=== PATIENT | male | born 1935 | race Caucasian/White ===

== ENCOUNTER 2020-03-21 15:39 | Inpatient (IN) | payer BC, OTHER ==
--- NOTE | 2020-03-21 15:56 | PDOC ---
Rapid Medical Evaluation Medical Evaluation: Allergies Allergy/AdvReac Type Severity Reaction Status Date / Time No Known Drug Allergies Allergy Verified 09/07/12 12:31 03/21/20 15:50 The patient is a 84 y/o M with PMH of lymphoma, HTN presents to the ER for low back pain/abdominal pain since February. He was seen by Dr. Merritt who did an MRI in the office and showed degenerative disc disease; however, the patient is reporting increased pain, abdominal pain and tremors. Exam:TTP of the Left lower back, gait not observed, fine tremor noticed in the hands b/l. Orders: labs, urine, IV Pt to proceed to the ER for further evaluation Discharge Disposition - Diagnosis Low back pain - Referrals - Patient Instructions - Post Discharge Activity
[2020-03-21 16:31] LABS: BASO % 0.5 % (0-2.0); EOS % 0.1 % (0-4.5); HEMATOCRIT 23.8 % (35.4-49); HEMOGLOBIN 7.5 GM/dL (11.7-16.9); MCH 30.8 pg (25.7-33.7); MCHC 31.5 g/dl (32.0-35.9); MEAN CELL VOLUME 97.8 fl (80-96); MEAN PLT VOLUME 9.2 fl (7.5-11.1); NEUT % 70.4 % (42.8-82.8); PLATELET COUNT 179 K/MM3 (134-434); RBC 2.43 M/mm3 (4.00-5.60); RDW 19.5 % (11.9-15.9); WHITE BLOOD COUNT 6.7 K/mm3 (4.0-10.0)
--- NOTE | 2020-03-21 16:39 | PDOC ---
History of Present Illness - General Chief Complaint: Shortness of Breath Stated Complaint: BACK PAIN Time Seen by Provider: 03/21/20 15:57 History Source: Patient Exam Limitations: No Limitations - History of Present Illness Initial Comments: 03/21/20 16:38 84yM w PMHx lymphoma, HTN, HLD, obesity presenting w 2mo progressive worsening L lumbar paraspinal back pain radiating down L flank to L groin, increased urinary frequency (every 2hrs), and 2wk tari hand tremors. Was seen by Dr. Merritt who did an MRI in the office and showed degenerative disc disease. Pain progressivel y worsening despite meloxicam, tramadol, ibuprofen, tylenol. 2wk ago received epidural from Dr Robert hartley subsequent worsened pain and new onset of tari hand tremors. Denies fever, cough, n/v, chest pain, dysuria, bowel mvmt changes. Past History - Medical History Allergies/Adverse Reactions: Allergies Allergy/AdvReac Type Severity Reaction Status Date / Time No Known Drug Allergies Allergy Verified 03/21/20 16:08 Home Medications: Ambulatory Orders Aspirin [ASA -] 81 mg PO DAILY 09/07/12 Terazosin HCl [Hytrin -] 5 mg PO HS 09/07/12 Verapamil HCl ER [Calan Sr -] 240 mg PO DAILY 09/07/12 Cholecalciferol (Vitamin D3) [Vitamin D3] 500 unit PO DAILY 09/08/12 Simvastatin [Zocor -] 5 mg PO HS 09/08/12 Metoprolol Tartrate [Lopressor -] 25 mg PO HS 06/21/14 Cyclobenzaprine HCl [Flexeril -] 10 mg PO TID #15 tablet 02/16/20 Ibuprofen 400 mg PO TID #15 tablet 02/16/20 Ibuprofen [Motrin -] 600 mg PO DAILY 03/21/20 Meloxicam [Mobic] 15 mg PO DAILY 03/21/20 Tramadol HCl [Ultram] 50 mg PO DAILY 03/21/20 Anemia: Yes Asthma: No Cancer: Yes (PROSTATE S/P SEED IMPLANT 2001) Cardiac Disorders: No CVA: No COPD: No CHF: No Dementia: No Diabetes: No GI Disorders: No Disorders: No HTN: Yes Hypercholesterolemia: No Liver Disease: No Seizures: No Thyroid Disease: No - Surgical History Abdominal Surgery: No Appendectomy: No Cardiac Surgery: No Cholecystectomy: Yes Lung Surgery: No Neurologic Surgery: No Orthopedic Surgery: No - Psycho-Social/Smoking History Smoking History: Never smoked Have you smoked in the past 12 months: No If you are a former smoker, when did you quit?: 1949 - Substance Abuse Hx (Audit-C & DAST Scrn) How often the patient has a drink containing alcohol: Never Score: In Men: 4 or > Positive; In Women: 3 or > Positive: 0 Screen Result (Pos requires Nsg. Audit-10AR): Negative In the last yr the pt used illegal drug/Rx for NonMed reason: No Score: Yes response is considered Positive: 0 Screen Result (Positive result requires Nsg. DAST-10): Negative Review of Systems - Review of Systems Constitutional: No: Chills, Fever HEENTM: No: Eye Pain, Nose Congestion Respiratory: No: Cough, Shortness of Breath Cardiac (ROS): No: Chest Pain, Palpitations, Syncope ABD/GI: No: Abdominal Distended, Constipated, Diarrhea, Nausea, Vomiting : Yes: Flank Pain. No: Burning, Dysuria Musculoskeletal: Yes: Back Pain. No: Joint Pain Integumentary: No: Bruising, Flushing Neurological: No: Headache, Seizure Psychiatric: No: Anxiety, Depression Endocrine: No: Intolerance to Cold, Intolerance to Heat *Physical Exam - Vital Signs Last Vital Signs Temp Pulse Resp BP Pulse Ox 98.1 F 70 18 95/49 L 100 03/21/20 15:57 03/21/20 15:57 03/21/20 15:57 03/21/20 15:57 03/21/20 15:57 - Physical Exam General Appearance: Yes: Nourished, Appropriately Dressed, Moderate Distress HEENT: positive: EOMI, QUE, Normal Voice. negative: Scleral Icterus (R), Scleral Icterus (L) Neck: positive: Supple. negative: Tender, Rigid, Decreased range of motion (full ROM) Respiratory/Chest: positive: Lungs Clear, Normal Breath Sounds. negative: Chest Tender, Respiratory Distress, Crackles, Rales, Rhonchi, Stridor, Wheezing Cardiovascular: positive: Regular Rhythm, Regular Rate, S1, S2. negative: Ed todd, Murmur Gastrointestinal/Abdominal: positive: Normal Bowel Sounds, Tender (L flank, L groin), Soft, Hernia (umbilical). negative: Organomegaly Musculoskeletal: negative: CVA Tenderness (R), CVA Tenderness (L) Integumentary: positive: Normal Color, Warm Neurologic: positive: Fully Oriented, Alert, Normal Response, Motor Strength 5/5 (5/5 strenth, full ROM, intact sensation to touch BLE). negative: Sensory Deficit, Confused, Disoriented ED Treatment Course - LABORATORY CBC & Chemistry Diagram: 03/21/20 16:10 03/21/20 16:10 Medical Decision Making - Medical Decision Making 03/21/20 17:04 CT A/P - L irregular pelvic mesenteric soft tissue lesion [id number] suggestive of neoplasm, shrinking L renal cyst (14 to 10cm), 1.1cm L periaortic retroperitoneal lymph node, 1.4cm splenic focus EKG - NSR, HR 73, QTc 407, no ST changes CXR - clear lung palma, normal cardiac size --- 84yM w PMHx lymphoma, HTN, HLD, obesity presenting w 2mo progressive worsening L lumbar paraspinal back pain radiating down L flank to L groin, increased urinary frequency, 2wk tari hand tremors, labored breathing. 1. CT findings suspicious of neoplasm, L renal cyst, no kidney stone. 2. CHEMA 3. Anemia Hgb 7.5. GI bleed vs lymphoma. No active bleeding 4. hypotension 99/43. increased to 110/47 after fluids Low concern for UTI (neg) vs cauda equina (retained bowel/bladder fxn) vs disc herniation (neg straight leg raise) vs PNA (clear lungs). Given tylenol, lido patch, 2L NS Admit tele for neoplasm, CHEMA, intractable pain, anemia, hypotension Discharge - Discharge Information Problems reviewed: Yes Clinical Impression/Diagnosis: Neoplasm, CHEMA (acute kidney injury) Low back pain Qualifiers: Chronicity: acute Back pain laterality: left Sciatica presence: without sciatica Qualified Code(s): M54.5 - Low back pain Hypotension Qualifiers: Hypotension type: unspecified hypotension type Qualified Code(s): I95.9 - Hypotension, unspecified Condition: Stable - Follow up/Referral Referrals: Bar De La Rosa MD [Primary Care Provider] - - Patient Discharge Instructions - Post Discharge Activity
[2020-03-21 16:54] LABS: INR 1.13 (0.83-1.09); PROTHROMBIN TIME (PATIENT) 13.4 SEC (9.7-13.0)
--- NOTE | 2020-03-21 16:54 | PDOC ---
Attending Attestation - Resident Resident Name: Chris Grace - ED Attending Attestation I have performed the following: I have examined & evaluated the patient, The case was reviewed & discussed with the resident, I agree w/resident's findings & plan, Exceptions are as noted - HPI HPI: 03/21/20 18:27 84y M hx of nonhodgkins lymphoma, htn, hl, presents with L sided flank pain x 1 month but worsening over the past 2-3 days that is pressure like, radiates the L abdomen and groin that fluctates intermittently but no alleviating or exacerbating factors. Denies any fever/chills, vomiting, dysuria, urinary or bowel incontinence, diarrhea, cp, sob. does endorse some subjective nausea. Pt was referred to dr jamison,and was ordered a MRI 2 weeksa go.Pt with persietnt pain without any improvement with oral pain medications. - Physicial Exam PE: 03/21/20 18:30 abd exam: +l flank tenderness, +tender L sided abdominal mass, no rebound/guarding no rashes pulm exm clear to asculatation card: rrr, no mrg general no acute distress ext: no edema - Medical Decision Making 03/21/20 19:17 ct noted for large L sided abd mass suspecious for neoplasm. will admit for further mnagement and pain control Discharge - Discharge Information Problems reviewed: Yes Clinical Impression/Diagnosis: Neoplasm, CHEMA (acute kidney injury) Low back pain Qualifiers: Chronicity: acute Back pain laterality: left Sciatica presence: without sciatica Qualified Code(s): M54.5 - Low back pain Hypotension Qualifiers: Hypotension type: unspecified hypotension type Qualified Code(s): I95.9 - Hypotension, unspecified Condition: Stable - Follow up/Referral - Patient Discharge Instructions - Post Discharge Activity
[2020-03-21 17:02] LABS: ALBUMIN 2.7 g/dl (3.4-5.0); BILIRUBIN,TOTAL 0.6 mg/dL (0.2-1); BLOOD UREA NITROGEN 70.9 mg/dL (7-18); CALCIUM 8.9 mg/dL (8.5-10.1); POTASSIUM 5.3 mmol/L (3.5-5.1); TOT PROT 6.9 g/dl (6.4-8.2)
[2020-03-21] MEDS ORDERED: morphine CARPU-JECT 4 MG/1 ML DISP.SYRIN IVPUSH ONE (17:03)
[2020-03-21] MEDS ORDERED: SODIUM CHLORIDE 0.9% 500 ML INFUS.BAG IV ONE ×2 (17:09→19:52)
[2020-03-21] MEDS ORDERED: ACETAMINOPHEN 1000 MG/100 ML VIAL (NON FORMULARY) IVPB ONE (17:10)
[2020-03-21 18:03] LABS: ANISOCYTOSIS 1+; MACROCYTOSIS 1+
[2020-03-21 18:07] LABS: URINE APPEARANCE CLEAR; URINE BILIRUBIN NEGATIVE (NEGATIVE); URINE COLOR YELLOW; URINE GLUCOSE (UA) NEGATIVE (NEGATIVE); URINE KETONE NEGATIVE (NEGATIVE); URINE LEUK ESTERASE NEGATIVE (NEGATIVE); URINE NITRITE NEGATIVE (NEGATIVE); URINE PROTEIN NEGATIVE (NEGATIVE)
[2020-03-21] MEDS ORDERED: LIDOCAINE 5% TOPICAL PATCH TP ONE (18:51)
[2020-03-21] MEDS ORDERED: LIDOCAINE 5% TOPICAL PATCH ONE (19:08)
--- NOTE | 2020-03-21 21:39 | PN ---
Teaching Attending Note Name of Resident: Radhika Brock ATTENDING PHYSICIAN STATEMENT I saw and evaluated the patient. I reviewed the resident's note and discussed the case with the resident. I agree with the resident's findings and plan as documented. SUBJECTIVE: 84 years M with HX of Non Hodgkin's lymphoma, Prostate cancer HTN, HLD pres ented with left lumbar pain with radiation to left sided back pain along with CVA and groin which radiates to left lower abdomen. He states that he as left sided back pain for 2 months but yesterday gotten worse. NO chest pain, shortness of breath, nausea, vomiting, fever No bowel or bladder incontinence, NO LE weakness He was found to have hypotension 99/43. increased to 110/47 after fluids OBJECTIVE: Last Vital Signs Temp Pulse Resp BP Pulse Ox 98.5 F 83 19 119/56 L 99 03/21/20 18:32 03/21/20 22:38 03/21/20 22:38 03/21/20 22:38 03/21/20 22:38 general : Obese , in mild distress due to left sided back pain Head : NC, AT Neck : supple EYES; QUE, EOMI dry oral mucosa CVS: RRR, s1, s2+, no JVD, no murmur Resp : b /l clear , no added sounds Abd : soft, left sided lumbar para spinal tenderness, L CVA tenderness left lower qadrant mass palpated - TTP on palpation Neuro : A&o x3, no focal deficit EXT : No edema Skin : no rash, warm and dry labs, imaging studies, EKG reviewed ASSESSMENT AND PLAN: Left para spinal back pain likely muscular strain Left abd mass on CT scan -suspicious of neoplasm with hx of Non hodgkins ly mphoma CHEMA on CKD- likley dehydration LActic acidosis possible from hypotensive episode hypotension ? Medication induced and poor oral intake Normocytic anemia - likely anemia of chronic disease mils hyperkalemia Admit to floor IV hydration Oncology eval Analgesia UA, urine lytes repeat BMP in AM hold antihypertensives Physical therapy obtain MRI L spine report which was done recently HLD- resume home meds DVt ppx
--- NOTE | 2020-03-21 21:58 | HP ---
CHIEF COMPLAINT: left back pain PCP: Estrella HISTORY OF PRESENT ILLNESS: Pt is an 84 y/o male with HTN, HLD, non-Hodgkin's lymphoma (5-10 years ago currently in remission), prostate cancer (brachytherapy 13 years ago in remission), who presents with left lumbar pain. Pt moved a piece of furniture in September and thinks this may have been the original cause of the pain. He was previously active and walked regularly. In the last 2 months the pain has increased. It is left parapinal radiating into the groin which is 10/10. He has tried muscle relaxers, NSAIDs, and Tylenol with essentially no improvement. An MRI was done out patient which showed DDD. He has since received [address] Jones, the second of which he says has made the pain worse. He denies any difficulty ambulating. No numbness, tingling, or foot drop. Pt is also having left flank and abdominal pain that began around 2 weeks ago. He has intermittent nausea and dry heaving that he associates with pain. He denies fever and chills. Pt reports whole body shaking post-voiding in the last 2 weeks and has felt like passing out but has not. He reports no loss of appetite or decreased PO intake. Pt has seen Dr. Nina in the past for oncology. ER course was notable for: (1) 1500mL IV fluids, Ofirmev, morphine (2) Hb 7.5 (3) K 5.3, BUN 70.9, Cr 2.0, LA 2.3 (4) CT- irregular nonspecific 10x9x8 cm left pelvic mesenteric soft tissue lesion suggestive of neoplastic disease, possibly lymphadenopathy; 1.1 cm left periaortic retroperitoneal lymph node at the level of the kidneys (5) EKG- HR 73, NSR,normal axis, normal intervals, no acute ST changes, QTc 407 PAST MEDICAL HISTORY: HTN, HLD, non-Hodgkin's lymphoma (5-10 years ago currently in remission), prostate cancer (beads 13 years ago in remission) PAST SURGICAL HISTORY: cholecystectomy prostatic brachytherapy Social History: Smoking: denies Alcohol: denies Drugs: denies Lives at home with who is currently on 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 Allergies No Known Drug Allergies Allergy (Verified 03/21/20 16:08) HOME MEDICATIONS: Home Medications Medication Instructions Recorded Aspirin [ASA -] 81 mg PO DAILY 09/07/12 Terazosin HCl [Hytrin -] 5 mg PO HS 09/07/12 Verapamil HCl ER [Calan Sr -] 240 mg PO DAILY 09/07/12 Cholecalciferol (Vitamin D3) 500 unit PO DAILY 09/08/12 [Vitamin D3] Simvastatin [Zocor -] 5 mg PO HS 09/08/12 Atenolol [Tenormin -] 25 mg PO DAILY 03/22/20 REVIEW OF SYSTEMS see HPI PHYSICAL EXAMINATION Vital Signs - 24 hr 03/21/20 03/21/20 03/21/20 15:57 18:32 20:03 Temperature 98.1 F 98.5 F Pulse Rate 70 Pulse Rate [ 79 Apical] Respiratory 18 19 Rate Blood Pressure 95/49 L Blood Pressure 99/43 L 110/47 L [Right Arm] O2 Sat by Pulse 100 100 Oximetry (%) GENERAL: Awake, alert, and fully oriented, in mild distress. HEAD: Normal with no signs of trauma. EYES: Pupils equal, round and reactive to light, extraocular movements intact, conjunctiva clear. EARS, NOSE, THROAT: Ears normal, nares patent, moist mucous membranes. NECK: Normal range of motion. LUNGS: Clear to auscultation bilaterally. No wheezes, and no crackles. HEART: Regular rate and rhythm, normal S1 and S2 without murmur. ABDOMEN: Soft, not distended, normoactive bowel sounds, left flank and abdominal pain with palpation, especially LLQ MUSCULOSKELETAL: Paraspinal and lateral lumbar tenderness to palpation with hypertonicity at approximately L1-L3 region. UPPER EXTREMITIES: Warm, well-perfused. No peripheral edema. LOWER EXTREMITIES: Warm, well-perfused. No peripheral edema. Strength grossly intact. NEUROLOGICAL: Cranial nerves II-XII intact. Normal speech. Gait not observed. PSYCHIATRIC: Cooperative. Good eye contact. Appropriate mood and affect. SKIN: Warm, dry, normal turgor. Laboratory Results - last 24 hr 03/21/20 03/21/20 03/21/20 16:10 16:10 16:10 WBC 6.7 RBC 2.43 L Hgb 7.5 L Hct 23.8 L D MCV 97.8 H MCH 30.8 MCHC 31.5 L RDW 19.5 H Plt Count 179 D MPV 9.2 D Absolute Neuts (auto) 4.7 Total Counted 100 Neutrophils % 70.4 Neutrophils % (Manual) 70.0 Lymphocytes % 11.0 Lymphocytes % (Manual) 15.0 Monocytes % 18.0 H Monocytes % (Manual) 15 H Eosinophils % 0.1 Basophils % 0.5 Nucleated RBC % 0 Anisocytosis 1+ Microcytosis 1+ Macrocytosis 1+ PT with INR 13.40 H INR 1.13 H Sodium 138 Potassium 5.3 H Chloride 109 H Carbon Dioxide 19 L Anion Gap 10 BUN 70.9 H Creatinine 2.0 H Est GFR (CKD-EPI)AfAm 34.50 Est GFR (CKD-EPI)NonAf 29.76 Random Glucose 97 Lactic Acid Calcium 8.9 Total Bilirubin 0.6 AST 15 ALT 21 Alkaline Phosphatase 62 Creatine Kinase 27 Troponin I 0.03 Total Protein 6.9 Albumin 2.7 L Lipase 214 Urine Color Urine Appearance Urine pH Ur Specific [place] Urine Protein Urine Glucose (UA) Urine Ketones Urine Blood Urine Nitrite Urine Bilirubin Urine Urobilinogen Ur Leukocyte Esterase 03/21/20 03/21/20 03/21/20 16:10 17:20 20:45 WBC RBC Hgb Hct MCV MCH MCHC RDW Plt Count MPV Absolute Neuts (auto) Total Counted Neutrophils % Neutrophils % (Manual) Lymphocytes % Lymphocytes % (Manual) Monocytes % Monocytes % (Manual) Eosinophils % Basophils % Nucleated RBC % Anisocytosis Microcytosis Macrocytosis PT with INR INR Sodium Potassium Chloride Carbon Dioxide Anion Gap BUN Creatinine Est GFR (CKD-EPI)AfAm Est GFR (CKD-EPI)NonAf Random Glucose Lactic Acid 2.3 H* 1.2 Calcium Total Bilirubin AST ALT Alkaline Phosphatase Creatine Kinase Troponin I Total Protein Albumin Lipase Urine Color Yellow Urine Appearance Clear Urine pH 5.0 Ur Specific [place] 1.025 Urine Protein Negative Urine Glucose (UA) Negative Urine Ketones Negative Urine Blood Negative Urine Nitrite Negative Urine Bilirubin Negative Urine Urobilinogen 1.0 Ur Leukocyte Esterase Negative ASSESSMENT/PLAN: Pt is an 84 y/o male with HTN, HLD, non-Hodgkin's lymphoma (5-10 years ago c urrently in remission), prostate cancer (beads 13 years ago in remission), who presents with left lumbar pain since September and has gotten acutely worse over the last 2 months. He also reports left side and abdominal pain. #abdominal pain 2/2 possible neoplasm -CT- irregular nonspecific 10x9x8 cm left pelvic mesenteric soft tissue lesion suggestive of neoplastic disease, possibly lymphadenopathy; 1.1 cm left periaortic retroperitoneal lymph node at the level of the kidneys -morphine 2mg Q4H PRN -oncology consult #chronic left lumbar strain from previous accident -morphine 2mg Q4H PRN -pt did not tolerate muscle relaxers previously per pt, would not describe exactly what happened -PT -obtain MRI records from out pt #CHEMA vs CHEMA on CKD -Cr 2.0 -NS 83mL/hr -if Cr still elevated, consider nephrology consult #hyperkalemia, mild -5.3 -recheck labs after IV hydration -no cardiac arrhythmia on EKG, will hold giving Lokelma #hypotension 2/2 low fluid volume vs medication-induced -improved with IV fluids -hold BP meds for now #HTN -hold meds for hypotension #HLD -on simvastatin at home, give what is in formulary -ASA 81mg daily DVT Ppx heparin 5,000 TID FEN NS 83mL/hr monitor Cr, K sodium-controlled diet dispo med/surg FULL CODE Visit type - Emergency Visit Emergency Visit: Yes ED Registration Date: 03/21/20 Care time: The patient presented to the Emergency Department on the above date and was hospitalized for further evaluation of their emergent condition. - New Patient This patient is new to me today: Yes Date on this admission: 03/22/20 - Critical Care Critical Care patient: No ATTENDING PHYSICIAN STATEMENT I saw and evaluated the patient. I reviewed the resident's note and discussed the case with the resident. I agree with the resident's findings and plan as documented. SUBJECTIVE: OBJECTIVE: ASSESSMENT AND PLAN:
[2020-03-21] MEDS: LIDOCAINE PATCH REMOVAL MC SCH (22:10)
[2020-03-21] MEDS: SODIUM CHLORIDE 1,000 ML IV SCH (22:55)
[2020-03-21] MEDS ORDERED: MORPHINE SULFATE 2 MG/ML VIAL ONE (23:50)
[2020-03-21] MEDS ORDERED: morphine CARPU-JECT 2 MG/1 ML DISP.SYRIN SQ ONE (23:56)
[2020-03-22] MEDS ORDERED: TERAZOSIN HCL 5 MG CAPSULE PO SCH (00:32)
[2020-03-22] MEDS: HEPARIN NA (PORCINE) 5,000 UNITS/ML 1ML VIAL SQ SCH ×2 (06:41→14:48)
[2020-03-22] MEDS ORDERED: PT OWN MED DRAWER 7, Y5N ONE (09:26)
[2020-03-22] MEDS: CHOLECALCIFEROL (VIT D3) 1,000 UNIT (25 MCG) TABLET PO SCH (09:58)
[2020-03-22] MEDS: ACETAMINOPHEN 500 MG TABLET (FP) PO PRN ×2 (09:59→20:19)
[2020-03-22] MEDS: ASPIRIN 81 MG CHEWABLE TABLETS PO SCH (09:59)
[2020-03-22] MEDS ORDERED: CHOLECALCIFEROL PO SCH (10:00)
[2020-03-22] MEDS ORDERED: VERAPAMIL HCL 240 MG E.R. TABLET PO SCH (10:00)
--- NOTE | 2020-03-22 10:25 | CON.HO ---
Consult Consult Specialty:: Oncology Reason for Consultation:: L sided flank pain x 1 month but worsening over the past 2-3 days that is pressure like, radiates the L abdomen and groin that fluctates intermittently but no alleviating or exacerbating factors. C/o SOB. Pt was referred to dr jamison,and was ordered a MRI 2 weeksa go. Pt with persisten pain without improvement with oral pain medications. ER CT of abdomen showed a new compared with 06/14/13, 10 x 9.8 x 8 cam left pelvic mesenteric mass/ lympadenopathy and an unchanged 1.4cm splenic lesion unchanfged from 06/14/13. Portabel upright chest xray negative. - History of Present Illness Chief Complaint: Came in for back pain - History Source History Provided By: Patient, Medical Record Limitations to Obtaining History: Other - Alcohol/Substance Use Hx Alcohol Use: Yes (SOCIAL) - Smoking History Smoking history: Former smoker Have you smoked in the past 12 months: No If you are a former smoker, when did you quit?: 1950 Home Medications - Allergies Allergies/Adverse Reactions: Allergies Allergy/AdvReac Type Severity Reaction Status Date / Time No Known Drug Allergies Allergy Verified 03/21/20 16:08 - Home Medications Home Medications: Ambulatory Orders Aspirin [ASA -] 81 mg PO DAILY 09/07/12 Terazosin HCl [Hytrin -] 5 mg PO HS 09/07/12 Verapamil HCl ER [Calan Sr -] 240 mg PO DAILY 09/07/12 Cholecalciferol (Vitamin D3) [Vitamin D3] 500 unit PO DAILY 09/08/12 Simvastatin [Zocor -] 5 mg PO HS 09/08/12 Atenolol [Tenormin -] 25 mg PO DAILY 03/22/20 Review of Systems - Review of Systems Constitutional: reports: Loss of Appetite, Weakness Physical Exam Vital Signs: Vital Signs Temperature 98.8 F 03/22/20 08:37 Pulse Rate 100 H 03/22/20 08:37 Respiratory Rate 16 03/22/20 08:37 Blood Pressure 100/48 L 03/22/20 08:37 O2 Sat by Pulse Oximetry (%) 100 03/22/20 03:00 Labs: CBC, BMP 03/21/20 16:10 03/21/20 16:10 Imaging - Results Chest X-ray: Report Reviewed Cat Scan: Report Reviewed Assessment/Plan 1. Meswenteric mass - Very suspicious for recurrence of lymphoma. I saw Mr. Jordan in the hallway on the way to ECHO and did not discuss this possibility with him. I will return to do so. Prostate cancer also possible. Recommend doing CT of chest and then consider biopsy. If the CT of chest does not identify an easier accessible area, may need IR. WIll discuss with Dr. Nina who had seen the patient in the past. LFT's not elevated. 2. Anemia - Hb 7.5.
--- NOTE | 2020-03-22 10:32 | PN ---
Physical Exam: SUBJECTIVE: Patient seen and examined at bedside. Endorses left side flank pain. No acute events. OBJECTIVE: Vital Signs Period Temp Pulse Resp BP Sys/Tillman Pulse Ox Last 24 Hr 97.5 F-98.8 F 70-100 16-20 95-119/43-56 99-100 GENERAL: NAD. Pleasant HEAD: Normal with no signs of trauma. EYES: EOMI Sclera Clear ENT: MMM NECK: Lipoma left side lower neck LUNGS: Clear Bilaterally HEART: 2/6 PEGGY, RRR ABDOMEN: Umbillical Hernia, Nondistended and Nontender EXTREMITIES: No CCE PSYCH: Normal mood, normal affect. SKIN: Warm, dry, normal turgor, no rashes or lesions noted Laboratory Results - last 24 hr 03/21/20 03/21/20 03/21/20 16:10 16:10 16:10 WBC 6.7 RBC 2.43 L Hgb 7.5 L Hct 23.8 L D MCV 97.8 H MCH 30.8 MCHC 31.5 L RDW 19.5 H Plt Count 179 D MPV 9.2 D Absolute Neuts (auto) 4.7 Total Counted 100 Neutrophils % 70.4 Neutrophils % (Manual) 70.0 Lymphocytes % 11.0 Lymphocytes % (Manual) 15.0 Monocytes % 18.0 H Monocytes % (Manual) 15 H Eosinophils % 0.1 Basophils % 0.5 Nucleated RBC % 0 Anisocytosis 1+ Microcytosis 1+ Macrocytosis 1+ PT with INR 13.40 H INR 1.13 H Sodium 138 Potassium 5.3 H Chloride 109 H Carbon Dioxide 19 L Anion Gap 10 BUN 70.9 H Creatinine 2.0 H Est GFR (CKD-EPI)AfAm 34.50 Est GFR (CKD-EPI)NonAf 29.76 Random Glucose 97 Lactic Acid Calcium 8.9 Total Bilirubin 0.6 AST 15 ALT 21 Alkaline Phosphatase 62 Creatine Kinase 27 Troponin I 0.03 Total Protein 6.9 Albumin 2.7 L Lipase 214 Urine Color Urine Appearance Urine pH Ur Specific [place] Urine Protein Urine Glucose (UA) Urine Ketones Urine Blood Urine Nitrite Urine Bilirubin Urine Urobilinogen Ur Leukocyte Esterase 03/21/20 03/21/20 03/21/20 16:10 17:20 20:45 WBC RBC Hgb Hct MCV MCH MCHC RDW Plt Count MPV Absolute Neuts (auto) Total Counted Neutrophils % Neutrophils % (Manual) Lymphocytes % Lymphocytes % (Manual) Monocytes % Monocytes % (Manual) Eosinophils % Basophils % Nucleated RBC % Anisocytosis Microcytosis Macrocytosis PT with INR INR Sodium Potassium Chloride Carbon Dioxide Anion Gap BUN Creatinine Est GFR (CKD-EPI)AfAm Est GFR (CKD-EPI)NonAf Random Glucose Lactic Acid 2.3 H* 1.2 Calcium Total Bilirubin AST ALT Alkaline Phosphatase Creatine Kinase Troponin I Total Protein Albumin Lipase Urine Color Yellow Urine Appearance Clear Urine pH 5.0 Ur Specific [place] 1.025 Urine Protein Negative Urine Glucose (UA) Negative Urine Ketones Negative Urine Blood Negative Urine Nitrite Negative Urine Bilirubin Negative Urine Urobilinogen 1.0 Ur Leukocyte Esterase Negative Active Medications Generic Name Dose Route Start Last Admin Trade Name Freq PRN Reason Stop Dose Admin Acetaminophen 1,000 mg 03/22/20 09:31 03/22/20 09:59 Tylenol - PO 1,000 mg Q6H PRN Administration PAIN LEVEL 1-5 Aspirin 81 mg 03/22/20 10:00 03/22/20 09:59 Asa - PO 81 mg DAILY [facility] Administration Atenolol 25 mg 03/22/20 10:00 Tenormin - PO DAILY [facility] Atorvastatin Calcium 5 mg 03/22/20 22:00 Lipitor - PO HS [facility] Cholecalciferol 500 unit 03/22/20 10:00 03/22/20 09:58 Vitamin D3 - PO 500 unit DAILY [facility] Administration Heparin Sodium (Porcine) 5,000 unit 03/22/20 06:00 03/22/20 06:41 Heparin - SQ Not Given TID [facility] Sodium Chloride 1,000 mls @ 83 mls/hr 03/21/20 22:00 03/21/20 22:55 Normal Saline - IV 83 mls/hr ASDIR [facility] Administration Miscellaneous 1 each 03/21/20 22:00 03/21/20 22:10 Lidoderm Patch Removal MC Not Given DAILY@2200 [facility] Morphine Sulfate 2 mg 03/21/20 21:47 Morphine Sulfate IVPUSH Q4H PRN PAIN LEVEL 6-10 Terazosin HCl 5 mg 03/22/20 22:00 Hytrin - PO HS [facility] Verapamil HCl 240 mg 03/22/20 10:00 Calan Sr - PO DAILY [facility] ASSESSMENT/PLAN: Pt is an 84 y/o male with HTN, HLD, non-Hodgkin's lymphoma (5-10 years ago currently in remission), prostate cancer (beads 13 years ago in remission), who presents with left lumbar pain since September and has gotten acutely worse over the last 2 months. He also reports left side and abdominal pain. #abdominal pain 2/2 possible neoplasm (Previous h/o Prostate and Non-Hodgkin's Lymphoma) -CT- irregular nonspecific 10x9x8 cm left pelvic mesenteric soft tissue lesion suggestive of neoplastic disease, possibly lymphadenopathy; 1.1 cm left periaortic retroperitoneal lymph node at the level of the kidneys -morphine 2mg Q4H PRN/Acetaminophen [id number] PRN -oncology consult Dr Blackburn on board------> Very suspicious for recurrence for lymphoma. Recommend doing CT of chest and then consider biopsy. If the CT of chest does not identify an easier accessible area, may need IR. #chronic left lumbar strain from previous accident -morphine 2mg Q4H PRN -PT -obtain MRI records from out pt #CHEMA vs CHEMA on CKD -Cr 2.0 on admission. Repeat 1.5 with fluids. Continue -NS 83mL/hr -Renal on board. Appreciate recs. #HTN -hold meds for hypotension #HLD -on simvastatin at home, give what is in formulary -ASA 81mg daily DVT Ppx Will hold as Hemoglobin is now 6.9. FEN NS 83mL/hr monitor Cr, K sodium-controlled diet dispo med/surg FULL CODE Visit type - Emergency Visit Emergency Visit: Yes ED Registration Date: 03/21/20 Care time: The patient presented to the Emergency Department on the above date and was hospitalized for further evaluation of their emergent condition. - New Patient This patient is new to me today: No - Critical Care Critical Care patient: No - Discharge Referral Referred to [facility] No ATTENDING PHYSICIAN STATEMENT I saw and evaluated the patient. I reviewed the resident's note and discussed the case with the resident. I agree with the resident's findings and plan as documented. SUBJECTIVE: OBJECTIVE: ASSESSMENT AND PLAN:
--- NOTE | 2020-03-22 12:27 | ECHO ---
Name: SONDRA MERAZ Exam:Adult Echocardiogram Study Date: 03/22/2020 10:44 AM Age: 84 yrs Reason For Study: aortic stenosis calcification MMode/2D Measurements & Calculations IVSd: 1.3 cm Ao root diam: 2.7 cm LVIDd: 4.5 cm LA dimension: 4.7 cm LVIDs: 3.2 cm LVPWd: 1.3 cm LVPWs: 1.9 cm EDV(Teich): 94.7 ml ESV(Teich): 40.5 ml LVOT diam: 2.0 cm LAV (MOD-bp): 75.0 ml RV S Shine: 13.3 cm/sec Doppler Measurements & Calculations MV E max shine: 58.2 cm/sec Ao V2 max: 352.7 cm/sec MV A max shine: 97.2 cm/sec Ao max P.4 mmHg MV E/A: 0.60 Ao V2 mean: 275.5 cm/sec MV dec time: 0.17 sec Ao mean P.9 mmHg Ao V2 VTI: 77.9 cm MONIE(I,D): 0.90 cm2 MONIE(V,D): 1.2 cm2 LV V1 max P.7 mmHg SV(LVOT): 69.9 ml LV V1 mean P.0 mmHg LV V1 max: 138.5 cm/sec LV V1 mean: 95.7 cm/sec LV V1 VTI: 22.6 cm PA V2 max: 162.9 cm/sec Med Peak E' Shine: 4.9 cm/sec PA max P.6 mmHg Med E/e': 11.8 Lat Peak E' Shine: 6.7 cm/sec Lat E/e': 8.7 Procedure A complete two-dimensional transthoracic echocardiogram was performed (2D, M-mode, Doppler and color flow Doppler). Left Ventricle There is mild concentric left ventricular hypertrophy. The left ventricular ejection fraction is norm al. Ejection Fraction = 55%. Grade I diastolic dysfunction, (abnormal relaxation pattern). Right Ventricle The right ventricle is normal in size and function. Atria The left atrium is moderately dilated. Right atrial size is normal. Mitral Valve There is moderate mitral annular calcification. There is no mitral valve stenosis. There is no mitral regurgitation noted. Tricuspid Valve The tricuspid valve is normal in structure and function. There was insufficient TR detected to calcul ate RV systolic pressure. Aortic Valve There is severe aortic sclerosis.;. Severe valvular aortic stenosis. The calculated aortic valve area using the continuity equation is 0.9 cm2. Aortic mean pressure gradient= 36mmHg. Pulmonic Valve The pulmonic valve is not well visualized. Great Vessels The aortic root is normal size. Pericardium/Pleura There is no pericardial effusion. Interpretation Summary There is mild concentric left ventricular hypertrophy. The left ventricular ejection fraction is normal. The right ventricle is normal in size and function. Severe valvular aortic stenosis. Jorge Syed 03/22/2020 12:26 PM
[2020-03-22 12:31] LABS: BASO % 0.2 % (0-2.0); EOS % 0.2 % (0-4.5); HEMATOCRIT 21.7 % (35.4-49); LYMPH % 10.8 % (8-40); MCH 30.1 pg (25.7-33.7); MCHC 31.7 g/dl (32.0-35.9); MEAN PLT VOLUME 8.9 fl (7.5-11.1); MONO % 19.6 % (3.8-10.2); NEUT % 69.2 % (42.8-82.8); PLATELET COUNT 172 K/MM3 (134-434); RBC 2.28 M/mm3 (4.00-5.60); RDW 19.3 % (11.9-15.9); WHITE BLOOD COUNT 6.1 K/mm3 (4.0-10.0)
[2020-03-22 12:36] LABS: HEMOGLOBIN 6.9 GM/dL (11.7-16.9)
--- NOTE | 2020-03-22 12:43 | EKG ---
Test Reason : Blood Pressure : / mmHG Vent. Rate : 073 BPM Atrial Rate : 073 BPM P-R Int : 152 ms QRS Dur : 072 ms QT Int : 370 ms P-R-T Axes : 055 005 055 degrees QTc Int : 407 ms POOR DATA QUALITY, INTERPRETATION MAY BE ADVERSELY AFFECTED NORMAL SINUS RHYTHM CANNOT RULE OUT ANTERIOR INFARCT , AGE UNDETERMINED ABNORMAL ECG WHEN COMPARED WITH ECG OF 29-MAR-2002 11:29, MINIMAL CRITERIA FOR ANTERIOR INFARCT ARE NOW PRESENT CRITERIA FOR INFERIOR INFARCT ARE NO LONGER PRESENT Confirmed by MD YAZMIN, MELLY ([id number]) on 03/22/2020 12:43:21 PM Referred By: Confirmed By:MELLY ARCE MD
--- NOTE | 2020-03-22 12:45 | CONSULT ---
Consult Consult Specialty:: Nephrology Reason for Consultation:: CHEMA - History of Present Illness Chief Complaint: left lumbar back pain History of Present Illness: Pt is an 84 year old male with pmhx of htn, hld, non hodgkins lymphoma, prostate cancer who presents with back pain. He says pain began in september after moving furniture. 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 He denies recent use of nsaids. He denies shortness of breath. He denies dysuria or hematuria. He does complain of left flank pain. - History Source History Provided By: Patient - Past Medical History Cardio/Vascular: Yes: HTN, Hyperlipdemia Heme/Onc: Yes: Other (lymphoma) - Alcohol/Substance Use Hx Alcohol Use: Yes (SOCIAL) - Smoking History Smoking history: Former smoker Have you smoked in the past 12 months: No If you are a former smoker, when did you quit?: 1950 Home Medications - Allergies Allergies/Adverse Reactions: Allergies Allergy/AdvReac Type Severity Reaction Status Date / Time No Known Drug Allergies Allergy Verified 03/21/20 16:08 - Home Medications Home Medications: Ambulatory Orders Aspirin [ASA -] 81 mg PO DAILY 09/07/12 Terazosin HCl [Hytrin -] 5 mg PO HS 09/07/12 Verapamil HCl ER [Calan Sr -] 240 mg PO DAILY 09/07/12 Cholecalciferol (Vitamin D3) [Vitamin D3] 500 unit PO DAILY 09/08/12 Simvastatin [Zocor -] 5 mg PO HS 09/08/12 Atenolol [Tenormin -] 25 mg PO DAILY 03/22/20 Review of Systems - Review of Systems Constitutional: reports: Malaise Eyes: reports: No Symptoms HENT: reports: No Symptoms Neck: reports: No Symptoms Cardiovascular: reports: No Symptoms Respiratory: reports: No Symptoms Gastrointestinal: reports: No Symptoms Genitourinary: reports: No Symptoms Musculoskeletal: reports: No Symptoms Neurological: reports: No Symptoms Endocrine: reports: No Symptoms Physical Exam Vital Signs: Vital Signs Temperature 98.8 F 03/22/20 08:37 Pulse Rate 100 H 03/22/20 08:37 Respiratory Rate 16 03/22/20 08:37 Blood Pressure 100/48 L 03/22/20 08:37 O2 Sat by Pulse Oximetry (%) 100 03/22/20 03:00 Constitutional: Yes: Calm Eyes: Yes: Conjunctiva Clear HENT: Yes: Atraumatic Cardiovascular: Yes: S1, S2 Respiratory: Yes: CTA Bilaterally Gastrointestinal: Yes: Soft, Abdomen, Obese Renal/: Yes: WNL Musculoskeletal: Yes: WNL Edema: No Neurological: Yes: Oriented Psychiatric: Yes: Oriented Labs: CBC, BMP 03/22/20 11:25 Imaging - Results Cat Scan: Report Reviewed Problem List - Problems (1) CHEMA (acute kidney injury) Code(s): N17.9 - ACUTE KIDNEY FAILURE, UNSPECIFIED (2) Hypotension Code(s): I95.9 - HYPOTENSION, UNSPECIFIED Qualifiers: Hypotension type: unspecified hypotension type Qualified Code(s): I95.9 - Hypotension, unspecified (3) Low back pain Code(s): M54.5 - LOW BACK PAIN Qualifiers: Chronicity: acute Back pain laterality: left Sciatica presence: without s ciatica Qualified Code(s): M54.5 - Low back pain Assessment/Plan Current Medications Generic Name Dose Route Start Last Admin Trade Name Freq PRN Reason Stop Dose Admin Acetaminophen 1,000 mg 03/22/20 09:31 03/22/20 09:59 Tylenol - PO 1,000 mg Q6H PRN Administration PAIN LEVEL 1-5 Aspirin 81 mg 03/22/20 10:00 03/22/20 09:59 Asa - PO 81 mg DAILY [facility] Administration Atenolol 25 mg 03/22/20 10:00 Tenormin - PO DAILY [facility] Atorvastatin Calcium 5 mg 03/22/20 22:00 Lipitor - PO HS [facility] Cholecalciferol 500 unit 03/22/20 10:00 03/22/20 09:58 Vitamin D3 - PO 500 unit DAILY [facility] Administration Heparin Sodium (Porcine) 5,000 unit 03/22/20 06:00 03/22/20 06:41 Heparin - SQ Not Given TID [facility] Sodium Chloride 1,000 mls @ 83 mls/hr 03/21/20 22:00 03/21/20 22:55 Normal Saline - IV 83 mls/hr ASDIR [facility] Administration Miscellaneous 1 each 03/21/20 22:00 03/21/20 22:10 Lidoderm Patch Removal MC Not Given DAILY@2200 [facility] Morphine Sulfate 2 mg 03/21/20 21:47 Morphine Sulfate IVPUSH Q4H PRN PAIN LEVEL 6-10 Terazosin HCl 5 mg 03/22/20 22:00 Hytrin - PO HS [facility] Verapamil HCl 240 mg 03/22/20 10:00 Calan Sr - PO DAILY [facility] Impression 1. CHEMA 2. lymphoma 3. hypotension 4. anemia 5. prostate cancer 6. hyperkalemia Plan - renal function improving - cont fluids - hold bp meds as he is hypotension - check renal ultrasound - potassium improved - chema in part pre-renal with hypotension contributing
[2020-03-22 13:08] LABS: ALBUMIN 2.4 g/dl (3.4-5.0); BILIRUBIN,TOTAL 0.6 mg/dL (0.2-1); BLOOD UREA NITROGEN 50.1 mg/dL (7-18); CALCIUM 8.4 mg/dL (8.5-10.1); CREATININE 1.5 mg/dL (0.55-1.3); MAGNESIUM 2.4 mg/dL (1.8-2.4); PHOSPHOROUS 3.9 mg/dL (2.5-4.9); POTASSIUM 5.1 mmol/L (3.5-5.1)
[2020-03-22 14:14] LABS: ANISOCYTOSIS 1+; MACROCYTOSIS 0; PLATELET ESTIMATE NORMAL
--- NOTE | 2020-03-22 17:48 | PN ---
Teaching Attending Note Name of Resident: Tyson Pearson ATTENDING PHYSICIAN STATEMENT I saw and evaluated the patient. I reviewed the resident's note and discussed the case with the resident. I agree with the resident's findings and plan as documented. SUBJECTIVE: c/o left sided abdominal pain. OBJECTIVE: Vital Signs Temperature 98.5 F 03/22/20 14:00 Pulse Rate 90 03/22/20 14:00 Respiratory Rate 20 03/22/20 14:00 Blood Pressure 100/54 L 03/22/20 14:00 O2 Sat by Pulse Oximetry (%) 100 03/22/20 03:00 PE: per resident's note + umbilical hernia + LLQ mass soft. abdomen is soft CBCD WBC 6.1 K/mm3 (4.0-10.0) 03/22/20 11:25 RBC 2.28 M/mm3 (4.00-5.60) L 03/22/20 11:25 Hgb 6.9 GM/dL (11.7-16.9) L* 03/22/20 11:25 Hct 21.7 % (35.4-49) L 03/22/20 11:25 MCV 95.0 fl (80-96) 03/22/20 11:25 MCHC 31.7 g/dl (32.0-35.9) L 03/22/20 11:25 RDW 19.3 % (11.9-15.9) H 03/22/20 11:25 Plt Count 172 K/MM3 (134-434) 03/22/20 11:25 MPV 8.9 fl (7.5-11.1) 03/22/20 11:25 CMP Sodium 141 mmol/L (136-145) 03/22/20 11:25 Potassium 5.1 mmol/L (3.5-5.1) 03/22/20 11:25 Chloride 113 mmol/L (98-107) H 03/22/20 11:25 Carbon Dioxide 22 mmol/L (21-32) 03/22/20 11:25 Anion Gap 7 MMOL/L (8-16) L 03/22/20 11:25 BUN 50.1 mg/dL (7-18) H 03/22/20 11:25 Creatinine 1.5 mg/dL (0.55-1.3) H 03/22/20 11:25 Random Glucose 101 mg/dL (74-106) 03/22/20 11:25 Calcium 8.4 mg/dL (8.5-10.1) L 03/22/20 11:25 Total Bilirubin 0.6 mg/dL (0.2-1) 03/22/20 11:25 AST 12 U/L (15-37) L 03/22/20 11:25 ALT 17 U/L (13-61) 03/22/20 11:25 Alkaline Phosphatase 56 U/L (45-117) 03/22/20 11:25 Total Protein 6.0 g/dl (6.4-8.2) L 03/22/20 11:25 Albumin 2.4 g/dl (3.4-5.0) L 03/22/20 11:25 CARDIAC ENZYMES Creatine Kinase 27 U/L (26-308) 03/21/20 16:10 Troponin I 0.03 ng/ml (0.00-0.05) 03/21/20 16:10 Current Medications Generic Name Dose Route Start Last Admin Trade Name Freq PRN Reason Stop Dose Admin Acetaminophen 1,000 mg 03/22/20 09:31 03/22/20 09:59 Tylenol - PO 1,000 mg Q6H PRN Administration PAIN LEVEL 1-5 Aspirin 81 mg 03/22/20 10:00 03/22/20 09:59 Asa - PO 81 mg DAILY [facility] Administration Atenolol 25 mg 03/22/20 10:00 Tenormin - PO DAILY [facility] Atorvastatin Calcium 5 mg 03/22/20 22:00 Lipitor - PO HS [facility] Cholecalciferol 500 unit 03/22/20 10:00 03/22/20 09:58 Vitamin D3 - PO 500 unit DAILY [facility] Administration Sodium Chloride 1,000 mls @ 83 mls/hr 03/21/20 22:00 03/21/20 22:55 Normal Saline - IV 83 mls/hr ASDIR [facility] Administration Miscellaneous 1 each 03/21/20 22:00 03/21/20 22:10 Lidoderm Patch Removal MC Not Given DAILY@2200 [facility] Morphine Sulfate 2 mg 03/21/20 21:47 Morphine Sulfate IVPUSH Q4H PRN PAIN LEVEL 6-10 Terazosin HCl 5 mg 03/22/20 22:00 Hytrin - PO HS [facility] Verapamil HCl 240 mg 03/22/20 10:00 Calan Sr - PO DAILY [facility] Home Medications Medication Instructions Recorded Aspirin [ASA -] 81 mg PO DAILY 09/07/12 Terazosin HCl [Hytrin -] 5 mg PO HS 09/07/12 Verapamil HCl ER [Calan Sr -] 240 mg PO DAILY 09/07/12 Cholecalciferol (Vitamin D3) 500 unit PO DAILY 09/08/12 [Vitamin D3] Simvastatin [Zocor -] 5 mg PO HS 09/08/12 Atenolol [Tenormin -] 25 mg PO DAILY 03/22/20 CT abdomen and pelvis: irregular nonspecific [id number] left mesentric soft tissue lesion is suggestive of neoplastic disease. ASSESSMENT AND PLAN: This patient is an 84yom with PMHx of HTN, HLD, non-Hodgkin's lymphoma (5-10 years ago currently in remission), prostate cancer (beads 13 years ago in remission), who presents with left lumbar pain since September and has gotten acutely worse over the last 2 months. Admitted for having left sided abdominal pain. #Acute abdominal pain possible due to neoplasm: as reported on CT (above); oncology for consult, pain meds, morphine continue # Anemia : anemia w/u, iron, FA, b12, type and screen for one unit and transfuse #chronic left lumbar strain with pain continue pain medsfrom previous accident obtain MRI records from out pt #CHEMA over CKD with cr of 2.0 on IVF continue #HTN: continue home meds #HLD: on zocor continue DVT Ppx: will hold off on AC since hgb is 6.9
[2020-03-22] MEDS: LIDOCAINE PATCH REMOVAL MC SCH (21:35)
[2020-03-22] MEDS: ATORVASTATIN CA 10 MG TABLET (FP) PO SCH (21:36)
[2020-03-22] MEDS ORDERED: PATIENT'S OWN MEDICATION (NON-FORMULARY) (Simvastatin 5 MG) PO SCH (22:00)
[2020-03-22] MEDS: MORPHINE SULFATE 2 MG/ML VIAL IVPUSH PRN (23:09)
[2020-03-23] MEDS: SODIUM CHLORIDE 1,000 ML IV SCH ×3 (01:00→22:37)
[2020-03-23] MEDS ORDERED: PT OWN MED DRAWER 7, Y5N ONE ×2 (01:18→22:20)
[2020-03-23] MEDS: TERAZOSIN HCL 5 MG CAPSULE PO SCH ×2 (01:45→22:23)
[2020-03-23 06:55] LABS: HEMOGLOBIN 8.3 GM/dL (11.7-16.9); MCH 30.8 pg (25.7-33.7); MCHC 33.1 g/dl (32.0-35.9); MEAN CELL VOLUME 93.2 fl (80-96); MEAN PLT VOLUME 8.6 fl (7.5-11.1); PLATELET COUNT 149 K/MM3 (134-434); RBC 2.69 M/mm3 (4.00-5.60); RDW 18.2 % (11.9-15.9); WHITE BLOOD COUNT 5.6 K/mm3 (4.0-10.0)
[2020-03-23 07:26] LABS: BLOOD UREA NITROGEN 37.9 mg/dL (7-18); CALCIUM 8.3 mg/dL (8.5-10.1); CREATININE 1.2 mg/dL (0.55-1.3); MAGNESIUM 2.1 mg/dL (1.8-2.4); PHOSPHOROUS 3.6 mg/dL (2.5-4.9); POTASSIUM 4.7 mmol/L (3.5-5.1)
[2020-03-23] MEDS: MORPHINE SULFATE 2 MG/ML VIAL IVPUSH PRN (08:41)
[2020-03-23] MEDS: LIDOCAINE 5% TOPICAL PATCH TP PRN (09:28)
[2020-03-23] MEDS: CHOLECALCIFEROL (VIT D3) 1,000 UNIT (25 MCG) TABLET PO SCH (09:28)
[2020-03-23] MEDS: ASPIRIN 81 MG CHEWABLE TABLETS PO SCH (09:28)
--- NOTE | 2020-03-23 10:48 | PN ---
Teaching Attending Note Name of Resident: Tyson Pearson ATTENDING PHYSICIAN STATEMENT I saw and evaluated the patient. I reviewed the resident's note and discussed the case with the resident. I agree with the resident's findings and plan as documented. SUBJECTIVE: Patient contines to have pain, the swelling on his LLQ area has been there for 2 months gradually increased in size and pain. OBJECTIVE: Vital Signs Temperature 97.7 F 03/23/20 09:15 Pulse Rate 99 H 03/23/20 09:15 Respiratory Rate 19 03/23/20 09:15 Blood Pressure 96/57 L 03/23/20 09:15 O2 Sat by Pulse Oximetry (%) 100 03/23/20 09:00 PE: per resident's note CBCD WBC 5.6 K/mm3 (4.0-10.0) 03/23/20 06:30 RBC 2.69 M/mm3 (4.00-5.60) L 03/23/20 06:30 Hgb 8.3 GM/dL (11.7-16.9) L 03/23/20 06:30 Hct 25.0 % (35.4-49) L D 03/23/20 06:30 MCV 93.2 fl (80-96) 03/23/20 06:30 MCHC 33.1 g/dl (32.0-35.9) 03/23/20 06:30 RDW 18.2 % (11.9-15.9) H 03/23/20 06:30 Plt Count 149 K/MM3 (134-434) 03/23/20 06:30 MPV 8.6 fl (7.5-11.1) 03/23/20 06:30 CMP Sodium 141 mmol/L (136-145) 03/23/20 06:30 Potassium 4.7 mmol/L (3.5-5.1) 03/23/20 06:30 Chloride 114 mmol/L (98-107) H 03/23/20 06:30 Carbon Dioxide 19 mmol/L (21-32) L 03/23/20 06:30 Anion Gap 8 MMOL/L (8-16) 03/23/20 06:30 BUN 37.9 mg/dL (7-18) H 03/23/20 06:30 Creatinine 1.2 mg/dL (0.55-1.3) 03/23/20 06:30 Random Glucose 94 mg/dL (74-106) 03/23/20 06:30 Calcium 8.3 mg/dL (8.5-10.1) L 03/23/20 06:30 Total Bilirubin 0.6 mg/dL (0.2-1) 03/22/20 11:25 AST 12 U/L (15-37) L 03/22/20 11:25 ALT 17 U/L (13-61) 03/22/20 11:25 Alkaline Phosphatase 56 U/L (45-117) 03/22/20 11:25 Total Protein 6.0 g/dl (6.4-8.2) L 03/22/20 11:25 Albumin 2.4 g/dl (3.4-5.0) L 03/22/20 11:25 CARDIAC ENZYMES Creatine Kinase 27 U/L (26-308) 03/21/20 16:10 Troponin I 0.03 ng/ml (0.00-0.05) 03/21/20 16:10 Current Medications Generic Name Dose Route Start Last Admin Trade Name Freq PRN Reason Stop Dose Admin Acetaminophen 1,000 mg 03/22/20 09:31 03/22/20 20:19 Tylenol - PO 1,000 mg Q6H PRN Administration PAIN LEVEL 1-5 Aspirin 81 mg 03/22/20 10:00 03/23/20 09:28 Asa - PO 81 mg DAILY [facility] Administration Atenolol 25 mg 03/22/20 10:00 Tenormin - PO DAILY [facility] Atorvastatin Calcium 5 mg 03/22/20 22:00 03/22/20 21:36 Lipitor - PO 5 mg HS [facility] Administration Cholecalciferol 500 unit 03/22/20 10:00 03/23/20 09:28 Vitamin D3 - PO 500 unit DAILY [facility] Administration Sodium Chloride 1,000 mls @ 83 mls/hr 03/21/20 22:00 03/23/20 01:00 Normal Saline - IV 83 mls/hr ASDIR [facility] Administration Lidocaine 1 patch 03/23/20 09:07 03/23/20 09:28 Lidoderm Patch - TP 1 patch DAILY PRN Administration PAIN LEVEL 1-5 Miscellaneous 1 each 03/21/20 22:00 03/22/20 21:35 Lidoderm Patch Removal MC 1 each DAILY@2200 [facility] Administration Miscellaneous 1 each 03/23/20 22:00 Lidoderm Patch Removal MC DAILY@2200 [facility] Morphine Sulfate 2 mg 03/21/20 21:47 03/23/20 08:41 Morphine Sulfate IVPUSH 2 mg Q4H PRN Administration PAIN LEVEL 6-10 Terazosin HCl 5 mg 03/22/20 22:00 03/23/20 01:45 Hytrin - PO 5 mg HS [facility] Administration Verapamil HCl 240 mg 03/22/20 10:00 Calan Sr - PO DAILY [facility] Home Medications Medication Instructions Recorded Aspirin [ASA -] 81 mg PO DAILY 09/07/12 Terazosin HCl [Hytrin -] 5 mg PO HS 09/07/12 Verapamil HCl ER [Calan Sr -] 240 mg PO DAILY 09/07/12 Cholecalciferol (Vitamin D3) 500 unit PO DAILY 09/08/12 [Vitamin D3] Simvastatin [Zocor -] 5 mg PO HS 09/08/12 Atenolol [Tenormin -] 25 mg PO DAILY 03/22/20 CT abdomen and pelvis: irregular nonspecific [id number] left mesentric soft tissue lesion is suggestive of neoplastic disease. ASSESSMENT AND PLAN: This patient is an 84yom with PMHx of HTN, HLD, non-Hodgkin's lymphoma (5-10 years ago currently in remission), prostate cancer (beads 13 years ago in remission), who presents with left lumbar pain since September and has gotten acutely worse over the last 2 months. Admitted for having left sided abdominal pain. #Acute abdominal pain possible due to neoplasm: as reported on CT (above); oncology for consult, pain meds, morphine continue , also IR bx in am. will dc aspirin and ac is on hold # Anemia : anemia w/u, iron, FA, b12, s/p one unit of blood transfusion. hemoglobin is 6.9---> 8.3 today #chronic left lumbar strain with pain continue pain meds from previous accident, will try to obtain MRI records from out pt #CHEMA over CKD with cr of 2.0 on IVF continue #HTN: continue home meds #HLD: on zocor continue DVT Ppx: will hold off on AC since hgb is 6.9
--- NOTE | 2020-03-23 11:32 | PN ---
Progress Note (short form) - Note Progress Note: I obtained and reviewed Dr. Frazier' notes from 2014. Mr. Jordan had a monoclonal IgM kappa protein spike and an IgA of 3393 on , Lambda was 22.0 and an elevated kappa of 61.2. Immunodiffusion detected IgM [place] in the urine. Today his calcium is 8.3, Hb went up to 8.2, but iron saturation is 13, suggesting iron deficiency. 1.Monoclonal proteins in the past, maybe related to lymphoma or multiple myeloma - repeat quantitative igG, Immunodiffusion and 24 urine for quantitative globulins. If still elevated, MRI of spine, because he also has back pain. 2. Start iron sulfate tid. Check retic count in 4 weeks, FOBT and consult GI for possible GI workup. 3. Consult Dr. Gupta for biopsy of the mesenteric mass. It may be a recurrence of lymphoma and may or may not be related to the monoclonal proten.
--- NOTE | 2020-03-23 13:16 | PN ---
Progress Note, Physician History of Present Illness: Pt seen and examined at bedside. He is awake and alert. He denies shortness of breath. - Current Medication List Current Medications: Active Medications Acetaminophen (Tylenol -) 1,000 mg PO Q6H PRN PRN Reason: PAIN LEVEL 1-5 Last Admin: 03/22/20 20:19 Dose: 1,000 mg Documented by: Ascorbic Acid (Vitamin C -) 500 mg PO BID [facility] Aspirin (Asa -) 81 mg PO DAILY [facility] Last Admin: 03/23/20 09:28 Dose: 81 mg Documented by: Atenolol (Tenormin -) 25 mg PO DAILY [facility] Atorvastatin Calcium (Lipitor -) 5 mg PO HS [facility] Last Admin: 03/22/20 21:36 Dose: 5 mg Documented by: Cholecalciferol (Vitamin D3 -) 500 unit PO DAILY [facility] Last Admin: 03/23/20 09:28 Dose: 500 unit Documented by: Docusate Sodium (Colace -) 100 mg PO TID [facility] Ferrous Sulfate (Feosol -) 325 mg PO TIDCM [facility] Sodium Chloride (Normal Saline -) 1,000 mls @ 83 mls/hr IV ASDIR [facility] Last Admin: 03/23/20 12:35 Dose: 83 mls/hr Documented by: Lidocaine (Lidoderm Patch -) 1 patch TP DAILY PRN PRN Reason: PAIN LEVEL 1-5 Last Admin: 03/23/20 09:28 Dose: 1 patch Documented by: Miscellaneous (Lidoderm Patch Removal) 1 each MC DAILY@2200 [facility] Last Admin: 03/22/20 21:35 Dose: 1 each Documented by: Miscellaneous (Lidoderm Patch Removal) 1 each MC DAILY@2200 [facility] Morphine Sulfate (Morphine Sulfate) 2 mg IVPUSH Q4H PRN PRN Reason: PAIN LEVEL 6-10 Last Admin: 03/23/20 08:41 Dose: 2 mg Documented by: Terazosin HCl (Hytrin -) 5 mg PO [facility] Last Admin: 03/23/20 01:45 Dose: 5 mg Documented by: Verapamil HCl (Calan Sr -) 240 mg PO DAILY [facility] - Objective Vital Signs: Vital Signs Temperature 97.7 F 03/23/20 09:15 Pulse Rate 99 H 03/23/20 09:15 Respiratory Rate 19 03/23/20 09:15 Blood Pressure 96/57 L 03/23/20 09:15 O2 Sat by Pulse Oximetry (%) 100 03/23/20 09:00 Constitutional: Yes: Calm Eyes: Yes: Conjunctiva Clear HENT: Yes: Atraumatic Neck: Yes: Supple Cardiovascular: Yes: S1, S2 Respiratory: Yes: CTA Bilaterally Gastrointestinal: Yes: Normal Bowel Sounds, Soft Genitourinary: Yes: WNL Musculoskeletal: Yes: WNL Edema: No Neurological: Yes: Oriented Psychiatric: Yes: Oriented Labs: CBC, BMP 03/23/20 06:30 03/23/20 06:30 INR, PTT INR 1.13 (0.83-1.09) H 03/21/20 16:10 Problem List - Problems (1) CHEMA (acute kidney injury) Code(s): N17.9 - ACUTE KIDNEY FAILURE, UNSPECIFIED (2) Hypotension Code(s): I95.9 - HYPOTENSION, UNSPECIFIED Qualifiers: Hypotension type: unspecified hypotension type Qualified Code(s): I95.9 - Hypotension, unspecified (3) Low back pain Code(s): M54.5 - LOW BACK PAIN Qualifiers: Chronicity: acute Back pain laterality: left Sciatica presence: without sciatica Qualified Code(s): M54.5 - Low back pain Assessment/Plan Current Medications Generic Name Dose Route Start Last Admin Trade Name Freq PRN Reason Stop Dose Admin Acetaminophen 1,000 mg 03/22/20 09:31 03/22/20 20:19 Tylenol - PO 1,000 mg Q6H PRN Administration PAIN LEVEL 1-5 Ascorbic Acid 500 mg 03/23/20 22:00 Vitamin C - PO BID [facility] Aspirin 81 mg 03/22/20 10:00 03/23/20 09:28 Asa - PO 81 mg DAILY [facility] Administration Atenolol 25 mg 03/22/20 10:00 Tenormin - PO DAILY [facility] Atorvastatin Calcium 5 mg 03/22/20 22:00 03/22/20 21:36 Lipitor - PO 5 mg HS [facility] Administration Cholecalciferol 500 unit 03/22/20 10:00 03/23/20 09:28 Vitamin D3 - PO 500 unit DAILY [facility] Administration Docusate Sodium 100 mg 03/23/20 14:00 Colace - PO TID [facility] Ferrous Sulfate 325 mg 03/23/20 17:30 Feosol - PO TIDCM [facility] Sodium Chloride 1,000 mls @ 83 mls/hr 03/21/20 22:00 03/23/20 12:35 Normal Saline - IV 83 mls/hr ASDIR [facility] Administration Lidocaine 1 patch 03/23/20 09:07 03/23/20 09:28 Lidoderm Patch - TP 1 patch DAILY PRN Administration PAIN LEVEL 1-5 Miscellaneous 1 each 03/21/20 22:00 03/22/20 21:35 Lidoderm Patch Removal MC 1 each DAILY@2200 [facility] Administration Miscellaneous 1 each 03/23/20 22:00 Lidoderm Patch Removal MC DAILY@2200 [facility] Morphine Sulfate 2 mg 03/21/20 21:47 03/23/20 08:41 Morphine Sulfate IVPUSH 2 mg Q4H PRN Administration PAIN LEVEL 6-10 Terazosin HCl 5 mg 03/22/20 22:00 03/23/20 01:45 Hytrin - PO 5 mg HS [facility] Administration Verapamil HCl 240 mg 03/22/20 10:00 Calan Sr - PO DAILY [facility] Impression 1. CHEMA 2. lymphoma 3. hypotension 4. anemia 5. prostate cancer 6. hyperkalemia 7. hx of gammopathy Plan - hold bp meds - change fluids to 1/2 ns - oncology input appreciated - renal function improving - monitor hg - possible biopsy of mass - chema in part pre-renal with hypotension contributing
[2020-03-23] MEDS: DOCUSATE SODIUM 100 MG CAPSULE (FP) PO SCH ×2 (14:23→22:25)
--- NOTE | 2020-03-23 14:30 | PN ---
Physical Exam: SUBJECTIVE: Patient seen and examined at bedside. Endorsing left sided lower back pain. OBJECTIVE: Vital Signs Period Temp Pulse Resp BP Sys/Tillman Pulse Ox Last 24 Hr 97.7 F-99.0 F 76-99 18-20 96-129/57-75 100-100 GENERAL: No acute distress HEAD: Normal with no signs of trauma. EYES: EOMI Sclera Clear ENT: MMM NECK: Lipoma left side lower neck LUNGS: CTAB HEART: 2/6 PEGGY, RRR ABDOMEN: Umbillical Hernia, NDNT EXTREMITIES: No CCE PSYCH: Normal mood, normal affect. Laboratory Results - last 24 hr 03/21/20 03/22/20 03/22/20 17:20 16:50 17:00 WBC RBC Hgb Hct MCV MCH MCHC RDW Plt Count MPV Sodium Potassium Chloride Carbon Dioxide Anion Gap BUN Creatinine Est GFR (CKD-EPI)AfAm Est GFR (CKD-EPI)NonAf Random Glucose Calcium Phosphorus Magnesium Iron TIBC Iron Saturation Unsaturated IBC Vitamin B12 Serum Folate COVID-19 (PRASHANTH) Not detected Blood Type O POSITIVE O POSITIVE Antibody Screen Negative Crossmatch See Detail 03/23/20 03/23/20 06:30 06:30 WBC 5.6 RBC 2.69 L Hgb 8.3 L Hct 25.0 L D MCV 93.2 MCH 30.8 MCHC 33.1 RDW 18.2 H Plt Count 149 MPV 8.6 Sodium 141 Potassium 4.7 Chloride 114 H Carbon Dioxide 19 L Anion Gap 8 BUN 37.9 H Creatinine 1.2 Est GFR (CKD-EPI)AfAm 63.97 Est GFR (CKD-EPI)NonAf 55.20 Random Glucose 94 Calcium 8.3 L Phosphorus 3.6 Magnesium 2.1 Iron 22 L TIBC 168 L Iron Saturation 13 L Unsaturated IBC 146 L Vitamin B12 364 Serum Folate 13 COVID-19 (PRASHANTH) Blood Type Antibody Screen Crossmatch Active Medications Generic Name Dose Route Start Last Admin Trade Name Freq PRN Reason Stop Dose Admin Acetaminophen 1,000 mg 03/22/20 09:31 03/22/20 20:19 Tylenol - PO 1,000 mg Q6H PRN Administration PAIN LEVEL 1-5 Ascorbic Acid 500 mg 03/23/20 22:00 Vitamin C - PO BID [facility] Aspirin 81 mg 03/22/20 10:00 03/23/20 09:28 Asa - PO 81 mg DAILY [facility] Administration Atenolol 25 mg 03/22/20 10:00 Tenormin - PO DAILY [facility] Atorvastatin Calcium 5 mg 03/22/20 22:00 03/22/20 21:36 Lipitor - PO 5 mg HS [facility] Administration Cholecalciferol 500 unit 03/22/20 10:00 03/23/20 09:28 Vitamin D3 - PO 500 unit DAILY [facility] Administration Docusate Sodium 100 mg 03/23/20 14:00 03/23/20 14:23 Colace - PO 100 mg TID [facility] Administration Ferrous Sulfate 325 mg 03/23/20 17:30 Feosol - PO TIDCM [facility] Sodium Chloride 1,000 mls @ 83 mls/hr 03/21/20 22:00 03/23/20 12:35 Normal Saline - IV 83 mls/hr ASDIR [facility] Administration Lidocaine 1 patch 03/23/20 09:07 03/23/20 09:28 Lidoderm Patch - TP 1 patch DAILY PRN Administration PAIN LEVEL 1-5 Miscellaneous 1 each 03/21/20 22:00 03/22/20 21:35 Lidoderm Patch Removal MC 1 each DAILY@2200 [facility] Administration Miscellaneous 1 each 03/23/20 22:00 Lidoderm Patch Removal MC DAILY@2200 [facility] Morphine Sulfate 2 mg 03/21/20 21:47 03/23/20 08:41 Morphine Sulfate IVPUSH 2 mg Q4H PRN Administration PAIN LEVEL 6-10 Terazosin HCl 5 mg 03/22/20 22:00 03/23/20 01:45 Hytrin - PO 5 mg HS [facility] Administration Verapamil HCl 240 mg 03/22/20 10:00 Calan Sr - PO DAILY [facility] ASSESSMENT/PLAN: Pt is an 84 y/o male with HTN, HLD, non-Hodgkin's lymphoma (5-10 years ago currently in remission), prostate cancer (beads 13 years ago in remission), who presents with left lumbar pain since September and has gotten acutely worse over the last 2 months. He also reports left side and abdominal pain. #abdominal pain 2/2 possible neoplasm (Previous h/o Prostate and Non-Hodgkin's Lymphoma) -CT- irregular nonspecific 10x9x8 cm left pelvic mesenteric soft tissue lesion suggestive of neoplastic disease, possibly lymphadenopathy; 1.1 cm left periaortic retroperitoneal lymph node at the level of the kidneys -morphine 2mg Q4H PRN/Acetaminophen [id number] PRN -oncology consult Dr Blackburn on board------> Very suspicious for recurrence for lymphoma. Recommend doing CT of chest and then consider biopsy. If the CT of chest does not identify an easier accessible area, may need IR. Repeat quantitative igG, Immunodiffusion and 24 urine for quantitative globulins. If still elevated, MRI of spine, because he also has back pain. -Spoke with IR today 03/23/2020. Will take patient for Needle biopsy of axillary lymph node. Will hold ASA tonight. #chronic left lumbar strain from previous accident -morphine 2mg Q4H PRN, Acetaminophen PRN, Lidocaine patch -PT -obtain MRI records from out pt #CHEMA vs CHEMA on CKD -Cr 2.0 on admission. Cr 1.2 today. -NS 83mL/hr -Renal on board. Appreciate recs. #HTN -hold meds for hypotension #HLD -on simvastatin at home, give what is in formulary -ASA 81mg daily DVT Ppx Will hold as Hemoglobin is now 8.3. FEN NS 83mL/hr monitor Cr, K sodium-controlled diet dispo med/surg FULL CODE Visit type - Emergency Visit Emergency Visit: Yes ED Registration Date: 03/21/20 Care time: The patient presented to the Emergency Department on the above date and was hospitalized for further evaluation of their emergent condition. - New Patient This patient is new to me today: No - Critical Care Critical Care patient: No - Discharge Referral Referred to [facility] Med P.C.: No ATTENDING PHYSICIAN STATEMENT I saw and evaluated the patient. I reviewed the resident's note and discussed the case with the resident. I agree with the resident's findings and plan as documented. SUBJECTIVE: OBJECTIVE: ASSESSMENT AND PLAN:
[2020-03-23] MEDS: FERROUS SO4 325 MG TABLET (FP) PO SCH (17:07)
[2020-03-23] MEDS: LIDOCAINE PATCH REMOVAL MC SCH ×2 (22:26→22:37)
[2020-03-23] MEDS: ATORVASTATIN CA 10 MG TABLET (FP) PO SCH (22:26)
[2020-03-23] MEDS: ASCORBIC ACID 500 MG TABLET (FP) PO SCH (22:31)
[2020-03-23] MEDS: ACETAMINOPHEN 500 MG TABLET (FP) PO PRN (22:31)
[2020-03-24] MEDS: SODIUM CHLORIDE 1,000 ML IV SCH (05:55)
[2020-03-24] MEDS: DOCUSATE SODIUM 100 MG CAPSULE (FP) PO SCH ×3 (05:56→21:04)
[2020-03-24 07:55] LABS: HEMATOCRIT 22.6 % (35.4-49); HEMOGLOBIN 7.4 GM/dL (11.7-16.9); MCH 30.2 pg (25.7-33.7); MCHC 32.9 g/dl (32.0-35.9); MEAN CELL VOLUME 91.9 fl (80-96); MEAN PLT VOLUME 8.9 fl (7.5-11.1); PLATELET COUNT 130 K/MM3 (134-434); RBC 2.46 M/mm3 (4.00-5.60); RDW 18.6 % (11.9-15.9); WHITE BLOOD COUNT 4.5 K/mm3 (4.0-10.0)
[2020-03-24 08:05] LABS: ALBUMIN 2.1 g/dl (3.4-5.0); BILIRUBIN,TOTAL 0.6 mg/dL (0.2-1); BLOOD UREA NITROGEN 32.7 mg/dL (7-18); CALCIUM 8.1 mg/dL (8.5-10.1); CREATININE 1.1 mg/dL (0.55-1.3); PHOSPHOROUS 3.6 mg/dL (2.5-4.9); POTASSIUM 4.6 mmol/L (3.5-5.1); TOT PROT 5.5 g/dl (6.4-8.2)
[2020-03-24] MEDS: FERROUS SO4 325 MG TABLET (FP) PO SCH ×3 (08:13→16:54)
[2020-03-24] MEDS ORDERED: PT OWN MED DRAWER 7, Y5N ONE ×2 (10:08→20:22)
[2020-03-24] MEDS: CHOLECALCIFEROL (VIT D3) 1,000 UNIT (25 MCG) TABLET PO SCH (10:12)
[2020-03-24] MEDS: ATENOLOL 25 MG TABLET (FP) PO SCH (10:13)
[2020-03-24] MEDS: ASCORBIC ACID 500 MG TABLET (FP) PO SCH ×2 (10:13→21:03)
--- NOTE | 2020-03-24 10:30 | PN ---
Teaching Attending Note Name of Resident: Dory Bishop ATTENDING PHYSICIAN STATEMENT I saw and evaluated the patient. I reviewed the resident's note and discussed the case with the resident. I agree with the resident's findings and plan as documented. SUBJECTIVE: Patient is going for IR guided Bx OBJECTIVE: Vital Signs Temperature 98.2 F 03/24/20 06:16 Pulse Rate 77 03/24/20 06:16 Respiratory Rate 20 03/24/20 09:00 Blood Pressure 119/53 L 03/24/20 06:16 O2 Sat by Pulse Oximetry (%) 100 03/24/20 09:00 PE: per resident's note CBCD WBC 4.5 K/mm3 (4.0-10.0) 03/24/20 06:00 RBC 2.46 M/mm3 (4.00-5.60) L 03/24/20 06:00 Hgb 7.4 GM/dL (11.7-16.9) L 03/24/20 06:00 Hct 22.6 % (35.4-49) L 03/24/20 06:00 MCV 91.9 fl (80-96) 03/24/20 06:00 MCHC 32.9 g/dl (32.0-35.9) 03/24/20 06:00 RDW 18.6 % (11.9-15.9) H 03/24/20 06:00 Plt Count 130 K/MM3 (134-434) L 03/24/20 06:00 MPV 8.9 fl (7.5-11.1) 03/24/20 06:00 CMP Sodium 142 mmol/L (136-145) 03/24/20 06:00 Potassium 4.6 mmol/L (3.5-5.1) 03/24/20 06:00 Chloride 114 mmol/L (98-107) H 03/24/20 06:00 Carbon Dioxide 18 mmol/L (21-32) L 03/24/20 06:00 Anion Gap 9 MMOL/L (8-16) 03/24/20 06:00 BUN 32.7 mg/dL (7-18) H 03/24/20 06:00 Creatinine 1.1 mg/dL (0.55-1.3) 03/24/20 06:00 Random Glucose 89 mg/dL (74-106) 03/24/20 06:00 Calcium 8.1 mg/dL (8.5-10.1) L 03/24/20 06:00 Total Bilirubin 0.6 mg/dL (0.2-1) 03/24/20 06:00 AST 13 U/L (15-37) L 03/24/20 06:00 ALT 15 U/L (13-61) 03/24/20 06:00 Alkaline Phosphatase 53 U/L (45-117) 03/24/20 06:00 Total Protein 5.5 g/dl (6.4-8.2) L 03/24/20 06:00 Albumin 2.1 g/dl (3.4-5.0) L 03/24/20 06:00 CARDIAC ENZYMES Creatine Kinase 27 U/L (26-308) 03/21/20 16:10 Troponin I 0.03 ng/ml (0.00-0.05) 03/21/20 16:10 Current Medications Generic Name Dose Route Start Last Admin Trade Name Damienq PRN Reason Stop Dose Admin Acetaminophen 1,000 mg 03/22/20 09:31 03/23/20 22:31 Tylenol - PO 1,000 mg Q6H PRN Administration PAIN LEVEL 1-5 Ascorbic Acid 500 mg 03/23/20 22:00 03/24/20 10:13 Vitamin C - PO 500 mg BID [facility] Administration Atenolol 25 mg 03/22/20 10:00 03/24/20 10:13 Tenormin - PO Not Given DAILY [facility] Atorvastatin Calcium 5 mg 03/22/20 22:00 03/23/20 22:26 Lipitor - PO 5 mg HS [facility] Administration Cholecalciferol 500 unit 03/22/20 10:00 03/24/20 10:12 Vitamin D3 - PO 500 unit DAILY [facility] Administration Docusate Sodium 100 mg 03/23/20 14:00 03/24/20 05:56 Colace - PO 100 mg TID [facility] Administration Ferrous Sulfate 325 mg 03/23/20 17:30 03/24/20 08:13 Feosol - PO 325 mg TIDCM [facility] Administration Sodium Chloride 1,000 mls @ 83 mls/hr 03/21/20 22:00 03/24/20 05:55 Normal Saline - IV 83 mls/hr ASDIR [facility] Administration Lidocaine 1 patch 03/23/20 09:07 03/23/20 09:28 Lidoderm Patch - TP 1 patch DAILY PRN Administration PAIN LEVEL 1-5 Miscellaneous 1 each 03/21/20 22:00 03/23/20 22:37 Lidoderm Patch Removal MC Not Given DAILY@2200 [facility] Miscellaneous 1 each 03/23/20 22:00 03/23/20 22:26 Lidoderm Patch Removal MC Not Given DAILY@2200 [facility] Morphine Sulfate 2 mg 03/21/20 21:47 03/23/20 08:41 Morphine Sulfate IVPUSH 2 mg Q4H PRN Administration PAIN LEVEL 6-10 Terazosin HCl 5 mg 03/22/20 22:00 03/23/20 22:23 Hytrin - PO 5 mg HS [facility] Administration Verapamil HCl 240 mg 03/22/20 10:00 03/24/20 10:13 Calan Sr - PO Not Given DAILY [facility] Home Medications Medication Instructions Recorded Aspirin [ASA -] 81 mg PO DAILY 09/07/12 Terazosin HCl [Hytrin -] 5 mg PO HS 09/07/12 Verapamil HCl ER [Calan Sr -] 240 mg PO DAILY 09/07/12 Cholecalciferol (Vitamin D3) 500 unit PO DAILY 09/08/12 [Vitamin D3] Simvastatin [Zocor -] 5 mg PO HS 09/08/12 Atenolol [Tenormin -] 25 mg PO DAILY 03/22/20 Microbiology 03/21/20 17:20 Urine - Urine Clean Catch Urine Culture - Final NO GROWTH OBTAINED CT abdomen and pelvis: irregular nonspecific [id number] left mesentric soft tissue lesion is suggestive of neoplastic disease. ASSESSMENT AND PLAN: This patient is an 84yom with PMHx of HTN, HLD, non-Hodgkin's lymphoma (5-10 years ago currently in remission), prostate cancer (beads 13 years ago in remission), who presents with left lumbar pain since September and has gotten acutely worse over the last 2 months. Admitted for having left sided abdominal pain. #Acute abdominal pain possible due to neoplasm: as reported on CT (above); oncology for consult, pain meds, morphine continue , s/p IR bx today. continue to aspirin and ac is on hold # Anemia : anemia w/u, iron, FA, b12, s/p one unit of blood transfusion. hemoglobin is 6.9---> 8.3-->7.4 today #chronic left lumbar strain with pain continue pain meds from previous accident, will try to obtain MRI records from out pt #CHEMA over CKD with cr of 2.0 on IVF continue #HTN: continue home meds #HLD: on zocor continue DVT Ppx: will hold off on AC since hgb is 6.9
[2020-03-24] MEDS: ACETAMINOPHEN 500 MG TABLET (FP) PO PRN (13:57)
--- NOTE | 2020-03-24 14:58 | PN ---
Progress Note, Physician History of Present Illness: Pt seen and examined at bedside. He is awake and alert. He denies shortness of breath. - Current Medication List Current Medications: Active Medications Acetaminophen (Tylenol -) 1,000 mg PO Q6H PRN PRN Reason: PAIN LEVEL 1-5 Last Admin: 03/24/20 13:57 Dose: 1,000 mg Documented by: Ascorbic Acid (Vitamin C -) 500 mg PO BID [facility] Last Admin: 03/24/20 10:13 Dose: 500 mg Documented by: Atenolol (Tenormin -) 25 mg PO DAILY [facility] Last Admin: 03/24/20 10:13 Dose: Not Given Documented by: Atorvastatin Calcium (Lipitor -) 5 mg PO [facility] Last Admin: 03/23/20 22:26 Dose: 5 mg Documented by: Cholecalciferol (Vitamin D3 -) 500 unit PO DAILY [facility] Last Admin: 03/24/20 10:12 Dose: 500 unit Documented by: Docusate Sodium (Colace -) 100 mg PO TID [facility] Last Admin: 03/24/20 13:53 Dose: 100 mg Documented by: Ferrous Sulfate (Feosol -) 325 mg PO TIDCM [facility] Last Admin: 03/24/20 11:40 Dose: 325 mg Documented by: Sodium Chloride (Normal Saline -) 1,000 mls @ 83 mls/hr IV ASDIR [facility] Last Admin: 03/24/20 05:55 Dose: 83 mls/hr Documented by: Lidocaine (Lidoderm Patch -) 1 patch TP DAILY PRN PRN Reason: PAIN LEVEL 1-5 Last Admin: 03/23/20 09:28 Dose: 1 patch Documented by: Miscellaneous (Lidoderm Patch Removal) 1 each MC DAILY@2200 [facility] Last Admin: 03/23/20 22:37 Dose: Not Given Documented by: Miscellaneous (Lidoderm Patch Removal) 1 each MC DAILY@2200 [facility] Last Admin: 03/23/20 22:26 Dose: Not Given Documented by: Morphine Sulfate (Morphine Sulfate) 2 mg IVPUSH Q4H PRN PRN Reason: PAIN LEVEL 6-10 Last Admin: 03/23/20 08:41 Dose: 2 mg Documented by: Terazosin HCl (Hytrin -) 5 mg PO [facility] Last Admin: 03/23/20 22:23 Dose: 5 mg Documented by: Verapamil HCl (Calan Sr -) 240 mg PO DAILY [facility] Last Admin: 03/24/20 10:13 Dose: Not Given Documented by: - Objective Vital Signs: Vital Signs Temperature 98.9 F 03/24/20 10:00 Pulse Rate 95 H 03/24/20 10:00 Respiratory Rate 18 03/24/20 10:00 Blood Pressure 97/56 L 03/24/20 10:00 O2 Sat by Pulse Oximetry (%) 100 03/24/20 09:00 Constitutional: Yes: Calm Eyes: Yes: Conjunctiva Clear HENT: Yes: Atraumatic Neck: Yes: Supple Cardiovascular: Yes: S1, S2 Respiratory: Yes: CTA Bilaterally Gastrointestinal: Yes: Soft Genitourinary: Yes: WNL Musculoskeletal: Yes: WNL Edema: No Neurological: Yes: Oriented Labs: CBC, BMP 03/24/20 06:00 03/24/20 06:00 INR, PTT INR 1.13 (0.83-1.09) H 03/21/20 16:10 Problem List - Problems (1) BRIDGETTE (acute kidney injury) Code(s): N17.9 - ACUTE KIDNEY FAILURE, UNSPECIFIED (2) Hypotension Code(s): I95.9 - HYPOTENSION, UNSPECIFIED Qualifiers: Hypotension type: unspecified hypotension type Qualified Code(s): I95.9 - Hypotension, unspecified (3) Low back pain Code(s): M54.5 - LOW BACK PAIN Qualifiers: Chronicity: acute Back pain laterality: left Sciatica presence: without sciatica Qualified Code(s): M54.5 - Low back pain Assessment/Plan Current Medications Generic Name Dose Route Start Last Admin Trade Name Nicholas PRN Reason Stop Dose Admin Acetaminophen 1,000 mg 03/22/20 09:31 03/24/20 13:57 Tylenol - PO 1,000 mg Q6H PRN Administration PAIN LEVEL 1-5 Ascorbic Acid 500 mg 03/23/20 22:00 03/24/20 10:13 Vitamin C - PO 500 mg BID [facility] Administration Atenolol 25 mg 03/22/20 10:00 03/24/20 10:13 Tenormin - PO Not Given DAILY [facility] Atorvastatin Calcium 5 mg 03/22/20 22:00 03/23/20 22:26 Lipitor - PO 5 mg HS [facility] Administration Cholecalciferol 500 unit 03/22/20 10:00 03/24/20 10:12 Vitamin D3 - PO 500 unit DAILY [facility] Administration Docusate Sodium 100 mg 03/23/20 14:00 03/24/20 13:53 Colace - PO 100 mg TID [facility] Administration Ferrous Sulfate 325 mg 03/23/20 17:30 03/24/20 11:40 Feosol - PO 325 mg TIDCM [facility] Administration Sodium Chloride 1,000 mls @ 83 mls/hr 03/21/20 22:00 03/24/20 05:55 Normal Saline - IV 83 mls/hr ASDIR [facility] Administration Lidocaine 1 patch 03/23/20 09:07 03/23/20 09:28 Lidoderm Patch - TP 1 patch DAILY PRN Administration PAIN LEVEL 1-5 Miscellaneous 1 each 03/21/20 22:00 03/23/20 22:37 Lidoderm Patch Removal MC Not Given DAILY@2200 [facility] Miscellaneous 1 each 03/23/20 22:00 03/23/20 22:26 Lidoderm Patch Removal MC Not Given DAILY@2200 [facility] Morphine Sulfate 2 mg 03/21/20 21:47 03/23/20 08:41 Morphine Sulfate IVPUSH 2 mg Q4H PRN Administration PAIN LEVEL 6-10 Terazosin HCl 5 mg 03/22/20 22:00 03/23/20 22:23 Hytrin - PO 5 mg HS [facility] Administration Verapamil HCl 240 mg 03/22/20 10:00 03/24/20 10:13 Calan Sr - PO Not Given DAILY [facility] Impression 1. BRIDGETTE 2. lymphoma 3. hypotension 4. anemia 5. prostate cancer 6. hyperkalemia 7. hx of gammopathy Plan - will change fluid to 1/2 ns and decrease rate - hold bp meds as his bp is low - renal function improving - monitor hg - possible biopsy of mass - bridgette in part pre-renal with hypotension contributing
[2020-03-24] MEDS ORDERED: SODIUM CHLORIDE 0.45% 1,000 ML IV SCH (15:00)
--- NOTE | 2020-03-24 16:55 | PN ---
Physical Exam: SUBJECTIVE: Patient seen and examined at bedside. No acute complaints overnight. Still has 5/10 point tenderness in the L lumbar region with some mild L groin pain as well. Otherwise, denies chest pain, sob, palpitations, abd pain, f/c, n/v. Tolerating PO well. OBJECTIVE: Vital Signs Period Temp Pulse Resp BP Sys/Tillman Pulse Ox Last 24 Hr 97.8 F-98.9 F 66-95 18-20 97-130/50-71 100-100 GENERAL: Pleasant, well-appearing elderly male. No acute distress. NAD. AAOx3. HEAD: Normal with no signs of trauma. EYES: EOMI Sclera Clear ENT: MMM NECK: Lipoma left side lower neck LUNGS: CTAB HEART: 2/6 PEGGY, RRR ABDOMEN: Umbillical Hernia, NDNT EXTREMITIES: No CCE PSYCH: Normal mood, normal affect. Laboratory Results - last 24 hr 03/24/20 03/24/20 06:00 06:00 WBC 4.5 RBC 2.46 L Hgb 7.4 L Hct 22.6 L MCV 91.9 MCH 30.2 MCHC 32.9 RDW 18.6 H Plt Count 130 L MPV 8.9 Sodium 142 Potassium 4.6 Chloride 114 H Carbon Dioxide 18 L Anion Gap 9 BUN 32.7 H Creatinine 1.1 Est GFR (CKD-EPI)AfAm 71.07 Est GFR (CKD-EPI)NonAf 61.32 Random Glucose 89 Calcium 8.1 L Phosphorus 3.6 Magnesium 2.0 Total Bilirubin 0.6 AST 13 L ALT 15 Alkaline Phosphatase 53 Total Protein 5.5 L Albumin 2.1 L Active Medications Generic Name Dose Route Start Last Admin Trade Name Freq PRN Reason Stop Dose Admin Acetaminophen 1,000 mg 03/22/20 09:31 03/24/20 13:57 Tylenol - PO 1,000 mg Q6H PRN Administration PAIN LEVEL 1-5 Ascorbic Acid 500 mg 03/23/20 22:00 03/24/20 10:13 Vitamin C - PO 500 mg BID GEORGINA Administration Atenolol 25 mg 03/22/20 10:00 03/24/20 10:13 Tenormin - PO Not Given DAILY GEORGINA Atorvastatin Calcium 5 mg 03/22/20 22:00 03/23/20 22:26 Lipitor - PO 5 mg HS GEORGINA Administration Cholecalciferol 500 unit 03/22/20 10:00 03/24/20 10:12 Vitamin D3 - PO 500 unit DAILY GE[facility]GINA Administration Docusate Sodium 100 mg 03/23/20 14:00 03/24/20 13:53 Colace - PO 100 mg TID GEORGINA Administration Ferrous Sulfate 325 mg 03/23/20 17:30 03/24/20 11:40 Feosol - PO 325 mg TIDCM GEORGINA Administration Sodium Chloride 1,000 mls @ 50 mls/hr 03/24/20 15:00 1/2 Normal Saline IV 03/25/20 14:58 ASDIR GEORGINA Lidocaine 1 patch 03/23/20 09:07 03/23/20 09:28 Lidoderm Patch - TP 1 patch DAILY PRN Administration PAIN LEVEL 1-5 Miscellaneous 1 each 03/21/20 22:00 03/23/20 22:37 Lidoderm Patch Removal MC Not Given DAILY@2200 [facility]A Miscellaneous 1 each 03/23/20 22:00 03/23/20 22:26 Lidoderm Patch Removal MC Not Given DAILY@2200 [facility] Morphine Sulfate 2 mg 03/21/20 21:47 03/23/20 08:41 Morphine Sulfate IVPUSH 2 mg Q4H PRN Administration PAIN LEVEL 6-10 Terazosin HCl 5 mg 03/22/20 22:00 03/23/20 22:23 Hytrin - PO 5 mg HS GEORGINA Administration ASSESSMENT/PLAN: 84M w/ pmhx of HTN, HLD, non-Hodgkin's lymphoma (5-10 years ago currently in remission), prostate cancer (13 years ago in remission), who presents with left lumbar pain since September and has gotten acutely worse over the last 2 months. He also reports left side and abdominal pain. #Abdominal Pain 2/2 possible neoplasm; previous h/o prostate and Non-Hodgkin's Lymphoma); S/p axillary LN biopsy by IR (03/24/20) -CTAP: Irregular nonspecific 10x9x8 cm left pelvic mesenteric soft tissue lesion suggestive of neoplastic disease, possibly lymphadenopathy; 1.1 cm left periaortic retroperitoneal lymph node at the level of the kidneys -Morphine 2mg Q4H PRN/Acetaminophen 1000 q6h PRN for pain -Per onc, very suspicious for recurrence for lymphoma. Now s/p axillary LN biopsy by IR; await path results. -Repeat quantitative IgG, immunodiffusion and 24 urine for quantitative globulins. If still elevated, MRI of spine, because he also has back pain. #Acute Anemia; s/p 1U pRBC. 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 Cr 1.1 today. -IVf -Renal on board. Appreciate recs. #HTN/HLD; Labile. Cont home meds: Atenolol 25, Lipitor 5, ASA 81 -Will hold Verapamil for now and restart once BP is more stable #Prophylaxis DVT: Will hold as Hgb is now 7.4; SCDs for now FEN -NS @ 83 -monitor Cr, K -sodium-controlled diet Dispo -monitor on tele FULL CODE Visit type - Emergency Visit Emergency Visit: Yes ED Registration Date: 03/21/20 Care time: The patient presented to the Emergency Department on the above date and was hospitalized for further evaluation of their emergent condition. - New Patient This patient is new to me today: Yes Date on this admission: 03/24/20 - Critical Care Critical Care patient: No ATTENDING PHYSICIAN STATEMENT I saw and evaluated the patient. I reviewed the resident's note and discussed the case with the resident. I agree with the resident's findings and plan as documented. SUBJECTIVE: OBJECTIVE: ASSESSMENT AND PLAN:
[2020-03-24] MEDS: ATORVASTATIN CA 10 MG TABLET (FP) PO SCH (21:04)
[2020-03-24] MEDS: TERAZOSIN HCL 5 MG CAPSULE PO SCH (21:04)
[2020-03-24] MEDS: MORPHINE SULFATE 2 MG/ML VIAL IVPUSH PRN (21:12)
[2020-03-24] MEDS: LIDOCAINE PATCH REMOVAL MC SCH ×2 (21:13)
[2020-03-25] MEDS: ACETAMINOPHEN 500 MG TABLET (FP) PO PRN ×2 (01:21→21:09)
[2020-03-25] MEDS: DOCUSATE SODIUM 100 MG CAPSULE (FP) PO SCH ×3 (06:04→21:09)
[2020-03-25 08:06] LABS: BASO % 0.5 % (0-2.0); EOS % 0.7 % (0-4.5); HEMATOCRIT 23.3 % (35.4-49); HEMOGLOBIN 7.5 GM/dL (11.7-16.9); LYMPH % 13.3 % (8-40); MCH 30.3 pg (25.7-33.7); MCHC 32.4 g/dl (32.0-35.9); MEAN CELL VOLUME 93.5 fl (80-96); MEAN PLT VOLUME 8.9 fl (7.5-11.1); MONO % 17.1 % (3.8-10.2); NEUT % 68.4 % (42.8-82.8); PLATELET COUNT 122 K/MM3 (134-434); RBC 2.49 M/mm3 (4.00-5.60); RDW 18.8 % (11.9-15.9)
[2020-03-25 08:09] LABS: IGA IMMUNOGLOBULIN 29 mg/dL (61-437); IGG QN IMMUNOGLOBULIN 539 mg/dL (603-1613); IGM QN SERUM 1787 mg/dL (15-143)
[2020-03-25 08:21] LABS: ALBUMIN 2.2 g/dl (3.4-5.0); BILIRUBIN,TOTAL 0.5 mg/dL (0.2-1); BLOOD UREA NITROGEN 29.9 mg/dL (7-18); CALCIUM 8.3 mg/dL (8.5-10.1); CREATININE 1.1 mg/dL (0.55-1.3); PHOSPHOROUS 3.6 mg/dL (2.5-4.9); POTASSIUM 4.4 mmol/L (3.5-5.1); TOT PROT 5.8 g/dl (6.4-8.2)
[2020-03-25] MEDS: CHOLECALCIFEROL (VIT D3) 1,000 UNIT (25 MCG) TABLET PO SCH (09:27)
[2020-03-25] MEDS: FERROUS SO4 325 MG TABLET (FP) PO SCH ×3 (09:28→17:23)
[2020-03-25] MEDS: ATENOLOL 25 MG TABLET (FP) PO SCH (09:28)
[2020-03-25] MEDS: ASCORBIC ACID 500 MG TABLET (FP) PO SCH ×2 (09:28→21:09)
[2020-03-25] MEDS: MORPHINE SULFATE 2 MG/ML VIAL IVPUSH PRN (09:28)
--- NOTE | 2020-03-25 10:03 | PN.HO ---
Progress Note (short form) - Note Progress Note: PAtient seen and examined Feels well. Denies any complaints AFVSS Cor: RSR, No murmurs, No gallops Lungs: Clear to P&A Abd: Soft, Normal bowel sounds, No organomegaly Ext:No significant edema Labs/MEds reviewed A/P L sided flank pain x 1 month but worsening over the past few days that is pressure like, radiates the L abdomen and groin that fluctates intermittently but no alleviating or exacerbating factors. Pt with persisten pain without improvement with oral pain medications. ER CT of abdomen showed a new compared with 06/14/13, 10 x 9.8 x 8 cam left pelvic mesenteric mass/ lympadenopathy, 1.1cm periaortic node and an unchanged 1.4cm splenic lesion unchanged from 06/14/13. s/p biopsy of rt. axillary node awaiting pathology check LDH/uric acid Lt. lower back paain due to mesenteric mass will check CT T/L spine/ left pelvis
--- NOTE | 2020-03-25 12:25 | PN ---
Physical Exam: SUBJECTIVE: Patient seen and examined at bedside. States he had an episode of chills overnight, but otherwise feels fine. Currently eating breakfast. Still complains of lower lumbar pain. Denies chest pain, sob, urinary/bowel symptoms. OBJECTIVE: Vital Signs Period Temp Pulse Resp BP Sys/Tillman Pulse Ox Last 24 Hr 98.3 F-101.0 F 78-109 18-20 102-130/52-66 99 GENERAL: Pleasant, well-appearing elderly male. No acute distress. NAD. AAOx3. HEAD: Normal with no signs of trauma. EYES: EOMI Sclera Clear ENT: MMM NECK: Lipoma left side lower neck LUNGS: CTAB HEART: 2/6 PEGGY, RRR ABDOMEN: Umbillical Hernia, NDNT EXTREMITIES: No CCE PSYCH: Normal mood, normal affect. CBCD WBC 5.0 K/mm3 (4.0-10.0) 03/25/20 06:25 RBC 2.49 M/mm3 (4.00-5.60) L 03/25/20 06:25 Hgb 7.5 GM/dL (11.7-16.9) L 03/25/20 06:25 Hct 23.3 % (35.4-49) L 03/25/20 06:25 MCV 93.5 fl (80-96) 03/25/20 06:25 MCHC 32.4 g/dl (32.0-35.9) 03/25/20 06:25 RDW 18.8 % (11.9-15.9) H 03/25/20 06:25 Plt Count 122 K/MM3 (134-434) L 03/25/20 06:25 MPV 8.9 fl (7.5-11.1) 03/25/20 06:25 CMP Sodium 140 mmol/L (136-145) 03/25/20 06:25 Potassium 4.4 mmol/L (3.5-5.1) 03/25/20 06:25 Chloride 112 mmol/L (98-107) H 03/25/20 06:25 Carbon Dioxide 18 mmol/L (21-32) L 03/25/20 06:25 Anion Gap 10 MMOL/L (8-16) 03/25/20 06:25 BUN 29.9 mg/dL (7-18) H 03/25/20 06:25 Creatinine 1.1 mg/dL (0.55-1.3) 03/25/20 06:25 Calcium 8.3 mg/dL (8.5-10.1) L 03/25/20 06:25 Total Bilirubin 0.5 mg/dL (0.2-1) 03/25/20 06:25 AST 13 U/L (15-37) L 03/25/20 06:25 ALT 15 U/L (13-61) 03/25/20 06:25 Alkaline Phosphatase 55 U/L (45-117) 03/25/20 06:25 Total Protein 5.8 g/dl (6.4-8.2) L 03/25/20 06:25 Albumin 2.2 g/dl (3.4-5.0) L 03/25/20 06:25 Active Medications Generic Name Dose Route Start Last Admin Trade Name Freq PRN Reason Stop Dose Admin Acetaminophen 1,000 mg 03/22/20 09:31 03/25/20 01:21 Tylenol - PO 1,000 mg Q6H PRN Administration PAIN LEVEL 1-5 Ascorbic Acid 500 mg 03/23/20 22:00 03/25/20 09:28 Vitamin C - PO 500 mg BID GEORGINA Administration Atenolol 25 mg 03/22/20 10:00 03/25/20 09:28 Tenormin - PO 25 mg DAILY GEORGINA Administration Atorvastatin Calcium 5 mg 03/22/20 22:00 03/24/20 21:04 Lipitor - PO 5 mg HS GEORGINA Administration Cholecalciferol 500 unit 03/22/20 10:00 03/25/20 09:27 Vitamin D3 - PO 500 unit DAILY GEORGINA Administration Docusate Sodium 100 mg 03/23/20 14:00 03/25/20 06:04 Colace - PO 100 mg TID GEORGINA Administration Ferrous Sulfate 325 mg 03/23/20 17:30 03/25/20 12:02 Feosol - PO 325 mg TIDCM GEORGINA Administration Sodium Chloride 1,000 mls @ 50 mls/hr 03/24/20 15:00 03/24/20 17:31 1/2 Normal Saline IV 03/25/20 14:58 50 mls/hr ASDIR GEORGINA Administration Lidocaine 1 patch 03/23/20 09:07 03/23/20 09:28 Lidoderm Patch - TP 1 patch DAILY PRN Administration PAIN LEVEL 1-5 Miscellaneous 1 each 03/21/20 22:00 03/24/20 21:13 Lidoderm Patch Removal MC Not Given DAILY@2200 [facility]A Miscellaneous 1 each 03/23/20 22:00 03/24/20 21:13 Lidoderm Patch Removal MC Not Given DAILY@2200 [facility] Morphine Sulfate 2 mg 03/21/20 21:47 03/25/20 09:28 Morphine Sulfate IVPUSH 2 mg Q4H PRN Administration PAIN LEVEL 6-10 Terazosin HCl 5 mg 03/22/20 22:00 03/24/20 21:04 Hytrin - PO 5 mg HS GEORGINA Administration ASSESSMENT/PLAN: 84M w/ pmhx of HTN, HLD, non-Hodgkin's lymphoma (5-10 years ago currently in remission), prostate cancer (13 years ago in remission), who presents with left lumbar pain since September and has gotten acutely worse over the last 2 months. He also reports left side and abdominal pain. #Abdominal Pain 2/2 possible neoplasm; previous h/o prostate and Non-Hodgkin's Lymphoma); S/p axillary LN biopsy by IR (03/24/20) -CTAP: Irregular nonspecific 10x9x8 cm left pelvic mesenteric soft tissue lesion suggestive of neoplastic disease, possibly lymphadenopathy; 1.1 cm left periaortic retroperitoneal lymph node at the level of the kidneys -Morphine 2mg Q4H PRN/Acetaminophen 1000 q6h PRN for pain -Per onc, very suspicious for recurrence for lymphoma. Now s/p axillary LN biopsy by IR; await path results. -Repeat quantitative IgG, immunodiffusion and 24 urine for quantitative globulins. -CT T/L spine and pelvis ordered per onc; await results #Acute Anemia; s/p 1U pRBC this admission. 7.4 --> 7.5 today. Stable. 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 Cr 1.1 today. -IVf -Renal on board. Appreciate recs. -1/2 NS @ 50 #HTN/HLD; Labile. Cont home meds: Atenolol 25, Lipitor 5, ASA 81 -Will hold Verapamil for now and restart once BP is more stable #Prophylaxis DVT: Will hold as Hgb is now 7.5; SCDs for now FEN -1/2 NS @ 50 -monitor Cr, K -sodium-controlled diet Dispo -monitor on tele -Awaiting onc results after CT T/L spine and pelvis complete FULL CODE Visit type - Emergency Visit Emergency Visit: Yes ED Registration Date: 03/21/20 Care time: The patient presented to the Emergency Department on the above date and was hospitalized for further evaluation of their emergent condition. - New Patient This patient is new to me today: No - Critical Care Critical Care patient: No ATTENDING PHYSICIAN STATEMENT I saw and evaluated the patient. I reviewed the resident's note and discussed the case with the resident. I agree with the resident's findings and plan as documented. SUBJECTIVE: OBJECTIVE: ASSESSMENT AND PLAN:
[2020-03-25 12:43] LABS: ANISOCYTOSIS 1+; MACROCYTOSIS 0; PLATELET ESTIMATE DECREASED
--- NOTE | 2020-03-25 15:58 | PN ---
Teaching Attending Note Name of Resident: Dory Bishop ATTENDING PHYSICIAN STATEMENT I saw and evaluated the patient. I reviewed the resident's note and discussed the case with the resident. I agree with the resident's findings and plan as documented. SUBJECTIVE: Patient continues to have LLq pain and back pain. OBJECTIVE: Vital Signs Temperature 99.4 F 03/25/20 14:20 Pulse Rate 77 03/25/20 14:20 Respiratory Rate 18 03/25/20 14:20 Blood Pressure 102/51 L 03/25/20 14:20 O2 Sat by Pulse Oximetry (%) 97 03/25/20 09:00 PE: per resident's note CBCD WBC 5.0 K/mm3 (4.0-10.0) 03/25/20 06:25 RBC 2.49 M/mm3 (4.00-5.60) L 03/25/20 06:25 Hgb 7.5 GM/dL (11.7-16.9) L 03/25/20 06:25 Hct 23.3 % (35.4-49) L 03/25/20 06:25 MCV 93.5 fl (80-96) 03/25/20 06:25 MCHC 32.4 g/dl (32.0-35.9) 03/25/20 06:25 RDW 18.8 % (11.9-15.9) H 03/25/20 06:25 Plt Count 122 K/MM3 (134-434) L 03/25/20 06:25 MPV 8.9 fl (7.5-11.1) 03/25/20 06:25 CMP Sodium 140 mmol/L (136-145) 03/25/20 06:25 Potassium 4.4 mmol/L (3.5-5.1) 03/25/20 06:25 Chloride 112 mmol/L (98-107) H 03/25/20 06:25 Carbon Dioxide 18 mmol/L (21-32) L 03/25/20 06:25 Anion Gap 10 MMOL/L (8-16) 03/25/20 06:25 BUN 29.9 mg/dL (7-18) H 03/25/20 06:25 Creatinine 1.1 mg/dL (0.55-1.3) 03/25/20 06:25 Random Glucose 95 mg/dL (74-106) 03/25/20 06:25 Calcium 8.3 mg/dL (8.5-10.1) L 03/25/20 06:25 Total Bilirubin 0.5 mg/dL (0.2-1) 03/25/20 06:25 AST 13 U/L (15-37) L 03/25/20 06:25 ALT 15 U/L (13-61) 03/25/20 06:25 Alkaline Phosphatase 55 U/L (45-117) 03/25/20 06:25 Total Protein 5.8 g/dl (6.4-8.2) L 03/25/20 06:25 Albumin 2.2 g/dl (3.4-5.0) L 03/25/20 06:25 CARDIAC ENZYMES Creatine Kinase 27 U/L (26-308) 03/21/20 16:10 Troponin I 0.03 ng/ml (0.00-0.05) 03/21/20 16:10 Current Medications Generic Name Dose Route Start Last Admin Trade Name Damienq PRN Reason Stop Dose Admin Acetaminophen 1,000 mg 03/22/20 09:31 03/25/20 01:21 Tylenol - PO 1,000 mg Q6H PRN Administration PAIN LEVEL 1-5 Ascorbic Acid 500 mg 03/23/20 22:00 03/25/20 09:28 Vitamin C - PO 500 mg BID GEORGINA Administration Atenolol 25 mg 03/22/20 10:00 03/25/20 09:28 Tenormin - PO 25 mg DAILY GEORGINA Administration Atorvastatin Calcium 5 mg 03/22/20 22:00 03/24/20 21:04 Lipitor - PO 5 mg HS GEORGINA Administration Cholecalciferol 500 unit 03/22/20 10:00 03/25/20 09:27 Vitamin D3 - PO 500 unit DAILY GE[facility]GINA Administration Docusate Sodium 100 mg 03/23/20 14:00 03/25/20 15:02 Colace - PO 100 mg TID GEORGINA Administration Ferrous Sulfate 325 mg 03/23/20 17:30 03/25/20 12:02 Feosol - PO 325 mg TIDCM GEORGINA Administration Lidocaine 1 patch 03/23/20 09:07 03/23/20 09:28 Lidoderm Patch - TP 1 patch DAILY PRN Administration PAIN LEVEL 1-5 Miscellaneous 1 each 03/21/20 22:00 03/24/20 21:13 Lidoderm Patch Removal MC Not Given DAILY@2200 [facility] Miscellaneous 1 each 03/23/20 22:00 03/24/20 21:13 Lidoderm Patch Removal MC Not Given DAILY@2200 [facility] Morphine Sulfate 2 mg 03/21/20 21:47 03/25/20 09:28 Morphine Sulfate IVPUSH 2 mg Q4H PRN Administration PAIN LEVEL 6-10 Terazosin HCl 5 mg 03/22/20 22:00 03/24/20 21:04 Hytrin - PO 5 mg HS [facility] Administration Home Medications Medication Instructions Recorded Aspirin [ASA -] 81 mg PO DAILY 09/07/12 Terazosin HCl [Hytrin -] 5 mg PO HS 09/07/12 Verapamil HCl ER [Calan Sr -] 240 mg PO DAILY 09/07/12 Cholecalciferol (Vitamin D3) 500 unit PO DAILY 09/08/12 [Vitamin D3] Simvastatin [Zocor -] 5 mg PO HS 09/08/12 Atenolol [Tenormin -] 25 mg PO DAILY 03/22/20 03/21/20 17:20 Urine - Urine Clean Catch Urine Culture - Final NO GROWTH OBTAINED CT abdomen and pelvis: irregular nonspecific [id number] left mesentric soft tissue lesion is suggestive of neoplastic disease. ASSESSMENT AND PLAN: This patient is an 84yom with PMHx of HTN, HLD, non-Hodgkin's lymphoma (5-10 years ago currently in remission), prostate cancer (beads 13 years ago in remission), who presents with left lumbar pain since September and has gotten acutely worse over the last 2 months. Admitted for having left sided abdominal pain. #Acute abdominal pain possible due to neoplasm: as reported on CT (above); oncology for consult, pain meds, morphine continue , s/p IR bx today. will continue aspirin today. Patient was evaluated by oncology, ordered CT pelvis of left hip t-spine and lspine CT , follow the result. s/p biopsy of rt. axillary node, awaiting pathology, check LDH/uric acid # Anemia :anemia w/u, iron, FA, b12, s/p one unit of blood transfusion. hemoglobin is 6.9---> 8.3-->7.4--7.5 today #chronic left lumbar strain with pain continue pain meds from previous accident, will try to obtain MRI records from out pt #CHEMA over CKD with cr of 2.0-->1.0 today #HTN: continue home meds #HLD: on zocor continue DVT Ppx: lovenox sq
--- NOTE | 2020-03-25 16:55 | PN ---
Progress Note (short form) - Note Progress Note: 1. CHEMA 2. lymphoma 3. hypotension 4. anemia 5. prostate cancer 6. hyperkalemia 7. hx of gammopathy Active Medications Acetaminophen (Tylenol -) 1,000 mg PO Q6H PRN PRN Reason: PAIN LEVEL 1-5 Last Admin: 03/25/20 01:21 Dose: 1,000 mg Documented by: Ascorbic Acid (Vitamin C -) 500 mg PO BID [facility] Last Admin: 03/25/20 09:28 Dose: 500 mg Documented by: Atenolol (Tenormin -) 25 mg PO DAILY [facility] Last Admin: 03/25/20 09:28 Dose: 25 mg Documented by: Atorvastatin Calcium (Lipitor -) 5 mg PO [facility] Last Admin: 03/24/20 21:04 Dose: 5 mg Documented by: Cholecalciferol (Vitamin D3 -) 500 unit PO DAILY [facility] Last Admin: 03/25/20 09:27 Dose: 500 unit Documented by: Docusate Sodium (Colace -) 100 mg PO TID [facility] Last Admin: 03/25/20 15:02 Dose: 100 mg Documented by: Ferrous Sulfate (Feosol -) 325 mg PO TIDCM [facility] Last Admin: 03/25/20 12:02 Dose: 325 mg Documented by: Lidocaine (Lidoderm Patch -) 1 patch TP DAILY PRN PRN Reason: PAIN LEVEL 1-5 Last Admin: 03/23/20 09:28 Dose: 1 patch Documented by: Miscellaneous (Lidoderm Patch Removal) 1 each DAILY@2200 [facility] Last Admin: 03/24/20 21:13 Dose: Not Given Documented by: Miscellaneous (Lidoderm Patch Removal) 1 each DAILY@2200 [facility] Last Admin: 03/24/20 21:13 Dose: Not Given Documented by: Morphine Sulfate (Morphine Sulfate) 2 mg IVPUSH Q4H PRN PRN Reason: PAIN LEVEL 6-10 Last Admin: 03/25/20 09:28 Dose: 2 mg Documented by: Terazosin HCl (Hytrin -) 5 mg PO [facility] Last Admin: 03/24/20 21:04 Dose: 5 mg Documented by: Last Vital Signs Temp Pulse Resp BP Pulse Ox 99.4 F 77 18 102/51 L 97 03/25/20 14:20 03/25/20 14:20 03/25/20 14:20 03/25/20 14:20 03/25/20 09:00 CBC, BMP 03/25/20 06:25 03/25/20 06:25 IMP CHEMA better BPs remain low om current meds Plam same rx
--- NOTE | 2020-03-25 17:38 | PN.HO ---
Progress Note (short form) - Note Progress Note: Progress Note (short form) - Note Progress Note: Patient seen and examined Feels well. C/o pain in his back. Last Vital Signs Temp Pulse Resp BP Pulse Ox 99.4 F 77 18 102/51 L 97 03/25/20 14:20 03/25/20 14:20 03/25/20 14:20 03/25/20 14:20 03/25/20 09:00 AFVSS Cor: RSR, No murmurs, No gallops Lungs: Clear to P&A Abd: Soft, Normal bowel sounds, No organomegaly Ext:No significant edema Current Medications Generic Name Dose Route Start Last Admin Trade Name Freq PRN Reason Stop Dose Admin Acetaminophen 1,000 mg 03/22/20 09:31 03/25/20 01:21 Tylenol - PO 1,000 mg Q6H PRN Administration PAIN LEVEL 1-5 Ascorbic Acid 500 mg 03/23/20 22:00 03/25/20 09:28 Vitamin C - PO 500 mg BID [facility] Administration Atenolol 25 mg 03/22/20 10:00 03/25/20 09:28 Tenormin - PO 25 mg DAILY [facility] Administration Atorvastatin Calcium 5 mg 03/22/20 22:00 03/24/20 21:04 Lipitor - PO 5 mg HS [facility] Administration Cholecalciferol 500 unit 03/22/20 10:00 03/25/20 09:27 Vitamin D3 - PO 500 unit DAILY [facility] Administration Docusate Sodium 100 mg 03/23/20 14:00 03/25/20 15:02 Colace - PO 100 mg TID [facility] Administration Ferrous Sulfate 325 mg 03/23/20 17:30 03/25/20 17:23 Feosol - PO 325 mg TIDCM [facility] Administration Lidocaine 1 patch 03/23/20 09:07 03/23/20 09:28 Lidoderm Patch - TP 1 patch DAILY PRN Administration PAIN LEVEL 1-5 Miscellaneous 1 each 03/21/20 22:00 03/24/20 21:13 Lidoderm Patch Removal MC Not Given DAILY@2200 [facility] Miscellaneous 1 each 03/23/20 22:00 03/24/20 21:13 Lidoderm Patch Removal MC Not Given DAILY@2200 [facility] Morphine Sulfate 2 mg 03/21/20 21:47 03/25/20 09:28 Morphine Sulfate IVPUSH 2 mg Q4H PRN Administration PAIN LEVEL 6-10 Terazosin HCl 5 mg 03/22/20 22:00 03/24/20 21:04 Hytrin - PO 5 mg HS [facility] Administration 03/25/20 06:25 03/25/20 06:25 A/P L sided flank pain x 1 month but worsening over the past few days that is pressure like, radiates the L abdomen and groin that fluctates intermittently but no alleviating or exacerbating factors. Pt with persisten pain without improvement with oral pain medications. ER CT of abdomen showed a new compared with 06/14/13, 10 x 9.8 x 8 cam left pelvic mesenteric mass/ lympadenopathy, 1.1cm periaortic node and an unchanged 1.4cm splenic lesion unchanged from 06/14. s/p biopsy of rt. axillary node awaiting pathology h/o prostate cancer s/p brachytherapy check LDH/uric acid Lt. lower back pain due to mesenteric mass--> Pain management. Morphine. Tylenol will check CT T/L spine/ left pelvis
[2020-03-25] MEDS: ATORVASTATIN CA 10 MG TABLET (FP) PO SCH (21:08)
[2020-03-25] MEDS: LIDOCAINE PATCH REMOVAL MC SCH ×2 (21:14)
[2020-03-25] MEDS ORDERED: PT OWN MED DRAWER 7, Y5N ONE (21:15)
[2020-03-25] MEDS: TERAZOSIN HCL 5 MG CAPSULE PO SCH (21:15)
[2020-03-26] MEDS: DOCUSATE SODIUM 100 MG CAPSULE (FP) PO SCH ×3 (06:19→21:33)
--- NOTE | 2020-03-26 08:04 | PN ---
Physical Exam: SUBJECTIVE: Patient seen and examined at bedside. No acute events overnight. Pt still complaining of lower buttock pain radiating to L groin region. Denies f/c, n/v, cp, sob, urinary/bowel symptoms. Desiree PO well. OBJECTIVE: Vital Signs Period Temp Pulse Resp BP Sys/Tillman Pulse Ox Last 24 Hr 97.7 F-99.4 F 75-95 18-19 91-124/46-66 97-99 GENERAL: Pleasant, well-appearing elderly male. No acute distress. NAD. AAOx3. HEAD: Normal with no signs of trauma. EYES: EOMI Sclera Clear ENT: MMM NECK: Lipoma left side lower neck LUNGS: CTAB HEART: 2/6 PEGGY, RRR ABDOMEN: Umbillical Hernia, NDNT MSK: Tenderness on L buttocks, no visible signs of deformities, lesions, bruising. Lidocaine patch in place. PSYCH: Normal mood, normal affect. CBCD WBC 5.0 K/mm3 (4.0-10.0) 03/25/20 06:25 RBC 2.49 M/mm3 (4.00-5.60) L 03/25/20 06:25 Hgb 7.5 GM/dL (11.7-16.9) L 03/25/20 06:25 Hct 23.3 % (35.4-49) L 03/25/20 06:25 MCV 93.5 fl (80-96) 03/25/20 06:25 MCHC 32.4 g/dl (32.0-35.9) 03/25/20 06:25 RDW 18.8 % (11.9-15.9) H 03/25/20 06:25 Plt Count 122 K/MM3 (134-434) L 03/25/20 06:25 MPV 8.9 fl (7.5-11.1) 03/25/20 06:25 CMP Sodium 140 mmol/L (136-145) 03/25/20 06:25 Potassium 4.4 mmol/L (3.5-5.1) 03/25/20 06:25 Chloride 112 mmol/L (98-107) H 03/25/20 06:25 Carbon Dioxide 18 mmol/L (21-32) L 03/25/20 06:25 Anion Gap 10 MMOL/L (8-16) 03/25/20 06:25 BUN 29.9 mg/dL (7-18) H 03/25/20 06:25 Creatinine 1.1 mg/dL (0.55-1.3) 03/25/20 06:25 Calcium 8.3 mg/dL (8.5-10.1) L 03/25/20 06:25 Total Bilirubin 0.5 mg/dL (0.2-1) 03/25/20 06:25 AST 13 U/L (15-37) L 03/25/20 06:25 ALT 15 U/L (13-61) 03/25/20 06:25 Alkaline Phosphatase 55 U/L (45-117) 03/25/20 06:25 Total Protein 5.8 g/dl (6.4-8.2) L 03/25/20 06:25 Albumin 2.2 g/dl (3.4-5.0) L 03/25/20 06:25 Active Medications Generic Name Dose Route Start Last Admin Trade Name Damienq PRN Reason Stop Dose Admin Acetaminophen 1,000 mg 03/22/20 09:31 03/25/20 21:09 Tylenol - PO 1,000 mg Q6H PRN Administration PAIN LEVEL 1-5 Ascorbic Acid 500 mg 03/23/20 22:00 03/25/20 21:09 Vitamin C - PO 500 mg BID [facility] Administration Atenolol 25 mg 03/22/20 10:00 03/25/20 09:28 Tenormin - PO 25 mg DAILY [facility] Administration Atorvastatin Calcium 5 mg 03/22/20 22:00 03/25/20 21:08 Lipitor - PO 5 mg HS [facility] Administration Cholecalciferol 500 unit 03/22/20 10:00 03/25/20 09:27 Vitamin D3 - PO 500 unit DAILY [facility] Administration Docusate Sodium 100 mg 03/23/20 14:00 03/26/20 06:19 Colace - PO 100 mg TID [facility] Administration Ferrous Sulfate 325 mg 03/23/20 17:30 03/25/20 17:23 Feosol - PO 325 mg TIDCM [facility] Administration Lidocaine 1 patch 03/23/20 09:07 03/23/20 09:28 Lidoderm Patch - TP 1 patch DAILY PRN Administration PAIN LEVEL 1-5 Miscellaneous 1 each 03/21/20 22:00 03/25/20 21:14 Lidoderm Patch Removal MC Not Given DAILY@2200 [facility] Miscellaneous 1 each 03/23/20 22:00 03/25/20 21:14 Lidoderm Patch Removal MC Not Given DAILY@2200 [facility] Morphine Sulfate 2 mg 03/21/20 21:47 03/25/20 09:28 Morphine Sulfate IVPUSH 2 mg Q4H PRN Administration PAIN LEVEL 6-10 Terazosin HCl 5 mg 03/22/20 22:00 03/25/20 21:15 Hytrin - PO 5 mg HS [facility] Administration IMAGING: * Pelvis CT: large left lower abdomen/ pelvic mass with heterogeneous attenuation and stranding of the surrounding mesentery, measuring approximately 9.7 x 8.5 cm again seen suspicious for a neoplasm. Partially included previously visualized left renal cyst. focal ill-defined sclerotic density in the left iliac bone measuring 9 mm which is nonspecific. Both hip joints appear to be intact. Included portion of the proximal femur, bilaterally appears unremarkable * CT L-spine: No gross focal bone destruction is identified. Large left paravertebral soft tissue mass is again seen at L1 and L2 level that appears to be extending into left L1-L2 neural foramen. Further evaluation with contrast-enhanced MRI of the l umbar spine is recommended ASSESSMENT/PLAN: 84M w/ pmhx of HTN, HLD, non-Hodgkin's lymphoma (5-10 years ago currently in remission), prostate cancer (13 years ago in remission), who presents with left lumbar pain since September and has gotten acutely worse over the last 2 months. He also reports left side and abdominal pain. #Abdominal Pain 2/2 possible neoplasm; previous h/o prostate and Non-Hodgkin's Lymphoma); S/p axillary LN biopsy by IR (03/24/20) -Morphine 2mg Q4H PRN/Acetaminophen 1000 q6h PRN for pain -Per onc, very suspicious for recurrence for lymphoma. Now s/p axillary LN biopsy by IR; await path results. -Repeat quantitative IgG, immunodiffusion and 24 urine for quantitative globulins. -CT T/L spine and pelvis done; results noted above showing 9.7 x 5.8 cm mass suspicious for neoplasm. Will follow up with onc regarding further recs. -Will attempt to call PCP, Dr. Bar Sinha again to obtain outpatient MRI records - -LDH/uric acid ordered #Acute Anemia; s/p 1U pRBC this admission. 7.5 --> 8.5 today. Stable. 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 Cr 1.1 today. -IVf -Renal on board. Appreciate recs. -1/2 NS @ 50 #HTN/HLD; Labile. Cont home meds: Atenolol 25, Lipitor 5, ASA 81 -Will hold Verapamil for now and restart once BP is more stable #Prophylaxis DVT: SCDs for now given thrombocytopenia FEN -PO hydration -monitor Cr, K -sodium-controlled diet Dispo -monitor on tele -Pending onc recommendations FULL CODE Visit type - Emergency Visit Emergency Visit: Yes ED Registration Date: 03/21/20 Care time: The patient presented to the Emergency Department on the above date and was hospitalized for further evaluation of their emergent condition. - New Patient This patient is new to me today: No - Critical Care Critical Care patient: No ATTENDING PHYSICIAN STATEMENT I saw and evaluated the patient. I reviewed the resident's note and discussed the case with the resident. I agree with the resident's findings and plan as documented. SUBJECTIVE: OBJECTIVE: ASSESSMENT AND PLAN:
[2020-03-26] MEDS: FERROUS SO4 325 MG TABLET (FP) PO SCH ×3 (08:12→17:18)
[2020-03-26] MEDS: LIDOCAINE 5% TOPICAL PATCH TP PRN (08:21)
[2020-03-26] MEDS: MORPHINE SULFATE 2 MG/ML VIAL IVPUSH PRN (08:21)
[2020-03-26] MEDS: ACETAMINOPHEN 500 MG TABLET (FP) PO PRN ×2 (08:22→17:20)
[2020-03-26 08:59] LABS: HEMATOCRIT 26.5 % (35.4-49); HEMOGLOBIN 8.5 GM/dL (11.7-16.9); MCH 30.3 pg (25.7-33.7); MCHC 31.9 g/dl (32.0-35.9); MEAN PLT VOLUME 8.7 fl (7.5-11.1); PLATELET COUNT 128 K/MM3 (134-434); RBC 2.79 M/mm3 (4.00-5.60); RDW 18.8 % (11.9-15.9); WHITE BLOOD COUNT 7.4 K/mm3 (4.0-10.0)
[2020-03-26 09:16] LABS: BLOOD UREA NITROGEN 28.2 mg/dL (7-18); CALCIUM 8.6 mg/dL (8.5-10.1); CREATININE 1.2 mg/dL (0.55-1.3); POTASSIUM 4.5 mmol/L (3.5-5.1); URIC ACID 9.1 mg/dL (2.6-7.2)
[2020-03-26] MEDS: ATENOLOL 25 MG TABLET (FP) PO SCH (09:32)
[2020-03-26] MEDS: CHOLECALCIFEROL (VIT D3) 1,000 UNIT (25 MCG) TABLET PO SCH (09:32)
[2020-03-26] MEDS: ASCORBIC ACID 500 MG TABLET (FP) PO SCH ×2 (09:33→21:37)
--- NOTE | 2020-03-26 10:13 | PN ---
Teaching Attending Note Name of Resident: Dory Bishop ATTENDING PHYSICIAN STATEMENT I saw and evaluated the patient. I reviewed the resident's note and discussed the case with the resident. I agree with the resident's findings and plan as documented. SUBJECTIVE: Patient continues to have LLQ pain. otherwise no new complains. OBJECTIVE: Vital Signs Temperature 99.2 F 03/26/20 09:56 Pulse Rate 78 03/26/20 09:56 Respiratory Rate 18 03/26/20 09:56 Blood Pressure 105/55 L 03/26/20 09:56 O2 Sat by Pulse Oximetry (%) 99 03/25/20 21:00 PE: per resident's note CBCD WBC 7.4 K/mm3 (4.0-10.0) 03/26/20 08:05 RBC 2.79 M/mm3 (4.00-5.60) L 03/26/20 08:05 Hgb 8.5 GM/dL (11.7-16.9) L 03/26/20 08:05 Hct 26.5 % (35.4-49) L 03/26/20 08:05 MCV 95.0 fl (80-96) 03/26/20 08:05 MCHC 31.9 g/dl (32.0-35.9) L 03/26/20 08:05 RDW 18.8 % (11.9-15.9) H 03/26/20 08:05 Plt Count 128 K/MM3 (134-434) L 03/26/20 08:05 MPV 8.7 fl (7.5-11.1) 03/26/20 08:05 CMP Sodium 141 mmol/L (136-145) 03/26/20 08:05 Potassium 4.5 mmol/L (3.5-5.1) 03/26/20 08:05 Chloride 113 mmol/L (98-107) H 03/26/20 08:05 Carbon Dioxide 20 mmol/L (21-32) L 03/26/20 08:05 Anion Gap 8 MMOL/L (8-16) 03/26/20 08:05 BUN 28.2 mg/dL (7-18) H 03/26/20 08:05 Creatinine 1.2 mg/dL (0.55-1.3) 03/26/20 08:05 Random Glucose 101 mg/dL (74-106) 03/26/20 08:05 Calcium 8.6 mg/dL (8.5-10.1) 03/26/20 08:05 Total Bilirubin 0.5 mg/dL (0.2-1) 03/25/20 06:25 AST 13 U/L (15-37) L 03/25/20 06:25 ALT 15 U/L (13-61) 03/25/20 06:25 Alkaline Phosphatase 55 U/L (45-117) 03/25/20 06:25 Total Protein 5.8 g/dl (6.4-8.2) L 03/25/20 06:25 Albumin 2.2 g/dl (3.4-5.0) L 03/25/20 06:25 CARDIAC ENZYMES Creatine Kinase 27 U/L (26-308) 03/21/20 16:10 Troponin I 0.03 ng/ml (0.00-0.05) 03/21/20 16:10 Current Medications Generic Name Dose Route Start Last Admin Trade Name Nicholas PRN Reason Stop Dose Admin Acetaminophen 1,000 mg 03/22/20 09:31 03/26/20 08:22 Tylenol - PO 1,000 mg Q6H PRN Administration PAIN LEVEL 1-5 Ascorbic Acid 500 mg 03/23/20 22:00 03/26/20 09:33 Vitamin C - PO 500 mg BID [facility] Administration Atenolol 25 mg 03/22/20 10:00 03/26/20 09:32 Tenormin - PO 25 mg DAILY [facility] Administration Atorvastatin Calcium 5 mg 03/22/20 22:00 03/25/20 21:08 Lipitor - PO 5 mg HS [facility] Administration Cholecalciferol 500 unit 03/22/20 10:00 03/26/20 09:32 Vitamin D3 - PO 500 unit DAILY [facility] Administration Docusate Sodium 100 mg 03/23/20 14:00 03/26/20 06:19 Colace - PO 100 mg TID [facility] Administration Ferrous Sulfate 325 mg 03/23/20 17:30 03/26/20 08:12 Feosol - PO 325 mg TIDCM [facility] Administration Lidocaine 1 patch 03/23/20 09:07 03/26/20 08:21 Lidoderm Patch - TP 1 patch DAILY PRN Administration PAIN LEVEL 1-5 Miscellaneous 1 each 03/21/20 22:00 03/25/20 21:14 Lidoderm Patch Removal MC Not Given DAILY@2200 [facility] Miscellaneous 1 each 03/23/20 22:00 03/25/20 21:14 Lidoderm Patch Removal MC Not Given DAILY@2200 [facility] Morphine Sulfate 2 mg 03/21/20 21:47 03/26/20 08:21 Morphine Sulfate IVPUSH 2 mg Q4H PRN Administration PAIN LEVEL 6-10 Terazosin HCl 5 mg 03/22/20 22:00 03/25/20 21:15 Hytrin - PO 5 mg HS [facility] Administration Home Medications Medication Instructions Recorded Aspirin [ASA -] 81 mg PO DAILY 09/07/12 Terazosin HCl [Hytrin -] 5 mg PO HS 09/07/12 Verapamil HCl ER [Calan Sr -] 240 mg PO DAILY 09/07/12 Cholecalciferol (Vitamin D3) 500 unit PO DAILY 09/08/12 [Vitamin D3] Simvastatin [Zocor -] 5 mg PO HS 09/08/12 Atenolol [Tenormin -] 25 mg PO DAILY 03/22/20 CT abdomen and pelvis: irregular nonspecific [id number] left mesentric soft tissue lesion is suggestive of neoplastic disease. CT of L-spine: no gross bony destruction. large left paravertebral soft tissue mass is again seen at L1 and L2 level that appears to be extending into the left L1-L2 neural foramen. Further evaluation of MRI of L spine is needed. ASSESSMENT AND PLAN: This patient is an 84yom with PMHx of HTN, HLD, non-Hodgkin's lymphoma (5-10 years ago currently in remission), prostate cancer (beads 13 years ago in remission), who presents with left lumbar pain since September and has gotten acutely worse over the last 2 months. Admitted for having left sided abdominal pain. #Acute abdominal pain possible due to neoplasm: as reported on CT (above); oncology for consult, pain meds, morphine continue , s/p IR bx today. will continue aspirin today. Patient was evaluated by oncology, ordered CT pelvis of left hip t-spine and l-spine CT , follow the result. s/p biopsy of right axillary node, awaiting pathology. Ct pelvis and L spine reviewed. # Anemia :anemia w/u, iron, FA, b12, s/p one unit of blood transfusion. hemoglobin is 6.9---> 8.3-->7.4--7.5 today #chronic left lumbar strain with pain continue pain meds from previous accident, will try to obtain MRI records from out pt #CHEMA over CKD with cr of 2.0-->1.0--> 1.2 monitor #HTN: continue home meds #HLD: on zocor continue DVT Ppx: lovenox sq
--- NOTE | 2020-03-26 14:47 | PN ---
Progress Note (short form) - Note Progress Note: 1. CHEMA 2. lymphoma 3. hypotension 4. anemia 5. prostate cancer 6. hyperkalemia 7. hx of gammopathy Active Medications Acetaminophen (Tylenol -) 1,000 mg PO Q6H PRN PRN Reason: PAIN LEVEL 1-5 Last Admin: 03/26/20 08:22 Dose: 1,000 mg Documented by: Ascorbic Acid (Vitamin C -) 500 mg PO BID [facility] Last Admin: 03/26/20 09:33 Dose: 500 mg Documented by: Atenolol (Tenormin -) 25 mg PO DAILY [facility] Last Admin: 03/26/20 09:32 Dose: 25 mg Documented by: Atorvastatin Calcium (Lipitor -) 5 mg PO [facility] Last Admin: 03/25/20 21:08 Dose: 5 mg Documented by: Cholecalciferol (Vitamin D3 -) 500 unit PO DAILY [facility] Last Admin: 03/26/20 09:32 Dose: 500 unit Documented by: Docusate Sodium (Colace -) 100 mg PO TID [facility] Last Admin: 03/26/20 14:35 Dose: 100 mg Documented by: Ferrous Sulfate (Feosol -) 325 mg PO TIDCM [facility] Last Admin: 03/26/20 12:43 Dose: 325 mg Documented by: Lidocaine (Lidoderm Patch -) 1 patch TP DAILY PRN PRN Reason: PAIN LEVEL 1-5 Last Admin: 03/26/20 08:21 Dose: 1 patch Documented by: Miscellaneous (Lidoderm Patch Removal) 1 each DAILY@2200 [facility] Last Admin: 03/25/20 21:14 Dose: Not Given Documented by: Miscellaneous (Lidoderm Patch Removal) 1 each DAILY@2200 [facility] Last Admin: 03/25/20 21:14 Dose: Not Given Documented by: Morphine Sulfate (Morphine Sulfate) 2 mg IVPUSH Q4H PRN PRN Reason: PAIN LEVEL 6-10 Last Admin: 03/26/20 08:21 Dose: 2 mg Documented by: Terazosin HCl (Hytrin -) 5 mg PO [facility] Last Admin: 03/25/20 21:15 Dose: 5 mg Documented by: Last Vital Signs Temp Pulse Resp BP Pulse Ox 99.2 F 78 18 105/55 L 96 03/26/20 09:56 03/26/20 09:56 03/26/20 09:56 03/26/20 09:56 03/26/20 09:00 CBC, BMP 03/26/20 08:05 03/26/20 08:05 CBC, BMP 03/25/20 06:25 03/25/20 06:25 IMP CHEMA better BPs remain low om current meds Plam same rx
--- NOTE | 2020-03-26 16:17 | CON.HO ---
Consult - text type - Consultation Consultation Note: Patient seen and examined Feels well. C/o pain in his LLQ, not new Last Vital Signs Temp Pulse Resp BP Pulse Ox 99.2 F 78 18 105/55 L 96 03/26/20 09:56 03/26/20 09:56 03/26/20 09:56 03/26/20 09:56 03/26/20 09:00 AFVSS Cor: RSR, No murmurs, No gallops Lungs: Clear to P&A Abd: Soft, Normal bowel sounds, No organomegaly Ext:No significant edema 03/26/20 08:05 03/26/20 08:05 Current Medications Generic Name Dose Route Start Last Admin Trade Name Freq PRN Reason Stop Dose Admin Acetaminophen 1,000 mg 03/22/20 09:31 03/26/20 08:22 Tylenol - PO 1,000 mg Q6H PRN Administration PAIN LEVEL 1-5 Ascorbic Acid 500 mg 03/23/20 22:00 03/26/20 09:33 Vitamin C - PO 500 mg BID [facility] Administration Atenolol 25 mg 03/22/20 10:00 03/26/20 09:32 Tenormin - PO 25 mg DAILY [facility] Administration Atorvastatin Calcium 5 mg 03/22/20 22:00 03/25/20 21:08 Lipitor - PO 5 mg HS [facility] Administration Cholecalciferol 500 unit 03/22/20 10:00 03/26/20 09:32 Vitamin D3 - PO 500 unit DAILY [facility] Administration Docusate Sodium 100 mg 03/23/20 14:00 03/26/20 14:35 Colace - PO 100 mg TID [facility] Administration Ferrous Sulfate 325 mg 03/23/20 17:30 03/26/20 12:43 Feosol - PO 325 mg TIDCM [facility] Administration Lidocaine 1 patch 03/23/20 09:07 03/26/20 08:21 Lidoderm Patch - TP 1 patch DAILY PRN Administration PAIN LEVEL 1-5 Miscellaneous 1 each 03/21/20 22:00 03/25/20 21:14 Lidoderm Patch Removal MC Not Given DAILY@2200 [facility] Miscellaneous 1 each 03/23/20 22:00 03/25/20 21:14 Lidoderm Patch Removal MC Not Given DAILY@2200 [facility] Morphine Sulfate 2 mg 03/21/20 21:47 03/26/20 08:21 Morphine Sulfate IVPUSH 2 mg Q4H PRN Administration PAIN LEVEL 6-10 Terazosin HCl 5 mg 03/22/20 22:00 03/25/20 21:15 Hytrin - PO 5 mg HS [facility] Administration Discontinued Medications Generic Name Dose Route Start Last Admin Trade Name Freq PRN Reason Stop Dose Admin Acetaminophen 1,000 mg 03/21/20 17:10 03/21/20 17:33 Ofirmev Injection - IVPB 03/21/20 17:11 1,000 mg ONCE ONE Administration Aspirin 81 mg 03/22/20 10:00 03/23/20 09:28 Asa - PO 81 mg DAILY [facility] Administration Heparin Sodium (Porcine) 5,000 unit 03/22/20 06:00 03/22/20 14:48 Heparin - SQ Not Given TID [facility] Sodium Chloride 1,000 mls @ 83 mls/hr 03/21/20 22:00 03/24/20 05:55 Normal Saline - IV 83 mls/hr ASDIR [facility] Administration Sodium Chloride 1,000 mls @ 50 mls/hr 03/24/20 15:00 03/24/20 17:31 1/2 Normal Saline IV 03/25/20 14:58 50 mls/hr ASDIR [facility] Administration Lidocaine 1 patch 03/21/20 18:51 03/21/20 19:16 Lidoderm Patch - TP 03/21/20 18:52 1 patch ONCE ONE Administration Morphine Sulfate 4 mg 03/21/20 17:03 03/21/20 17:37 Morphine Injection - IVPUSH 03/21/20 17:04 Not Given ONCE ONE Morphine Sulfate 2 mg 03/21/20 23:56 03/21/20 23:59 Morphine Injection - SQ 03/21/20 23:57 2 mg ONCE ONE Administration Sodium Chloride 500 ml 03/21/20 17:09 03/21/20 17:33 Normal Saline - IV 03/21/20 17:10 500 ml ONCE ONE Administration Sodium Chloride 1,000 ml 03/21/20 19:52 03/21/20 20:20 Normal Saline - IV 03/21/20 19:53 1,000 ml ONCE ONE Administration Terazosin HCl 5 mg 03/22/20 00:32 03/22/20 01:45 Hytrin - PO Not Given HS [facility] Verapamil HCl 240 mg 03/22/20 10:00 03/24/20 10:13 Calan Sr - PO Not Given DAILY [facility] A/P L sided flank pain x 1 month but worsening over the past few days that is pressure like, radiates the L abdomen and groin that fluctates intermittently but no alleviating or exacerbating factors. Pt with persisten pain without improvement with oral pain medications. ER CT of abdomen showed a new compared with 06/14/13, 10 x 9.8 x 8 cam left pelvic mesenteric mass/ lympadenopathy, 1.1cm periaortic node and an unchanged 1.4cm splenic lesion unchanged from 06/14/13. s/p biopsy of rt. axillary node awaiting pathology h/o prostate cancer s/p brachytherapy check LDH/uric acid Lt. lower back pain due to mesenteric mass--> Pain management. Morphine. Tylenol. Consider biopsy of this mass with IR as well if feasible
[2020-03-26] MEDS ORDERED: PT OWN MED DRAWER 7, Y5N ONE (21:15)
[2020-03-26] MEDS: TERAZOSIN HCL 5 MG CAPSULE PO SCH (21:33)
[2020-03-26] MEDS: ATORVASTATIN CA 10 MG TABLET (FP) PO SCH (21:37)
[2020-03-26] MEDS: LIDOCAINE PATCH REMOVAL MC SCH ×2 (21:38→21:39)
[2020-03-27] MEDS: DOCUSATE SODIUM 100 MG CAPSULE (FP) PO SCH ×3 (05:34→21:25)
[2020-03-27] MEDS: ACETAMINOPHEN 500 MG TABLET (FP) PO PRN ×3 (05:40→18:30)
[2020-03-27 06:49] LABS: HEMATOCRIT 22.4 % (35.4-49); HEMOGLOBIN 7.3 GM/dL (11.7-16.9); MCH 30.5 pg (25.7-33.7); MCHC 32.7 g/dl (32.0-35.9); MEAN CELL VOLUME 93.3 fl (80-96); MEAN PLT VOLUME 8.6 fl (7.5-11.1); PLATELET COUNT 91 K/MM3 (134-434); RDW 18.5 % (11.9-15.9); WHITE BLOOD COUNT 3.8 K/mm3 (4.0-10.0)
[2020-03-27 07:23] LABS: BLOOD UREA NITROGEN 35.9 mg/dL (7-18); CALCIUM 8.3 mg/dL (8.5-10.1); CREATININE 1.3 mg/dL (0.55-1.3); POTASSIUM 4.2 mmol/L (3.5-5.1)
[2020-03-27] MEDS: FERROUS SO4 325 MG TABLET (FP) PO SCH ×3 (09:05→17:22)
[2020-03-27] MEDS: ATENOLOL 25 MG TABLET (FP) PO SCH (09:05)
[2020-03-27] MEDS: ASCORBIC ACID 500 MG TABLET (FP) PO SCH ×2 (09:05→21:25)
[2020-03-27] MEDS: CHOLECALCIFEROL (VIT D3) 1,000 UNIT (25 MCG) TABLET PO SCH (09:05)
--- NOTE | 2020-03-27 09:31 | CON.HO ---
Consult - text type - Consultation Consultation Note: IgM banner [id number]. Awaiting a lymph node biopsy results. If not productive, consider the mesenteraic mass biopsy with IR. Would do CT of chest while waiting - to complete staging (abdomen and pelvis already done). Anemia, Hb 7.3, Cr slighlty rising to 1.3 -please send an erythropoietin level. Might consider procrit weekly 40.000.00 if level low.
--- NOTE | 2020-03-27 12:15 | PN ---
Progress Note, Physician History of Present Illness: Pt seen and examined at bedside. He is awake and alert. He denies shortness of breath. - Current Medication List Current Medications: Active Medications Acetaminophen (Tylenol -) 1,000 mg PO Q6H PRN PRN Reason: PAIN LEVEL 1-5 Last Admin: 03/27/20 11:58 Dose: 1,000 mg Documented by: Ascorbic Acid (Vitamin C -) 500 mg PO BID [facility] Last Admin: 03/27/20 09:05 Dose: 500 mg Documented by: Atenolol (Tenormin -) 25 mg PO DAILY [facility] Last Admin: 03/27/20 09:05 Dose: Not Given Documented by: Atorvastatin Calcium (Lipitor -) 5 mg PO [facility] Last Admin: 03/26/20 21:37 Dose: 5 mg Documented by: Cholecalciferol (Vitamin D3 -) 500 unit PO DAILY [facility] Last Admin: 03/27/20 09:05 Dose: 500 unit Documented by: Docusate Sodium (Colace -) 100 mg PO TID [facility] Last Admin: 03/27/20 05:34 Dose: 100 mg Documented by: Ferrous Sulfate (Feosol -) 325 mg PO TIDCM [facility] Last Admin: 03/27/20 11:58 Dose: 325 mg Documented by: Lidocaine (Lidoderm Patch -) 1 patch TP DAILY PRN PRN Reason: PAIN LEVEL 1-5 Last Admin: 03/26/20 08:21 Dose: 1 patch Documented by: Miscellaneous (Lidoderm Patch Removal) 1 each MC DAILY@2200 [facility] Last Admin: 03/26/20 21:39 Dose: Not Given Documented by: Miscellaneous (Lidoderm Patch Removal) 1 each MC DAILY@2200 [facility] Last Admin: 03/26/20 21:38 Dose: 1 each Documented by: Morphine Sulfate (Morphine Sulfate) 2 mg IVPUSH Q4H PRN PRN Reason: PAIN LEVEL 6-10 Last Admin: 03/26/20 08:21 Dose: 2 mg Documented by: Terazosin HCl (Hytrin -) 5 mg PO [facility] Last Admin: 03/26/20 21:33 Dose: 5 mg Documented by: - Objective Vital Signs: Vital Signs Temperature 98.3 F 03/27/20 08:51 Pulse Rate 82 03/27/20 08:51 Respiratory Rate 18 03/27/20 08:51 Blood Pressure 98/44 L 03/27/20 08:51 O2 Sat by Pulse Oximetry (%) 100 03/27/20 09:00 Constitutional: Yes: Calm Eyes: Yes: Conjunctiva Clear HENT: Yes: Atraumatic Neck: Yes: Supple Cardiovascular: Yes: S1, S2 Respiratory: Yes: CTA Bilaterally Gastrointestinal: Yes: Normal Bowel Sounds, Soft Genitourinary: Yes: WNL Edema: Yes Edema: LLE: Trace, RLE: Trace Neurological: Yes: Oriented Psychiatric: Yes: Oriented Labs: CBC, BMP 03/27/20 06:00 03/27/20 06:00 INR, PTT INR 1.13 (0.83-1.09) H 03/21/20 16:10 Problem List - Problems (1) CHEMA (acute kidney injury) Code(s): N17.9 - ACUTE KIDNEY FAILURE, UNSPECIFIED (2) Hypotension Code(s): I95.9 - HYPOTENSION, UNSPECIFIED Qualifiers: Hypotension type: unspecified hypotension type Qualified Code(s): I95.9 - Hypotension, unspecified (3) Low back pain Code(s): M54.5 - LOW BACK PAIN Qualifiers: Chronicity: acute Back pain laterality: left Sciatica presence: without sciatica Qualified Code(s): M54.5 - Low back pain Assessment/Plan Current Medications Generic Name Dose Route Start Last Admin Trade Name Freq PRN Reason Stop Dose Admin Acetaminophen 1,000 mg 03/22/20 09:31 03/27/20 11:58 Tylenol - PO 1,000 mg Q6H PRN Administration PAIN LEVEL 1-5 Ascorbic Acid 500 mg 03/23/20 22:00 03/27/20 09:05 Vitamin C - PO 500 mg BID [facility] Administration Atenolol 25 mg 03/22/20 10:00 03/27/20 09:05 Tenormin - PO Not Given DAILY [facility] Atorvastatin Calcium 5 mg 03/22/20 22:00 03/26/20 21:37 Lipitor - PO 5 mg HS [facility] Administration Cholecalciferol 500 unit 03/22/20 10:00 03/27/20 09:05 Vitamin D3 - PO 500 unit DAILY [facility] Administration Docusate Sodium 100 mg 03/23/20 14:00 03/27/20 05:34 Colace - PO 100 mg TID [facility] Administration Ferrous Sulfate 325 mg 03/23/20 17:30 03/27/20 11:58 Feosol - PO 325 mg TIDCM [facility] Administration Lidocaine 1 patch 03/23/20 09:07 03/26/20 08:21 Lidoderm Patch - TP 1 patch DAILY PRN Administration PAIN LEVEL 1-5 Miscellaneous 1 each 03/21/20 22:00 03/26/20 21:39 Lidoderm Patch Removal MC Not Given DAILY@2200 [facility] Miscellaneous 1 each 03/23/20 22:00 03/26/20 21:38 Lidoderm Patch Removal MC 1 each DAILY@2200 [facility] Administration Morphine Sulfate 2 mg 03/21/20 21:47 03/26/20 08:21 Morphine Sulfate IVPUSH 2 mg Q4H PRN Administration PAIN LEVEL 6-10 Terazosin HCl 5 mg 03/22/20 22:00 03/26/20 21:33 Hytrin - PO 5 mg HS [facility] Administration Impression 1. CHEMA 2. lymphoma 3. hypotension 4. anemia 5. prostate cancer 6. hyperkalemia 7. hx of gammopathy Plan - renal function stabilizing - observe off of fluids - pt with trace lower ext edema, cont to observe - monitor hg - chmea in part pre-renal with hypotension contributing
--- NOTE | 2020-03-27 13:32 | PN ---
Teaching Attending Note Name of Resident: Dory Bishop ATTENDING PHYSICIAN STATEMENT I saw and evaluated the patient. I reviewed the resident's note and discussed the case with the resident. I agree with the resident's findings and plan as documented. SUBJECTIVE: Patient is slightly better, less LLQ pain, wants to go home OBJECTIVE: Vital Signs Temperature 98.3 F 03/27/20 08:51 Pulse Rate 82 03/27/20 08:51 Respiratory Rate 18 03/27/20 08:51 Blood Pressure 98/44 L 03/27/20 08:51 O2 Sat by Pulse Oximetry (%) 100 03/27/20 09:00 PE: per resident's note CBCD WBC 3.8 K/mm3 (4.0-10.0) L 03/27/20 06:00 RBC 2.40 M/mm3 (4.00-5.60) L 03/27/20 06:00 Hgb 7.3 GM/dL (11.7-16.9) L 03/27/20 06:00 Hct 22.4 % (35.4-49) L D 03/27/20 06:00 MCV 93.3 fl (80-96) 03/27/20 06:00 MCHC 32.7 g/dl (32.0-35.9) 03/27/20 06:00 RDW 18.5 % (11.9-15.9) H 03/27/20 06:00 Plt Count 91 K/MM3 (134-434) L D 03/27/20 06:00 MPV 8.6 fl (7.5-11.1) 03/27/20 06:00 CMP Sodium 141 mmol/L (136-145) 03/27/20 06:00 Potassium 4.2 mmol/L (3.5-5.1) 03/27/20 06:00 Chloride 112 mmol/L (98-107) H 03/27/20 06:00 Carbon Dioxide 19 mmol/L (21-32) L 03/27/20 06:00 Anion Gap 10 MMOL/L (8-16) 03/27/20 06:00 BUN 35.9 mg/dL (7-18) H 03/27/20 06:00 Creatinine 1.3 mg/dL (0.55-1.3) 03/27/20 06:00 Random Glucose 96 mg/dL (74-106) 03/27/20 06:00 Calcium 8.3 mg/dL (8.5-10.1) L 03/27/20 06:00 Total Bilirubin 0.5 mg/dL (0.2-1) 03/25/20 06:25 AST 13 U/L (15-37) L 03/25/20 06:25 ALT 15 U/L (13-61) 03/25/20 06:25 Alkaline Phosphatase 55 U/L (45-117) 03/25/20 06:25 Total Protein 5.8 g/dl (6.4-8.2) L 03/25/20 06:25 Albumin 2.2 g/dl (3.4-5.0) L 03/25/20 06:25 CARDIAC ENZYMES Creatine Kinase 27 U/L (26-308) 03/21/20 16:10 Troponin I 0.03 ng/ml (0.00-0.05) 03/21/20 16:10 Current Medications Generic Name Dose Route Start Last Admin Trade Name Damienq PRN Reason Stop Dose Admin Acetaminophen 1,000 mg 03/22/20 09:31 03/27/20 11:58 Tylenol - PO 1,000 mg Q6H PRN Administration PAIN LEVEL 1-5 Ascorbic Acid 500 mg 03/23/20 22:00 03/27/20 09:05 Vitamin C - PO 500 mg BID [facility] Administration Atenolol 25 mg 03/22/20 10:00 03/27/20 09:05 Tenormin - PO Not Given DAILY [facility] Atorvastatin Calcium 5 mg 03/22/20 22:00 03/26/20 21:37 Lipitor - PO 5 mg HS [facility] Administration Cholecalciferol 500 unit 03/22/20 10:00 03/27/20 09:05 Vitamin D3 - PO 500 unit DAILY [facility] Administration Docusate Sodium 100 mg 03/23/20 14:00 03/27/20 05:34 Colace - PO 100 mg TID [facility] Administration Ferrous Sulfate 325 mg 03/23/20 17:30 03/27/20 11:58 Feosol - PO 325 mg TIDCM [facility] Administration Lidocaine 1 patch 03/23/20 09:07 03/26/20 08:21 Lidoderm Patch - TP 1 patch DAILY PRN Administration PAIN LEVEL 1-5 Miscellaneous 1 each 03/21/20 22:00 03/26/20 21:39 Lidoderm Patch Removal MC Not Given DAILY@2200 [facility] Miscellaneous 1 each 03/23/20 22:00 03/26/20 21:38 Lidoderm Patch Removal MC 1 each DAILY@2200 [facility] Administration Morphine Sulfate 2 mg 03/21/20 21:47 03/26/20 08:21 Morphine Sulfate IVPUSH 2 mg Q4H PRN Administration PAIN LEVEL 6-10 Terazosin HCl 5 mg 03/22/20 22:00 03/26/20 21:33 Hytrin - PO 5 mg HS [facility] Administration Home Medications Medication Instructions Recorded Aspirin [ASA -] 81 mg PO DAILY 09/07/12 Terazosin HCl [Hytrin -] 5 mg PO HS 09/07/12 Verapamil HCl ER [Calan Sr -] 240 mg PO DAILY 09/07/12 Cholecalciferol (Vitamin D3) 500 unit PO DAILY 09/08/12 [Vitamin D3] Simvastatin [Zocor -] 5 mg PO HS 09/08/12 Atenolol [Tenormin -] 25 mg PO DAILY 03/22/20 CT abdomen and pelvis: irregular nonspecific [id number] left mesentric soft tissue lesion is suggestive of neoplastic disease. CT of L-spine: no gross bony destruction. large left paravertebral soft tissue mass is again seen at L1 and L2 level that appears to be extending into the left L1-L2 neural foramen. Further evaluation of MRI of L spine is needed. ASSESSMENT AND PLAN: This patient is an 84yom with PMHx of HTN, HLD, non-Hodgkin's lymphoma (5-10 years ago currently in remission), prostate cancer (beads 13 years ago in remission), who presents with left lumbar pain since September and has gotten acutely worse over the last 2 months. Admitted for having left sided abdominal pain. #Acute abdominal pain most likely due to neoplasm reported on CT (above); oncology on the case, s/p RUE bx waiting for pathology. Pain meds,controlled on morphine . continue aspirin . s/p CT pelvis of left hip and t-spine result as above. s/p biopsy of right axillary node, awaiting pathology. Ct pelvis and L spine reviewed. #Iron defieciency Anemia :on iron tid with colace , s/p one unit of blood transfusion. hemoglobin is 6.9---> 8.3-->7.4--7.5-->7.3 today #chronic left lumbar strain with pain continue pain meds from previous accident, will try to obtain MRI records from out pt #CHEMA over CKD with cr of 2.0-->1.0--> 1.2--1.3 today #HTN: continue home meds #HLD: on zocor continue DVT Ppx: lovenox sq follow the pathology result, if stable can be discharge home in am
[2020-03-27] MEDS: LIDOCAINE 5% TOPICAL PATCH TP PRN (13:41)
--- NOTE | 2020-03-27 14:44 | PN ---
Physical Exam: SUBJECTIVE: Patient seen and examined at bedside. No acute events overnight. Still with L lower buttock pain. Denies cp, sob, urinary/bowel symptoms. OBJECTIVE: Vital Signs Period Temp Pulse Resp BP Sys/Tillman Pulse Ox Last 24 Hr 97.5 F-98.8 F 67-90 18-18 89-98/44-52 99-100 GENERAL: Pleasant, well-appearing elderly male. No acute distress. NAD. AAOx3. HEAD: Normal with no signs of trauma. EYES: EOMI Sclera Clear ENT: MMM NECK: Lipoma left side lower neck LUNGS: CTAB HEART: 2/6 PEGGY, RRR ABDOMEN: Umbillical Hernia, NDNT MSK: Tenderness on L buttocks, no visible signs of deformities, lesions, bruising. Lidocaine patch in place. PSYCH: Normal mood, normal affect. Laboratory Results - last 24 hr 03/27/20 03/27/20 06:00 06:00 WBC 3.8 L RBC 2.40 L Hgb 7.3 L Hct 22.4 L D MCV 93.3 MCH 30.5 MCHC 32.7 RDW 18.5 H Plt Count 91 L D MPV 8.6 Sodium 141 Potassium 4.2 Chloride 112 H Carbon Dioxide 19 L Anion Gap 10 BUN 35.9 H Creatinine 1.3 Est GFR (CKD-EPI)AfAm 58.07 Est GFR (CKD-EPI)NonAf 50.10 Random Glucose 96 Calcium 8.3 L Active Medications Generic Name Dose Route Start Last Admin Trade Name Freq PRN Reason Stop Dose Admin Acetaminophen 1,000 mg 03/22/20 09:31 03/27/20 11:58 Tylenol - PO 1,000 mg Q6H PRN Administration PAIN LEVEL 1-5 Ascorbic Acid 500 mg 03/23/20 22:00 03/27/20 09:05 Vitamin C - PO 500 mg BID [facility] Administration Atenolol 25 mg 03/22/20 10:00 03/27/20 09:05 Tenormin - PO Not Given DAILY [facility] Atorvastatin Calcium 5 mg 03/22/20 22:00 03/26/20 21:37 Lipitor - PO 5 mg HS [facility] Administration Cholecalciferol 500 unit 03/22/20 10:00 03/27/20 09:05 Vitamin D3 - PO 500 unit DAILY [facility] Administration Docusate Sodium 100 mg 03/23/20 14:00 03/27/20 05:34 Colace - PO 100 mg TID [facility] Administration Ferrous Sulfate 325 mg 03/23/20 17:30 03/27/20 11:58 Feosol - PO 325 mg TIDCM [facility] Administration Lidocaine 1 patch 03/23/20 09:07 03/27/20 13:41 Lidoderm Patch - TP 1 patch DAILY PRN Administration PAIN LEVEL 1-5 Miscellaneous 1 each 03/21/20 22:00 03/26/20 21:39 Lidoderm Patch Removal MC Not Given DAILY@2200 [facility] Miscellaneous 1 each 03/23/20 22:00 03/26/20 21:38 Lidoderm Patch Removal MC 1 each DAILY@2200 [facility] Administration Morphine Sulfate 2 mg 03/21/20 21:47 03/26/20 08:21 Morphine Sulfate IVPUSH 2 mg Q4H PRN Administration PAIN LEVEL 6-10 Terazosin HCl 5 mg 03/22/20 22:00 03/26/20 21:33 Hytrin - PO 5 mg HS [facility] Administration IMAGING: * Pelvis CT: large left lower abdomen/ pelvic mass with heterogeneous attenuation and stranding of the surrounding mesentery, measuring approximately 9.7 x 8.5 cm again seen suspicious for a neoplasm. Partially included previously visualized left renal cyst. focal ill-defined sclerotic density in the left iliac bone measuring 9 mm which is nonspecific. Both hip joints appear to be intact. Included portion of the proximal femur, bilaterally appears unremarkable * CT L-spine: No gross focal bone destruction is identified. Large left paravertebral soft tissue mass is again seen at L1 and L2 level that appears to be extending into left L1-L2 neural foramen. Further evaluation with contrast-enhanced MRI of the l umbar spine is recommended ASSESSMENT/PLAN: 84M w/ pmhx of HTN, HLD, non-Hodgkin's lymphoma (5-10 years ago currently in remission), prostate cancer (13 years ago in remission), who presents with left lumbar pain since September and has gotten acutely worse over the last 2 months. He also reports left side and abdominal pain. #Abdominal Pain 2/2 possible neoplasm; previous h/o prostate and Non-Hodgkin's Lymphoma); S/p axillary LN biopsy by IR (03/24/20) -Morphine 2mg Q4H PRN/Acetaminophen 1000 q6h PRN for pain -Per onc, very suspicious for recurrence for lymphoma. Now s/p axillary LN biopsy by IR; consider mesenteric mass biopsy pending LN biopsy results -Repeat quantitative IgG, immunodiffusion and 24 urine for quantitative globulins. -CT L spine and pelvis done; results noted above showing 9.7 x 5.8 cm mass suspicious for neoplasm. Will follow up with onc regarding further recs. -Per pt's PCP, Dr. Sinha, MRI of spine was done outpatient without bony pathology seen on spine; will wait for results to be faxed -LDH wnl, uric acid elevated -Erythropoietin ordered #Anemia; in setting of possible malignancy. s/p 1U pRBC this admission. 8.5 --> 7.3 today. -May be due to lymphoma -Monitor for symptoms -Transfuse PRN to maintain Hgb >7 #Chronic left lumbar strain from previous accident -Morphine 2mg Q4H PRN, Acetaminophen PRN, Lidocaine patch -PT: walked 200 ft today #CHEMA on CKD; Stable. Cr 1.3 today. -Observe off IVf -Renal on board. Appreciate recs. #HTN/HLD; Labile. Cont home meds: Atenolol 25, Lipitor 5, ASA 81 -Will hold Verapamil for now and restart once BP is more stable #Prophylaxis DVT: SCDs for now given thrombocytopenia FEN -PO hydration -monitor Cr, K -sodium-controlled diet Dispo -monitor on tele -Pending onc recommendations FULL CODE Visit type - Emergency Visit Emergency Visit: Yes ED Registration Date: 03/21/20 Care time: The patient presented to the Emergency Department on the above date and was hospitalized for further evaluation of their emergent condition. - New Patient This patient is new to me today: No - Critical Care Critical Care patient: No ATTENDING PHYSICIAN STATEMENT I saw and evaluated the patient. I reviewed the resident's note and discussed the case with the resident. I agree with the resident's findings and plan as documented. SUBJECTIVE: OBJECTIVE: ASSESSMENT AND PLAN:
[2020-03-27] MEDS ORDERED: PT OWN MED DRAWER 7, Y5N ONE (21:18)
[2020-03-27] MEDS: ATORVASTATIN CA 10 MG TABLET (FP) PO SCH (21:25)
[2020-03-27] MEDS: TERAZOSIN HCL 5 MG CAPSULE PO SCH (21:26)
[2020-03-27] MEDS: LIDOCAINE PATCH REMOVAL MC SCH (22:32)
[2020-03-28] MEDS: LIDOCAINE PATCH REMOVAL MC SCH ×3 (01:45→22:16)
[2020-03-28] MEDS: DOCUSATE SODIUM 100 MG CAPSULE (FP) PO SCH ×3 (05:42→22:13)
[2020-03-28] MEDS: ACETAMINOPHEN 500 MG TABLET (FP) PO PRN (05:50)
[2020-03-28 07:13] LABS: BASO % 0.4 % (0-2.0); EOS % 0.6 % (0-4.5); HEMATOCRIT 21.3 % (35.4-49); MCH 30.3 pg (25.7-33.7); MEAN CELL VOLUME 91.8 fl (80-96); MEAN PLT VOLUME 9.2 fl (7.5-11.1); MONO % 18.1 % (3.8-10.2); NEUT % 65.9 % (42.8-82.8); PLATELET COUNT 95 K/MM3 (134-434); RBC 2.32 M/mm3 (4.00-5.60); WHITE BLOOD COUNT 3.2 K/mm3 (4.0-10.0)
[2020-03-28 07:41] LABS: BILIRUBIN,TOTAL 0.4 mg/dL (0.2-1); BLOOD UREA NITROGEN 31.3 mg/dL (7-18); CALCIUM 8.2 mg/dL (8.5-10.1); CREATININE 1.1 mg/dL (0.55-1.3); POTASSIUM 4.1 mmol/L (3.5-5.1); TOT PROT 5.4 g/dl (6.4-8.2)
[2020-03-28] MEDS: CHOLECALCIFEROL (VIT D3) 1,000 UNIT (25 MCG) TABLET PO SCH (09:02)
[2020-03-28] MEDS: FERROUS SO4 325 MG TABLET (FP) PO SCH ×3 (09:02→17:33)
[2020-03-28] MEDS: LIDOCAINE 5% TOPICAL PATCH TP PRN (09:02)
[2020-03-28] MEDS: ATENOLOL 25 MG TABLET (FP) PO SCH (09:03)
[2020-03-28] MEDS: ASCORBIC ACID 500 MG TABLET (FP) PO SCH ×2 (09:03→22:12)
[2020-03-28 09:55] LABS: ANISOCYTOSIS 2+; MACROCYTOSIS 0; PLATELET ESTIMATE DECREASED
--- NOTE | 2020-03-28 12:08 | PN ---
Progress Note, Physician History of Present Illness: Pt seen and examined at bedside. He is awake and alert. He is out of bed to chair. - Current Medication List Current Medications: Active Medications Acetaminophen (Tylenol -) 1,000 mg PO Q6H PRN PRN Reason: PAIN LEVEL 1-5 Last Admin: 03/28/20 05:50 Dose: 1,000 mg Documented by: Ascorbic Acid (Vitamin C -) 500 mg PO BID COUNT INCLUDES THE [facility] Last Admin: 03/28/20 09:03 Dose: 500 mg Documented by: Atorvastatin Calcium (Lipitor -) 5 mg PO [facility] Last Admin: 03/27/20 21:25 Dose: 5 mg Documented by: Cholecalciferol (Vitamin D3 -) 500 unit PO DAILY COUNT INCLUDES [facility] Last Admin: 03/28/20 09:02 Dose: 500 unit Documented by: Docusate Sodium (Colace -) 100 mg PO TID COUNT INCLUDES THE [facility] Last Admin: 03/28/20 05:42 Dose: 100 mg Documented by: Ferrous Sulfate (Feosol -) 325 mg PO TIDCM COUNT INCLUDES THE [facility] Last Admin: 03/28/20 12:05 Dose: 325 mg Documented by: Lidocaine (Lidoderm Patch -) 1 patch TP DAILY PRN PRN Reason: PAIN LEVEL 1-5 Last Admin: 03/28/20 09:02 Dose: 1 patch Documented by: Miscellaneous (Lidoderm Patch Removal) 1 each MC DAILY@2200 [facility]CLUDES [facility] Last Admin: 03/27/20 22:32 Dose: Not Given Documented by: Miscellaneous (Lidoderm Patch Removal) 1 each MC DAILY@2200 [facility]CLUDES [facility] Last Admin: 03/28/20 01:45 Dose: Not Given Documented by: Morphine Sulfate (Morphine Sulfate) 2 mg IVPUSH Q4H PRN PRN Reason: PAIN LEVEL 6-10 Last Admin: 03/26/20 08:21 Dose: 2 mg Documented by: Terazosin HCl (Hytrin -) 5 mg PO [facility] Last Admin: 03/27/20 21:26 Dose: 5 mg Documented by: - Objective Vital Signs: Vital Signs Temperature 99.0 F 03/28/20 10:01 Pulse Rate 87 03/28/20 10:01 Respiratory Rate 20 03/28/20 10:01 Blood Pressure 96/59 L 03/28/20 11:03 O2 Sat by Pulse Oximetry (%) 100 03/28/20 09:00 Constitutional: Yes: Calm Eyes: Yes: Conjunctiva Clear HENT: Yes: Atraumatic Neck: Yes: Supple Cardiovascular: Yes: S1, S2 Respiratory: Yes: CTA Bilaterally Gastrointestinal: Yes: Normal Bowel Sounds, Soft Genitourinary: Yes: WNL Edema: Yes Edema: LLE: Trace, RLE: Trace Neurological: Yes: Oriented Psychiatric: Yes: Oriented Labs: CBC, BMP 03/28/20 06:16 03/28/20 06:16 INR, PTT INR 1.13 (0.83-1.09) H 03/21/20 16:10 Problem List - Problems (1) CHEMA (acute kidney injury) Code(s): N17.9 - ACUTE KIDNEY FAILURE, UNSPECIFIED (2) Hypotension Code(s): I95.9 - HYPOTENSION, UNSPECIFIED Qualifiers: Hypotension type: unspecified hypotension type Qualified Code(s): I95.9 - Hypotension, unspecified (3) Low back pain Code(s): M54.5 - LOW BACK PAIN Qualifiers: Chronicity: acute Back pain laterality: left Sciatica presence: without sciatica Qualified Code(s): M54.5 - Low back pain Assessment/Plan Current Medications Generic Name Dose Route Start Last Admin Trade Name Freq PRN Reason Stop Dose Admin Acetaminophen 1,000 mg 03/22/20 09:31 03/28/20 05:50 Tylenol - PO 1,000 mg Q6H PRN Administration PAIN LEVEL 1-5 Ascorbic Acid 500 mg 03/23/20 22:00 03/28/20 09:03 Vitamin C - PO 500 mg BID [facility] Administration Atorvastatin Calcium 5 mg 03/22/20 22:00 03/27/20 21:25 Lipitor - PO 5 mg HS [facility] Administration Cholecalciferol 500 unit 03/22/20 10:00 03/28/20 09:02 Vitamin D3 - PO 500 unit DAILY [facility] Administration Docusate Sodium 100 mg 03/23/20 14:00 03/28/20 05:42 Colace - PO 100 mg TID [facility] Administration Ferrous Sulfate 325 mg 03/23/20 17:30 03/28/20 12:05 Feosol - PO 325 mg TIDCM [facility] Administration Lidocaine 1 patch 03/23/20 09:07 03/28/20 09:02 Lidoderm Patch - TP 1 patch DAILY PRN Administration PAIN LEVEL 1-5 Miscellaneous 1 each 03/21/20 22:00 03/27/20 22:32 Lidoderm Patch Removal MC Not Given DAILY@2200 [facility] Miscellaneous 1 each 03/23/20 22:00 03/28/20 01:45 Lidoderm Patch Removal MC Not Given DAILY@2200 [facility] Morphine Sulfate 2 mg 03/21/20 21:47 03/26/20 08:21 Morphine Sulfate IVPUSH 2 mg Q4H PRN Administration PAIN LEVEL 6-10 Terazosin HCl 5 mg 03/22/20 22:00 03/27/20 21:26 Hytrin - PO 5 mg HS [facility] Administration Impression 1. CHEMA 2. lymphoma 3. hypotension 4. anemia 5. prostate cancer 6. hyperkalemia 7. hx of gammopathy Plan - water hauler is improved - repeat labs in am - edema improved - observe off of fluids - will hold off diuretics - chema in part pre-renal with hypotension contributing
[2020-03-28] MEDS: oxyCODONE HCL 5 MG TABLET PO PRN ×2 (15:14→22:13)
--- NOTE | 2020-03-28 16:02 | PN ---
Physical Exam: SUBJECTIVE: Patient seen and examined. He reports continued left back and abdominal pain. 10/10 in the morning with some improvement during the day. He also reports intermittent nausea but no vomiting. Pt reports dark stool but no lesia blood. OBJECTIVE: Vital Signs Period Temp Pulse Resp BP Sys/Tillman Pulse Ox Last 24 Hr 98.0 F-99.2 F 83-98 19-20 89-121/39-70 100-100 GENERAL: The patient is awake, alert, and fully oriented, in no acute distress. HEAD: Normal with no signs of trauma. EYES: PERRL, extraocular movements intact, conjunctiva clear. ENT: Ears normal, nares patent, moist mucous membranes. NECK: Trachea midline. LUNGS/CHEST: Clear to auscultation bilaterally, no wheezes, no crackles. Right chest wall biopsy site bandaged with no drainage, erythema, or tenderness. HEART: Regular rate and rhythm, no murmur. ABDOMEN: Soft, LUQ LLQ tender to palpation, nondistended, normoactive bowel sounds. BACK: left lumbar tender to palpation, lidocaine patch on. EXTREMITIES: Warm, well-perfused, trace pedal edema. NEUROLOGICAL: Cranial nerves II through XII grossly intact. Normal speech. PSYCH: Normal mood, normal affect. SKIN: Warm, dry, normal turgor. Rectal exam deferred. Laboratory Results - last 24 hr 03/28/20 03/28/20 03/28/20 06:16 06:16 10:15 WBC 3.2 L RBC 2.32 L Hgb 7.0 L Hct 21.3 L MCV 91.8 MCH 30.3 MCHC 33.0 RDW 18.0 H Plt Count 95 L MPV 9.2 Absolute Neuts (auto) 2.1 Neutrophils % 65.9 Neutrophils % (Manual) 77.6 Band Neutrophils % 0.0 Lymphocytes % 15.0 Lymphocytes % (Manual) 17.3 D Monocytes % 18.1 H Monocytes % (Manual) 3 L Eosinophils % 0.6 Eosinophils % (Manual) 0.0 Basophils % 0.4 Basophils % (Manual) 0.0 Myelocytes % (Man) 0 Promyelocytes % (Man) 0 Blast Cells % (Manual) 0 Nucleated RBC % 0 Metamyelocytes 1 D Hypochromia 0 Platelet Estimate Decreased Polychromasia 1+ Poikilocytosis 0 Anisocytosis 2+ Microcytosis 2+ Macrocytosis 0 Sodium 143 Potassium 4.1 Chloride 114 H Carbon Dioxide 18 L Anion Gap 11 BUN 31.3 H Creatinine 1.1 Est GFR (CKD-EPI)AfAm 71.07 Est GFR (CKD-EPI)NonAf 61.32 Random Glucose 100 Calcium 8.2 L Total Bilirubin 0.4 AST 14 L ALT 15 Alkaline Phosphatase 54 Total Protein 5.4 L Albumin 2.0 L Blood Type O POSITIVE Antibody Screen Negative Crossmatch See Detail Active Medications Generic Name Dose Route Start Last Admin Trade Name Freq PRN Reason Stop Dose Admin Acetaminophen 1,000 mg 03/22/20 09:31 03/28/20 05:50 Tylenol - PO 1,000 mg Q6H PRN Administration PAIN LEVEL 1-5 Ascorbic Acid 500 mg 03/23/20 22:00 03/28/20 09:03 Vitamin C - PO 500 mg BID [facility] Administration Atorvastatin Calcium 5 mg 03/22/20 22:00 03/27/20 21:25 Lipitor - PO 5 mg HS [facility] Administration Cholecalciferol 500 unit 03/22/20 10:00 03/28/20 09:02 Vitamin D3 - PO 500 unit DAILY [facility] Administration Docusate Sodium 100 mg 03/23/20 14:00 03/28/20 13:33 Colace - PO 100 mg TID [facility] Administration Ferrous Sulfate 325 mg 03/23/20 17:30 03/28/20 12:05 Feosol - PO 325 mg TIDCM [facility] Administration Lidocaine 1 patch 03/23/20 09:07 03/28/20 09:02 Lidoderm Patch - TP 1 patch DAILY PRN Administration PAIN LEVEL 1-5 Miscellaneous 1 each 03/21/20 22:00 03/27/20 22:32 Lidoderm Patch Removal MC Not Given DAILY@2200 [facility] Miscellaneous 1 each 03/23/20 22:00 03/28/20 01:45 Lidoderm Patch Removal MC Not Given DAILY@2200 [facility] Oxycodone HCl 10 mg 03/28/20 14:02 03/28/20 15:14 Roxicodone - PO 10 mg Q6H PRN Administration PAIN LEVEL 6-10 Terazosin HCl 5 mg 03/22/20 22:00 03/27/20 21:26 Hytrin - PO 5 mg HS [facility] Administration ASSESSMENT/PLAN: Pt is an 84 y/o male with HTN, HLD, non-Hodgkin's lymphoma (5-10 years ago currently in remission), prostate cancer (beads 13 years ago in remission), who presents with left lumbar pain since September and has gotten acutely worse over the last 2 months. He also reports left side and abdominal pain. #abdominal pain and back pain 2/2 neoplasm, unknown source -hx of non-Hodgkin's lymphoma and prostate cancer, both in remission -CT- irregular nonspecific 10x9x8 cm left pelvic mesenteric soft tissue lesion suggestive of neoplastic disease, possibly lymphadenopathy; 1.1 cm left periaortic retroperitoneal lymph node at the level of the kidneys -axillary lymph node biopsy pending -change pain meds to oxycodone 10mg Q6H PRN from morphine -MRI with contrast -oncology following #normocytic anemia, ?anemia of chronic disease -Hb 7.0 today -1 unit PRBCs -s/p 1 unit this admission -pt reports recent dark stool -serial FOBT #HTN -hold meds for hypotension #CHEMA, resolved #HLD -statin -ASA 81mg daily DVT Ppx SCDs FEN PO fluids monitor labs sodium-controlled diet dispo tele MRI, awaiting oncology results FULL CODE Visit type - Emergency Visit Emergency Visit: Yes ED Registration Date: 03/21/20 Care time: The patient presented to the Emergency Department on the above date and was hospitalized for further evaluation of their emergent condition. - New Patient This patient is new to me today: No - Critical Care Critical Care patient: No ATTENDING PHYSICIAN STATEMENT I saw and evaluated the patient. I reviewed the resident's note and discussed the case with the resident. I agree with the resident's findings and plan as documented. SUBJECTIVE: OBJECTIVE: ASSESSMENT AND PLAN:
--- NOTE | 2020-03-28 16:46 | PN.HO ---
Progress Note (short form) - Note Progress Note: Patient seen and examined Feels well. Last Vital Signs Temp Pulse Resp BP Pulse Ox 98.7 F 83 20 111/60 100 03/28/20 14:00 03/28/20 14:00 03/28/20 14:00 03/28/20 14:00 03/28/20 09:00 AFVSS Cor: RSR, No murmurs, No gallops Lungs: Clear to P&A Abd: Soft, Normal bowel sounds, No organomegaly Ext:No significant edema 03/28/20 06:16 03/28/20 06:16 Current Medications Generic Name Dose Route Start Last Admin Trade Name Freq PRN Reason Stop Dose Admin Acetaminophen 1,000 mg 03/22/20 09:31 03/28/20 05:50 Tylenol - PO 1,000 mg Q6H PRN Administration PAIN LEVEL 1-5 Ascorbic Acid 500 mg 03/23/20 22:00 03/28/20 09:03 Vitamin C - PO 500 mg BID [facility] Administration Atorvastatin Calcium 5 mg 03/22/20 22:00 03/27/20 21:25 Lipitor - PO 5 mg HS [facility] Administration Cholecalciferol 500 unit 03/22/20 10:00 03/28/20 09:02 Vitamin D3 - PO 500 unit DAILY [facility] Administration Docusate Sodium 100 mg 03/23/20 14:00 03/28/20 13:33 Colace - PO 100 mg TID [facility] Administration Ferrous Sulfate 325 mg 03/23/20 17:30 03/28/20 12:05 Feosol - PO 325 mg TIDCM [facility] Administration Lidocaine 1 patch 03/23/20 09:07 03/28/20 09:02 Lidoderm Patch - TP 1 patch DAILY PRN Administration PAIN LEVEL 1-5 Miscellaneous 1 each 03/21/20 22:00 03/27/20 22:32 Lidoderm Patch Removal MC Not Given DAILY@2200 [facility] Miscellaneous 1 each 03/23/20 22:00 03/28/20 01:45 Lidoderm Patch Removal MC Not Given DAILY@2200 [facility] Oxycodone HCl 10 mg 03/28/20 14:02 03/28/20 15:14 Roxicodone - PO 10 mg Q6H PRN Administration PAIN LEVEL 6-10 Terazosin HCl 5 mg 03/22/20 22:00 03/27/20 21:26 Hytrin - PO 5 mg HS [facility] Administration A/P L sided flank pain x 1 month but worsening over the past few days that is pressure like, radiates the L abdomen and groin that fluctates intermittently but no alleviating or exacerbating factors. Pt with persisten pain without improvement with oral pain medications. ER CT of abdomen showed a new compared with 06/14/13, 10 x 9.8 x 8 cam left pelvic mesenteric mass/ lympadenopathy, 1.1cm periaortic node and an unchanged 1.4cm splenic lesion unchanged from 06/14/13. s/p biopsy of rt. axillary node awaiting pathology h/o prostate cancer s/p brachytherapy check LDH/uric acid Lt. lower back pain due to mesenteric mass--> Pain management. Morphine. Tylenol. Consider biopsy of this mass with IR as well if feasible EPO levels sent. results are pending
[2020-03-28 17:38] LABS: BASO % 0.6 % (0-2.0); EOS % 0.6 % (0-4.5); HEMATOCRIT 23.3 % (35.4-49); HEMOGLOBIN 7.7 GM/dL (11.7-16.9); LYMPH % 15.8 % (8-40); MCH 30.3 pg (25.7-33.7); MCHC 32.8 g/dl (32.0-35.9); MEAN CELL VOLUME 92.2 fl (80-96); MEAN PLT VOLUME 8.9 fl (7.5-11.1); MONO % 19.4 % (3.8-10.2); NEUT % 63.6 % (42.8-82.8); PLATELET COUNT 98 K/MM3 (134-434); RBC 2.53 M/mm3 (4.00-5.60); RDW 17.3 % (11.9-15.9); WHITE BLOOD COUNT 3.9 K/mm3 (4.0-10.0)
[2020-03-28 18:29] LABS: PLATELET ESTIMATE DECREASED
--- NOTE | 2020-03-28 19:56 | PN ---
Teaching Attending Note Name of Resident: Radhika Brock ATTENDING PHYSICIAN STATEMENT I saw and evaluated the patient. I reviewed the resident's note and discussed the case with the resident. I agree with the resident's findings and plan as documented. SUBJECTIVE: pain in L lower backa dn abd no weakness in Legs . OBJECTIVE: NAD CV : 3/6 SM at base . RRR LE : with edema onlegs TTP in L paraspinal area in L region neuro of LE : 55/ hip flexion , knee flexion /extension and ankle dorsiflexion plantar felxion sensation to light touch NL. ASSESSMENT AND PLAN: 84 y/o man with h/o HTN, HLD, non-Hodgkin's lymphoma, prostate cancer (beads 13 years ago in remission), who presented with L lower back pain L paravertebral mass Low back pain due to above mass R axillary LAP h/ Lymphoma Hypotension plan : _ order MRI of L spine - will consult IR for BX - NL neuro exam of LE - dc morphine and add oxy - dc atenolol due to low BP - give 1 unit of RBC in light of hypotension and worsening HB - iron studies missing feritin but TIBC low indicating possibly anemia of c hronic dz. He decliend rectal exam tod ay . will order OB in stool - add SCDS - hold off heparin sq for now pending Bx
[2020-03-28] MEDS ORDERED: PT OWN MED DRAWER 7, Y5N ONE (22:10)
[2020-03-28] MEDS: TERAZOSIN HCL 5 MG CAPSULE PO SCH (22:12)
[2020-03-28] MEDS: ATORVASTATIN CA 10 MG TABLET (FP) PO SCH (22:12)
[2020-03-29] MEDS: DOCUSATE SODIUM 100 MG CAPSULE (FP) PO SCH ×3 (05:44→22:11)
[2020-03-29 07:18] LABS: BASO % 1.1 % (0-2.0); EOS % 0.5 % (0-4.5); HEMATOCRIT 28.2 % (35.4-49); HEMOGLOBIN 9.1 GM/dL (11.7-16.9); LYMPH % 19.2 % (8-40); MCH 30.4 pg (25.7-33.7); MCHC 32.1 g/dl (32.0-35.9); MEAN CELL VOLUME 94.5 fl (80-96); MEAN PLT VOLUME 9.2 fl (7.5-11.1); MONO % 22.1 % (3.8-10.2); NEUT % 57.1 % (42.8-82.8); PLATELET COUNT 94 K/MM3 (134-434); RBC 2.98 M/mm3 (4.00-5.60); WHITE BLOOD COUNT 3.7 K/mm3 (4.0-10.0)
[2020-03-29 07:46] LABS: BLOOD UREA NITROGEN 32.3 mg/dL (7-18); CALCIUM 8.6 mg/dL (8.5-10.1); CREATININE 1.3 mg/dL (0.55-1.3); POTASSIUM 4.4 mmol/L (3.5-5.1)
[2020-03-29] MEDS: FERROUS SO4 325 MG TABLET (FP) PO SCH ×3 (08:11→17:22)
[2020-03-29] MEDS: LIDOCAINE 5% TOPICAL PATCH TP PRN (09:55)
[2020-03-29] MEDS: CHOLECALCIFEROL (VIT D3) 1,000 UNIT (25 MCG) TABLET PO SCH (09:55)
[2020-03-29] MEDS: ASCORBIC ACID 500 MG TABLET (FP) PO SCH ×2 (09:55→22:09)
--- NOTE | 2020-03-29 10:00 | PN ---
Progress Note (short form) - Note Progress Note: Hematology TIBC low and erythropoietin 16, suggesting chronic disease. Hb 9.1 after a transfusion of 2 un. PRBCs. await pathology.
[2020-03-29 11:07] LABS: ALBUMIN % 12.4 % (.)
--- NOTE | 2020-03-29 12:01 | PN ---
Progress Note, Physician History of Present Illness: Pt seen and examined at bedside. He is awake and alert. he denies shortness of breath. He feels edema is improved. - Current Medication List Current Medications: Active Medications Acetaminophen (Tylenol -) 1,000 mg PO Q6H PRN PRN Reason: PAIN LEVEL 1-5 Last Admin: 03/28/20 05:50 Dose: 1,000 mg Documented by: Ascorbic Acid (Vitamin C -) 500 mg PO BID [facility] Last Admin: 03/29/20 09:55 Dose: 500 mg Documented by: Atorvastatin Calcium (Lipitor -) 5 mg PO [facility] Last Admin: 03/28/20 22:12 Dose: 5 mg Documented by: Cholecalciferol (Vitamin D3 -) 500 unit PO DAILY [facility] Last Admin: 03/29/20 09:55 Dose: 500 unit Documented by: Docusate Sodium (Colace -) 100 mg PO TID [facility] Last Admin: 03/29/20 05:44 Dose: 100 mg Documented by: Ferrous Sulfate (Feosol -) 325 mg PO TIDCM [facility] Last Admin: 03/29/20 11:49 Dose: 325 mg Documented by: Lidocaine (Lidoderm Patch -) 1 patch TP DAILY PRN PRN Reason: PAIN LEVEL 1-5 Last Admin: 03/29/20 09:55 Dose: 1 patch Documented by: Miscellaneous (Lidoderm Patch Removal) 1 each MC DAILY@2200 [facility] Last Admin: 03/28/20 22:15 Dose: Not Given Documented by: Miscellaneous (Lidoderm Patch Removal) 1 each MC DAILY@2200 [facility] Last Admin: 03/28/20 22:16 Dose: Not Given Documented by: Oxycodone HCl (Roxicodone -) 10 mg PO Q6H PRN PRN Reason: PAIN LEVEL 6-10 Last Admin: 03/28/20 22:13 Dose: 10 mg Documented by: Terazosin HCl (Hytrin -) 5 mg PO [facility] Last Admin: 03/28/20 22:12 Dose: 5 mg Documented by: - Objective Vital Signs: Vital Signs Temperature 99.0 F 03/29/20 10:10 Pulse Rate 96 H 03/29/20 10:10 Respiratory Rate 20 03/29/20 10:10 Blood Pressure 104/57 L 03/29/20 10:10 O2 Sat by Pulse Oximetry (%) 96 03/29/20 09:00 Constitutional: Yes: Calm Eyes: Yes: Conjunctiva Clear HENT: Yes: Atraumatic Neck: Yes: Supple Cardiovascular: Yes: S1, S2 Respiratory: Yes: CTA Bilaterally Gastrointestinal: Yes: Soft Musculoskeletal: Yes: WNL Edema: Yes Edema: LLE: Trace, RLE: Trace Neurological: Yes: Oriented Psychiatric: Yes: Oriented Labs: CBC, BMP 03/29/20 06:15 03/29/20 06:00 INR, PTT INR 1.13 (0.83-1.09) H 03/21/20 16:10 Problem List - Problems (1) CHEMA (acute kidney injury) Code(s): N17.9 - ACUTE KIDNEY FAILURE, UNSPECIFIED (2) Hypotension Code(s): I95.9 - HYPOTENSION, UNSPECIFIED Qualifiers: Hypotension type: unspecified hypotension type Qualified Code(s): I95.9 - Hypotension, unspecified (3) Low back pain Code(s): M54.5 - LOW BACK PAIN Qualifiers: Chronicity: acute Back pain laterality: left Sciatica presence: without sciatica Qualified Code(s): M54.5 - Low back pain Assessment/Plan Current Medications Generic Name Dose Route Start Last Admin Trade Name Freq PRN Reason Stop Dose Admin Acetaminophen 1,000 mg 03/22/20 09:31 03/28/20 05:50 Tylenol - PO 1,000 mg Q6H PRN Administration PAIN LEVEL 1-5 Ascorbic Acid 500 mg 03/23/20 22:00 03/29/20 09:55 Vitamin C - PO 500 mg BID [facility] Administration Atorvastatin Calcium 5 mg 03/22/20 22:00 03/28/20 22:12 Lipitor - PO 5 mg HS [facility] Administration Cholecalciferol 500 unit 03/22/20 10:00 03/29/20 09:55 Vitamin D3 - PO 500 unit DAILY [facility] Administration Docusate Sodium 100 mg 03/23/20 14:00 03/29/20 05:44 Colace - PO 100 mg TID [facility] Administration Ferrous Sulfate 325 mg 03/23/20 17:30 03/29/20 11:49 Feosol - PO 325 mg TIDCM [facility] Administration Lidocaine 1 patch 03/23/20 09:07 03/29/20 09:55 Lidoderm Patch - TP 1 patch DAILY PRN Administration PAIN LEVEL 1-5 Miscellaneous 1 each 03/21/20 22:00 03/28/20 22:15 Lidoderm Patch Removal MC Not Given DAILY@2200 [facility] Miscellaneous 1 each 03/23/20 22:00 03/28/20 22:16 Lidoderm Patch Removal MC Not Given DAILY@2200 [facility] Oxycodone HCl 10 mg 03/28/20 14:02 03/28/20 22:13 Roxicodone - PO 10 mg Q6H PRN Administration PAIN LEVEL 6-10 Terazosin HCl 5 mg 03/22/20 22:00 03/28/20 22:12 Hytrin - PO 5 mg HS [facility] Administration Impression 1. CHEMA 2. lymphoma 3. hypotension 4. anemia 5. prostate cancer 6. hyperkalemia 7. hx of gammopathy Plan - cont to monitor renal function - hypotension likely contributed to CHEMA - workup for mass is in progress - repeat labs in am - bp is actually improved today - keep all bp med on hold - edema improved - observe off of fluids
[2020-03-29 12:03] LABS: ANISOCYTOSIS 1+; MACROCYTOSIS 1+; PLATELET ESTIMATE DECREASED
--- NOTE | 2020-03-29 13:47 | PN ---
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 Db Blackburn MD
--- NOTE | 2020-03-29 16:16 | PN ---
Physical Exam: SUBJECTIVE: Patient seen and examined. He reports improved pain control since switching from morphine to oxycodone. He was able to sleep well last night. He denies nausea or vomiting. He has normal appetite. OBJECTIVE: Vital Signs Period Temp Pulse Resp BP Sys/Tillman Pulse Ox Last 24 Hr 98.5 F-99.8 F 74-96 20-20 104-154/55-75 96-96 GENERAL: The patient is awake, alert, and fully oriented, in no acute distress. Sitting in chair. HEAD: Normal with no signs of trauma. EYES: PERRL, extraocular movements intact, conjunctiva clear. ENT: Ears normal, nares patent, moist mucous membranes. NECK: Trachea midline. LUNGS: Clear to auscultation bilaterally, no wheezes, no crackles. HEART: Regular rate and rhythm, no murmur. ABDOMEN: Soft, LLQ tender to palpation, nondistended, normoactive bowel sounds. BACK: No lumbar tenderness to palpation. EXTREMITIES: Warm, well-perfused, no edema. NEUROLOGICAL: Cranial nerves II through XII grossly intact. Normal speech. PSYCH: Normal mood, normal affect. SKIN: Warm, dry, normal turgor. Laboratory Results - last 24 hr 03/25/20 03/28/20 03/28/20 03:30 10:15 16:49 WBC 3.9 L RBC 2.53 L Hgb 7.7 L Hct 23.3 L MCV 92.2 MCH 30.3 MCHC 32.8 RDW 17.3 H Plt Count 98 L MPV 8.9 Absolute Neuts (auto) 2.5 Neutrophils % 63.6 Neutrophils % (Manual) 72.0 Band Neutrophils % 2.0 Lymphocytes % 15.8 Lymphocytes % (Manual) 15.0 Monocytes % 19.4 H Monocytes % (Manual) 8 D Eosinophils % 0.6 Eosinophils % (Manual) 1.0 D Basophils % 0.6 Basophils % (Manual) 0.0 Myelocytes % (Man) Promyelocytes % (Man) Blast Cells % (Manual) Nucleated RBC % 0 Metamyelocytes Hypochromia Platelet Estimate Decreased Platelet Comment No clumping noted Polychromasia Poikilocytosis Anisocytosis Microcytosis Macrocytosis Sodium Potassium Chloride Carbon Dioxide Anion Gap BUN Creatinine Est GFR (CKD-EPI)AfAm Est GFR (CKD-EPI)NonAf Random Glucose Calcium Erythropoietin 16.0 Albumin % 12.4 Gamma Globulins (%) 48.1 Ur Total Protein 24 Hr Urine Total Protein 22.0 U PEP M-Saúl U Random APRYL M-Saúl % 27.2 H Ref Test Comments 03/29/20 03/29/20 06:00 06:15 WBC 3.7 L RBC 2.98 L Hgb 9.1 L Hct 28.2 L D MCV 94.5 MCH 30.4 MCHC 32.1 RDW 18.0 H Plt Count 94 L MPV 9.2 Absolute Neuts (auto) 2.1 Neutrophils % 57.1 Neutrophils % (Manual) 61.5 Band Neutrophils % 1.0 Lymphocytes % 19.2 D Lymphocytes % (Manual) 27.9 D Monocytes % 22.1 H Monocytes % (Manual) 5 Eosinophils % 0.5 Eosinophils % (Manual) 1.9 D Basophils % 1.1 Basophils % (Manual) 0.0 Myelocytes % (Man) 2 D Promyelocytes % (Man) 0 Blast Cells % (Manual) 0 Nucleated RBC % 0 Metamyelocytes 1 Hypochromia 1+ Platelet Estimate Decreased Platelet Comment Polychromasia 0 Poikilocytosis 0 Anisocytosis 1+ Microcytosis 2+ Macrocytosis 1+ Sodium 140 Potassium 4.4 Chloride 111 H Carbon Dioxide 17 L Anion Gap 12 BUN 32.3 H Creatinine 1.3 Est GFR (CKD-EPI)AfAm 58.07 Est GFR (CKD-EPI)NonAf 50.10 Random Glucose 88 Calcium 8.6 Erythropoietin Albumin % Gamma Globulins (%) Ur Total Protein 24 Hr Urine Total Protein U PEP M-Saúl U Random APRYL M-Saúl % Ref Test Comments Active Medications Generic Name Dose Route Start Last Admin Trade Name Damienq PRN Reason Stop Dose Admin Acetaminophen 1,000 mg 03/22/20 09:31 03/28/20 05:50 Tylenol - PO 1,000 mg Q6H PRN Administration PAIN LEVEL 1-5 Ascorbic Acid 500 mg 03/23/20 22:00 03/29/20 09:55 Vitamin C - PO 500 mg BID [facility] Administration Atorvastatin Calcium 5 mg 03/22/20 22:00 03/28/20 22:12 Lipitor - PO 5 mg HS [facility] Administration Cholecalciferol 500 unit 03/22/20 10:00 03/29/20 09:55 Vitamin D3 - PO 500 unit DAILY [facility] Administration Docusate Sodium 100 mg 06/18/20 14:00 03/29/20 14:00 Colace - PO 100 mg TID [facility] Administration Ferrous Sulfate 325 mg 03/23/20 17:30 03/29/20 11:49 Feosol - PO 325 mg TIDCM [facility] Administration Lidocaine 1 patch 03/23/20 09:07 03/29/20 09:55 Lidoderm Patch - TP 1 patch DAILY PRN Administration PAIN LEVEL 1-5 Miscellaneous 1 each 03/21/20 22:00 03/28/20 22:15 Lidoderm Patch Removal MC Not Given DAILY@2200 [facility] Miscellaneous 1 each 03/23/20 22:00 03/28/20 22:16 Lidoderm Patch Removal MC Not Given DAILY@2200 [facility] Oxycodone HCl 10 mg 03/28/20 14:02 03/28/20 22:13 Roxicodone - PO 10 mg Q6H PRN Administration PAIN LEVEL 6-10 Terazosin HCl 5 mg 03/22/20 22:00 03/28/20 22:12 Hytrin - PO 5 mg HS [facility] Administration ASSESSMENT/PLAN: Pt is an 84 y/o male with HTN, HLD, non-Hodgkin's lymphoma (5-10 years ago currently in remission), prostate cancer (beads 13 years ago in remission), who presents with left lumbar pain since September and has gotten acutely worse over the last 2 months. He also reports left side and abdominal pain. #abdominal pain and back pain 2/2 neoplasm, unknown source -hx of non-Hodgkin's lymphoma and prostate cancer, both in remission -lumbar MRI with contrast (03/28)- large mass lesion within left psoas muscle at L1-L2 disc level with extension through left L1-L2 and T12-L1 foramina into the left lateral half of the central spinal canal at levels L1-L3. A second lesion noted at T11-T12 levels extending into T11-T12 foramen without definite extension into canal -CT abd pelvis- irregular nonspecific 10x9x8 cm left pelvic mesenteric soft tissue lesion suggestive of neoplastic disease, possibly lymphadenopathy; 1.1 cm left periaortic retroperitoneal lymph node at the level of the kidneys -axillary lymph node biopsy- preliminary results B-cell lymphoma -continue oxycodone 10mg Q6H PRN -IR consult for biopsy -oncology consult -radiation oncology consult -neurosurgery consult #normocytic anemia, ?anemia of chronic disease -Hb 7.0-->9.1 s/p 1 unit PRBCs yesterday -s/p 2 units this admission -pt reports recent dark stool -serial FOBTs #HTN -hold meds for hypotension #CHEMA, resolved -nephro consult #HLD -statin -ASA 81mg daily DVT Ppx SCDs FEN PO fluids monitor labs sodium-controlled diet dispo tele FULL CODE Visit type - Emergency Visit Emergency Visit: Yes ED Registration Date: 03/21/20 Care time: The patient presented to the Emergency Department on the above date and was hospitalized for further evaluation of their emergent condition. - New Patient This patient is new to me today: No - Critical Care Critical Care patient: No ATTENDING PHYSICIAN STATEMENT I saw and evaluated the patient. I reviewed the resident's note and discussed the case with the resident. I agree with the resident's findings and plan as documented. SUBJECTIVE: OBJECTIVE: ASSESSMENT AND PLAN:
--- NOTE | 2020-03-29 18:16 | PN ---
Teaching Attending Note Name of Resident: Radhika Brock ATTENDING PHYSICIAN STATEMENT I saw and evaluated the patient. I reviewed the resident's note and discussed the case with the resident. I agree with the resident's findings and plan as documented. SUBJECTIVE: No fever or chills. No BERUMEN . pain in l flank and LLQ is better today . no wea kness or numbness in LE OBJECTIVE: NAD CV: 3/6 SM at base. RRR LE : with trace edema on legs ( improved from yesterday ) neuro of LE : 5/5 hip flexion , knee flexion /extension and ankle dorsiflexion plantar felxion sensation to light touch NL. Knee jerk 2+ b/l R axillary lymphadenopathy in a form of big one mass . ASSESSMENT AND PLAN: 84 y/o man with h/o HTN, HLD, non-Hodgkin's lymphoma, prostate cancer (beads 13 years ago in remission), who presented with L lower back pain L paravertebral mass Low back pain due to above mass R axillary LAP B cell Lymphoma Hypotension Anemia pancytopenia Plan: - MRI of L spine reviewed . - Neuro sx and rad on consulted - case was d/w Dr. George , neuro sx. since there is no weakness in LEs , no acute surgical procedure is indicated. if mass is lymphoma , then chemo will help shrink the mass - case was d/w Dr. Calabrese by dr. Willett . Bx location to be determined ( more than one mass on MRI). Heme to be reached to discuss - cont oxy - cont to hold BP meds - Hb stable - follwo OB in stool - SCDS - hold off heparin sq for now pending Bx
[2020-03-29] MEDS ORDERED: PT OWN MED DRAWER 7, Y5N ONE (21:58)
[2020-03-29] MEDS: oxyCODONE HCL 5 MG TABLET PO PRN (22:09)
[2020-03-29] MEDS: ACETAMINOPHEN 500 MG TABLET (FP) PO PRN (22:10)
[2020-03-29] MEDS: LIDOCAINE PATCH REMOVAL MC SCH ×2 (22:11→22:12)
[2020-03-29] MEDS: TERAZOSIN HCL 5 MG CAPSULE PO SCH (22:11)
[2020-03-29] MEDS: ATORVASTATIN CA 10 MG TABLET (FP) PO SCH (22:11)
[2020-03-30] MEDS: DOCUSATE SODIUM 100 MG CAPSULE (FP) PO SCH ×3 (06:55→22:48)
[2020-03-30 07:44] LABS: BASO % 0.8 % (0-2.0); EOS % 0.7 % (0-4.5); HEMATOCRIT 23.7 % (35.4-49); HEMOGLOBIN 7.8 GM/dL (11.7-16.9); LYMPH % 20.3 % (8-40); MCH 30.2 pg (25.7-33.7); MCHC 32.8 g/dl (32.0-35.9); MEAN CELL VOLUME 92.3 fl (80-96); MEAN PLT VOLUME 9.3 fl (7.5-11.1); MONO % 24.1 % (3.8-10.2); NEUT % 54.1 % (42.8-82.8); PLATELET COUNT 96 K/MM3 (134-434); RBC 2.57 M/mm3 (4.00-5.60); RDW 17.1 % (11.9-15.9); WHITE BLOOD COUNT 3.3 K/mm3 (4.0-10.0)
[2020-03-30] MEDS: FERROUS SO4 325 MG TABLET (FP) PO SCH ×3 (08:53→17:09)
[2020-03-30] MEDS: ASCORBIC ACID 500 MG TABLET (FP) PO SCH ×2 (09:00→22:48)
[2020-03-30] MEDS: CHOLECALCIFEROL (VIT D3) 1,000 UNIT (25 MCG) TABLET PO SCH (09:01)
--- NOTE | 2020-03-30 09:03 | CONSULT ---
Consult - text type - Consultation Consultation Note: NEUROSURGERY CONSULTATION Candelario Jordan is a pleasant 84 year old male who has a history of Non- Hodgkin's Lymphoma as well as remote Prostate Cancer. He presented with Left Inguinal pain as well as back pain and Left flank pain. Imaging reveals a 4.5x8cm mass adjacent to the spine at the T12 and L1 levels with extension through the neural foramina and mass within the spinal canal displacing the conus medullaris and cauda equina. Patient is neurologically nonfocal except for pain and some L1 numbness/paresthesias. No motor deficits apparent. Case discussed with Dr. Whalen and I understand that there is a plan to biopsy this mass to guide treatment. I agree that if this lesion is sensitive to adjuvant therapy (Chemo/radiation) it would be preferable to surgical resection. If patient were to develop Neurological deficit or be at risk for deficit from po tential tumor swelling associated with treatment, if tissue diagnosis cannot be established, or if definitive treatment cannot be achieved with chemo/radiation and surgery is required, will re-evaluate. For the current time, no acute Neurosurgical intervention is indicated or planned.
[2020-03-30 09:26] LABS: ANISOCYTOSIS 2+; MACROCYTOSIS 0; PLATELET ESTIMATE DECREASED; TARGET CELLS 1+
--- NOTE | 2020-03-30 13:11 | PN ---
Progress Note, Physician History of Present Illness: Pt seen and examined at bedside. He is awake and alert. He denies shortness of breath. - Current Medication List Current Medications: Active Medications Acetaminophen (Tylenol -) 1,000 mg PO Q6H PRN PRN Reason: PAIN LEVEL 1-5 Last Admin: 03/29/20 22:10 Dose: 1,000 mg Documented by: Ascorbic Acid (Vitamin C -) 500 mg PO BID [facility] Last Admin: 03/30/20 09:00 Dose: 500 mg Documented by: Atorvastatin Calcium (Lipitor -) 5 mg PO [facility] Last Admin: 03/29/20 22:11 Dose: 5 mg Documented by: Cholecalciferol (Vitamin D3 -) 500 unit PO DAILY [facility] Last Admin: 03/30/20 09:01 Dose: 500 unit Documented by: Docusate Sodium (Colace -) 100 mg PO TID [facility] Last Admin: 03/30/20 06:55 Dose: 100 mg Documented by: Ferrous Sulfate (Feosol -) 325 mg PO TIDCM [facility] Last Admin: 03/30/20 11:47 Dose: 325 mg Documented by: Lidocaine (Lidoderm Patch -) 1 patch TP DAILY PRN PRN Reason: PAIN LEVEL 1-5 Last Admin: 03/29/20 09:55 Dose: 1 patch Documented by: Miscellaneous (Lidoderm Patch Removal) 1 each MC DAILY@2200 [facility] Last Admin: 03/29/20 22:11 Dose: Not Given Documented by: Miscellaneous (Lidoderm Patch Removal) 1 each MC DAILY@2200 [facility] Last Admin: 03/29/20 22:12 Dose: Not Given Documented by: Oxycodone HCl (Roxicodone -) 10 mg PO Q6H PRN PRN Reason: PAIN LEVEL 6-10 Last Admin: 03/29/20 22:09 Dose: 10 mg Documented by: Terazosin HCl (Hytrin -) 5 mg PO [facility] Last Admin: 03/29/20 22:11 Dose: 5 mg Documented by: - Objective Vital Signs: Vital Signs Temperature 98.7 F 03/30/20 08:20 Pulse Rate 94 H 03/30/20 08:20 Respiratory Rate 16 03/30/20 09:00 Blood Pressure 118/61 03/30/20 08:20 O2 Sat by Pulse Oximetry (%) 95 03/30/20 09:00 Constitutional: Yes: Calm Eyes: Yes: Conjunctiva Clear HENT: Yes: Atraumatic Neck: Yes: Supple Cardiovascular: Yes: S1, S2 Respiratory: Yes: CTA Bilaterally Gastrointestinal: Yes: Normal Bowel Sounds, Soft Genitourinary: Yes: WNL Musculoskeletal: Yes: WNL Edema: Yes Edema: LLE: 1+, RLE: 1+ Neurological: Yes: Oriented Psychiatric: Yes: Oriented Labs: CBC, BMP 03/30/20 06:10 03/29/20 06:00 INR, PTT INR 1.13 (0.83-1.09) H 03/21/20 16:10 Problem List - Problems (1) CHEMA (acute kidney injury) Code(s): N17.9 - ACUTE KIDNEY FAILURE, UNSPECIFIED (2) Hypotension Code(s): I95.9 - HYPOTENSION, UNSPECIFIED Qualifiers: Hypotension type: unspecified hypotension type Qualified Code(s): I95.9 - Hypotension, unspecified (3) Low back pain Code(s): M54.5 - LOW BACK PAIN Qualifiers: Chronicity: acute Back pain laterality: left Sciatica presence: without sciatica Qualified Code(s): M54.5 - Low back pain Assessment/Plan Current Medications Generic Name Dose Route Start Last Admin Trade Name Freq PRN Reason Stop Dose Admin Acetaminophen 1,000 mg 03/22/20 09:31 03/29/20 22:10 Tylenol - PO 1,000 mg Q6H PRN Administration PAIN LEVEL 1-5 Ascorbic Acid 500 mg 03/23/20 22:00 03/30/20 09:00 Vitamin C - PO 500 mg BID [facility] Administration Atorvastatin Calcium 5 mg 03/22/20 22:00 03/29/20 22:11 Lipitor - PO 5 mg HS [facility] Administration Cholecalciferol 500 unit 03/22/20 10:00 03/30/20 09:01 Vitamin D3 - PO 500 unit DAILY [facility] Administration Docusate Sodium 100 mg 03/23/20 14:00 03/30/20 06:55 Colace - PO 100 mg TID [facility] Administration Ferrous Sulfate 325 mg 03/23/20 17:30 03/30/20 11:47 Feosol - PO 325 mg TIDCM [facility] Administration Lidocaine 1 patch 03/23/20 09:07 03/29/20 09:55 Lidoderm Patch - TP 1 patch DAILY PRN Administration PAIN LEVEL 1-5 Miscellaneous 1 each 03/21/20 22:00 03/29/20 22:11 Lidoderm Patch Removal MC Not Given DAILY@2200 [facility] Miscellaneous 1 each 03/23/20 22:00 03/29/20 22:12 Lidoderm Patch Removal MC Not Given DAILY@2200 [facility] Oxycodone HCl 10 mg 03/28/20 14:02 03/29/20 22:09 Roxicodone - PO 10 mg Q6H PRN Administration PAIN LEVEL 6-10 Terazosin HCl 5 mg 03/22/20 22:00 03/29/20 22:11 Hytrin - PO 5 mg HS [facility] Administration Impression 1. CHEMA 2. lymphoma 3. hypotension 4. anemia 5. prostate cancer 6. hyperkalemia 7. hx of gammopathy Plan - check bmp in am - pt does not want diuretics - elevated legs when sitting - low sodium heart healthy diet - cont to monitor rhonda, meds remain on hold
--- NOTE | 2020-03-30 16:22 | CONSULT ---
Consult Consult Specialty:: Radiation Oncology Referred by:: Dr. Tyson Pearson Reason for Consultation:: Paraspinal, mesenteric, and axillary masses - History of Present Illness Chief Complaint: Left flank and abdominal groin pain History of Present Illness: Pt is an 84 yo gentleman with hx of localized prostate cancer (PSA in 20s) s/p EBRT + brachytherapy seed implant 10-15 years ago and KAMERON, NHL s/p chemotherapy 5-10 years ago and reportedly KAMERON, admitted with worsening left LBP radiating to abdomen and left groin. CT scans demonstrate large right axillary adenopathy s/p biopsy and 10cm mesenteric and 6cm left L1-L2 paravertebral masses. MRI L- spine shows left paraspinal/psoas masses T11-L2 with thecal sac compression. Pr elim path c/w B cell lymphoma, final results pending. Pain controlled on current regimen. Denies changes in bowel habits, nausea, night sweats, fevers, weight loss. 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 History of Recent Travel: No Home Medications - Allergies Allergies/Adverse Reactions: Allergies Allergy/AdvReac Type Severity Reaction Status Date / Time No Known Drug Allergies Allergy Verified 03/21/20 16:08 - Home Medications Home Medications: Ambulatory Orders Aspirin [ASA -] 81 mg PO DAILY 09/07/12 Terazosin HCl [Hytrin -] 5 mg PO HS 09/07/12 Verapamil HCl ER [Calan Sr -] 240 mg PO DAILY 09/07/12 Cholecalciferol (Vitamin D3) [Vitamin D3] 500 unit PO DAILY 09/08/12 Simvastatin [Zocor -] 5 mg PO HS 09/08/12 Atenolol [Tenormin -] 25 mg PO DAILY 03/22/20 Family Medical History Family Hx Cancer: Mother ( with lymphoma at 78), Father (heart disease at 59), Sister (lung cancer), Brother (lymphoma) Review of Systems - Review of Systems Constitutional: reports: No Symptoms Eyes: reports: No Symptoms HENT: reports: No Symptoms Neck: reports: No Symptoms Cardiovascular: reports: No Symptoms Respiratory: reports: No Symptoms Gastrointestinal: reports: Abdominal Pain Genitourinary: reports: No Symptoms Integumentary: reports: No Symptoms Neurological: reports: No Symptoms Endocrine: reports: No Symptoms Pain Intensity: 4 (Left abdomen) Physical Exam Vital Signs: Vital Signs Temperature 98.5 F 03/30/20 14:00 Pulse Rate 87 03/30/20 14:00 Respiratory Rate 18 03/30/20 14:00 Blood Pressure 135/70 03/30/20 14:00 O2 Sat by Pulse Oximetry (%) 95 03/30/20 09:00 Constitutional: Yes: Obese Eyes: Yes: WNL HENT: Yes: WNL Neck: Yes: WNL Respiratory: Yes: WNL Gastrointestinal: Yes: Abdomen, Obese, Other (NO palpable mass) Renal/: Yes: CVA Tenderness - Left Musculoskeletal: Yes: Back Pain Extremities: Yes: WNL Edema: Yes Edema: LLE: Trace, RLE: Trace Labs: CBC, BMP 03/30/20 06:10 03/29/20 06:00 Imaging - Results Cat Scan: Report Reviewed, Image Reviewed MRI: Report Reviewed, Image Reviewed Assessment/Plan 84 yo male with hx of prostate cancer s/p RT+radioactive seeds and NHL s/p chemotherapy p/w multiple large masses in right axilla, left mesentery, left paravertebral region associated with epidural extension T11-L2. Pain controlled and no other neurologic deficits at present. Biopsy of axillary adenopathy suggests B-cell lymphoma. Will request prior RT records from [facility] (where he had treatment) to clarify prostate cancer history but sounds like high risk localized disease given PSA over 20 at the time of treatment. Agree with obtaining PSA level. If PSA high, would consider biopsy of abdominal or paraspinal masses to rule out synchronous cancer recurrence. Otherwise would seem clinically c/w lymphoma pending final pathology. If recurrent lymphoma would consider initial therapy with chemotherapy. Radiotherapy indicated if not a candidate for systemic therapy, progression on chemotherapy +/- new neurologic deficits. If recurrent prostate cancer would consider palliative RT to paravertebral mass sooner than later to minimize further neurologic compromise. Plan: Follow up final path, obtain RT records. Reviewed and discussed with Drs. Villa and Guanakito. Will follow. Thank you for asking me to see the patient.
[2020-03-30] MEDS: oxyCODONE HCL 5 MG TABLET PO PRN ×2 (16:35→22:55)
--- NOTE | 2020-03-30 16:36 | PN ---
Physical Exam: SUBJECTIVE: Patient seen and examined. Pain is better controlled with oxycodone. He denies back pain but still has some LLQ pain. 4/5. Good PO intake. He denies nausea or vomiting. OBJECTIVE: Vital Signs Period Temp Pulse Resp BP Sys/Tillman Pulse Ox Last 24 Hr 98.1 F-98.7 F 84-94 16-20 97-139/54-75 95 GENERAL: The patient is awake, alert, and fully oriented, in no acute distress. Sitting in chair. HEAD: Normal with no signs of trauma. EYES: PERRL, extraocular movements intact, conjunctiva clear. ENT: Ears normal, nares patent, moist mucous membranes. NECK: Trachea midline. LUNGS: Clear to auscultation bilaterally, no wheezes, no crackles. HEART: Regular rate and rhythm, no murmur. ABDOMEN: Soft, LLQ tender to palpation, nondistended, normoactive bowel sounds. BACK: No lumbar tenderness to palpation. EXTREMITIES: Warm, well-perfused, no edema. NEUROLOGICAL: Cranial nerves II through XII grossly intact. Normal speech. PSYCH: Normal mood, normal affect. SKIN: Warm, dry, normal turgor. Laboratory Results - last 24 hr 03/30/20 03/30/20 03/30/20 06:10 06:10 13:38 WBC 3.3 L RBC 2.57 L Hgb 7.8 L Hct 23.7 L D MCV 92.3 MCH 30.2 MCHC 32.8 RDW 17.1 H Plt Count 96 L MPV 9.3 Absolute Neuts (auto) 1.8 Neutrophils % 54.1 Neutrophils % (Manual) 64.7 Band Neutrophils % 0.0 Lymphocytes % 20.3 Lymphocytes % (Manual) 13.1 D Monocytes % 24.1 H Monocytes % (Manual) 20 H D Eosinophils % 0.7 Eosinophils % (Manual) 0.0 D Basophils % 0.8 Basophils % (Manual) 0.0 Myelocytes % (Man) 0 D Promyelocytes % (Man) 0 Blast Cells % (Manual) 0 Nucleated RBC % 0 Metamyelocytes 1 Hypochromia 1+ Platelet Estimate Decreased Polychromasia 1+ Poikilocytosis 1+ Anisocytosis 2+ Microcytosis 2+ Macrocytosis 0 Target Cells 1+ Stomatocytes 1+ LD Total 207 Stool Occult Blood Negative Active Medications Generic Name Dose Route Start Last Admin Trade Name Freq PRN Reason Stop Dose Admin Acetaminophen 1,000 mg 03/22/20 09:31 03/29/20 22:10 Tylenol - PO 1,000 mg Q6H PRN Administration PAIN LEVEL 1-5 Ascorbic Acid 500 mg 03/23/20 22:00 03/30/20 09:00 Vitamin C - PO 500 mg BID GEORGINA Administration Atorvastatin Calcium 5 mg 03/22/20 22:00 03/29/20 22:11 Lipitor - PO 5 mg HS GEORGINA Administration Cholecalciferol 500 unit 03/22/20 10:00 03/30/20 09:01 Vitamin D3 - PO 500 unit DAILY [facility] Administration Docusate Sodium 100 mg 03/23/20 14:00 03/30/20 13:08 Colace - PO 100 mg TID GEORGINA Administration Ferrous Sulfate 325 mg 03/23/20 17:30 03/30/20 11:47 Feosol - PO 325 mg TIDCM GEORGINA Administration Lidocaine 1 patch 03/23/20 09:07 03/29/20 09:55 Lidoderm Patch - TP 1 patch DAILY PRN Administration PAIN LEVEL 1-5 Miscellaneous 1 each 03/21/20 22:00 03/29/20 22:11 Lidoderm Patch Removal MC Not Given DAILY@2200 GEORGINA Miscellaneous 1 each 03/23/20 22:00 03/29/20 22:12 Lidoderm Patch Removal MC Not Given DAILY@2200 GEORGINA Oxycodone HCl 10 mg 03/28/20 14:02 03/29/20 22:09 Roxicodone - PO 10 mg Q6H PRN Administration PAIN LEVEL 6-10 Terazosin HCl 5 mg 03/22/20 22:00 03/29/20 22:11 Hytrin - PO 5 mg HS GEORGINA Administration ASSESSMENT/PLAN: Pt is an 84 y/o male with HTN, HLD, non-Hodgkin's lymphoma (5-10 years ago currently in remission), prostate cancer (beads 13 years ago in remission), who presents with left lumbar pain since September and has gotten acutely worse over the last 2 months. He also reports left side and abdominal pain. #abdominal pain and back pain 2/2 neoplasm, unknown source -hx of non-Hodgkin's lymphoma and prostate cancer, both in remission -spoke to Dr. Ron who recommends biopsy of 3 new neoplasms -lumbar MRI with contrast (03/28)- large mass lesion within left psoas muscle at L1-L2 disc level with extension through left L1-L2 and T12-L1 foramina into the left lateral half of the central spinal canal at levels L1-L3. A second lesion noted at T11-T12 levels extending into T11-T12 foramen without definite extension into canal -CT abd pelvis- irregular nonspecific 10x9x8 cm left pelvic mesenteric soft tissue lesion suggestive of neoplastic disease, possibly lymphadenopathy; 1.1 cm left periaortic retroperitoneal lymph node at the level of the kidneys -axillary lymph node biopsy- preliminary results B-cell lymphoma -continue oxycodone 10mg Q6H PRN -IR consult for biopsy- anticipate Friday -oncology consult -radiation oncology consult -neurosurgery consult #normocytic anemia, ?anemia of chronic disease -Hb stable -s/p 2 units this admission -pt reports recent dark stool -serial FOBTs #HTN -hold meds for hypotension #CHEMA, resolved -nephro consult #HLD -statin -ASA 81mg daily DVT Ppx SCDs FEN PO fluids monitor labs sodium-controlled diet dispo tele FULL CODE Visit type - Emergency Visit Emergency Visit: Yes ED Registration Date: 03/21/20 Care time: The patient presented to the Emergency Department on the above date and was hospitalized for further evaluation of their emergent condition. - New Patient This patient is new to me today: No - Critical Care Critical Care patient: No ATTENDING PHYSICIAN STATEMENT I saw and evaluated the patient. I reviewed the resident's note and discussed the case with the resident. I agree with the resident's findings and plan as documented. SUBJECTIVE: OBJECTIVE: ASSESSMENT AND PLAN:
--- NOTE | 2020-03-30 18:25 | PN ---
Teaching Attending Note Name of Resident: Radhika Brock ATTENDING PHYSICIAN STATEMENT I saw and evaluated the patient. I reviewed the resident's note and discussed the case with the resident. I agree with the resident's findings and plan as documented. SUBJECTIVE: seen at around 12 pm cont to have pain in L flank and LLQ . better though no weakness, numbness or tingling in LE s. no urinary /fecal incontinence OBJECTIVE: NAD CV: 3/6 SM at base. RRR LE : with trace edema on legs ( improved from yesterday ) neuro of LE : 5/5 hip flexion , knee flexion /extension and ankle dorsiflexion plantar felxion sensation to light touch NL. R axillary lymphadenopathy was not examined today . ASSESSMENT AND PLAN: 84 y/o man with h/o HTN, HLD, non-Hodgkin's lymphoma, prostate cancer (beads 13 years ago in remission), who presented with L lower back pain L paravertebral mass Low back pain due to above mass R axillary LAP B cell Lymphoma Hypotension Anemia pancytopenia Plan: - rad onc Recs pending - No surgical intervention at this point - case was d/w heme. Bx is recommended to all three different sites in paraspinal area. case was d/w IR by team. IR recs to wait for final tissue bx and PSA . - Not sure of indication of waiting for above as results are not going to change management consultant. we still need Bx regardless of PSA and final tissue bx - will have Oncologist d/w IR - cont oxy - cont to hold BP meds - Hb stable - check hemolysis labs . - SCDS - hold off heparin sq for now pending Bx
[2020-03-30] MEDS ORDERED: PT OWN MED DRAWER 7, Y5N ONE (21:51)
[2020-03-30] MEDS ORDERED: LIDOCAINE PATCH REMOVAL MC SCH (22:00)
[2020-03-30] MEDS: LIDOCAINE PATCH REMOVAL MC SCH (22:48)
[2020-03-30] MEDS: ATORVASTATIN CA 10 MG TABLET (FP) PO SCH (22:49)
[2020-03-30] MEDS: TERAZOSIN HCL 5 MG CAPSULE PO SCH (22:50)
[2020-03-31] MEDS: DOCUSATE SODIUM 100 MG CAPSULE (FP) PO SCH ×3 (05:13→21:16)
[2020-03-31 08:21] LABS: BASO % 0.6 % (0-2.0); EOS % 0.7 % (0-4.5); HEMOGLOBIN 8.2 GM/dL (11.7-16.9); LYMPH % 16.3 % (8-40); MCH 30.1 pg (25.7-33.7); MCHC 32.8 g/dl (32.0-35.9); MEAN CELL VOLUME 91.7 fl (80-96); MEAN PLT VOLUME 8.7 fl (7.5-11.1); MONO % 22.6 % (3.8-10.2); NEUT % 59.8 % (42.8-82.8); PLATELET COUNT 94 K/MM3 (134-434); RBC 2.72 M/mm3 (4.00-5.60); RDW 16.8 % (11.9-15.9); WHITE BLOOD COUNT 2.8 K/mm3 (4.0-10.0)
[2020-03-31 08:46] LABS: BLOOD UREA NITROGEN 32.3 mg/dL (7-18); CALCIUM 8.6 mg/dL (8.5-10.1); CREATININE 1.3 mg/dL (0.55-1.3); POTASSIUM 4.4 mmol/L (3.5-5.1)
--- NOTE | 2020-03-31 08:49 | PN.HO ---
Progress Note (short form) - Note Progress Note: PAtient seen and examined Feels well. Denies any complaints AFVSS Cor: RSR, No murmurs, No gallops Lungs: Clear to P&A Abd: Soft, Normal bowel sounds, No organomegaly Ext:No significant edema Labs/MEds reviewed A/P L sided flank pain x 1 month but worsening over the past few days that is pressure like, radiates the L abdomen and groin that fluctates intermittently but no alleviating or exacerbating factors. Pt with persisten pain without improvement with oral pain medications. ER CT of abdomen showed a new compared with 06/14/13, 10 x 9.8 x 8 cam left pelvic mesenteric mass/ lympadenopathy, 1.1cm periaortic node and an unchanged 1.4cm splenic lesion unchanged from 06/14/13. Lt. lower back paain due to mesenteric mass CT T/L spine --- thecal sac compressiom Await final pathology on left axillary node---prelim-- B cell lymphoma Will discusss with IR regarding biopsy of mesenteric mass Start allopurinol for urinc acid 11.1 LDH--nl Wll need to consider gentle hydration/ steroids depending on clinical course/path h/o prostate cancer s/p RT -- will check PSA discussed with Dr. Nayak
[2020-03-31] MEDS ORDERED: LIDOCAINE 5% TOPICAL PATCH TP PRN (10:00)
[2020-03-31] MEDS: CHOLECALCIFEROL (VIT D3) 1,000 UNIT (25 MCG) TABLET PO SCH (10:58)
[2020-03-31] MEDS: FERROUS SO4 325 MG TABLET (FP) PO SCH ×3 (10:59→17:15)
[2020-03-31] MEDS: ASCORBIC ACID 500 MG TABLET (FP) PO SCH ×2 (10:59→21:15)
[2020-03-31] MEDS: oxyCODONE HCL 5 MG TABLET PO PRN ×2 (11:02→17:14)
[2020-03-31 11:30] LABS: ANISOCYTOSIS 1+; MACROCYTOSIS 0; PLATELET ESTIMATE DECREASED; TARGET CELLS 1+
--- NOTE | 2020-03-31 11:49 | PN ---
Progress Note, Physician History of Present Illness: Pt seen and examined at bedside. He is awake and alert. He denies shortness of breath. - Current Medication List Current Medications: Active Medications Acetaminophen (Tylenol -) 1,000 mg PO Q6H PRN PRN Reason: PAIN LEVEL 1-5 Ascorbic Acid (Vitamin C -) 500 mg PO BID [facility] Last Admin: 03/31/20 10:59 Dose: 500 mg Documented by: Atorvastatin Calcium (Lipitor -) 5 mg PO [facility] Last Admin: 03/30/20 22:49 Dose: 5 mg Documented by: Cholecalciferol (Vitamin D3 -) 500 unit PO DAILY [facility] Last Admin: 03/31/20 10:58 Dose: 500 unit Documented by: Docusate Sodium (Colace -) 100 mg PO TID [facility] Last Admin: 03/31/20 05:13 Dose: 100 mg Documented by: Ferrous Sulfate (Feosol -) 325 mg PO TIDCM [facility] Last Admin: 03/31/20 10:59 Dose: 325 mg Documented by: Lidocaine (Lidoderm Patch -) 1 patch TP DAILY PRN PRN Reason: PAIN LEVEL 1-5 Miscellaneous (Lidoderm Patch Removal) 1 each MC DAILY@2200 [facility] Last Admin: 03/30/20 22:48 Dose: Not Given Documented by: Oxycodone HCl (Roxicodone -) 10 mg PO Q6H PRN PRN Reason: PAIN LEVEL 6-10 Last Admin: 03/31/20 11:02 Dose: 10 mg Documented by: Terazosin HCl (Hytrin -) 5 mg PO [facility] Last Admin: 03/30/20 22:50 Dose: 5 mg Documented by: - Objective Vital Signs: Vital Signs Temperature 99 F 03/31/20 05:21 Pulse Rate 84 03/31/20 05:21 Respiratory Rate 18 03/31/20 05:21 Blood Pressure 110/60 03/31/20 05:21 O2 Sat by Pulse Oximetry (%) 96 03/30/20 21:00 Constitutional: Yes: Calm Eyes: Yes: Conjunctiva Clear HENT: Yes: Atraumatic Neck: Yes: Supple Cardiovascular: Yes: S1, S2 Respiratory: Yes: CTA Bilaterally Gastrointestinal: Yes: Soft Genitourinary: Yes: WNL Musculoskeletal: Yes: WNL Edema: Yes Edema: LLE: 1+, RLE: 1+ Neurological: Yes: Oriented Psychiatric: Yes: Oriented Labs: CBC, BMP 03/31/20 07:20 03/31/20 07:20 INR, PTT INR 1.13 (0.83-1.09) H 03/21/20 16:10 Problem List - Problems (1) CHEMA (acute kidney injury) Code(s): N17.9 - ACUTE KIDNEY FAILURE, UNSPECIFIED (2) Hypotension Code(s): I95.9 - HYPOTENSION, UNSPECIFIED Qualifiers: Hypotension type: unspecified hypotension type Qualified Code(s): I95.9 - Hypotension, unspecified (3) Low back pain Code(s): M54.5 - LOW BACK PAIN Qualifiers: Chronicity: acute Back pain laterality: left Sciatica presence: without sciatica Qualified Code(s): M54.5 - Low back pain Assessment/Plan Current Medications Generic Name Dose Route Start Last Admin Trade Name Freq PRN Reason Stop Dose Admin Acetaminophen 1,000 mg 03/30/20 18:21 Tylenol - PO Q6H PRN PAIN LEVEL 1-5 Ascorbic Acid 500 mg 03/30/20 22:00 03/31/20 10:59 Vitamin C - PO 500 mg BID GEORGINA Administration Atorvastatin Calcium 5 mg 03/30/20 22:00 03/30/20 22:49 Lipitor - PO 5 mg HS GEORGINA Administration Cholecalciferol 500 unit 03/31/20 10:00 03/31/20 10:58 Vitamin D3 - PO 500 unit DAILY [facility]ORGINA Administration Docusate Sodium 100 mg 03/30/20 22:00 03/31/20 05:13 Colace - PO 100 mg TID GEORGINA Administration Ferrous Sulfate 325 mg 03/31/20 08:00 03/31/20 10:59 Feosol - PO 325 mg TIDCM GEORGINA Administration Lidocaine 1 patch 03/31/20 10:00 Lidoderm Patch - TP DAILY PRN PAIN LEVEL 1-5 Miscellaneous 1 each 03/30/20 22:00 03/30/20 22:48 Lidoderm Patch Removal MC Not Given DAILY@2200 GEORGINA Oxycodone HCl 10 mg 03/30/20 18:21 03/31/20 11:02 Roxicodone - PO 10 mg Q6H PRN Administration PAIN LEVEL 6-10 Terazosin HCl 5 mg 03/30/20 22:00 03/30/20 22:50 Hytrin - PO 5 mg HS GEORGINA Administration Impression 1. CHEMA 2. lymphoma 3. hypotension 4. anemia 5. prostate cancer 6. hyperkalemia 7. hx of gammopathy 8. b-cell lymphoma Plan - renal function stable - will discuss treatment and fluids with oncology - low sodium heart healthy diet - cont to monitor bp - oncology workup in progress, will stay on standby for volume management
--- NOTE | 2020-03-31 16:11 | PATH ---
Surgical Pathology Report Patient Name: SONDRA MERAZ Med. Rec. #: [id number] /Age/Gender: 1935 (Age: 84) / M Account: [id number] Location: [facility] MED/SURG Taken: 03/24/2020 Received: 03/24/2020 Reported: 03/31/2020 Physicians: Demetrice Godinez M.D. Garine Kalaydjian, M.D. 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 See Comment. Addendum: The tumor cells are positive for MUM-1, consistent with a non-GCB [id number]. FISH analysis is pending to assess for double/triple hit. A summary report will be issued separately. COMMENT: Needle biopsy sections show a diffuse proliferation of atypical lymphoid cells. They are medium to large with mostly round nuclei and mature chromatin. There is a focus of necrosis. The submitted immunohistochemical stains are reviewed (CD45 and cytokeratin AE1/AE3) and additional studies are performed here. The tumor cells are positive for CD45, CD20, PAX-5, BCL-2 and C-MYC protein. They are negative for CD5, CD10, CD30, cyclin D1,BCL-6, CD43 and cytokeratin AE1/AE3. MUM-1 is technically unsatisfactory and is being repeated. CD3 and CD5 highlight a few admixed T-cells. There is no evidence of SHELTER meshworks with CD21 and CD23 staining. The proliferative rate is high (4+ out of 4+) by Ki-67 staining. In situ hybridization for Ondina-Chapa virus using an HEATHER probe is negative with adequate controls. So-called double expressor (positive for both BCL-2 and C-MYC proteins) cases of DLBCL may have an adverse prognosis. There is minimal tissue remaining; however, FISH for C-MYC, BCL-2, and BCL-6 rearrangements will be attempted to assess for double/triple hit. This case was [place]. Crist[place]bal Jara [place] [facility] [place] the diagnosis above reflects his opinion. FLOW CYTOMETRY performed and [place] [facility] [place] the following: INTERPRETATION: LYMPH NODE, RIGHT AXILLA (cell suspension): Abnormal B-cell population (85% of viable cells), see Comment and Phenotype. COMMENT: The viability of the specimen was 19%. Calculations may not be accurate and cells of interest may be preferentially lost in specimens with low viability. The specimen is received 4 days after collection. The B-cells are abnormal because they lack surface light chain expression. This may occur in some cases of B-cell lymphoma. The high forward light scatter suggests the cells are large. They have a non-specific immunophenotype which typically excludes most cases of chronic lymphocytic leukemia/small lymphocytic lymphoma, mantle cell lymphoma, and follicular lymphoma. Correlation with morphologic examination is pending. PHENOTYPE: Based on light scatter characteristics and 7AAD negativity approximately 19% of the total cells in the specimen are viable. Of the viable cells approximately 11% are T-cells and 85% B-cells. Virtually all of the B-cells lack surface light chains. They express CD19, CD20 (bright), CD22 (dim), CD38 (dim), and CD11c (dim). In addition to light chains they are also negative for CD5, CD10, and CD23. The T-cells express all song-T-cell antigens tested with CD4 < CD8 (ratio = 0.2:1). Approximately 3% of the cells express CD13/CD33, consistent with myeloid/monocytic cells. Approximately 1% of the cells are negative for CD45 and all other markers tested. See [facility] Oncology report for additional details. Flow findings discussed with Dr. Blackburn by Dr. Gutierrez, 03/29/20. Electronically Signed Josephine Phoenix M.D. Addendum Reported: 04/04/2020 Addendum Diagnosis Fluorescence In-Situ Hybridization performed and interpreted at [facility], [place], [place] ([id number]) shows the following: INTERPRETATION: 1. Negative for a rearrangement involving MYC. 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 Correlation with clinicopathological findings and other laboratory tests is indicated. 2. Negative for a rearrangement involving BCL6. 3. Negative for a rearrangement involving BCL2 See [facility] for additional details. Gross Description Received in formalin labeled "right axillary lymph node tissue," is a 1.0 x 0.6 x 0.1 cm aggregate of klein, irregular to cylindrical soft tissue fragments. The formalin is filtered and the specimen is entirely submitted in one cassette. There is additional tissue received in RPMI solution which is saved in the histology refrigerator. 03/24/2020 [facility]03/24/2020
--- NOTE | 2020-03-31 16:40 | PN ---
Physical Exam: SUBJECTIVE: Patient seen and examined. Pain is better controlled with oxycodone. He denies back pain but still has some LLQ pain. Good PO intake. He denies nausea or vomiting. OBJECTIVE: Vital Signs Period Temp Pulse Resp BP Sys/Tillman Pulse Ox Last 24 Hr 98.3 F-99.2 F 84-96 18-19 105-113/52-62 96-100 GENERAL: The patient is awake, alert, and fully oriented, in no acute distress. HEAD: Normal with no signs of trauma. EYES: PERRL, extraocular movements intact, conjunctiva clear. ENT: Ears normal, nares patent, moist mucous membranes. NECK: Trachea midline. LUNGS: Clear to auscultation bilaterally, no wheezes, no crackles. HEART: Regular rate and rhythm, no murmur. ABDOMEN: Soft, LLQ tender to palpation, nondistended, normoactive bowel sounds. BACK: No lumbar tenderness to palpation. EXTREMITIES: Warm, well-perfused, no edema. NEUROLOGICAL: Cranial nerves II through XII grossly intact. Normal speech. PSYCH: Normal mood, normal affect. SKIN: Warm, dry, normal turgor. Laboratory Results - last 24 hr 03/28/20 03/30/20 03/31/20 10:15 06:10 07:20 WBC RBC Hgb Hct MCV MCH MCHC RDW Plt Count MPV Absolute Neuts (auto) Neutrophils % Neutrophils % (Manual) Band Neutrophils % Lymphocytes % Lymphocytes % (Manual) Monocytes % Monocytes % (Manual) Eosinophils % Eosinophils % (Manual) Basophils % Basophils % (Manual) Myelocytes % (Man) Promyelocytes % (Man) Blast Cells % (Manual) Nucleated RBC % Metamyelocytes Hypochromia Platelet Estimate Polychromasia Poikilocytosis Anisocytosis Microcytosis Macrocytosis Spherocytes Target Cells Stomatocytes Haptoglobin 256 Sodium 138 Potassium 4.4 Chloride 109 H Carbon Dioxide 20 L Anion Gap 9 BUN 32.3 H Creatinine 1.3 Est GFR (CKD-EPI)AfAm 58.07 Est GFR (CKD-EPI)NonAf 50.10 Random Glucose 90 Calcium 8.6 Blood Type O POSITIVE Antibody Screen Negative Crossmatch See Detail 03/31/20 07:20 WBC 2.8 L RBC 2.72 L Hgb 8.2 L Hct 25.0 L MCV 91.7 MCH 30.1 MCHC 32.8 RDW 16.8 H Plt Count 94 L MPV 8.7 Absolute Neuts (auto) 1.7 Neutrophils % 59.8 Neutrophils % (Manual) 68.4 Band Neutrophils % 2.1 Lymphocytes % 16.3 Lymphocytes % (Manual) 9.2 D Monocytes % 22.6 H Monocytes % (Manual) 11 H Eosinophils % 0.7 Eosinophils % (Manual) 1.0 D Basophils % 0.6 Basophils % (Manual) 1.0 D Myelocytes % (Man) 0 Promyelocytes % (Man) 0 Blast Cells % (Manual) 0 Nucleated RBC % 0 Metamyelocytes 1 Hypochromia 0 Platelet Estimate Decreased Polychromasia 1+ Poikilocytosis 1+ Anisocytosis 1+ Microcytosis 1+ Macrocytosis 0 Spherocytes 1+ Target Cells 1+ Stomatocytes 1+ Haptoglobin Sodium Potassium Chloride Carbon Dioxide Anion Gap BUN Creatinine Est GFR (CKD-EPI)AfAm Est GFR (CKD-EPI)NonAf Random Glucose Calcium Blood Type Antibody Screen Crossmatch Active Medications Generic Name Dose Route Start Last Admin Trade Name Freq PRN Reason Stop Dose Admin Acetaminophen 1,000 mg 03/30/20 18:21 Tylenol - PO Q6H PRN PAIN LEVEL 1-5 Ascorbic Acid 500 mg 03/30/20 22:00 03/31/20 10:59 Vitamin C - PO 500 mg BID GEORGINA Administration Atorvastatin Calcium 5 mg 03/30/20 22:00 03/30/20 22:49 Lipitor - PO 5 mg HS GEORGINA Administration Cholecalciferol 500 unit 03/31/20 10:00 03/31/20 10:58 Vitamin D3 - PO 500 unit DAILY GEORGINA Administration Docusate Sodium 100 mg 03/30/20 22:00 03/31/20 14:52 Colace - PO 100 mg TID GEORGINA Administration Ferrous Sulfate 325 mg 03/31/20 08:00 03/31/20 14:52 Feosol - PO 325 mg TIDCM GEORGINA Administration Lidocaine 1 patch 03/31/20 10:00 Lidoderm Patch - TP DAILY PRN PAIN LEVEL 1-5 Miscellaneous 1 each 03/30/20 22:00 03/30/20 22:48 Lidoderm Patch Removal MC Not Given DAILY@2200 GEORGINA Oxycodone HCl 10 mg 03/30/20 18:21 03/31/20 11:02 Roxicodone - PO 10 mg Q6H PRN Administration PAIN LEVEL 6-10 Terazosin HCl 5 mg 03/30/20 22:00 03/30/20 22:50 Hytrin - PO 5 mg HS GEORGINA Administration ASSESSMENT/PLAN: Pt is an 84 y/o male with HTN, HLD, non-Hodgkin's lymphoma (5-10 years ago currently in remission), prostate cancer (beads 13 years ago in remission), who presents with left lumbar pain since September and has gotten acutely worse over the last 2 months. He also reports left side and abdominal pain. #abdominal pain and back pain 2/2 neoplasm, unknown source -hx of non-Hodgkin's lymphoma and prostate cancer, both in remission -spoke to Dr. Ron who recommends biopsy of 3 new neoplasms -lumbar MRI with contrast (03/28)- large mass lesion within left psoas muscle at L1-L2 disc level with extension through left L1-L2 and T12-L1 foramina into the left lateral half of the central spinal canal at levels L1-L3. A second lesion noted at T11-T12 levels extending into T11-T12 foramen without definite exte nsion into canal -CT abd pelvis- irregular nonspecific 10x9x8 cm left pelvic mesenteric soft tissue lesion suggestive of neoplastic disease, possibly lymphadenopathy; 1.1 cm left periaortic retroperitoneal lymph node at the level of the kidneys -axillary lymph node biopsy- preliminary results B-cell lymphoma -continue oxycodone 10mg Q6H PRN -IR consult for biopsy- anticipate Friday -oncology consult -radiation oncology consult -neurosurgery consult #normocytic anemia, ?anemia of chronic disease -Hb 8.2 today -s/p 2 units this admission -pt reports recent dark stool -serial FOBTs- negative x1 #HTN -hold meds for hypotension #CHEMA, resolved -nephro consult #HLD -statin -ASA 81mg daily DVT Ppx SCDs FEN PO fluids monitor labs sodium-controlled diet dispo med/surg FULL CODE Visit type - Emergency Visit Emergency Visit: Yes ED Registration Date: 03/21/20 Care time: The patient presented to the Emergency Department on the above date and was hospitalized for further evaluation of their emergent condition. - New Patient This patient is new to me today: No - Critical Care Critical Care patient: No ATTENDING PHYSICIAN STATEMENT I saw and evaluated the patient. I reviewed the resident's note and discussed the case with the resident. I agree with the resident's findings and plan as documented. SUBJECTIVE: OBJECTIVE: ASSESSMENT AND PLAN:
--- NOTE | 2020-03-31 17:30 | PN ---
Teaching Attending Note Name of Resident: Radhika Brock ATTENDING PHYSICIAN STATEMENT I saw and evaluated the patient. I reviewed the resident's note and discussed the case with the resident. I agree with the resident's findings and plan as documented. SUBJECTIVE: Pain is controlled. OBJECTIVE: Vital Signs Period Temp Pulse Resp BP Sys/Tillman Pulse Ox Last 24 Hr 98.3 F-99.2 F 84-96 18-19 105-113/52-62 96-100 HEART: S1S2, RRR LUNGS: Clear ABDOMEN: Obese, soft, non-tender, non-distended, normal BS EXTREMITIES: No edema Laboratory Results - last 24 hr 03/28/20 03/30/20 03/31/20 10:15 06:10 07:20 WBC RBC Hgb Hct MCV MCH MCHC RDW Plt Count MPV Absolute Neuts (auto) Neutrophils % Neutrophils % (Manual) Band Neutrophils % Lymphocytes % Lymphocytes % (Manual) Monocytes % Monocytes % (Manual) Eosinophils % Eosinophils % (Manual) Basophils % Basophils % (Manual) Myelocytes % (Man) Promyelocytes % (Man) Blast Cells % (Manual) Nucleated RBC % Metamyelocytes Hypochromia Platelet Estimate Polychromasia Poikilocytosis Anisocytosis Microcytosis Macrocytosis Spherocytes Target Cells Stomatocytes Haptoglobin 256 Sodium 138 Potassium 4.4 Chloride 109 H Carbon Dioxide 20 L Anion Gap 9 BUN 32.3 H Creatinine 1.3 Est GFR (CKD-EPI)AfAm 58.07 Est GFR (CKD-EPI)NonAf 50.10 Random Glucose 90 Calcium 8.6 Blood Type O POSITIVE Antibody Screen Negative Crossmatch See Detail 03/31/20 07:20 WBC 2.8 L RBC 2.72 L Hgb 8.2 L Hct 25.0 L MCV 91.7 MCH 30.1 MCHC 32.8 RDW 16.8 H Plt Count 94 L MPV 8.7 Absolute Neuts (auto) 1.7 Neutrophils % 59.8 Neutrophils % (Manual) 68.4 Band Neutrophils % 2.1 Lymphocytes % 16.3 Lymphocytes % (Manual) 9.2 D Monocytes % 22.6 H Monocytes % (Manual) 11 H Eosinophils % 0.7 Eosinophils % (Manual) 1.0 D Basophils % 0.6 Basophils % (Manual) 1.0 D Myelocytes % (Man) 0 Promyelocytes % (Man) 0 Blast Cells % (Manual) 0 Nucleated RBC % 0 Metamyelocytes 1 Hypochromia 0 Platelet Estimate Decreased Polychromasia 1+ Poikilocytosis 1+ Anisocytosis 1+ Microcytosis 1+ Macrocytosis 0 Spherocytes 1+ Target Cells 1+ Stomatocytes 1+ Haptoglobin Sodium Potassium Chloride Carbon Dioxide Anion Gap BUN Creatinine Est GFR (CKD-EPI)AfAm Est GFR (CKD-EPI)NonAf Random Glucose Calcium Blood Type Antibody Screen Crossmatch Current Medications Generic Name Dose Route Start Last Admin Trade Name Freq PRN Reason Stop Dose Admin Acetaminophen 1,000 mg 03/30/20 18:21 Tylenol - PO Q6H PRN PAIN LEVEL 1-5 Ascorbic Acid 500 mg 03/30/20 22:00 03/31/20 10:59 Vitamin C - PO 500 mg BID GEORGINA Administration Atorvastatin Calcium 5 mg 03/30/20 22:00 03/30/20 22:49 Lipitor - PO 5 mg HS GEORGINA Administration Cholecalciferol 500 unit 03/31/20 10:00 03/31/20 10:58 Vitamin D3 - PO 500 unit DAILY GEORGINA Administration Docusate Sodium 100 mg 03/30/20 22:00 03/31/20 14:52 Colace - PO 100 mg TID GEORGINA Administration Ferrous Sulfate 325 mg 03/31/20 08:00 03/31/20 14:52 Feosol - PO 325 mg TIDCM GEORGINA Administration Lidocaine 1 patch 03/31/20 10:00 Lidoderm Patch - TP DAILY PRN PAIN LEVEL 1-5 Miscellaneous 1 each 03/30/20 22:00 03/30/20 22:48 Lidoderm Patch Removal MC Not Given DAILY@2200 GEORGINA Oxycodone HCl 10 mg 03/30/20 18:21 03/31/20 11:02 Roxicodone - PO 10 mg Q6H PRN Administration PAIN LEVEL 6-10 Terazosin HCl 5 mg 03/30/20 22:00 03/30/20 22:50 Hytrin - PO 5 mg HS GEORGINA Administration ASSESSMENT AND PLAN: This is an 84 year old man with a history of HTN, hyperlipidemia, non-Hodgkin lymphoma, prostate cancer who presented to the ED with low back pain. 1. Left psoas/paraspinal masses with possible bone lesions, right axillary lymphadenopathy - Plan for biopsies of masses 04/03 - s/p left axillary lymph node biopsy 03/24 c/w diffuse large B-cell lymphoma - Pain control with Lidoderm patch, oxycodone as needed 2. Pancytopenia 3. Acute kidney injury - Resolved
[2020-03-31] MEDS ORDERED: PT OWN MED DRAWER 7, Y5N ONE (21:13)
[2020-03-31] MEDS: ATORVASTATIN CA 10 MG TABLET (FP) PO SCH (21:14)
[2020-03-31] MEDS: TERAZOSIN HCL 5 MG CAPSULE PO SCH (21:15)
[2020-03-31] MEDS: LIDOCAINE PATCH REMOVAL MC SCH (21:19)
[2020-04-01] MEDS: DOCUSATE SODIUM 100 MG CAPSULE (FP) PO SCH ×3 (05:44→21:00)
[2020-04-01] MEDS: oxyCODONE HCL 5 MG TABLET PO PRN ×2 (05:51→19:56)
[2020-04-01 07:52] LABS: EOS % 0.7 % (0-4.5); HEMATOCRIT 24.4 % (35.4-49); HEMOGLOBIN 8.1 GM/dL (11.7-16.9); LYMPH % 20.3 % (8-40); MCH 30.6 pg (25.7-33.7); MCHC 33.1 g/dl (32.0-35.9); MEAN CELL VOLUME 92.7 fl (80-96); MEAN PLT VOLUME 9.2 fl (7.5-11.1); MONO % 20.8 % (3.8-10.2); NEUT % 57.2 % (42.8-82.8); PLATELET COUNT 104 K/MM3 (134-434); RBC 2.63 M/mm3 (4.00-5.60); RDW 16.8 % (11.9-15.9); WHITE BLOOD COUNT 2.8 K/mm3 (4.0-10.0)
[2020-04-01 07:59] LABS: BLOOD UREA NITROGEN 36.8 mg/dL (7-18); CALCIUM 8.5 mg/dL (8.5-10.1); CREATININE 1.3 mg/dL (0.55-1.3); POTASSIUM 4.5 mmol/L (3.5-5.1)
[2020-04-01] MEDS: ASCORBIC ACID 500 MG TABLET (FP) PO SCH ×2 (09:34→21:00)
[2020-04-01] MEDS: CHOLECALCIFEROL (VIT D3) 1,000 UNIT (25 MCG) TABLET PO SCH (09:34)
[2020-04-01] MEDS: FERROUS SO4 325 MG TABLET (FP) PO SCH ×3 (09:35→17:46)
--- NOTE | 2020-04-01 10:13 | PN ---
<Tyson Pearson - Last Filed: 04/01/20 17:05> Physical Exam: SUBJECTIVE: Patient seen and examined at bedside. Endorses feeling better. No acute events overnight. OBJECTIVE: Vital Signs Period Temp Pulse Resp BP Sys/Tillman Pulse Ox Last 24 Hr 98.8 F-99.9 F 93-99 18-18 97-108/43-62 99 GENERAL: NAD HEAD: Atraumatic/Normocephalic EYES: EOMI Sclera Clear ENT: MMM LUNGS: Clear bilaterally HEART: 2/6 PEGGY, RRR ABDOMEN: Umbillical Hernia, NDNT EXTREMITIES: 1+ pitting edema bilaterally PSYCH: Normal mood, normal affect. Laboratory Results - last 24 hr 03/28/20 03/31/20 03/31/20 10:15 07:20 07:20 WBC RBC Hgb Hct MCV MCH MCHC RDW Plt Count MPV Absolute Neuts (auto) Neutrophils % Neutrophils % (Manual) 68.4 Band Neutrophils % 2.1 Lymphocytes % Lymphocytes % (Manual) 9.2 D Monocytes % Monocytes % (Manual) 11 H Eosinophils % Eosinophils % (Manual) 1.0 D Basophils % Basophils % (Manual) 1.0 D Myelocytes % (Man) 0 Promyelocytes % (Man) 0 Blast Cells % (Manual) 0 Nucleated RBC % 0 Metamyelocytes 1 Hypochromia 0 Platelet Estimate Decreased Polychromasia 1+ Poikilocytosis 1+ Anisocytosis 1+ Microcytosis 1+ Macrocytosis 0 Spherocytes 1+ Target Cells 1+ Stomatocytes 1+ Sodium Potassium Chloride Carbon Dioxide Anion Gap BUN Creatinine Est GFR (CKD-EPI)AfAm Est GFR (CKD-EPI)NonAf POC Glucometer Random Glucose Calcium Prostate Specific Ag < 0.10 Blood Type O POSITIVE Antibody Screen Negative Crossmatch See Detail 03/31/20 04/01/20 04/01/20 21:25 06:40 06:40 WBC 2.8 L RBC 2.63 L Hgb 8.1 L Hct 24.4 L MCV 92.7 MCH 30.6 MCHC 33.1 RDW 16.8 H Plt Count 104 L MPV 9.2 Absolute Neuts (auto) 1.6 Neutrophils % 57.2 Neutrophils % (Manual) Band Neutrophils % Lymphocytes % 20.3 D Lymphocytes % (Manual) Monocytes % 20.8 H Monocytes % (Manual) Eosinophils % 0.7 Eosinophils % (Manual) Basophils % 1.0 Basophils % (Manual) Myelocytes % (Man) Promyelocytes % (Man) Blast Cells % (Manual) Nucleated RBC % 0 Metamyelocytes Hypochromia Platelet Estimate Polychromasia Poikilocytosis Anisocytosis Microcytosis Macrocytosis Spherocytes Target Cells Stomatocytes Sodium 138 Potassium 4.5 Chloride 108 H Carbon Dioxide 19 L Anion Gap 11 BUN 36.8 H Creatinine 1.3 Est GFR (CKD-EPI)AfAm 58.07 Est GFR (CKD-EPI)NonAf 50.10 POC Glucometer 291 Random Glucose 94 Calcium 8.5 Prostate Specific Ag Blood Type Antibody Screen Crossmatch Active Medications Generic Name Dose Route Start Last Admin Trade Name Freq PRN Reason Stop Dose Admin Acetaminophen 1,000 mg 03/30/20 18:21 Tylenol - PO Q6H PRN PAIN LEVEL 1-5 Ascorbic Acid 500 mg 03/30/20 22:00 04/01/20 09:34 Vitamin C - PO 500 mg BID GEORGINA Administration Atorvastatin Calcium 5 mg 03/30/20 22:00 03/31/20 21:14 Lipitor - PO 5 mg HS GEORGINA Administration Cholecalciferol 500 unit 03/31/20 10:00 04/01/20 09:34 Vitamin D3 - PO 500 unit DAILY GEORGINA Administration Docusate Sodium 100 mg 03/30/20 22:00 04/01/20 05:44 Colace - PO 100 mg TID GEORGINA Administration Ferrous Sulfate 325 mg 03/31/20 08:00 04/01/20 09:35 Feosol - PO 325 mg TIDCM GEORGINA Administration Lidocaine 1 patch 03/31/20 10:00 Lidoderm Patch - TP DAILY PRN PAIN LEVEL 1-5 Miscellaneous 1 each 03/30/20 22:00 03/31/20 21:19 Lidoderm Patch Removal MC 1 each DAILY@2200 GEORGINA Administration Oxycodone HCl 10 mg 03/30/20 18:21 04/01/20 05:51 Roxicodone - PO 10 mg Q6H PRN Administration PAIN LEVEL 6-10 Terazosin HCl 5 mg 03/30/20 22:00 03/31/20 21:15 Hytrin - PO 5 mg HS GEORGINA Administration ASSESSMENT/PLAN: Pt is an 84 y/o male with HTN, HLD, non-Hodgkin's lymphoma (5-10 years ago currently in remission), prostate cancer (beads 13 years ago in remission), who presents with left lumbar pain since September and has gotten acutely worse over the last 2 months. He also reports left side and abdominal pain. #abdominal pain and back pain 2/2 neoplasm, unknown source -hx of non-Hodgkin's lymphoma and prostate cancer, both in remission - Dr. Ron who recommends biopsy of 3 new neoplasms -lumbar MRI with contrast (03/28)- large mass lesion within left psoas muscle at L1-L2 disc level with extension through left L1-L2 and T12-L1 foramina into the left lateral half of the central spinal canal at levels L1-L3. A second lesion noted at T11-T12 levels extending into T11-T12 foramen without definite extension into canal -CT abd pelvis- irregular nonspecific 10x9x8 cm left pelvic mesenteric soft tissue lesion suggestive of neoplastic disease, possibly lymphadenopathy; 1.1 cm left periaortic retroperitoneal lymph node at the level of the kidneys -axillary lymph node biopsy- preliminary results B-cell lymphoma -continue oxycodone 10mg Q6H PRN -IR consult for biopsy- anticipate Friday -oncology consult -radiation oncology consult Dr Nayak. Appreciate recs. -neurosurgery consult Dr Good. Appreciate recs. #normocytic anemia, ?anemia of chronic disease -Hb 8.1 today -s/p 2 units this admission -pt reports recent dark stool -serial FOBTs- negative x1 #HTN -hold meds for hypotension #CHEMA, resolved -nephro consult #HLD -statin -ASA 81mg daily DVT Ppx SCDs FEN PO fluids monitor labs sodium-controlled diet dispo med/surg FULL CODE Visit type - Emergency Visit Emergency Visit: Yes ED Registration Date: 03/21/20 Care time: The patient presented to the Emergency Department on the above date and was hospitalized for further evaluation of their emergent condition. - New Patient This patient is new to me today: No - Critical Care Critical Care patient: No - Discharge Referral Referred to [facility] No ATTENDING PHYSICIAN STATEMENT I saw and evaluated the patient. I reviewed the resident's note and discussed the case with the resident. I agree with the resident's findings and plan as documented. SUBJECTIVE: OBJECTIVE: ASSESSMENT AND PLAN: <Suleiman Elmore - Last Filed: 04/01/20 17:27> Physical Exam: SUBJECTIVE: Patient seen and examined OBJECTIVE: Vital Signs Period Temp Pulse Resp BP Sys/Tillman Pulse Ox Last 24 Hr 98.3 F-99.9 F 93-99 18-20 97-108/43-62 99-99 GENERAL: The patient is awake, alert, and fully oriented, in no acute distress. HEAD: Normal with no signs of trauma. EYES: PERRL, extraocular movements intact, sclera anicteric, conjunctiva clear. No ptosis. ENT: Ears normal, nares patent, oropharynx clear without exudates, moist mucous membranes. NECK: Trachea midline, full range of motion, supple. LUNGS: Breath sounds equal, clear to auscultation bilaterally, no wheezes, no crackles, no accessory muscle use. HEART: Regular rate and rhythm, S1, S2 without murmur, rub or gallop. ABDOMEN: Soft, nontender, nondistended, normoactive bowel sounds, no guarding, no rebound, no hepatosplenomegaly, no masses. EXTREMITIES: 2+ pulses, warm, well-perfused, no edema. NEUROLOGICAL: Cranial nerves II through XII grossly intact. Normal speech, gait not observed. PSYCH: Normal mood, normal affect. SKIN: Warm, dry, normal turgor, no rashes or lesions noted Laboratory Results - last 24 hr 03/31/20 03/31/20 04/01/20 07:20 21:25 06:40 WBC 2.8 L RBC 2.63 L Hgb 8.1 L Hct 24.4 L MCV 92.7 MCH 30.6 MCHC 33.1 RDW 16.8 H Plt Count 104 L MPV 9.2 Absolute Neuts (auto) 1.6 Neutrophils % 57.2 Neutrophils % (Manual) 65.0 Band Neutrophils % 0.0 Lymphocytes % 20.3 D Lymphocytes % (Manual) 17.0 D Monocytes % 20.8 H Monocytes % (Manual) 17 H Eosinophils % 0.7 Eosinophils % (Manual) 1.0 Basophils % 1.0 Basophils % (Manual) 0.0 Myelocytes % (Man) 0 Promyelocytes % (Man) 0 Blast Cells % (Manual) 0 Nucleated RBC % 0 Metamyelocytes 0 D Hypochromia 0 Platelet Estimate Decreased Polychromasia 0 Poikilocytosis 0 Anisocytosis 1+ Microcytosis 1+ Macrocytosis 1+ Sodium Potassium Chloride Carbon Dioxide Anion Gap BUN Creatinine Est GFR (CKD-EPI)AfAm Est GFR (CKD-EPI)NonAf POC Glucometer 291 Random Glucose Calcium Prostate Specific Ag < 0.10 04/01/20 06:40 WBC RBC Hgb Hct MCV MCH MCHC RDW Plt Count MPV Absolute Neuts (auto) Neutrophils % Neutrophils % (Manual) Band Neutrophils % Lymphocytes % Lymphocytes % (Manual) Monocytes % Monocytes % (Manual) Eosinophils % Eosinophils % (Manual) Basophils % Basophils % (Manual) Myelocytes % (Man) Promyelocytes % (Man) Blast Cells % (Manual) Nucleated RBC % Metamyelocytes Hypochromia Platelet Estimate Polychromasia Poikilocytosis Anisocytosis Microcytosis Macrocytosis Sodium 138 Potassium 4.5 Chloride 108 H Carbon Dioxide 19 L Anion Gap 11 BUN 36.8 H Creatinine 1.3 Est GFR (CKD-EPI)AfAm 58.07 Est GFR (CKD-EPI)NonAf 50.10 POC Glucometer Random Glucose 94 Calcium 8.5 Prostate Specific Ag Active Medications Generic Name Dose Route Start Last Admin Trade Name Freq PRN Reason Stop Dose Admin Acetaminophen 1,000 mg 03/30/20 18:21 Tylenol - PO Q6H PRN PAIN LEVEL 1-5 Ascorbic Acid 500 mg 03/30/20 22:00 04/01/20 09:34 Vitamin C - PO 500 mg BID GEORGINA Administration Atorvastatin Calcium 5 mg 03/30/20 22:00 03/31/20 21:14 Lipitor - PO 5 mg HS GEORGINA Administration Cholecalciferol 500 unit 03/31/20 10:00 04/01/20 09:34 Vitamin D3 - PO 500 unit DAILY GEORGINA Administration Docusate Sodium 100 mg 03/30/20 22:00 04/01/20 13:04 Colace - PO 100 mg TID GEORGINA Administration Ferrous Sulfate 325 mg 03/31/20 08:00 04/01/20 13:04 Feosol - PO 325 mg TIDCM GEORGINA Administration Lidocaine 1 patch 03/31/20 10:00 Lidoderm Patch - TP DAILY PRN PAIN LEVEL 1-5 Miscellaneous 1 each 03/30/20 22:00 03/31/20 21:19 Lidoderm Patch Removal MC 1 each DAILY@2200 GEORGINA Administration Oxycodone HCl 10 mg 03/30/20 18:21 04/01/20 05:51 Roxicodone - PO 10 mg Q6H PRN Administration PAIN LEVEL 6-10 Terazosin HCl 5 mg 03/30/20 22:00 03/31/20 21:15 Hytrin - PO 5 mg HS GEORGINA Administration ASSESSMENT/PLAN: Visit type - Emergency Visit Emergency Visit: Yes ED Registration Date: 03/21/20 Care time: The patient presented to the Emergency Department on the above date and was hospitalized for further evaluation of their emergent condition. - New Patient This patient is new to me today: Yes Date on this admission: 04/01/20 - Critical Care Critical Care patient: No - Discharge Referral Referred to [facility] No ATTENDING PHYSICIAN STATEMENT I saw and evaluated the patient. I reviewed the resident's note and discussed the case with the resident. I agree with the resident's findings and plan as documented. SUBJECTIVE: Seen an examined at bedside with his present. Denies nausea vomiting fever chills. Anxious about biopsy and hopes it gets done on Friday. OBJECTIVE:AAOx3. RRR with 3/6 PEGGY. Moist mucous membranes. Conjunctival pallor present. 2+ pitting edema of bilateral lower extremities. ASSESSMENT AND PLAN: This is an 84 year old man with a history of HTN, hyperlipidemia, non-Hodgkin lymphoma, prostate cancer who presented to the ED with low back pain. 1. Left psoas/paraspinal masses with possible bone lesions, right axillary lymphadenopathy Plan for biopsies of masses 04/03 s/p left axillary lymph node biopsy 03/24 c/w diffuse large B-cell lymphoma Pain control with Lidoderm patch, oxycodone as needed 2. Pancytopenia-overall unchanged except platelets somewhat improved but still thrombocytopenic.. 3. Acute kidney injury-resolved.
[2020-04-01 12:32] LABS: ANISOCYTOSIS 1+; MACROCYTOSIS 1+; PLATELET ESTIMATE DECREASED
[2020-04-01] MEDS: ALLOPURINOL 300 MG TABLET (FP) PO SCH (17:46)
--- NOTE | 2020-04-01 18:14 | PN.HO ---
Progress Note (short form) - Note Progress Note: Patient seen and examined Voices no complaints. Ambulating. Eating when he likes hospital food Last Vital Signs Temp Pulse Resp BP Pulse Ox 99.3 F 85 18 115/55 L 99 04/01/20 17:57 04/01/20 17:57 04/01/20 17:57 04/01/20 17:57 04/01/20 09:00 AFVSS Cor: RSR, No murmurs, No gallops Lungs: Clear to P&A Abd: Soft, Normal bowel sounds, + Mass in LLQ Ext:No significant edema Labs/Meds reviewed 04/01/20 06:40 04/01/20 06:40 Current Medications Generic Name Dose Route Start Last Admin Trade Name Freq PRN Reason Stop Dose Admin Acetaminophen 1,000 mg 03/30/20 18:21 Tylenol - PO Q6H PRN PAIN LEVEL 1-5 Allopurinol 300 mg 04/01/20 17:30 04/01/20 17:46 Zyloprim - PO 300 mg DAILY [facility] Administration Ascorbic Acid 500 mg 03/30/20 22:00 04/01/20 09:34 Vitamin C - PO 500 mg BID [facility] Administration Atorvastatin Calcium 5 mg 03/30/20 22:00 03/31/20 21:14 Lipitor - PO 5 mg HS GE[facility]A Administration Cholecalciferol 500 unit 03/31/20 10:00 04/01/20 09:34 Vitamin D3 - PO 500 unit DAILY [facility] Administration Docusate Sodium 100 mg 03/30/20 22:00 04/01/20 13:04 Colace - PO 100 mg TID [facility]A Administration Ferrous Sulfate 325 mg 03/31/20 08:00 04/01/20 17:46 Feosol - PO 325 mg TIDCM [facility] Administration Lidocaine 1 patch 03/31/20 10:00 Lidoderm Patch - TP DAILY PRN PAIN LEVEL 1-5 Miscellaneous 1 each 03/30/20 22:00 03/31/20 21:19 Lidoderm Patch Removal MC 1 each DAILY@2200 [facility] Administration Oxycodone HCl 10 mg 03/30/20 18:21 04/01/20 05:51 Roxicodone - PO 10 mg Q6H PRN Administration PAIN LEVEL 6-10 Terazosin HCl 5 mg 03/30/20 22:00 03/31/20 21:15 Hytrin - PO 5 mg HS [facility] Administration Discontinued Medications Generic Name Dose Route Start Last Admin Trade Name Nicholas PRN Reason Stop Dose Admin Acetaminophen 1,000 mg 03/21/20 17:10 03/21/20 17:33 Ofirmev Injection - IVPB 03/21/20 17:11 1,000 mg ONCE ONE Administration Acetaminophen 1,000 mg 03/22/20 09:31 03/29/20 22:10 Tylenol - PO 1,000 mg Q6H PRN Administration PAIN LEVEL 1-5 Ascorbic Acid 500 mg 03/23/20 22:00 03/30/20 09:00 Vitamin C - PO 500 mg BID [facility] Administration Aspirin 81 mg 03/22/20 10:00 03/23/20 09:28 Asa - PO 81 mg DAILY [facility] Administration Atenolol 25 mg 03/22/20 10:00 03/28/20 09:03 Tenormin - PO Not Given DAILY [facility] Atorvastatin Calcium 5 mg 03/22/20 22:00 03/29/20 22:11 Lipitor - PO 5 mg HS GE[facility]A Administration Cholecalciferol 500 unit 03/22/20 10:00 03/30/20 09:01 Vitamin D3 - PO 500 unit DAILY [facility] Administration Docusate Sodium 100 mg 03/23/20 14:00 03/30/20 13:08 Colace - PO 100 mg TID [facility]A Administration Ferrous Sulfate 325 mg 03/23/20 17:30 03/30/20 17:09 Feosol - PO 325 mg TIDCM [facility] Administration Heparin Sodium (Porcine) 5,000 unit 03/22/20 06:00 03/22/20 14:48 Heparin - SQ Not Given TID [facility] Sodium Chloride 1,000 mls @ 83 mls/hr 03/21/20 22:00 03/24/20 05:55 Normal Saline - IV 83 mls/hr ASDIR [facility] Administration Sodium Chloride 1,000 mls @ 50 mls/hr 03/24/20 15:00 03/24/20 17:31 1/2 Normal Saline IV 03/25/20 14:58 50 mls/hr ASDIR [facility] Administration Lidocaine 1 patch 03/21/20 18:51 03/21/20 19:16 Lidoderm Patch - TP 03/21/20 18:52 1 patch ONCE ONE Administration Lidocaine 1 patch 03/23/20 09:07 03/29/20 09:55 Lidoderm Patch - TP 1 patch DAILY PRN Administration PAIN LEVEL 1-5 Miscellaneous 1 each 03/21/20 22:00 03/29/20 22:11 Lidoderm Patch Removal MC Not Given DAILY@2200 [facility] Miscellaneous 1 each 03/23/20 22:00 03/29/20 22:12 Lidoderm Patch Removal MC Not Given DAILY@2200 [facility] Morphine Sulfate 4 mg 03/21/20 17:03 03/21/20 17:37 Morphine Injection - IVPUSH 03/21/20 17:04 Not Given ONCE ONE Morphine Sulfate 2 mg 03/21/20 21:47 03/26/20 08:21 Morphine Sulfate IVPUSH 2 mg Q4H PRN Administration PAIN LEVEL 6-10 Morphine Sulfate 2 mg 03/21/20 23:56 03/21/20 23:59 Morphine Injection - SQ 03/21/20 23:57 2 mg ONCE ONE Administration Oxycodone HCl 10 mg 03/28/20 14:02 03/30/20 16:35 Roxicodone - PO 10 mg Q6H PRN Administration PAIN LEVEL 6-10 Sodium Chloride 500 ml 03/21/20 17:09 03/21/20 17:33 Normal Saline - IV 03/21/20 17:10 500 ml ONCE ONE Administration Sodium Chloride 1,000 ml 03/21/20 19:52 03/21/20 20:20 Normal Saline - IV 03/21/20 19:53 1,000 ml ONCE ONE Administration Terazosin HCl 5 mg 03/22/20 22:00 03/29/20 22:11 Hytrin - PO 5 mg HS [facility]A Administration Terazosin HCl 5 mg 03/22/20 00:32 03/22/20 01:45 Hytrin - PO Not Given HS [facility] Verapamil HCl 240 mg 03/22/20 10:00 03/24/20 10:13 Calan Sr - PO Not Given DAILY [facility] A/P L sided flank pain x 1 month but worsening over the past few days that is pressure like, radiates the L abdomen and groin that fluctates intermittently but no alleviating or exacerbating factors. Pt with persisten pain without improvement with oral pain medications. ER CT of abdomen showed a new compared with 06/14/13, 10 x 9.8 x 8 cm left pelvic mesenteric mass/ lympadenopathy, 1.1cm periaortic node and an unchanged 1.4cm splenic lesion unchanged from 06/14/13. Lt. lower back paain due to mesenteric mass CT T/L spine --- thecal sac compressiom LN Biopsy: Relapsed B cell lymphoma Start allopurinol for urinc acid 0.1 LDH--nl Wll need to consider gentle hydration/ steroids depending on clinical course/path h/o prostate cancer s/p RT. CT scans demonstrate large right axillary adenopathy s/p biopsy and 10cm mesenteric and 6cm left L1-L2 paravertebral masses. MRI L-spine shows left paraspinal/psoas masses T11-L2 with thecal sac compression. Scheduled for biopsies of all masses 04/03. Synchronous malignancies should be ruled out given possibility of recurrent prostate CA or other heme or solid malignancies. Salvage therapy to be planned after pathological diagnosis.
--- NOTE | 2020-04-01 18:41 | PN ---
Progress Note, Physician History of Present Illness: Pt seen and examined at bedside. He denies shortness of breath. - Current Medication List Current Medications: Active Medications Acetaminophen (Tylenol -) 1,000 mg PO Q6H PRN PRN Reason: PAIN LEVEL 1-5 Allopurinol (Zyloprim -) 300 mg PO DAILY [facility] Last Admin: 04/01/20 17:46 Dose: 300 mg Documented by: Ascorbic Acid (Vitamin C -) 500 mg PO BID [facility] Last Admin: 04/01/20 09:34 Dose: 500 mg Documented by: Atorvastatin Calcium (Lipitor -) 5 mg PO [facility] Last Admin: 03/31/20 21:14 Dose: 5 mg Documented by: Cholecalciferol (Vitamin D3 -) 500 unit PO DAILY [facility] Last Admin: 04/01/20 09:34 Dose: 500 unit Documented by: Docusate Sodium (Colace -) 100 mg PO TID [facility] Last Admin: 04/01/20 13:04 Dose: 100 mg Documented by: Ferrous Sulfate (Feosol -) 325 mg PO TIDCM [facility] Last Admin: 04/01/20 17:46 Dose: 325 mg Documented by: Lidocaine (Lidoderm Patch -) 1 patch TP DAILY PRN PRN Reason: PAIN LEVEL 1-5 Miscellaneous (Lidoderm Patch Removal) 1 each MC DAILY@2200 [facility] Last Admin: 03/31/20 21:19 Dose: 1 each Documented by: Oxycodone HCl (Roxicodone -) 10 mg PO Q6H PRN PRN Reason: PAIN LEVEL 6-10 Last Admin: 04/01/20 05:51 Dose: 10 mg Documented by: Terazosin HCl (Hytrin -) 5 mg PO [facility] Last Admin: 03/31/20 21:15 Dose: 5 mg Documented by: - Objective Vital Signs: Vital Signs Temperature 99.3 F 04/01/20 17:57 Pulse Rate 85 04/01/20 17:57 Respiratory Rate 18 04/01/20 17:57 Blood Pressure 115/55 L 04/01/20 17:57 O2 Sat by Pulse Oximetry (%) 99 04/01/20 09:00 Constitutional: Yes: Calm Eyes: Yes: Conjunctiva Clear HENT: Yes: Atraumatic Cardiovascular: Yes: S1, S2 Respiratory: Yes: CTA Bilaterally Gastrointestinal: Yes: Soft Musculoskeletal: Yes: WNL Edema: Yes Edema: LLE: Trace, RLE: Trace Neurological: Yes: Oriented Psychiatric: Yes: Oriented Labs: CBC, BMP 04/01/20 06:40 04/01/20 06:40 INR, PTT INR 1.13 (0.83-1.09) H 03/21/20 16:10 Problem List - Problems (1) CHEMA (acute kidney injury) Code(s): N17.9 - ACUTE KIDNEY FAILURE, UNSPECIFIED (2) Hypotension Code(s): I95.9 - HYPOTENSION, UNSPECIFIED Qualifiers: Hypotension type: unspecified hypotension type Qualified Code(s): I95.9 - Hypotension, unspecified (3) Low back pain Code(s): M54.5 - LOW BACK PAIN Qualifiers: Chronicity: acute Back pain laterality: left Sciatica presence: without sciatica Qualified Code(s): M54.5 - Low back pain Assessment/Plan Current Medications Generic Name Dose Route Start Last Admin Trade Name Freq PRN Reason Stop Dose Admin Acetaminophen 1,000 mg 03/30/20 18:21 Tylenol - PO Q6H PRN PAIN LEVEL 1-5 Allopurinol 300 mg 04/01/20 17:30 04/01/20 17:46 Zyloprim - PO 300 mg DAILY [facility] Administration Ascorbic Acid 500 mg 03/30/20 22:00 04/01/20 09:34 Vitamin C - PO 500 mg BID [facility] Administration Atorvastatin Calcium 5 mg 03/30/20 22:00 03/31/20 21:14 Lipitor - PO 5 mg HS [facility] Administration Cholecalciferol 500 unit 03/31/20 10:00 04/01/20 09:34 Vitamin D3 - PO 500 unit DAILY [facility] Administration Docusate Sodium 100 mg 03/30/20 22:00 04/01/20 13:04 Colace - PO 100 mg TID [facility]A Administration Ferrous Sulfate 325 mg 03/31/20 08:00 04/01/20 17:46 Feosol - PO 325 mg TIDCM [facility] Administration Lidocaine 1 patch 03/31/20 10:00 Lidoderm Patch - TP DAILY PRN PAIN LEVEL 1-5 Miscellaneous 1 each 03/30/20 22:00 03/31/20 21:19 Lidoderm Patch Removal MC 1 each DAILY@2200 [facility] Administration Oxycodone HCl 10 mg 03/30/20 18:21 04/01/20 05:51 Roxicodone - PO 10 mg Q6H PRN Administration PAIN LEVEL 6-10 Terazosin HCl 5 mg 03/30/20 22:00 03/31/20 21:15 Hytrin - PO 5 mg HS GEORGINA Administration Impression 1. CHEMA 2. lymphoma 3. hypotension 4. anemia 5. prostate cancer 6. hyperkalemia 7. hx of gammopathy 8. 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
[2020-04-01] MEDS: TERAZOSIN HCL 5 MG CAPSULE PO SCH (21:00)
[2020-04-01] MEDS: ATORVASTATIN CA 10 MG TABLET (FP) PO SCH (21:01)
[2020-04-01] MEDS: LIDOCAINE PATCH REMOVAL MC SCH (21:04)
[2020-04-02] MEDS ORDERED: PT OWN MED DRAWER 7, Y5N ONE ×2 (01:11→20:28)
[2020-04-02] MEDS: DOCUSATE SODIUM 100 MG CAPSULE (FP) PO SCH ×3 (06:10→21:21)
[2020-04-02 07:20] LABS: BLOOD UREA NITROGEN 44.9 mg/dL (7-18); CALCIUM 8.5 mg/dL (8.5-10.1); CREATININE 1.4 mg/dL (0.55-1.3); MAGNESIUM 2.2 mg/dL (1.8-2.4); PHOSPHOROUS 4.5 mg/dL (2.5-4.9); POTASSIUM 4.9 mmol/L (3.5-5.1)
[2020-04-02 07:21] LABS: HEMATOCRIT 22.8 % (35.4-49); HEMOGLOBIN 7.5 GM/dL (11.7-16.9); MCHC 32.9 g/dl (32.0-35.9); MEAN CELL VOLUME 91.4 fl (80-96); PLATELET COUNT 104 K/MM3 (134-434); RDW 16.5 % (11.9-15.9); WHITE BLOOD COUNT 2.9 K/mm3 (4.0-10.0)
[2020-04-02] MEDS: ACETAMINOPHEN 500 MG TABLET (FP) PO PRN ×2 (09:31→19:43)
[2020-04-02] MEDS: ALLOPURINOL 300 MG TABLET (FP) PO SCH (09:31)
[2020-04-02] MEDS: FERROUS SO4 325 MG TABLET (FP) PO SCH ×3 (09:31→18:15)
[2020-04-02] MEDS: CHOLECALCIFEROL (VIT D3) 1,000 UNIT (25 MCG) TABLET PO SCH (09:32)
[2020-04-02] MEDS: ASCORBIC ACID 500 MG TABLET (FP) PO SCH ×2 (09:32→21:22)
--- NOTE | 2020-04-02 16:34 | PN ---
<Tyson Pearson - Last Filed: 04/02/20 19:03> Physical Exam: SUBJECTIVE: Patient seen and examined at bedside. Denies any acute complaints. OBJECTIVE: Vital Signs Period Temp Pulse Resp BP Sys/Tillman Pulse Ox Last 24 Hr 98.2 F-99.5 F 85-98 18-20 94-115/48-68 99-100 GENERAL: No acute distress HEAD: Atraumatic/Normocephalic EYES: EOMI Sclera Clear ENT: MMM LUNGS: Clear bilaterally HEART: 2/6 PEGGY, RRR ABDOMEN: Umbillical Hernia, NDNT EXTREMITIES: 2+ pitting edema bilaterally Laboratory Results - last 24 hr 04/02/20 04/02/20 04/02/20 06:15 06:15 11:37 WBC 2.9 L RBC 2.50 L Hgb 7.5 L Hct 22.8 L MCV 91.4 MCH 30.0 MCHC 32.9 RDW 16.5 H Plt Count 104 L MPV 9.0 Sodium 137 Potassium 4.9 Chloride 107 Carbon Dioxide 23 Anion Gap 8 BUN 44.9 H Creatinine 1.4 H Est GFR (CKD-EPI)AfAm 53.09 Est GFR (CKD-EPI)NonAf 45.81 Random Glucose 103 Calcium 8.5 Phosphorus 4.5 Magnesium 2.2 Blood Type O POSITIVE Antibody Screen Negative Crossmatch See Detail Active Medications Generic Name Dose Route Start Last Admin Trade Name Freq PRN Reason Stop Dose Admin Acetaminophen 1,000 mg 03/30/20 18:21 04/02/20 09:31 Tylenol - PO 1,000 mg Q6H PRN Administration PAIN LEVEL 1-5 Allopurinol 300 mg 04/01/20 17:30 04/02/20 09:31 Zyloprim - PO 300 mg DAILY [facility] Administration Ascorbic Acid 500 mg 03/30/20 22:00 04/02/20 09:32 Vitamin C - PO 500 mg BID [facility] Administration Atorvastatin Calcium 5 mg 03/30/20 22:00 04/01/20 21:01 Lipitor - PO 5 mg HS [facility] Administration Cholecalciferol 500 unit 03/31/20 10:00 04/02/20 09:32 Vitamin D3 - PO 500 unit DAILY [facility] Administration Docusate Sodium 100 mg 03/30/20 22:00 04/02/20 14:21 Colace - PO 100 mg TID [facility] Administration Ferrous Sulfate 325 mg 06/26/20 08:00 04/02/20 11:43 Feosol - PO 325 mg TIDCM [facility] Administration Lidocaine 1 patch 03/31/20 10:00 Lidoderm Patch - TP DAILY PRN PAIN LEVEL 1-5 Miscellaneous 1 each 03/30/20 22:00 04/01/20 21:04 Lidoderm Patch Removal MC Not Given DAILY@2200 [facility] Oxycodone HCl 10 mg 03/30/20 18:21 04/01/20 19:56 Roxicodone - PO 10 mg Q6H PRN Administration PAIN LEVEL 6-10 Terazosin HCl 5 mg 03/30/20 22:00 04/01/20 21:00 Hytrin - PO 5 mg HS [facility] Administration ASSESSMENT/PLAN: Pt is an 84 y/o male with HTN, HLD, non-Hodgkin's lymphoma (5-10 years ago currently in remission), prostate cancer (beads 13 years ago in remission), who presents with left lumbar pain since September and has gotten acutely worse over the last 2 months. He also reports left side and abdominal pain. #abdominal pain and back pain 2/2 neoplasm, unknown source -hx of non-Hodgkin's lymphoma and prostate cancer, both in remission - Dr. Ron who recommends biopsy of 3 new neoplasms -lumbar MRI with contrast (03/28)- large mass lesion within left psoas muscle at L1-L2 disc level with extension through left L1-L2 and T12-L1 foramina into the left lateral half of the central spinal canal at levels L1-L3. A second lesion noted at T11-T12 levels extending into T11-T12 foramen without definite extension into canal -CT abd pelvis- irregular nonspecific 10x9x8 cm left pelvic mesenteric soft t issue lesion suggestive of neoplastic disease, possibly lymphadenopathy; 1.1 cm left periaortic retroperitoneal lymph node at the level of the kidneys -axillary lymph node biopsy- preliminary results B-cell lymphoma -continue oxycodone 10mg Q6H PRN -IR consult for biopsy- anticipate Friday -oncology consult -radiation oncology consult Dr Nayak. Appreciate recs. -neurosurgery consult Dr Good. Appreciate recs. #normocytic anemia, ?anemia of chronic disease -Hb 7.5. Will transfuse especially in light of biopsy tomorrow. -s/p 2 units this admission -pt reports recent dark stool -serial FOBTs- negative x1-Iron and TIC low. Will order Ferritin. #HTN -hold meds for hypotension #CHEMA -nephro on board. Cr today 1.5. will restart fluids #HLD -statin -ASA 81mg daily- Hold for Biopsy and in light of anemia DVT Ppx SCDs FEN PO fluids monitor labs NPO after midnight. dispo med/surg FULL CODE Visit type - Emergency Visit Emergency Visit: Yes ED Registration Date: 03/21/20 Care time: The patient presented to the Emergency Department on the above date and was hospitalized for further evaluation of their emergent condition. - New Patient This patient is new to me today: No - Critical Care Critical Care patient: No - Discharge Referral Referred to [facility] Med P.C.: No ATTENDING PHYSICIAN STATEMENT I saw and evaluated the patient. I reviewed the resident's note and discussed the case with the resident. I agree with the resident's findings and plan as documented. SUBJECTIVE: OBJECTIVE: ASSESSMENT AND PLAN: <Suleiman Elmore - Last Filed: 04/02/20 20:18> Physical Exam: SUBJECTIVE: Patient seen and examined OBJECTIVE: Vital Signs Period Temp Pulse Resp BP Sys/Tillman Pulse Ox Last 24 Hr 98.2 F-99.5 F 85-98 18-20 94-102/48-68 99-100 GENERAL: The patient is awake, alert, and fully oriented, in no acute distress. HEAD: Normal with no signs of trauma. EYES: PERRL, extraocular movements intact, sclera anicteric, conjunctiva clear. No ptosis. ENT: Ears normal, nares patent, oropharynx clear without exudates, moist mucous membranes. NECK: Trachea midline, full range of motion, supple. LUNGS: Breath sounds equal, clear to auscultation bilaterally, no wheezes, no crackles, no accessory muscle use. HEART: Regular rate and rhythm, S1, S2 without murmur, rub or gallop. ABDOMEN: Soft, nontender, nondistended, normoactive bowel sounds, no guarding, no rebound, no hepatosplenomegaly, no masses. EXTREMITIES: 2+ pulses, warm, well-perfused, no edema. NEUROLOGICAL: Cranial nerves II through XII grossly intact. Normal speech, gait not observed. PSYCH: Normal mood, normal affect. SKIN: Warm, dry, normal turgor, no rashes or lesions noted Laboratory Results - last 24 hr 04/02/20 04/02/20 04/02/20 06:15 06:15 11:37 WBC 2.9 L RBC 2.50 L Hgb 7.5 L Hct 22.8 L MCV 91.4 MCH 30.0 MCHC 32.9 RDW 16.5 H Plt Count 104 L MPV 9.0 Sodium 137 Potassium 4.9 Chloride 107 Carbon Dioxide 23 Anion Gap 8 BUN 44.9 H Creatinine 1.4 H Est GFR (CKD-EPI)AfAm 53.09 Est GFR (CKD-EPI)NonAf 45.81 Random Glucose 103 Calcium 8.5 Phosphorus 4.5 Magnesium 2.2 Blood Type O POSITIVE Antibody Screen Negative Crossmatch See Detail Active Medications Generic Name Dose Route Start Last Admin Trade Name Freq PRN Reason Stop Dose Admin Acetaminophen 1,000 mg 03/30/20 18:21 04/02/20 19:43 Tylenol - PO 1,000 mg Q6H PRN Administration PAIN LEVEL 1-5 Allopurinol 300 mg 04/01/20 17:30 04/02/20 09:31 Zyloprim - PO 300 mg DAILY [facility] Administration Ascorbic Acid 500 mg 03/30/20 22:00 04/02/20 09:32 Vitamin C - PO 500 mg BID [facility] Administration Atorvastatin Calcium 5 mg 03/30/20 22:00 04/01/20 21:01 Lipitor - PO 5 mg HS [facility]A Administration Cholecalciferol 500 unit 03/31/20 10:00 04/02/20 09:32 Vitamin D3 - PO 500 unit DAILY [facility] Administration Docusate Sodium 100 mg 03/30/20 22:00 04/02/20 14:21 Colace - PO 100 mg TID [facility] Administration Ferrous Sulfate 325 mg 03/31/20 08:00 04/02/20 18:15 Feosol - PO 325 mg TIDCM [facility] Administration Sodium Chloride 1,000 mls @ 42 mls/hr 04/02/20 18:00 04/02/20 18:35 1/2 Normal Saline IV 42 mls/hr ASDIR [facility] Administration Lidocaine 1 patch 03/31/20 10:00 Lidoderm Patch - TP DAILY PRN PAIN LEVEL 1-5 Miscellaneous 1 each 03/30/20 22:00 04/01/20 21:04 Lidoderm Patch Removal MC Not Given DAILY@2200 [facility] Terazosin HCl 5 mg 03/30/20 22:00 04/01/20 21:00 Hytrin - PO 5 mg HS [facility]A Administration ASSESSMENT/PLAN: ATTENDING PHYSICIAN STATEMENT I saw and evaluated the patient. I reviewed the resident's note and discussed the case with the resident. I agree with the resident's findings and plan as documented. Attending Attestation: Patient seen and examined at bedside during my rounds. He endorses he is not eating well because he does not like the hospital food. Sometimes when the hospital food is good he states he will eat all his food. He has been started on Ensure. He is to go for biopsy tomorrow. Hemoglobin has dropped and renal function is worsening. On exam he is alert and awake. He has a regular rate and rhythm with a 3 out of 6 systolic murmur best heard at the right upper sternal border. Conjunctival pallor is present. Abdomen is soft nontender nondistended. No CVA tenderness. He has 2+ pitting edema of bilateral lower extremities. We will give 1 unit of packed red blood cells as the patient will be going for biopsy tomorrow. Repeat CBC in the morning. N.p.o. past midnight. Nephrology consult noted and appreciated. Pancytopenia unchanged from yesterday except for a hemoglobin drop to 7.5 today from 8.1 yesterday. Creatinine is 1.4 today up from 1.3 yesterday. Nephrology to restart IV fluids. Hematology/oncology consult noted and appreciated. Pain control. Rest as per resident note above.
--- NOTE | 2020-04-02 17:50 | PN.HO ---
Progress Note (short form) - Note Progress Note: Patient seen and examined Voices no complaints. Ambulating. Eating when he likes hospital food Last Vital Signs Temp Pulse Resp BP Pulse Ox 98.2 F 97 H 20 94/48 L 100 04/02/20 14:14 04/02/20 14:14 04/02/20 14:14 04/02/20 14:14 04/02/20 09:00 AFVSS Cor: RSR, No murmurs, No gallops Lungs: Clear to P&A Abd: Soft, Normal bowel sounds, + Mass in LLQ Ext:No significant edema 04/02/20 06:15 04/02/20 06:15 Current Medications Generic Name Dose Route Start Last Admin Trade Name Freq PRN Reason Stop Dose Admin Acetaminophen 1,000 mg 03/30/20 18:21 04/02/20 09:31 Tylenol - PO 1,000 mg Q6H PRN Administration PAIN LEVEL 1-5 Allopurinol 300 mg 04/01/20 17:30 04/02/20 09:31 Zyloprim - PO 300 mg DAILY [facility] Administration Ascorbic Acid 500 mg 03/30/20 22:00 04/02/20 09:32 Vitamin C - PO 500 mg BID [facility] Administration Atorvastatin Calcium 5 mg 03/30/20 22:00 04/01/20 21:01 Lipitor - PO 5 mg HS [facility]A Administration Cholecalciferol 500 unit 03/31/20 10:00 04/02/20 09:32 Vitamin D3 - PO 500 unit DAILY [facility] Administration Docusate Sodium 100 mg 03/30/20 22:00 04/02/20 14:21 Colace - PO 100 mg TID [facility] Administration Ferrous Sulfate 325 mg 03/31/20 08:00 04/02/20 11:43 Feosol - PO 325 mg TIDCM [facility] Administration Lidocaine 1 patch 03/31/20 10:00 Lidoderm Patch - TP DAILY PRN PAIN LEVEL 1-5 Miscellaneous 1 each 03/30/20 22:00 04/01/20 21:04 Lidoderm Patch Removal MC Not Given DAILY@2200 [facility] Oxycodone HCl 10 mg 03/30/20 18:21 04/01/20 19:56 Roxicodone - PO 10 mg Q6H PRN Administration PAIN LEVEL 6-10 Terazosin HCl 5 mg 03/30/20 22:00 04/01/20 21:00 Hytrin - PO 5 mg HS [facility]A Administration A/P L sided flank pain x 1 month but worsening over the past few days that is pressure like, radiates the L abdomen and groin that fluctates intermittently but no alleviating or exacerbating factors. Pt with persisten pain without improvement with oral pain medications. ER CT of abdomen showed a new compared with 06/14/13, 10 x 9.8 x 8 cm left pelvic mesenteric mass/ lympadenopathy, 1.1cm periaortic node and an unchanged 1.4cm splenic lesion unchanged from 06/14/13. Lt. lower back paain due to mesenteric mass CT T/L spine --- thecal sac compressiom LN Biopsy: Relapsed B cell lymphoma Start allopurinol for urinc acid 0.1 LDH--nl Wll need to consider gentle hydration/ steroids depending on clinical course/path h/o prostate cancer s/p RT. CT scans demonstrate large right axillary adenopathy s/p biopsy and 10cm mesenteric and 6cm left L1-L2 paravertebral masses. MRI L-spine shows left paraspinal/psoas masses T11-L2 with thecal sac compression. Scheduled for biopsies of all masses 04/03. Synchronous malignancies should be ruled out given possibility of recurrent prostate CA or other heme or solid malignancies. Salvage therapy to be planned after pathological diagnosis.
--- NOTE | 2020-04-02 17:57 | PN ---
Progress Note, Physician History of Present Illness: Pt seen and examined at bedside. He is awake and alert. He denies shortness of breath. - Current Medication List Current Medications: Active Medications Acetaminophen (Tylenol -) 1,000 mg PO Q6H PRN PRN Reason: PAIN LEVEL 1-5 Last Admin: 04/02/20 09:31 Dose: 1,000 mg Documented by: Allopurinol (Zyloprim -) 300 mg PO DAILY [facility] Last Admin: 04/02/20 09:31 Dose: 300 mg Documented by: Ascorbic Acid (Vitamin C -) 500 mg PO BID [facility] Last Admin: 04/02/20 09:32 Dose: 500 mg Documented by: Atorvastatin Calcium (Lipitor -) 5 mg PO [facility] Last Admin: 04/01/20 21:01 Dose: 5 mg Documented by: Cholecalciferol (Vitamin D3 -) 500 unit PO DAILY [facility] Last Admin: 04/02/20 09:32 Dose: 500 unit Documented by: Docusate Sodium (Colace -) 100 mg PO TID [facility] Last Admin: 04/02/20 14:21 Dose: 100 mg Documented by: Ferrous Sulfate (Feosol -) 325 mg PO TIDCM [facility] Last Admin: 04/02/20 11:43 Dose: 325 mg Documented by: Lidocaine (Lidoderm Patch -) 1 patch TP DAILY PRN PRN Reason: PAIN LEVEL 1-5 Miscellaneous (Lidoderm Patch Removal) 1 each MC DAILY@2200 [facility] Last Admin: 04/01/20 21:04 Dose: Not Given Documented by: Oxycodone HCl (Roxicodone -) 10 mg PO Q6H PRN PRN Reason: PAIN LEVEL 6-10 Last Admin: 04/01/20 19:56 Dose: 10 mg Documented by: Terazosin HCl (Hytrin -) 5 mg PO [facility] Last Admin: 04/01/20 21:00 Dose: 5 mg Documented by: - Objective Vital Signs: Vital Signs Temperature 98.2 F 04/02/20 14:14 Pulse Rate 97 H 04/02/20 14:14 Respiratory Rate 04/02/20 14:14 Blood Pressure 94/48 L 04/02/20 14:14 O2 Sat by Pulse Oximetry (%) 100 04/02/20 09:00 Constitutional: Yes: Calm Eyes: Yes: Conjunctiva Clear HENT: Yes: Atraumatic Cardiovascular: Yes: S1, S2 Respiratory: Yes: CTA Bilaterally Gastrointestinal: Yes: Soft, Abdomen, Obese Genitourinary: Yes: WNL Musculoskeletal: Yes: WNL Edema: LLE: Trace, RLE: Trace Neurological: Yes: Oriented Psychiatric: Yes: Oriented Labs: CBC, BMP 04/02/20 06:15 04/02/20 06:15 INR, PTT INR 1.13 (0.83-1.09) H 03/21/20 16:10 Problem List - Problems (1) CHEMA (acute kidney injury) Code(s): N17.9 - ACUTE KIDNEY FAILURE, UNSPECIFIED (2) Hypotension Code(s): I95.9 - HYPOTENSION, UNSPECIFIED Qualifiers: Hypotension type: unspecified hypotension type Qualified Code(s): I95.9 - Hypotension, unspecified (3) Low back pain Code(s): M54.5 - LOW BACK PAIN Qualifiers: Chronicity: acute Back pain laterality: left Sciatica presence: without sciatica Qualified Code(s): M54.5 - Low back pain Assessment/Plan Current Medications Generic Name Dose Route Start Last Admin Trade Name Freq PRN Reason Stop Dose Admin Acetaminophen 1,000 mg 03/30/20 18:21 04/02/20 09:31 Tylenol - PO 1,000 mg Q6H PRN Administration PAIN LEVEL 1-5 Allopurinol 300 mg 04/01/20 17:30 04/02/20 09:31 Zyloprim - PO 300 mg DAILY [facility] Administration Ascorbic Acid 500 mg 03/30/20 22:00 04/02/20 09:32 Vitamin C - PO 500 mg BID [facility] Administration Atorvastatin Calcium 5 mg 03/30/20 22:00 04/01/20 21:01 Lipitor - PO 5 mg HS [facility] Administration Cholecalciferol 500 unit 03/31/20 10:00 04/02/20 09:32 Vitamin D3 - PO 500 unit DAILY [facility] Administration Docusate Sodium 100 mg 03/30/20 22:00 04/02/20 14:21 Colace - PO 100 mg TID [facility] Administration Ferrous Sulfate 325 mg 03/31/20 08:00 04/02/20 11:43 Feosol - PO 325 mg TIDCM [facility] Administration Lidocaine 1 patch 03/31/20 10:00 Lidoderm Patch - TP DAILY PRN PAIN LEVEL 1-5 Miscellaneous 1 each 03/30/20 22:00 04/01/20 21:04 Lidoderm Patch Removal MC Not Given DAILY@2200 [facility] Oxycodone HCl 10 mg 03/30/20 18:21 04/01/20 19:56 Roxicodone - PO 10 mg Q6H PRN Administration PAIN LEVEL 6-10 Terazosin HCl 5 mg 03/30/20 22:00 04/01/20 21:00 Hytrin - PO 5 mg HS [facility] Administration Impression 1. CHEMA 2. lymphoma 3. hypotension 4. anemia 5. prostate cancer 6. hyperkalemia 7. hx of gammopathy 8. b-cell lymphoma Plan - renal function worsening - will restart fluids - repeat labs in am - monitor hg - possible salvage therapy
[2020-04-02] MEDS ORDERED: SODIUM CHLORIDE 0.45% 1,000 ML IV SCH (18:00)
[2020-04-02] MEDS: TERAZOSIN HCL 5 MG CAPSULE PO SCH (21:21)
[2020-04-02] MEDS: ATORVASTATIN CA 10 MG TABLET (FP) PO SCH (21:21)
[2020-04-02] MEDS: LIDOCAINE PATCH REMOVAL MC SCH (21:21)
[2020-04-03] MEDS: DOCUSATE SODIUM 100 MG CAPSULE (FP) PO SCH ×3 (05:03→21:07)
[2020-04-03 07:42] LABS: HEMATOCRIT 28.3 % (35.4-49); HEMOGLOBIN 9.4 GM/dL (11.7-16.9); MCH 29.8 pg (25.7-33.7); MCHC 33.2 g/dl (32.0-35.9); MEAN CELL VOLUME 89.8 fl (80-96); MEAN PLT VOLUME 9.6 fl (7.5-11.1); PLATELET COUNT 140 K/MM3 (134-434); RBC 3.15 M/mm3 (4.00-5.60); RDW 16.6 % (11.9-15.9); WHITE BLOOD COUNT 4.7 K/mm3 (4.0-10.0)
[2020-04-03 08:18] LABS: BLOOD UREA NITROGEN 41.8 mg/dL (7-18); CALCIUM 8.7 mg/dL (8.5-10.1); CREATININE 1.6 mg/dL (0.55-1.3); MAGNESIUM 2.2 mg/dL (1.8-2.4); PHOSPHOROUS 4.4 mg/dL (2.5-4.9); POTASSIUM 4.4 mmol/L (3.5-5.1)
[2020-04-03] MEDS: ASCORBIC ACID 500 MG TABLET (FP) PO SCH ×2 (09:55→21:07)
[2020-04-03] MEDS: FERROUS SO4 325 MG TABLET (FP) PO SCH ×3 (09:55→17:20)
[2020-04-03] MEDS: CHOLECALCIFEROL (VIT D3) 1,000 UNIT (25 MCG) TABLET PO SCH (09:55)
[2020-04-03] MEDS: ALLOPURINOL 300 MG TABLET (FP) PO SCH ×2 (13:07→17:17)
--- NOTE | 2020-04-03 13:58 | PN ---
Physical Exam: SUBJECTIVE: Patient seen and examined. He reports left lumbar pain lateral to spine. He denies LLQ pain today. He denies bloating, nausea, vomiting, diarrhea, and constipation. He is tolerating PO. OBJECTIVE: Vital Signs Period Temp Pulse Resp BP Sys/Tillman Pulse Ox Last 24 Hr 98.0 F-99.7 F 87-100 18-20 94-130/48-75 100-100 GENERAL: The patient is awake, alert, and fully oriented, in no acute distress. HEAD: Normal with no signs of trauma. EYES: PERRL, extraocular movements intact, conjunctiva clear. ENT: Ears normal, nares patent, moist mucous membranes. NECK: Trachea midline. LUNGS: Clear to auscultation bilaterally, no wheezes, no crackles. HEART: Regular rate and rhythm, no murmur. ABDOMEN: Soft, non-tender to palpation, distended, normoactive bowel sounds. BACK: Left lumbar tenderness lateral to midline. EXTREMITIES: Warm, well-perfused, +1 b/l pitting edema to mid lower legs. NEUROLOGICAL: Cranial nerves II through XII grossly intact. Normal speech. PSYCH: Normal mood, normal affect. SKIN: Warm, dry, normal turgor. Laboratory Results - last 24 hr 04/03/20 04/03/20 06:30 06:30 WBC 4.7 RBC 3.15 L Hgb 9.4 L Hct 28.3 L D MCV 89.8 MCH 29.8 MCHC 33.2 RDW 16.6 H Plt Count 140 D MPV 9.6 Sodium 137 Potassium 4.4 Chloride 106 Carbon Dioxide 20 L Anion Gap 11 BUN 41.8 H Creatinine 1.6 H Est GFR (CKD-EPI)AfAm 45.18 Est GFR (CKD-EPI)NonAf 38.98 Random Glucose 115 H Calcium 8.7 Phosphorus 4.4 Magnesium 2.2 Ferritin 2206.3 H Active Medications Generic Name Dose Route Start Last Admin Trade Name Freq PRN Reason Stop Dose Admin Acetaminophen 1,000 mg 03/30/20 18:21 04/02/20 19:43 Tylenol - PO 1,000 mg Q6H PRN Administration PAIN LEVEL 1-5 Allopurinol 300 mg 04/01/20 17:30 04/03/20 13:07 Zyloprim - PO Not Given DAILY [facility] Ascorbic Acid 500 mg 03/30/20 22:00 04/03/20 09:55 Vitamin C - PO Not Given BID [facility] Atorvastatin Calcium 5 mg 03/30/20 22:00 04/02/20 21:21 Lipitor - PO 5 mg HS [facility] Administration Cholecalciferol 500 unit 03/31/20 10:00 04/03/20 09:55 Vitamin D3 - PO Not Given DAILY [facility] Docusate Sodium 100 mg 03/30/20 22:00 04/03/20 05:03 Colace - PO Not Given TID [facility] Ferrous Sulfate 325 mg 03/31/20 08:00 04/03/20 13:07 Feosol - PO Not Given TIDCM [facility] Sodium Chloride 1,000 mls @ 42 mls/hr 04/02/20 18:00 04/02/20 18:35 1/2 Normal Saline IV 42 mls/hr ASDIR [facility] Administration Lidocaine 1 patch 03/31/20 10:00 Lidoderm Patch - TP DAILY PRN PAIN LEVEL 1-5 Miscellaneous 1 each 03/30/20 22:00 04/02/20 21:21 Lidoderm Patch Removal MC 1 each DAILY@2200 [facility] Administration Oxycodone HCl 10 mg 04/03/20 13:44 Roxicodone - PO Q6H PRN PAIN LEVEL 6-10 Terazosin HCl 5 mg 03/30/20 22:00 04/02/20 21:21 Hytrin - PO 5 mg HS [facility] Administration ASSESSMENT/PLAN: Pt is an 84 y/o male with HTN, HLD, non-Hodgkin's lymphoma (5-10 years ago currently in remission), prostate cancer (beads 13 years ago in remission), who presents with left lumbar pain since September and has gotten acutely worse over the last 2 months. He also reports left side and abdominal pain. #abdominal pain and back pain 2/2 neoplasm, likely lymphoma -hx of non-Hodgkin's lymphoma and prostate cancer -lumbar MRI with contrast (03/28)- large mass lesion within left psoas muscle at L1-L2 disc level with extension through left L1-L2 and T12-L1 foramina into the left lateral half of the central spinal canal at levels L1-L3. A second lesion noted at T11-T12 levels extending into T11-T12 foramen without definite extension into canal -CT abd pelvis- irregular nonspecific 10x9x8 cm left pelvic mesenteric soft tissue lesion suggestive of neoplastic disease, possibly lymphadenopathy; 1.1 cm left periaortic retroperitoneal lymph node at the level of the kidneys -spoke to Dr. Dodson on 04/03- bone marrow biopsy planned 04/04 then port placement 04/05, several days of steroids, then begin chemo, if not responsive to chemo after 2 rounds, will plan to biopsy; this is most likely lymphoma (PSA low) -continue IV fluids as pt is at risk of tumor lysis -daily uric acid and LDH levels -axillary lymph node biopsy- preliminary results B-cell lymphoma -continue oxycodone 10mg Q6H PRN -oncology consult -radiation oncology consult -neurosurgery consult #normocytic anemia, ?anemia of chronic disease -Hb improved to 9.4 today -s/p 3 units this admission -pt reports recent dark stool -serial FOBTs- negative x1 #HTN -hold meds for hypotension #CHEMA -Cr 1.6 -on gentle fluids -nephro consult #HLD -statin -ASA 81mg daily DVT Ppx SCDs PRINCE hose PRN for LE swelling FEN NS @75mL/hr monitor Cr sodium-controlled diet dispo med/surg bone marrow biopsy anticipated tomorrow FULL CODE Visit type - Emergency Visit Emergency Visit: Yes ED Registration Date: 03/21/20 Care time: The patient presented to the Emergency Department on the above date and was hospitalized for further evaluation of their emergent condition. - New Patient This patient is new to me today: No - Critical Care Critical Care patient: No ATTENDING PHYSICIAN STATEMENT I saw and evaluated the patient. I reviewed the resident's note and discussed the case with the resident. I agree with the resident's findings and plan as documented. SUBJECTIVE: OBJECTIVE: ASSESSMENT AND PLAN:
--- NOTE | 2020-04-03 14:04 | PN ---
Teaching Attending Note Name of Resident: Radhika Brock ATTENDING PHYSICIAN STATEMENT I saw and evaluated the patient. I reviewed the resident's note and discussed the case with the resident. I agree with the resident's findings and plan as documented. SUBJECTIVE: No fever or chills . No BERUMEN , cont to have pain in L flank. OBJECTIVE: NAD , very dry MM CV: 3/6 SM at base. RRR Lungs: CTAB Abd: soft, obese, ND, TTP i n L flank LE: with 1+ edema on LE trace edema. ASSESSMENT AND PLAN: 84 y/o man with h/o HTN, HLD, non-Hodgkin's lymphoma, prostate cancer (beads 13 years ago in remission), who presented with L lower back pain. L paravertebral mass. Low back pain due to above mass. R axillary LAP B cell Lymphoma Hypotension Anemia Pancytopenia Plan: - increase dose of IVF . Looks dry and cr is worse - If cr cont to increase despite hydration , will do US of the kidneys to r/o hydro insetting of pelvic masses - follow biopsy results form today - will d/w ONC the treatment plan ( inpatient VS out pt ) - Appreciate rad Onc help: if paraspinal lesions are prostate ca Mets then will get RTx, if lymphoma then will need chemo. - cont oxy - cont to hold BP meds - Hb stable after a unit over the weekend - SCDS start heparin sq for DVT Px after bx. if renal functio improves, can switch to lovenox
[2020-04-03] MEDS: oxyCODONE HCL 5 MG TABLET PO PRN (14:13)
--- NOTE | 2020-04-03 15:16 | PN ---
Progress Note, Physician History of Present Illness: Pt seen and examined at bedside. He is awake and alert. He complains of lower ext edema. - Current Medication List Current Medications: Active Medications Acetaminophen (Tylenol -) 1,000 mg PO Q6H PRN PRN Reason: PAIN LEVEL 1-5 Last Admin: 04/02/20 19:43 Dose: 1,000 mg Documented by: Allopurinol (Zyloprim -) 300 mg PO DAILY [facility] Last Admin: 04/03/20 13:07 Dose: Not Given Documented by: Ascorbic Acid (Vitamin C -) 500 mg PO BID [facility] Last Admin: 04/03/20 09:55 Dose: Not Given Documented by: Atorvastatin Calcium (Lipitor -) 5 mg PO [facility] Last Admin: 04/02/20 21:21 Dose: 5 mg Documented by: Cholecalciferol (Vitamin D3 -) 500 unit PO DAILY [facility] Last Admin: 04/03/20 09:55 Dose: Not Given Documented by: Docusate Sodium (Colace -) 100 mg PO TID [facility] Last Admin: 04/03/20 14:53 Dose: Not Given Documented by: Ferrous Sulfate (Feosol -) 325 mg PO TIDCM [facility] Last Admin: 04/03/20 13:07 Dose: Not Given Documented by: Heparin Sodium (Porcine) (Heparin -) 5,000 unit SQ TID [facility] Sodium Chloride (1/2 Normal Saline) 1,000 mls @ 75 mls/hr IV ASDIR [facility] Lidocaine (Lidoderm Patch -) 1 patch TP DAILY PRN PRN Reason: PAIN LEVEL 1-5 Miscellaneous (Lidoderm Patch Removal) 1 each MC DAILY@2200 [facility] Last Admin: 04/02/20 21:21 Dose: 1 each Documented by: Oxycodone HCl (Roxicodone -) 10 mg PO Q6H PRN PRN Reason: PAIN LEVEL 6-10 Last Admin: 04/03/20 14:13 Dose: 10 mg Documented by: Terazosin HCl (Hytrin -) 5 mg PO [facility] Last Admin: 04/02/20 21:21 Dose: 5 mg Documented by: - Objective Vital Signs: Vital Signs Temperature 99.3 F 04/03/20 13:34 Pulse Rate 87 04/03/20 13:34 Respiratory Rate 18 04/03/20 13:34 Blood Pressure 115/61 04/03/20 13:34 O2 Sat by Pulse Oximetry (%) 100 04/03/20 09:00 Constitutional: Yes: Calm Eyes: Yes: Conjunctiva Clear HENT: Yes: Atraumatic Neck: Yes: Supple Cardiovascular: Yes: S1, S2 Respiratory: Yes: CTA Bilaterally Gastrointestinal: Yes: Soft Musculoskeletal: Yes: WNL Edema: Yes Edema: LLE: 1+, RLE: 1+ Neurological: Yes: Oriented Psychiatric: Yes: Oriented Labs: CBC, BMP 04/03/20 06:30 04/03/20 06:30 INR, PTT INR 1.13 (0.83-1.09) H 03/21/20 16:10 Problem List - Problems (1) CHEMA (acute kidney injury) Code(s): N17.9 - ACUTE KIDNEY FAILURE, UNSPECIFIED (2) Hypotension Code(s): I95.9 - HYPOTENSION, UNSPECIFIED Qualifiers: Hypotension type: unspecified hypotension type Qualified Code(s): I95.9 - Hypotension, unspecified (3) Low back pain Code(s): M54.5 - LOW BACK PAIN Qualifiers: Chronicity: acute Back pain laterality: left Sciatica presence: without sciatica Qualified Code(s): M54.5 - Low back pain Assessment/Plan Current Medications Generic Name Dose Route Start Last Admin Trade Name Freq PRN Reason Stop Dose Admin Acetaminophen 1,000 mg 03/30/20 18:21 04/02/20 19:43 Tylenol - PO 1,000 mg Q6H PRN Administration PAIN LEVEL 1-5 Allopurinol 300 mg 04/01/20 17:30 04/03/20 13:07 Zyloprim - PO Not Given DAILY [facility] Ascorbic Acid 500 mg 03/30/20 22:00 04/03/20 09:55 Vitamin C - PO Not Given BID [facility] Atorvastatin Calcium 5 mg 03/30/20 22:00 04/02/20 21:21 Lipitor - PO 5 mg HS [facility] Administration Cholecalciferol 500 unit 03/31/20 10:00 04/03/20 09:55 Vitamin D3 - PO Not Given DAILY [facility] Docusate Sodium 100 mg 03/30/20 22:00 04/03/20 14:53 Colace - PO Not Given TID [facility] Ferrous Sulfate 325 mg 03/31/20 08:00 04/03/20 13:07 Feosol - PO Not Given TIDCM [facility] Heparin Sodium (Porcine) 5,000 unit 04/03/20 22:00 Heparin - SQ TID [facility] Sodium Chloride 1,000 mls @ 75 mls/hr 04/03/20 13:57 1/2 Normal Saline IV ASDIR [facility] Lidocaine 1 patch 03/31/20 10:00 Lidoderm Patch - TP DAILY PRN PAIN LEVEL 1-5 Miscellaneous 1 each 03/30/20 22:00 04/02/20 21:21 Lidoderm Patch Removal MC 1 each DAILY@2200 [facility] Administration Oxycodone HCl 10 mg 04/03/20 13:44 04/03/20 14:13 Roxicodone - PO 10 mg Q6H PRN Administration PAIN LEVEL 6-10 Terazosin HCl 5 mg 03/30/20 22:00 04/02/20 21:21 Hytrin - PO 5 mg HS [facility] Administration Impression 1. CHEMA 2. lymphoma 3. hypotension 4. anemia 5. prostate cancer 6. hyperkalemia 7. hx of gammopathy 8. b-cell lymphoma Plan - renal function worse - follow ua and lytes - will order bladder scan - repeat labs in am - pt on fluids, monitor volume status - monitor hg - possible salvage therapy
[2020-04-03 17:03] LABS: URINE APPEARANCE CLEAR; URINE BILIRUBIN NEGATIVE (NEGATIVE); URINE COLOR YELLOW; URINE GLUCOSE (UA) NEGATIVE (NEGATIVE); URINE KETONE NEGATIVE (NEGATIVE); URINE LEUK ESTERASE NEGATIVE (NEGATIVE); URINE NITRITE NEGATIVE (NEGATIVE); URINE PROTEIN NEGATIVE (NEGATIVE); URINE UROBILINOGEN 0.2 mg/dL (0.2-1.0)
[2020-04-03] MEDS: SODIUM CHLORIDE 0.45% 1,000 ML IV SCH (19:46)
[2020-04-03] MEDS: TERAZOSIN HCL 5 MG CAPSULE PO SCH (21:07)
[2020-04-03] MEDS: ATORVASTATIN CA 10 MG TABLET (FP) PO SCH (21:07)
[2020-04-03] MEDS: HEPARIN NA (PORCINE) 5,000 UNITS/ML 1ML VIAL SQ SCH (21:07)
[2020-04-03] MEDS: LIDOCAINE PATCH REMOVAL MC SCH (21:09)
--- NOTE | 2020-04-03 22:38 | PN.HO ---
Progress Note (short form) - Note Progress Note: PAtient seen and examined Feels well. Denies any complaints Last Vital Signs Temp Pulse Resp BP Pulse Ox 99.2 F 99 H 18 102/57 L 98 04/03/20 21:30 04/03/20 21:30 04/03/20 21:30 04/03/20 21:30 04/03/20 21:00 Cor: RSR, No murmurs, No gallops Lungs: Clear to P&A Abd: Soft, Normal bowel sounds, No organomegaly Ext:No significant edema Labs/MEds reviewed A/P L sided flank pain x 1 month but worsening over the past few days that is pressure like, radiates the L abdomen and groin that fluctates intermittently but no alleviating or exacerbating factors. Pt with persisten pain without improvement with oral pain medications. ER CT of abdomen showed a new compared with 06/14/13, 10 x 9.8 x 8 cam left pelvic mesenteric mass/ lympadenopathy, 1.1cm periaortic node and an unchanged 1.4cm splenic lesion unchanged from 06/14/13. Lt. lower back pain due to mesenteric mass 10cm , ? jourdan, Lt.periaortic 1.1 cm node, Lt. splenic 1.4cm focus CT T/L spine --- thecal sac compression, Lt. psoas muscle 8cm mass CT chest -- extensive rt. axillary jourdan mass left axillary node biopsy-- Diffuse Large B cell lymphoma, double expressor( cmyc and bcl2) -- FISH pendiing Start allopurinol for uric acid 9.1 LDH--nl Stage III will complete staging w/u with bone marrow biopsy will schedule port-a-cath will consider R-CVP vs miniRCHOP High risk for tumor lysis --- on allopurinol. gentle hydration. check G6 PD will request nephrology follow up anemia of chronic disease discussed with patient in detail
[2020-04-04] MEDS: HEPARIN NA (PORCINE) 5,000 UNITS/ML 1ML VIAL SQ SCH ×2 (05:03→21:15)
[2020-04-04] MEDS: DOCUSATE SODIUM 100 MG CAPSULE (FP) PO SCH ×3 (05:04→21:09)
[2020-04-04 08:30] LABS: BASO % 0.7 % (0-2.0); EOS % 0.6 % (0-4.5); HEMOGLOBIN 9.3 GM/dL (11.7-16.9); LYMPH % 15.9 % (8-40); MCH 29.6 pg (25.7-33.7); MCHC 33.2 g/dl (32.0-35.9); MEAN CELL VOLUME 89.3 fl (80-96); MEAN PLT VOLUME 9.2 fl (7.5-11.1); MONO % 25.4 % (3.8-10.2); NEUT % 57.4 % (42.8-82.8); PLATELET COUNT 133 K/MM3 (134-434); RBC 3.13 M/mm3 (4.00-5.60); RDW 16.8 % (11.9-15.9); WHITE BLOOD COUNT 3.6 K/mm3 (4.0-10.0)
[2020-04-04 08:56] LABS: BLOOD UREA NITROGEN 41.2 mg/dL (7-18); CALCIUM 8.8 mg/dL (8.5-10.1); CREATININE 1.4 mg/dL (0.55-1.3); POTASSIUM 4.8 mmol/L (3.5-5.1); URIC ACID 9.7 mg/dL (2.6-7.2)
[2020-04-04] MEDS: ALLOPURINOL 300 MG TABLET (FP) PO SCH (09:07)
[2020-04-04] MEDS: ASCORBIC ACID 500 MG TABLET (FP) PO SCH ×2 (09:07→21:11)
[2020-04-04] MEDS: CHOLECALCIFEROL (VIT D3) 1,000 UNIT (25 MCG) TABLET PO SCH (09:08)
[2020-04-04] MEDS: FERROUS SO4 325 MG TABLET (FP) PO SCH ×3 (09:08→17:42)
[2020-04-04 09:50] LABS: ANISOCYTOSIS 1+; MACROCYTOSIS 0; PLATELET ESTIMATE DECREASED
--- NOTE | 2020-04-04 13:03 | PN ---
Physical Exam: SUBJECTIVE: Patient seen and examined. C/o pain to left flank radiating down LLE. No acute overnight events. For BM biopsy today. OBJECTIVE: Vital Signs Period Temp Pulse Resp BP Sys/Tillman Pulse Ox Last 24 Hr 98.3 F-99.3 F 86-104 18-20 102-117/55-65 95-98 GENERAL: The patient is awake, alert, and fully oriented, in no acute distress. HEENT: Dry MM. LUNGS: Breath sounds equal, clear to auscultation bilaterally, no wheezes, no crackles, no accessory muscle use. HEART: Regular rate and rhythm, S1, S2, 3/6 systolic murmur noted. ABDOMEN: TTP left flank. Soft, nondistended, normoactive bowel sounds, no guarding. EXTREMITIES: 2+ pulses, warm, well-perfused, no edema. NEUROLOGICAL: Cranial nerves II through XII grossly intact. Normal speech, gait not observed. SKIN: Warm, dry Laboratory Results - last 24 hr 04/03/20 04/03/20 04/04/20 15:11 15:11 06:30 WBC RBC Hgb Hct MCV MCH MCHC RDW Plt Count MPV Absolute Neuts (auto) Neutrophils % Neutrophils % (Manual) Band Neutrophils % Lymphocytes % Lymphocytes % (Manual) Monocytes % Monocytes % (Manual) Eosinophils % Eosinophils % (Manual) Basophils % Basophils % (Manual) Myelocytes % (Man) Promyelocytes % (Man) Blast Cells % (Manual) Nucleated RBC % Metamyelocytes Hypochromia Platelet Estimate Polychromasia Poikilocytosis Anisocytosis Microcytosis Macrocytosis Sodium Potassium Chloride Carbon Dioxide Anion Gap BUN Creatinine Est GFR (CKD-EPI)AfAm Est GFR (CKD-EPI)NonAf Random Glucose Uric Acid Calcium LD Total Urine Color Yellow Urine Appearance Clear Urine pH 5.0 Ur Specific [place] 1.014 Urine Protein Negative Urine Glucose (UA) Negative Urine Ketones Negative Urine Blood Negative Urine Nitrite Negative Urine Bilirubin Negative Urine Urobilinogen 0.2 Ur Leukocyte Esterase Negative Ur Random Creatinine 113.0 Ur Random Sodium 27 L Ur Random Potassium 32.0 Ur Random Chloride 35 L Stool Occult Blood Negative 04/04/20 04/04/20 07:20 07:20 WBC 3.6 L RBC 3.13 L Hgb 9.3 L Hct 28.0 L MCV 89.3 MCH 29.6 MCHC 33.2 RDW 16.8 H Plt Count 133 L MPV 9.2 Absolute Neuts (auto) 2.1 Neutrophils % 57.4 Neutrophils % (Manual) 59.8 Band Neutrophils % 6.2 Lymphocytes % 15.9 D Lymphocytes % (Manual) 14.4 Monocytes % 25.4 H Monocytes % (Manual) 17 H Eosinophils % 0.6 Eosinophils % (Manual) 0.0 D Basophils % 0.7 Basophils % (Manual) 0.0 Myelocytes % (Man) 2 D Promyelocytes % (Man) 0 Blast Cells % (Manual) 0 Nucleated RBC % 0 Metamyelocytes 0 Hypochromia 0 Platelet Estimate Decreased Polychromasia 0 Poikilocytosis 0 Anisocytosis 1+ Microcytosis 1+ Macrocytosis 0 Sodium 139 Potassium 4.8 Chloride 107 Carbon Dioxide 19 L Anion Gap 13 BUN 41.2 H Creatinine 1.4 H Est GFR (CKD-EPI)AfAm 53.09 Est GFR (CKD-EPI)NonAf 45.81 Random Glucose 103 Uric Acid 9.7 H Calcium 8.8 LD Total 243 Urine Color Urine Appearance Urine pH Ur Specific [place] Urine Protein Urine Glucose (UA) Urine Ketones Urine Blood Urine Nitrite Urine Bilirubin Urine Urobilinogen Ur Leukocyte Esterase Ur Random Creatinine Ur Random Sodium Ur Random Potassium Ur Random Chloride Stool Occult Blood Active Medications Generic Name Dose Route Start Last Admin Trade Name Freq PRN Reason Stop Dose Admin Acetaminophen 1,000 mg 03/30/20 18:21 04/02/20 19:43 Tylenol - PO 1,000 mg Q6H PRN Administration PAIN LEVEL 1-5 Allopurinol 300 mg 04/01/20 17:30 04/04/20 09:07 Zyloprim - PO 300 mg DAILY [facility]A Administration Ascorbic Acid 500 mg 03/30/20 22:00 04/04/20 09:07 Vitamin C - PO 500 mg BID [facility] Administration Atorvastatin Calcium 5 mg 03/30/20 22:00 04/03/20 21:07 Lipitor - PO 5 mg HS [facility]A Administration Cholecalciferol 500 unit 03/31/20 10:00 04/04/20 09:08 Vitamin D3 - PO 500 unit DAILY [facility] Administration Docusate Sodium 100 mg 03/30/20 22:00 04/04/20 05:04 Colace - PO 100 mg TID [facility] Administration Ferrous Sulfate 325 mg 03/31/20 08:00 04/04/20 09:08 Feosol - PO 325 mg TIDCM [facility] Administration Heparin Sodium (Porcine) 5,000 unit 04/03/20 22:00 04/03/20 21:07 Heparin - SQ 5,000 unit TID [facility] Administration Sodium Chloride 1,000 mls @ 75 mls/hr 04/03/20 13:57 04/03/20 19:46 1/2 Normal Saline IV 75 mls/hr ASDIR [facility] Administration Lidocaine 1 patch 03/31/20 10:00 Lidoderm Patch - TP DAILY PRN PAIN LEVEL 1-5 Miscellaneous 1 each 03/30/20 22:00 04/03/20 21:09 Lidoderm Patch Removal MC Not Given DAILY@2200 [facility] Oxycodone HCl 10 mg 04/03/20 13:44 04/03/20 14:13 Roxicodone - PO 10 mg Q6H PRN Administration PAIN LEVEL 6-10 Terazosin HCl 5 mg 03/30/20 22:00 04/03/20 21:07 Hytrin - PO 5 mg HS GEORGINA Administration IMAGING: * CT A/p 03/21: In comparison to a 2013 CT exam interval development of an irregular nonspecific 10 x 9 x 8 cm left pelvic mesenteric soft tissue lesion is noted suggestive of neoplastic disease possibly representing lymphadenopathy. Note is also made of interval development of a 1.1 cm left periaortic retroperitoneal lymph node at the level of the kidneys. A 1.4 cm splenic nonspecific hypodense focus is noted ventrally which was possibly present at the time of the previous exam. A 10 cm left renal cyst is seen which has decreased in size previously measuring 14 cm in maximum diameter. The remainder of the exam appears unchanged. A small amount of free fluid is again seen within the lower pelvis bilaterally as on the prior exam. There is again visualization of a small amount of perihepatic free fluid laterally. A very small umbilical hernia is seen containing free fluid. Status post david cystectomy. Prominent aortic valvular calcifications are seen. Correlation with echocardiography is suggested in regards to the possibility of aortic stenosis. Status post prostate brachytherapy. Colonic diverticulosis. * Bladder U/S 03/22: 1. Small postvoid residual. 2. Mild prostatic hypertrophy. * CT chest 03/22: 1. Extensive right axillary lymphadenopathy. 2. Trace bilateral pleural effusions and pericardial effusion. 3. No additional evidence of acute pathology within the abdomen or pelvis. Please see above discussion. * CT :-spine 03/25: No gross focal bone destruction is identified. Large left paravertebral soft tissue mass is again seen at L1 and L2 level that appears to be extending into left L1-L2 neural foramen. Further evaluation with contrast-enhanced MRI of the l umbar spine is recommended * CT pelvis 03/25: No gross focal bone destruction is identified. Large left paravertebral soft tissue mass is again seen at L1 and L2 level that appears to be extending into left L1-L2 neural foramen. Further evaluation with contrast-enhanced MRI of the l umbar spine is recommended * MRI L-spine 03/28: A large mass lesion is noted within the left psoas muscle centered at the L1-2 disc level. This sof t tissue lesion also extends partially into the left posterior paraspinal musculature. The left psoa s muscle lesion extends through the left L1-L2 and left T12-L1 foramina into the left lateral half o f the central spinal canal at levels L1-L3. There is resultant mass effect upon the thecal sac. More superiorly and adjacent s eparate left psoas muscle neoplastic lesion is noted at the T11 and T12 levels extending into the left T11-T12 foramen although without definite extension into the central spinal canal. The osseous structures demonstrate diffusely altered marrow signal intensity suggestive of neoplastic disease and less likely on the basis of chronic anemia or chemotherapy induced marrow conversion. If clinically indicated CT guided bone biopsy may be performed. ASSESSMENT/PLAN: 84 y/o male with HTN, HLD, non-Hodgkin's lymphoma (5-10 years ago currently in remission), prostate cancer (beads 13 years ago in remission), who presents with left lumbar pain since September and has gotten acutely worse over the last 2 months. He also reports left side and abdominal pain. #Left flank and back pain 2/2 neoplasm, likely lymphoma -hx of non-Hodgkin's lymphoma and prostate cancer -lumbar MRI with contrast (03/28)- large mass lesion of left psoas muscle at L1- L2 disc level with extension through left L1-L2 and T12-L1 foramina into the left lateral half of the central spinal canal at levels L1-L3. A second lesion noted at T11-T12 levels extending into T11-T12 foramen without definite extension into canal -CT abd pelvis- irregular nonspecific 10x9x8 cm left pelvic mesenteric soft tissue lesion suggestive of neoplastic disease, possibly lymphadenopathy; 1.1 cm left periaortic retroperitoneal lymph node at the level of the kidneys -bone marrow biopsy today -for chemoport placement 04/05- R-CVP vs miniRCHOP -continue IVF -daily uric acid and LDH levels; uric acid elevated, continue allopurinol for tumor lysis ppx -axillary lymph node biopsy- preliminary results B-cell lymphoma -continue oxycodone 10mg Q6H PRN -oncology following (Dr. Dodson) -radiation oncology consult -neurosurgery consulted- will reasess post bm biopsy #Anemia of chronic disease -iron studies confirmed -Hb 9.3 today -s/p 3 units this admission -pt reports recent dark stool; serial FOBTs- negative x1 #HTN -hold meds in stting of hypotension #CHEMA -Cr 1.4 -continue IVF -nephro following, Dr. Hinkle- poss salvage therapy #HLD -c/w statin -ASA 81mg daily #DVT Ppx -SCDs; no chemical ac in setting of anemia -PRINCE hose PRN for LE swelling #FEN -NS @75mL/hr -trend & replete lytes prn -sodium-controlled diet #Dispo ctm on med/surg Visit type - Emergency Visit Emergency Visit: No - New Patient This patient is new to me today: No - Critical Care Critical Care patient: No ATTENDING PHYSICIAN STATEMENT I saw and evaluated the patient. I reviewed the resident's note and discussed the case with the resident. I agree with the resident's findings and plan as documented. SUBJECTIVE: OBJECTIVE: ASSESSMENT AND PLAN:
--- NOTE | 2020-04-04 14:50 | PN.HO ---
Progress Note (short form) - Note Progress Note: Patient seen and examined Feels well. Denies any complaints Last Vital Signs Temp Pulse Resp BP Pulse Ox 98.4 F 84 20 117/61 95 04/04/20 14:34 04/04/20 14:34 04/04/20 14:34 04/04/20 14:34 04/04/20 08:21 Cor: RSR, No murmurs, No gallops Lungs: Clear to P&A Abd: Soft, Normal bowel sounds, No organomegaly Ext:No significant edema Labs/MEds reviewed A/P L sided flank pain x 1 month but worsening over the past few days that is pressure like, radiates the L abdomen and groin that fluctates intermittently but no alleviating or exacerbating factors. Pt with persisten pain without improvement with oral pain medications. ER CT of abdomen showed a new compared with 06/14/13, 10 x 9.8 x 8 cam left pelvic mesenteric mass/ lympadenopathy, 1.1cm periaortic node and an unchanged 1.4cm splenic lesion unchanged from 06/14/13. Lt. lower back pain due to mesenteric mass 10cm , ? jourdan, Lt.periaortic 1.1 cm node, Lt. splenic 1.4cm focus CT T/L spine --- thecal sac compression, Lt. psoas muscle 8cm mass CT chest -- extensive rt. axillary jourdan mass left axillary node biopsy-- Diffuse Large B cell lymphoma, double expressor (cmyc and bcl2) -- FISH pendiing Start allopurinol for uric acid 9.1 LDH--nl Stage III will complete staging w/u with bone marrow biopsy-->To be performed today will schedule port-a-cath will consider R-CVP vs miniRCHOP High risk for tumor lysis --- on allopurinol. gentle hydration. check G6 PD will request nephrology follow up anemia of chronic disease discussed with patient in detail
--- NOTE | 2020-04-04 15:30 | PN ---
Teaching Attending Note Name of Resident: Anjana Meza ATTENDING PHYSICIAN STATEMENT I saw and evaluated the patient. I reviewed the resident's note and discussed the case with the resident. I agree with the resident's findings and plan as documented. SUBJECTIVE: Patient is better, less pain. No acute distress. OBJECTIVE: Vital Signs Temperature 98.4 F 04/04/20 14:34 Pulse Rate 92 H 04/04/20 15:16 Respiratory Rate 15 04/04/20 15:16 Blood Pressure 116/54 L 04/04/20 15:16 O2 Sat by Pulse Oximetry (%) 100 04/04/20 15:16 PE: per resident's CBCD WBC 3.6 K/mm3 (4.0-10.0) L 04/04/20 07:20 RBC 3.13 M/mm3 (4.00-5.60) L 04/04/20 07:20 Hgb 9.3 GM/dL (11.7-16.9) L 04/04/20 07:20 Hct 28.0 % (35.4-49) L 04/04/20 07:20 MCV 89.3 fl (80-96) 04/04/20 07:20 MCHC 33.2 g/dl (32.0-35.9) 04/04/20 07:20 RDW 16.8 % (11.9-15.9) H 04/04/20 07:20 Plt Count 133 K/MM3 (134-434) L 04/04/20 07:20 MPV 9.2 fl (7.5-11.1) 04/04/20 07:20 CMP Sodium 139 mmol/L (136-145) 04/04/20 07:20 Potassium 4.8 mmol/L (3.5-5.1) 04/04/20 07:20 Chloride 107 mmol/L (98-107) 04/04/20 07:20 Carbon Dioxide 19 mmol/L (21-32) L 04/04/20 07:20 Anion Gap 13 MMOL/L (8-16) 04/04/20 07:20 BUN 41.2 mg/dL (7-18) H 04/04/20 07:20 Creatinine 1.4 mg/dL (0.55-1.3) H 04/04/20 07:20 Random Glucose 103 mg/dL (74-106) 04/04/20 07:20 Calcium 8.8 mg/dL (8.5-10.1) 04/04/20 07:20 Total Bilirubin 0.4 mg/dL (0.2-1) 03/28/20 06:16 AST 14 U/L (15-37) L 03/28/20 06:16 ALT 15 U/L (13-61) 03/28/20 06:16 Alkaline Phosphatase 54 U/L (45-117) 03/28/20 06:16 Total Protein 5.4 g/dl (6.4-8.2) L 03/28/20 06:16 Albumin 2.0 g/dl (3.4-5.0) L 03/28/20 06:16 CARDIAC ENZYMES Creatine Kinase 27 U/L (26-308) 03/21/20 16:10 Troponin I 0.03 ng/ml (0.00-0.05) 03/21/20 16:10 Current Medications Generic Name Dose Route Start Last Admin Trade Name Nicholas PRN Reason Stop Dose Admin Acetaminophen 1,000 mg 03/30/20 18:21 04/02/20 19:43 Tylenol - PO 1,000 mg Q6H PRN Administration PAIN LEVEL 1-5 Allopurinol 300 mg 04/01/20 17:30 04/04/20 09:07 Zyloprim - PO 300 mg DAILY [facility] Administration Ascorbic Acid 500 mg 03/30/20 22:00 04/04/20 09:07 Vitamin C - PO 500 mg BID [facility] Administration Atorvastatin Calcium 5 mg 03/30/20 22:00 04/03/20 21:07 Lipitor - PO 5 mg HS GE[facility]GINA Administration Cholecalciferol 500 unit 03/31/20 10:00 04/04/20 09:08 Vitamin D3 - PO 500 unit DAILY [facility] Administration Docusate Sodium 100 mg 03/30/20 22:00 04/04/20 14:09 Colace - PO Not Given TID [facility] Ferrous Sulfate 325 mg 03/31/20 08:00 04/04/20 14:09 Feosol - PO Not Given TIDCM [facility] Heparin Sodium (Porcine) 5,000 unit 04/03/20 22:00 04/03/20 21:07 Heparin - SQ 5,000 unit TID GE[facility]GINA Administration Sodium Chloride 1,000 mls @ 75 mls/hr 04/03/20 13:57 04/03/20 19:46 1/2 Normal Saline IV 75 mls/hr ASDIR [facility] Administration Lidocaine 1 patch 03/31/20 10:00 Lidoderm Patch - TP DAILY PRN PAIN LEVEL 1-5 Miscellaneous 1 each 03/30/20 22:00 04/03/20 21:09 Lidoderm Patch Removal MC Not Given DAILY@2200 GE[facility] Oxycodone HCl 10 mg 04/03/20 13:44 04/03/20 14:13 Roxicodone - PO 10 mg Q6H PRN Administration PAIN LEVEL 6-10 Terazosin HCl 5 mg 03/30/20 22:00 04/03/20 21:07 Hytrin - PO 5 mg HS GEORGINA Administration Home Medications Medication Instructions Recorded Aspirin [ASA -] 81 mg PO DAILY 09/07/12 Terazosin HCl [Hytrin -] 5 mg PO HS 09/07/12 Verapamil HCl ER [Calan Sr -] 240 mg PO DAILY 09/07/12 Cholecalciferol (Vitamin D3) 500 unit PO DAILY 09/08/12 [Vitamin D3] Simvastatin [Zocor -] 5 mg PO HS 09/08/12 Atenolol [Tenormin -] 25 mg PO DAILY 03/22/20 Microbiology 03/21/20 17:20 Urine - Urine Clean Catch Urine Culture - Final NO GROWTH OBTAINED ASSESSMENT AND PLAN: This patient is an 84yom with Pmhx of HTN, HLD, non-Hodgkin's lymphoma, prostate cancer (beads 13 years ago in remission), who presented with L lower back pain. #L paravertebral mass. oncology on the case, will arrnage for the port as per oncology #Low back pain and LLQ pain due to paravertebral mass . cont oxy , pain is better #R axillary LAP : bx B-cell lymphoma will d/w ONC the treatment plan ( inpatient vs out pt ) #B cell Lymphoma #Hypotension :cont to hold BP meds #Anemia: Hb stable after a unit over the weekend # Pancytopenia DVT Px: SCDS
--- NOTE | 2020-04-04 19:04 | PN ---
Progress Note, Physician History of Present Illness: Pt seen and examined at bedside. He is awake and alert. He denies shortness of breath. - Current Medication List Current Medications: Active Medications Acetaminophen (Tylenol -) 1,000 mg PO Q6H PRN PRN Reason: PAIN LEVEL 1-5 Last Admin: 04/02/20 19:43 Dose: 1,000 mg Documented by: Allopurinol (Zyloprim -) 300 mg PO DAILY [facility] Last Admin: 04/04/20 09:07 Dose: 300 mg Documented by: Ascorbic Acid (Vitamin C -) 500 mg PO BID [facility] Last Admin: 04/04/20 09:07 Dose: 500 mg Documented by: Atorvastatin Calcium (Lipitor -) 5 mg PO HS [facility] Last Admin: 04/03/20 21:07 Dose: 5 mg Documented by: Cholecalciferol (Vitamin D3 -) 500 unit PO DAILY [facility] Last Admin: 04/04/20 09:08 Dose: 500 unit Documented by: Docusate Sodium (Colace -) 100 mg PO TID [facility] Last Admin: 04/04/20 14:09 Dose: Not Given Documented by: Ferrous Sulfate (Feosol -) 325 mg PO TIDCM [facility] Last Admin: 04/04/20 17:42 Dose: Not Given Documented by: Heparin Sodium (Porcine) (Heparin -) 5,000 unit SQ TID [facility] Last Admin: 04/03/20 21:07 Dose: 5,000 unit Documented by: Sodium Chloride (1/2 Normal Saline) 1,000 mls @ 75 mls/hr IV ASDIR [facility] Last Admin: 04/03/20 19:46 Dose: 75 mls/hr Documented by: Lidocaine (Lidoderm Patch -) 1 patch TP DAILY PRN PRN Reason: PAIN LEVEL 1-5 Miscellaneous (Lidoderm Patch Removal) 1 each MC DAILY@2200 [facility] Last Admin: 04/03/20 21:09 Dose: Not Given Documented by: Oxycodone HCl (Roxicodone -) 10 mg PO Q6H PRN PRN Reason: PAIN LEVEL 6-10 Last Admin: 04/03/20 14:13 Dose: 10 mg Documented by: Terazosin HCl (Hytrin -) 5 mg PO [facility] Last Admin: 04/03/20 21:07 Dose: 5 mg Documented by: - Objective Vital Signs: Vital Signs Temperature 98.3 F 04/04/20 18:54 Pulse Rate 97 H 04/04/20 18:54 Respiratory Rate 18 04/04/20 18:54 Blood Pressure 117/65 04/04/20 18:54 O2 Sat by Pulse Oximetry (%) 100 04/04/20 15:16 Constitutional: Yes: Calm Eyes: Yes: Conjunctiva Clear HENT: Yes: Atraumatic Neck: Yes: Supple Cardiovascular: Yes: S1, S2 Respiratory: Yes: CTA Bilaterally Gastrointestinal: Yes: Soft Genitourinary: Yes: WNL Extremities: Yes: WNL Edema: Yes Edema: LLE: Trace, RLE: Trace Neurological: Yes: Oriented Psychiatric: Yes: Oriented Labs: CBC, BMP 04/04/20 07:20 04/04/20 07:20 INR, PTT INR 1.13 (0.83-1.09) H 03/21/20 16:10 Problem List - Problems (1) CHEMA (acute kidney injury) Code(s): N17.9 - ACUTE KIDNEY FAILURE, UNSPECIFIED (2) Hypotension Code(s): I95.9 - HYPOTENSION, UNSPECIFIED Qualifiers: Hypotension type: unspecified hypotension type Qualified Code(s): I95.9 - Hypotension, unspecified (3) Low back pain Code(s): M54.5 - LOW BACK PAIN Qualifiers: Chronicity: acute Back pain laterality: left Sciatica presence: without sciatica Qualified Code(s): M54.5 - Low back pain Assessment/Plan Current Medications Generic Name Dose Route Start Last Admin Trade Name Freq PRN Reason Stop Dose Admin Acetaminophen 1,000 mg 03/30/20 18:21 04/02/20 19:43 Tylenol - PO 1,000 mg Q6H PRN Administration PAIN LEVEL 1-5 Allopurinol 300 mg 04/01/20 17:30 04/04/20 09:07 Zyloprim - PO 300 mg DAILY [facility] Administration Ascorbic Acid 500 mg 03/30/20 22:00 04/04/20 09:07 Vitamin C - PO 500 mg BID [facility] Administration Atorvastatin Calcium 5 mg 03/30/20 22:00 04/03/20 21:07 Lipitor - PO 5 mg HS [facility]A Administration Cholecalciferol 500 unit 03/31/20 10:00 04/04/20 09:08 Vitamin D3 - PO 500 unit DAILY [facility] Administration Docusate Sodium 100 mg 03/30/20 22:00 04/04/20 14:09 Colace - PO Not Given TID GE[facility]A Ferrous Sulfate 325 mg 03/31/20 08:00 04/04/20 17:42 Feosol - PO Not Given TIDCM [facility] Heparin Sodium (Porcine) 5,000 unit 04/03/20 22:00 04/03/20 21:07 Heparin - SQ 5,000 unit TID [facility]A Administration Sodium Chloride 1,000 mls @ 75 mls/hr 04/03/20 13:57 04/03/20 19:46 1/2 Normal Saline IV 75 mls/hr ASDIR [facility] Administration Lidocaine 1 patch 03/31/20 10:00 Lidoderm Patch - TP DAILY PRN PAIN LEVEL 1-5 Miscellaneous 1 each 03/30/20 22:00 04/03/20 21:09 Lidoderm Patch Removal MC Not Given DAILY@2200 [facility] Oxycodone HCl 10 mg 04/03/20 13:44 04/03/20 14:13 Roxicodone - PO 10 mg Q6H PRN Administration PAIN LEVEL 6-10 Terazosin HCl 5 mg 03/30/20 22:00 04/03/20 21:07 Hytrin - PO 5 mg HS GEORGINA Administration Impression 1. CHEMA 2. lymphoma 3. hypotension 4. anemia 5. prostate cancer 6. hyperkalemia 7. hx of gammopathy 8. 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
[2020-04-04] MEDS ORDERED: PT OWN MED DRAWER 7, Y5N ONE (21:00)
[2020-04-04] MEDS: ATORVASTATIN CA 10 MG TABLET (FP) PO SCH (21:09)
[2020-04-04] MEDS: TERAZOSIN HCL 5 MG CAPSULE PO SCH (21:09)
[2020-04-04] MEDS: oxyCODONE HCL 5 MG TABLET PO PRN (21:10)
[2020-04-04] MEDS: LIDOCAINE PATCH REMOVAL MC SCH (21:15)
[2020-04-04] MEDS: SODIUM CHLORIDE 0.45% 1,000 ML IV SCH (21:15)
[2020-04-05] MEDS: oxyCODONE HCL 5 MG TABLET PO PRN (03:00)
[2020-04-05] MEDS: DOCUSATE SODIUM 100 MG CAPSULE (FP) PO SCH ×3 (06:20→21:38)
[2020-04-05] MEDS: HEPARIN NA (PORCINE) 5,000 UNITS/ML 1ML VIAL SQ SCH ×2 (06:21→14:03)
[2020-04-05 08:11] LABS: HEMATOCRIT 24.6 % (35.4-49); HEMOGLOBIN 8.1 GM/dL (11.7-16.9); MCH 29.2 pg (25.7-33.7); MCHC 32.9 g/dl (32.0-35.9); MEAN CELL VOLUME 88.8 fl (80-96); MEAN PLT VOLUME 8.9 fl (7.5-11.1); PLATELET COUNT 126 K/MM3 (134-434); RBC 2.77 M/mm3 (4.00-5.60); RDW 16.4 % (11.9-15.9); WHITE BLOOD COUNT 3.3 K/mm3 (4.0-10.0)
[2020-04-05 08:14] LABS: BILIRUBIN,TOTAL 0.4 mg/dL (0.2-1); BLOOD UREA NITROGEN 39.7 mg/dL (7-18); CALCIUM 8.6 mg/dL (8.5-10.1); CREATININE 1.2 mg/dL (0.55-1.3); PHOSPHOROUS 4.8 mg/dL (2.5-4.9); POTASSIUM 4.7 mmol/L (3.5-5.1); TOT PROT 5.1 g/dl (6.4-8.2); URIC ACID 8.9 mg/dL (2.6-7.2)
[2020-04-05] MEDS ORDERED: PT OWN MED DRAWER 7, Y5N ONE ×2 (08:39→21:24)
[2020-04-05] MEDS: ALLOPURINOL 300 MG TABLET (FP) PO SCH (09:04)
[2020-04-05] MEDS: CHOLECALCIFEROL (VIT D3) 1,000 UNIT (25 MCG) TABLET PO SCH (09:04)
[2020-04-05] MEDS: FERROUS SO4 325 MG TABLET (FP) PO SCH ×3 (09:04→17:45)
[2020-04-05] MEDS: ASCORBIC ACID 500 MG TABLET (FP) PO SCH ×2 (09:05→21:39)
[2020-04-05] MEDS: SODIUM CHLORIDE 0.45% 1,000 ML IV SCH (14:03)
--- NOTE | 2020-04-05 17:28 | PN ---
Progress Note, Physician History of Present Illness: Pt seen and examined at bedside. He denies shortness of breath. - Current Medication List Current Medications: Active Medications Acetaminophen (Tylenol -) 1,000 mg PO Q6H PRN PRN Reason: PAIN LEVEL 1-5 Last Admin: 04/02/20 19:43 Dose: 1,000 mg Documented by: Allopurinol (Zyloprim -) 300 mg PO DAILY ON LICENSE OF [facility] Last Admin: 04/05/20 09:04 Dose: 300 mg Documented by: Ascorbic Acid (Vitamin C -) 500 mg PO BID ON LICENSE OF [facility] Last Admin: 04/05/20 09:05 Dose: 500 mg Documented by: Atorvastatin Calcium (Lipitor -) 5 mg PO [facility] Last Admin: 04/04/20 21:09 Dose: 5 mg Documented by: Cholecalciferol (Vitamin D3 -) 500 unit PO DAILY ON LICENSE OF [facility] Last Admin: 04/05/20 09:04 Dose: 500 unit Documented by: Docusate Sodium (Colace -) 100 mg PO TID ON LICENSE OF [facility] Last Admin: 04/05/20 14:03 Dose: 100 mg Documented by: Famotidine (Pepcid -) 20 mg PO BID ON LICENSE OF [facility] Ferrous Sulfate (Feosol -) 325 mg PO TIDCM ON LICENSE OF [facility] Last Admin: 04/05/20 12:33 Dose: 325 mg Documented by: Heparin Sodium (Porcine) (Heparin -) 5,000 unit SQ TID ON LICENSE OF [facility] Last Admin: 04/05/20 14:03 Dose: 5,000 unit Documented by: Sodium Chloride (1/2 Normal Saline) 1,000 mls @ 75 mls/hr IV ASDIR ON LICENSE OF [facility] Last Admin: 04/05/20 14:03 Dose: 75 mls/hr Documented by: Lidocaine (Lidoderm Patch -) 1 patch TP DAILY PRN PRN Reason: PAIN LEVEL 1-5 Miscellaneous (Lidoderm Patch Removal) 1 each MC DAILY@2200 ON LICENSE OF [facility] Last Admin: 04/04/20 21:15 Dose: Not Given Documented by: Oxycodone HCl (Roxicodone -) 10 mg PO Q6H PRN PRN Reason: PAIN LEVEL 6-10 Last Admin: 04/05/20 03:00 Dose: 10 mg Documented by: Terazosin HCl (Hytrin -) 5 mg PO [facility] Last Admin: 04/04/20 21:09 Dose: 5 mg Documented by: - Objective Vital Signs: Vital Signs Temperature 98.6 F 04/05/20 14:32 Pulse Rate 91 H 04/05/20 14:32 Respiratory Rate 18 04/05/20 14:32 Blood Pressure 119/69 04/05/20 14:32 O2 Sat by Pulse Oximetry (%) 97 04/05/20 09:00 Constitutional: Yes: Calm Eyes: Yes: Conjunctiva Clear HENT: Yes: Atraumatic Cardiovascular: Yes: S1, S2 Respiratory: Yes: CTA Bilaterally Gastrointestinal: Yes: Normal Bowel Sounds, Soft Genitourinary: Yes: WNL Musculoskeletal: Yes: WNL Edema: Yes Edema: LLE: Trace, RLE: Trace Neurological: Yes: Oriented Psychiatric: Yes: Oriented Labs: CBC, BMP 04/05/20 07:00 04/05/20 06:00 INR, PTT INR 1.13 (0.83-1.09) H 03/21/20 16:10 Problem List - Problems (1) CHEMA (acute kidney injury) Code(s): N17.9 - ACUTE KIDNEY FAILURE, UNSPECIFIED (2) Hypotension Code(s): I95.9 - HYPOTENSION, UNSPECIFIED Qualifiers: Hypotension type: unspecified hypotension type Qualified Code(s): I95.9 - Hypotension, unspecified (3) Low back pain Code(s): M54.5 - LOW BACK PAIN Qualifiers: Chronicity: acute Back pain laterality: left Sciatica presence: without sciatica Qualified Code(s): M54.5 - Low back pain Assessment/Plan Current Medications Generic Name Dose Route Start Last Admin Trade Name Freq PRN Reason Stop Dose Admin Acetaminophen 1,000 mg 03/30/20 18:21 04/02/20 19:43 Tylenol - PO 1,000 mg Q6H PRN Administration PAIN LEVEL 1-5 Allopurinol 300 mg 04/01/20 17:30 04/05/20 09:04 Zyloprim - PO 300 mg DAILY [facility] Administration Ascorbic Acid 500 mg 03/30/20 22:00 04/05/20 09:05 Vitamin C - PO 500 mg BID [facility] Administration Atorvastatin Calcium 5 mg 03/30/20 22:00 04/04/20 21:09 Lipitor - PO 5 mg HS [facility] Administration Cholecalciferol 500 unit 03/31/20 10:00 04/05/20 09:04 Vitamin D3 - PO 500 unit DAILY [facility] Administration Docusate Sodium 100 mg 03/30/20 22:00 04/05/20 14:03 Colace - PO 100 mg TID [facility] Administration Famotidine 20 mg 04/05/20 22:00 Pepcid - PO BID [facility] Ferrous Sulfate 325 mg 03/31/20 08:00 04/05/20 12:33 Feosol - PO 325 mg TIDCM [facility] Administration Heparin Sodium (Porcine) 5,000 unit 04/03/20 22:00 04/05/20 14:03 Heparin - SQ 5,000 unit TID [facility] Administration Sodium Chloride 1,000 mls @ 75 mls/hr 04/03/20 13:57 04/05/20 14:03 1/2 Normal Saline IV 75 mls/hr ASDIR [facility] Administration Lidocaine 1 patch 03/31/20 10:00 Lidoderm Patch - TP DAILY PRN PAIN LEVEL 1-5 Miscellaneous 1 each 03/30/20 22:00 04/04/20 21:15 Lidoderm Patch Removal MC Not Given DAILY@2200 ON LICENSE OF [facility] Oxycodone HCl 10 mg 04/03/20 13:44 04/05/20 03:00 Roxicodone - PO 10 mg Q6H PRN Administration PAIN LEVEL 6-10 Terazosin HCl 5 mg 03/30/20 22:00 04/04/20 21:09 Hytrin - PO 5 mg HS [facility] Administration Impression 1. CHEMA 2. lymphoma 3. hypotension 4. anemia 5. prostate cancer 6. hyperkalemia 7. hx of gammopathy 8. b-cell lymphoma Plan - renal function is improving - cont fluids - repeat labs in am - follow biopsy - oncology eval - monitor hg
--- NOTE | 2020-04-05 17:59 | PN ---
Physical Exam: SUBJECTIVE: No overnight events. Patient seen and examined. NAD. BM yesterday. OBJECTIVE: Vital Signs Period Temp Pulse Resp BP Sys/Tillman Pulse Ox Last 24 Hr 98.3 F-99.8 F 80-97 17-18 109-121/59-69 97-100 GENERAL: The patient is awake, alert, and fully oriented, in no acute distress. HEENT: NC, NT. Dry mucous membranes LUNGS: Breath sounds equal, clear to auscultation bilaterally, no wheezes, no crackles, no accessory muscle use. HEART: Regular rate and rhythm, S1, S2 w systolic murmur best heard at aortic and pulmonic regions; No rub or gallop. ABDOMEN: Unable to access pt's flank pain due to pt refusal. Soft, nondistended, normoactive bowel sounds, EXTREMITIES: 2+ pulses, warm, well-perfused, no edema. NEUROLOGICAL: gait not observed. PSYCH: Normal mood, normal affect. SKIN: Warm, dry, normal turgor, no rashes or lesions noted Laboratory Results - last 24 hr 04/02/20 04/05/20 04/05/20 11:37 06:00 07:00 WBC 3.3 L RBC 2.77 L Hgb 8.1 L Hct 24.6 L MCV 88.8 MCH 29.2 MCHC 32.9 RDW 16.4 H Plt Count 126 L MPV 8.9 Sodium 138 Potassium 4.7 Chloride 109 H Carbon Dioxide 23 Anion Gap 6 L BUN 39.7 H Creatinine 1.2 Est GFR (CKD-EPI)AfAm 63.97 Est GFR (CKD-EPI)NonAf 55.20 Random Glucose 110 H Uric Acid 8.9 H Calcium 8.6 Phosphorus 4.8 Magnesium 2.0 Total Bilirubin 0.4 AST 16 ALT 12 L Alkaline Phosphatase 55 LD Total 216 Total Protein 5.1 L Albumin 2.0 L Blood Type O POSITIVE Antibody Screen Negative Crossmatch See Detail Active Medications Generic Name Dose Route Start Last Admin Trade Name Freq PRN Reason Stop Dose Admin Acetaminophen 1,000 mg 03/30/20 18:21 04/02/20 19:43 Tylenol - PO 1,000 mg Q6H PRN Administration PAIN LEVEL 1-5 Allopurinol 300 mg 04/01/20 17:30 04/05/20 09:04 Zyloprim - PO 300 mg DAILY [facility] Administration Ascorbic Acid 500 mg 03/30/20 22:00 04/05/20 09:05 Vitamin C - PO 500 mg BID [facility] Administration Atorvastatin Calcium 5 mg 03/30/20 22:00 04/04/20 21:09 Lipitor - PO 5 mg HS [facility] Administration Cholecalciferol 500 unit 03/31/20 10:00 04/05/20 09:04 Vitamin D3 - PO 500 unit DAILY [facility] Administration Docusate Sodium 100 mg 03/30/20 22:00 04/05/20 14:03 Colace - PO 100 mg TID [facility] Administration Famotidine 20 mg 04/05/20 22:00 Pepcid - PO BID [facility] Ferrous Sulfate 325 mg 03/31/20 08:00 04/05/20 12:33 Feosol - PO 325 mg TIDCM [facility] Administration Heparin Sodium (Porcine) 5,000 unit 04/03/20 22:00 04/05/20 14:03 Heparin - SQ 5,000 unit TID [facility] Administration Sodium Chloride 1,000 mls @ 75 mls/hr 04/03/20 13:57 04/05/20 14:03 1/2 Normal Saline IV 75 mls/hr ASDIR [facility] Administration Lidocaine 1 patch 03/31/20 10:00 Lidoderm Patch - TP DAILY PRN PAIN LEVEL 1-5 Miscellaneous 1 each 03/30/20 22:00 04/04/20 21:15 Lidoderm Patch Removal MC Not Given DAILY@2200 [facility] Oxycodone HCl 10 mg 04/03/20 13:44 04/05/20 03:00 Roxicodone - PO 10 mg Q6H PRN Administration PAIN LEVEL 6-10 Terazosin HCl 5 mg 03/30/20 22:00 04/04/20 21:09 Hytrin - PO 5 mg HS [facility] Administration -lumbar MRI with contrast (03/28)- large mass lesion of left psoas muscle at L1- L2 disc level with extension through left L1-L2 and T12-L1 foramina into the left lateral half of the central spinal canal at levels L1-L3. A second lesion noted at T11-T12 levels extending into T11-T12 foramen without definite extension into canal -CT abd pelvis- irregular nonspecific 10x9x8 cm left pelvic mesenteric soft tissue lesion suggestive of neoplastic disease, possibly lymphadenopathy; 1.1 cm left periaortic retroperitoneal lymph node at the level of the kidneys -axillary lymph node biopsy- preliminary results B-cell lymphoma ASSESSMENT/PLAN: 84 YO M with PMH of HTN, HLD, non-Hodgkin's lymphoma (5-10 years ago, in remission), & prostate cancer (13 years ago in remission), who presents with left lumbar pain since September and has gotten acutely worse over the last 2 months. He also came in for Left flank and abdominal pain. Pt was admitted for Left flank and back pain 2/2 neoplasm. #Left flank and back pain 2/2 neoplasm, likely lymphoma - B cell lymphoma on axillary lymph node bx -oncology following (Dr. Dodson) -bone marrow biopsy pending -continue oxycodone 10mg Q6H PRN -neurosurgery consulted- will reasess post bone marrow biopsy -LDH, uric acid daily as pt is in high risk for tumor lysis. C/w allopurinol for tumor lysis syndrome ppx -Heme onc consult appreciated. Recommended steroids for tomorrow, and consider Chemotherapy for Friday. Chemo will be done in-house due to pt's high risk. -Chemoport will be done tomorrow for R-CVP vs miniRCHOP. NPO after midnight. Hold Heparin; resume Heparin on Friday at 6AM -WBC, H&H, plt are decreased, but growth factors would be indicated only for pts undergoing chemotherapy or hemodynamically unstable. #Anemia of chronic disease H&H decreased -Hb 9.3> 8.1 (04/05/2020) -s/p 3 units this admission #HTN -hold meds; hypotensive #CHEMA -Cr 1.2 (04/05/2020) -continue IVF -nephro following #HLD -c/w statin -ASA 81mg daily #DVT Ppx/GI PPX -SCDs; heparin held due to chemo port insertion tomorrow. Resume on Friday 6 AM. -PRINCE hose PRN for LE swelling -Pepcid 10 mg BID for GI PPX #FEN -0.45% saline -trend & replete lytes prn -sodium-controlled diet #Dispo ctm on med/surg Visit type - Emergency Visit Emergency Visit: Yes ED Registration Date: 03/21/20 Care time: The patient presented to the Emergency Department on the above date and was hospitalized for further evaluation of their emergent condition. - New Patient This patient is new to me today: Yes Date on this admission: 04/05/20 - Critical Care Critical Care patient: No ATTENDING PHYSICIAN STATEMENT I saw and evaluated the patient. I reviewed the resident's note and discussed the case with the resident. I agree with the resident's findings and plan as documented. SUBJECTIVE: OBJECTIVE: ASSESSMENT AND PLAN:
--- NOTE | 2020-04-05 18:12 | PN ---
Teaching Attending Note Name of Resident: Usama Villarreal ATTENDING PHYSICIAN STATEMENT I saw and evaluated the patient. I reviewed the resident's note and discussed the case with the resident. I agree with the resident's findings and plan as documented. SUBJECTIVE: Patient is comfortable with no acute distress. OBJECTIVE: Vital Signs Temperature 98.6 F 04/05/20 14:32 Pulse Rate 91 H 04/05/20 14:32 Respiratory Rate 18 04/05/20 14:32 Blood Pressure 119/69 04/05/20 14:32 O2 Sat by Pulse Oximetry (%) 97 04/05/20 09:00 PE: per resident's note RLQ large mass palpable CBCD WBC 3.3 K/mm3 (4.0-10.0) L 04/05/20 07:00 RBC 2.77 M/mm3 (4.00-5.60) L 04/05/20 07:00 Hgb 8.1 GM/dL (11.7-16.9) L 04/05/20 07:00 Hct 24.6 % (35.4-49) L 04/05/20 07:00 MCV 88.8 fl (80-96) 04/05/20 07:00 MCHC 32.9 g/dl (32.0-35.9) 04/05/20 07:00 RDW 16.4 % (11.9-15.9) H 04/05/20 07:00 Plt Count 126 K/MM3 (134-434) L 04/05/20 07:00 MPV 8.9 fl (7.5-11.1) 04/05/20 07:00 CMP Sodium 138 mmol/L (136-145) 04/05/20 06:00 Potassium 4.7 mmol/L (3.5-5.1) 04/05/20 06:00 Chloride 109 mmol/L (98-107) H 04/05/20 06:00 Carbon Dioxide 23 mmol/L (21-32) 04/05/20 06:00 Anion Gap 6 MMOL/L (8-16) L 04/05/20 06:00 BUN 39.7 mg/dL (7-18) H 04/05/20 06:00 Creatinine 1.2 mg/dL (0.55-1.3) 04/05/20 06:00 Random Glucose 110 mg/dL (74-106) H 04/05/20 06:00 Calcium 8.6 mg/dL (8.5-10.1) 04/05/20 06:00 Total Bilirubin 0.4 mg/dL (0.2-1) 04/05/20 06:00 AST 16 U/L (15-37) 04/05/20 06:00 ALT 12 U/L (13-61) L 04/05/20 06:00 Alkaline Phosphatase 55 U/L (45-117) 04/05/20 06:00 Total Protein 5.1 g/dl (6.4-8.2) L 04/05/20 06:00 Albumin 2.0 g/dl (3.4-5.0) L 04/05/20 06:00 CARDIAC ENZYMES Creatine Kinase 27 U/L (26-308) 03/21/20 16:10 Troponin I 0.03 ng/ml (0.00-0.05) 03/21/20 16:10 Current Medications Generic Name Dose Route Start Last Admin Trade Name Nicholas PRN Reason Stop Dose Admin Acetaminophen 1,000 mg 03/30/20 18:21 04/02/20 19:43 Tylenol - PO 1,000 mg Q6H PRN Administration PAIN LEVEL 1-5 Allopurinol 300 mg 04/01/20 17:30 04/05/20 09:04 Zyloprim - PO 300 mg DAILY [facility] Administration Ascorbic Acid 500 mg 03/30/20 22:00 04/05/20 09:05 Vitamin C - PO 500 mg BID [facility] Administration Atorvastatin Calcium 5 mg 03/30/20 22:00 04/04/20 21:09 Lipitor - PO 5 mg HS [facility] Administration Cholecalciferol 500 unit 03/31/20 10:00 04/05/20 09:04 Vitamin D3 - PO 500 unit DAILY [facility] Administration Docusate Sodium 100 mg 03/30/20 22:00 04/05/20 14:03 Colace - PO 100 mg TID [facility] Administration Famotidine 20 mg 04/05/20 22:00 Pepcid - PO BID [facility] Ferrous Sulfate 325 mg 03/31/20 08:00 04/05/20 17:45 Feosol - PO 325 mg TIDCM [facility] Administration Heparin Sodium (Porcine) 5,000 unit 04/03/20 22:00 07/01/20 14:03 Heparin - SQ 5,000 unit TID [facility] Administration Sodium Chloride 1,000 mls @ 75 mls/hr 04/03/20 13:57 04/05/20 14:03 1/2 Normal Saline IV 75 mls/hr ASDIR [facility] Administration Lidocaine 1 patch 03/31/20 10:00 Lidoderm Patch - TP DAILY PRN PAIN LEVEL 1-5 Miscellaneous 1 each 03/30/20 22:00 04/04/20 21:15 Lidoderm Patch Removal MC Not Given DAILY@2200 [facility] Oxycodone HCl 10 mg 04/03/20 13:44 04/05/20 03:00 Roxicodone - PO 10 mg Q6H PRN Administration PAIN LEVEL 6-10 Terazosin HCl 5 mg 03/30/20 22:00 04/04/20 21:09 Hytrin - PO 5 mg HS [facility] Administration Home Medications Medication Instructions Recorded Aspirin [ASA -] 81 mg PO DAILY 09/07/12 Terazosin HCl [Hytrin -] 5 mg PO HS 09/07/12 Verapamil HCl ER [Calan Sr -] 240 mg PO DAILY 09/07/12 Cholecalciferol (Vitamin D3) 500 unit PO DAILY 09/08/12 [Vitamin D3] Simvastatin [Zocor -] 5 mg PO HS 09/08/12 Atenolol [Tenormin -] 25 mg PO DAILY 03/22/20 Microbiology 04/04/20 01:00 Blood - Peripheral Venous Blood Culture - Preliminary NO GROWTH OBTAINED AFTER 24 HOURS, INCUBATION TO CONTINUE FOR 4 DAYS. 04/04/20 00:50 Blood - Peripheral Venous Blood Culture - Preliminary NO GROWTH OBTAINED AFTER 24 HOURS, INCUBATION TO CONTINUE FOR 4 DAYS. 03/21/20 17:20 Urine - Urine Clean Catch Urine Culture - Final NO GROWTH OBTAINED ASSESSMENT AND PLAN: This patient is an 84yom with Pmhx of HTN, HLD, non-Hodgkin's lymphoma, prostate cancer (beads 13 years ago in remission), who presented with L lower back pain. #L paravertebral mass. #Low back pain and LLQ pain due to paravertebral mass . cont oxy , pain is better #R axillary LAP : bx B-cell lymphoma will d/w ONC the treatment plan ( inpatient vs out pt ) #B cell Lymphoma s/p bx , #Hypotension :cont to hold BP meds #Anemia: Hb stable after a unit over the weekend # Pancytopenia DVT Px: SCDS continue current management port placement in am
[2020-04-05] MEDS: TERAZOSIN HCL 5 MG CAPSULE PO SCH (21:38)
[2020-04-05] MEDS: FAMOTIDINE 20 MG TABLET PO SCH (21:38)
[2020-04-05] MEDS: ATORVASTATIN CA 10 MG TABLET (FP) PO SCH (21:38)
[2020-04-05] MEDS: LIDOCAINE PATCH REMOVAL MC SCH (21:39)
[2020-04-05] MEDS ORDERED: FAMOTIDINE 10 MG TABLET PO SCH (22:00)
--- NOTE | 2020-04-05 23:17 | PN.HO ---
Progress Note (short form) - Note Progress Note: PAtient seen and examined Feels well. Denies any complaints Last Vital Signs Temp Pulse Resp BP Pulse Ox 99.2 F 99 H 18 102/57 L 98 04/03/20 21:30 04/03/20 21:30 04/03/20 21:30 04/03/20 21:30 04/03/20 21:00 Last Vital Signs Temp Pulse Resp BP Pulse Ox 98.7 F 92 H 20 111/56 L 97 04/05/20 21:41 04/05/20 21:41 04/05/20 21:41 04/05/20 21:41 04/05/20 09:00 Cor: RSR, No murmurs, No gallops Lungs: Clear to P&A Abd: Soft, Normal bowel sounds, No organomegaly Ext: 1+ edema b/l Labs/MEds reviewed A/P L sided flank pain x 1 month but worsening over the past few days that is pressure like, radiates the L abdomen and groin that fluctates intermittently but no alleviating or exacerbating factors. Pt with persisten pain without improvement with oral pain medications. ER CT of abdomen showed a new compared with 06/14/13, 10 x 9.8 x 8 cam left pelvic mesenteric mass/ lympadenopathy, 1.1cm periaortic node and an unchanged 1.4cm splenic lesion unchanged from 06/14/13. Lt. lower back pain due to mesenteric mass 10cm , ? jourdan, Lt.periaortic 1.1 cm node, Lt. splenic 1.4cm focus CT T/L spine --- thecal sac compression, Lt. psoas muscle 8cm mass CT chest -- extensive rt. axillary jourdan mass left axillary node biopsy-- Diffuse Large B cell lymphoma, double expressor( cmyc and bcl2) -- FISH pendiing Started allopurinol for uric acid 9.1 04/01 LDH--nl Stage III? awaitibg bone marrow bx will schedule port-a-cath will consider R-CVP vs miniRCHOP High risk for tumor lysis --- on allopurinol. gentle hydration. check G6 PD monitor tumor lysis labs daily-- LDH/uric acid/CMP anemia of chronic disease discussed with patient in detail. Informational material given. Will discuss with his brother
[2020-04-06] MEDS: SODIUM CHLORIDE 0.45% 1,000 ML IV SCH ×2 (05:28→16:23)
[2020-04-06] MEDS: DOCUSATE SODIUM 100 MG CAPSULE (FP) PO SCH ×3 (05:59→21:25)
[2020-04-06 06:40] LABS: EOS % 0.7 % (0-4.5); HEMATOCRIT 21.1 % (35.4-49); LYMPH % 19.9 % (8-40); MCH 29.3 pg (25.7-33.7); MCHC 33.2 g/dl (32.0-35.9); MEAN CELL VOLUME 88.4 fl (80-96); MONO % 22.8 % (3.8-10.2); NEUT % 55.6 % (42.8-82.8); PLATELET COUNT 137 K/MM3 (134-434); RBC 2.39 M/mm3 (4.00-5.60); RDW 16.1 % (11.9-15.9); WHITE BLOOD COUNT 2.6 K/mm3 (4.0-10.0)
[2020-04-06 07:09] LABS: ALBUMIN 1.8 g/dl (3.4-5.0); BILIRUBIN,TOTAL 0.4 mg/dL (0.2-1); BLOOD UREA NITROGEN 35.7 mg/dL (7-18); CALCIUM 8.5 mg/dL (8.5-10.1); CREATININE 1.1 mg/dL (0.55-1.3); PHOSPHOROUS 4.2 mg/dL (2.5-4.9); POTASSIUM 4.6 mmol/L (3.5-5.1); TOT PROT 5.1 g/dl (6.4-8.2); URIC ACID 8.3 mg/dL (2.6-7.2)
[2020-04-06 10:12] LABS: ANISOCYTOSIS 1+; MACROCYTOSIS 0; PLATELET ESTIMATE NORMAL
[2020-04-06] MEDS: FERROUS SO4 325 MG TABLET (FP) PO SCH ×2 (12:12→16:57)
--- NOTE | 2020-04-06 13:06 | PN ---
Physical Exam: SUBJECTIVE: No overnight events. Patient seen and examined. Pt in NAD. Pt complains of back pain, but is controlled when pt receives oxycodone & acetaminophen. Pt is scheduled for chemoport today, so heparin was held overnight and will be restarted Friday 6AM. OBJECTIVE: Vital Signs Period Temp Pulse Resp BP Sys/Tillman Pulse Ox Last 24 Hr 98.6 F-99.1 F 87-97 18-23 99-125/52-69 96-100 GENERAL: The patient is awake, alert, and fully oriented, in no acute distress. HEENT: NC, NT. Dry mucous membranes LUNGS: Breath sounds equal, clear to auscultation bilaterally, no wheezes, no crackles, no accessory muscle use. HEART: Regular rate and rhythm, S1, S2 w systolic murmur best heard at aortic and pulmonic regions; No rub or gallop. ABDOMEN: L flank pain TTP. Soft, nondistended, normoactive bowel sounds, EXTREMITIES: 2+ pulses, warm, well-perfused, no edema. NEUROLOGICAL: gait not observed. PSYCH: Normal mood, normal affect. SKIN: Warm, dry, normal turgor, no rashes or lesions noted Laboratory Results - last 24 hr 04/02/20 04/06/20 04/06/20 11:37 05:58 05:58 WBC 2.6 L RBC 2.39 L Hgb 7.0 L Hct 21.1 L MCV 88.4 MCH 29.3 MCHC 33.2 RDW 16.1 H Plt Count 137 MPV 9.0 Absolute Neuts (auto) 1.5 Neutrophils % 55.6 Neutrophils % (Manual) 64.2 Band Neutrophils % 0.0 Lymphocytes % 19.9 D Lymphocytes % (Manual) 17.9 D Monocytes % 22.8 H Monocytes % (Manual) 17 H Eosinophils % 0.7 Eosinophils % (Manual) 0.0 Basophils % 1.0 Basophils % (Manual) 0.0 Myelocytes % (Man) 1 D Promyelocytes % (Man) 0 Blast Cells % (Manual) 0 Nucleated RBC % 0 Metamyelocytes 0 Hypochromia 0 Platelet Estimate Normal Polychromasia 1+ Poikilocytosis 0 Anisocytosis 1+ Microcytosis 0 Macrocytosis 0 Stomatocytes 1+ Sodium 138 Potassium 4.6 Chloride 109 H Carbon Dioxide 20 L Anion Gap 9 BUN 35.7 H Creatinine 1.1 Est GFR (CKD-EPI)AfAm 71.07 Est GFR (CKD-EPI)NonAf 61.32 Random Glucose 101 Uric Acid 8.3 H Calcium 8.5 Phosphorus 4.2 Magnesium 2.0 Total Bilirubin 0.4 AST 17 ALT 14 Alkaline Phosphatase 58 LD Total 219 Total Protein 5.1 L Albumin 1.8 L Blood Type O POSITIVE Antibody Screen Negative Crossmatch See Detail Active Medications Generic Name Dose Route Start Last Admin Trade Name Freq PRN Reason Stop Dose Admin Acetaminophen 1,000 mg 03/30/20 18:21 04/02/20 19:43 Tylenol - PO 1,000 mg Q6H PRN Administration PAIN LEVEL 1-5 Allopurinol 300 mg 04/01/20 17:30 04/05/20 09:04 Zyloprim - PO 300 mg DAILY [facility] Administration Ascorbic Acid 500 mg 03/30/20 22:00 04/05/20 21:39 Vitamin C - PO 500 mg BID [facility] Administration Atorvastatin Calcium 5 mg 03/30/20 22:00 04/05/20 21:38 Lipitor - PO 5 mg HS [facility] Administration Cholecalciferol 500 unit 03/31/20 10:00 04/05/20 09:04 Vitamin D3 - PO 500 unit DAILY [facility] Administration Docusate Sodium 100 mg 03/30/20 22:00 04/06/20 05:59 Colace - PO Not Given TID [facility] Famotidine 20 mg 04/05/20 22:00 04/05/20 21:38 Pepcid - PO 20 mg BID [facility] Administration Ferrous Sulfate 325 mg 03/31/20 08:00 04/06/20 12:12 Feosol - PO Not Given TIDCM [facility] Heparin Sodium (Porcine) 5,000 unit 04/03/20 22:00 04/05/20 14:03 Heparin - SQ 5,000 unit TID [facility] Administration Sodium Chloride 1,000 mls @ 75 mls/hr 04/03/20 13:57 04/06/20 05:28 1/2 Normal Saline IV 75 mls/hr ASDIR [facility] Administration Lidocaine 1 patch 03/31/20 10:00 Lidoderm Patch - TP DAILY PRN PAIN LEVEL 1-5 Miscellaneous 1 each 03/30/20 22:00 04/05/20 21:39 Lidoderm Patch Removal MC 1 each DAILY@2200 [facility] Administration Oxycodone HCl 10 mg 04/03/20 13:44 04/05/20 03:00 Roxicodone - PO 10 mg Q6H PRN Administration PAIN LEVEL 6-10 Terazosin HCl 5 mg 03/30/20 22:00 04/05/20 21:38 Hytrin - PO 5 mg HS [facility] Administration Imaging -lumbar MRI with contrast (03/28)- large mass lesion of left psoas muscle at L1- L2 disc level with extension through left L1-L2 and T12-L1 foramina into the left lateral half of the central spinal canal at levels L1-L3. A second lesion noted at T11-T12 levels extending into T11-T12 foramen without definite extension into canal -CT abd pelvis- irregular nonspecific 10x9x8 cm left pelvic mesenteric soft tissue lesion suggestive of neoplastic disease, possibly lymphadenopathy; 1.1 cm left periaortic retroperitoneal lymph node at the level of the kidneys -axillary lymph node biopsy- preliminary results B-cell lymphoma ASSESSMENT/PLAN: 84 YO M with PMH of HTN, HLD, non-Hodgkin's lymphoma (5-10 years ago, in remission), & prostate cancer (13 years ago in remission), who presents with left lumbar pain since September and has gotten acutely worse over the last 2 months. He also came in for Left flank and abdominal pain. Pt was admitted for Left flank and back pain 2/2 neoplasm. #Left flank and back pain 2/2 neoplasm, likely lymphoma - B cell lymphoma on axillary lymph node bx -oncology following (Dr. Dodson) -bone marrow bx taken. Waiting on results -c/w oxycodone 10mg Q6H PRN -neurosurgery consulted- reevaluate post bm biopsy -uric acid elevated (8.3). continue monitoring LDH, uric acid daily as pt is in high risk for tumor lysis. C/w allopurinol for tumor lysis syndrome ppx -Heme onc consult appreciated. Recommended steroids for tomorrow, and consider Chemotherapy for Friday. Chemo will be done in-house due to pt's high risk. -WBC, H&H, plt are furthered decreased today from yesterday. #Anemia of chronic disease -H&H decreased; pt transfused 1 PRBC -repeat CBC 7 PM post transfusion #HTN -hold meds.BP is stable. #CEHMA -Cr & BUN downtreading. Cr 1.2>1.1 (04/05/2020); BUN elevated 39.7 (04/05) >35.7 (04/06) -nephro following. nephro consult appreciated. -continue IVF #HLD -c/w statin -ASA 81mg daily #DVT Ppx/GI PPX -SCDs; heparin held today due to chemo port insertion today. Resume on Friday 6 AM. -Pepcid 10 mg BID for GI PPX #FEN -0.45% saline -Monitor Lytes -sodium-controlled diet #Dispo maintain med-surg Visit type - Emergency Visit Emergency Visit: Yes ED Registration Date: 03/21/20 Care time: The patient presented to the Emergency Department on the above date and was hospitalized for further evaluation of their emergent condition. - New Patient This patient is new to me today: No - Critical Care Critical Care patient: No ATTENDING PHYSICIAN STATEMENT I saw and evaluated the patient. I reviewed the resident's note and discussed the case with the resident. I agree with the resident's findings and plan as documented. SUBJECTIVE: OBJECTIVE: ASSESSMENT AND PLAN:
[2020-04-06] MEDS: ASCORBIC ACID 500 MG TABLET (FP) PO SCH ×2 (13:41→21:25)
[2020-04-06] MEDS: FAMOTIDINE 20 MG TABLET PO SCH ×2 (13:41→21:25)
[2020-04-06] MEDS: CHOLECALCIFEROL (VIT D3) 1,000 UNIT (25 MCG) TABLET PO SCH (13:41)
[2020-04-06] MEDS: ALLOPURINOL 300 MG TABLET (FP) PO SCH (13:42)
--- NOTE | 2020-04-06 16:16 | PN ---
Physical Exam: SUBJECTIVE: Patient seen and examined. No acute complaints, Pt. has complaints about food. Back pain is a little improved. Pt. states he does not remember when he had NHL, and denies receiving any treatment for it. Pt. endorses Prostate CA in remission 20-25 years ago, s/p brachytherapy. OBJECTIVE: Vital Signs Period Temp Pulse Resp BP Sys/Tillman Pulse Ox Last 24 Hr 98.4 F-99.1 F 67-108 18-23 99-125/46-67 96-100 GENERAL: The patient is awake, alert, and fully oriented, in no acute distress. HEAD: Normal with no signs of trauma. EYES: Sclera anicteric, conjunctiva clear. No ptosis. ENT: Moist mucous membranes. NECK: Trachea midline, full range of motion, supple. LUNGS: Breath sounds equal, clear to auscultation bilaterally, no wheezes, no crackles, no accessory muscle use. HEART: Regular rate and rhythm, S1, S2 without murmur, rub or gallop. ABDOMEN: Soft, nontender, nondistended, normoactive bowel sounds, no guarding, no rebound, no hepatosplenomegaly, no masses. EXTREMITIES: 2+ pulses, warm, well-perfused, no edema. NEUROLOGICAL: Cranial nerves II through XII grossly intact. Normal speech, gait not observed. PSYCH: Normal mood, normal affect. SKIN: Warm, dry, normal turgor, no rashes or lesions noted Laboratory Results - last 24 hr 04/06/20 04/06/20 04/06/20 05:58 05:58 14:20 WBC 2.6 L RBC 2.39 L Hgb 7.0 L Hct 21.1 L MCV 88.4 MCH 29.3 MCHC 33.2 RDW 16.1 H Plt Count 137 MPV 9.0 Absolute Neuts (auto) 1.5 Neutrophils % 55.6 Neutrophils % (Manual) 64.2 Band Neutrophils % 0.0 Lymphocytes % 19.9 D Lymphocytes % (Manual) 17.9 D Monocytes % 22.8 H Monocytes % (Manual) 17 H Eosinophils % 0.7 Eosinophils % (Manual) 0.0 Basophils % 1.0 Basophils % (Manual) 0.0 Myelocytes % (Man) 1 D Promyelocytes % (Man) 0 Blast Cells % (Manual) 0 Nucleated RBC % 0 Metamyelocytes 0 Hypochromia 0 Platelet Estimate Normal Polychromasia 1+ Poikilocytosis 0 Anisocytosis 1+ Microcytosis 0 Macrocytosis 0 Stomatocytes 1+ Sodium 138 Potassium 4.6 Chloride 109 H Carbon Dioxide 20 L Anion Gap 9 BUN 35.7 H Creatinine 1.1 Est GFR (CKD-EPI)AfAm 71.07 Est GFR (CKD-EPI)NonAf 61.32 Random Glucose 101 Uric Acid 8.3 H Calcium 8.5 Phosphorus 4.2 Magnesium 2.0 Total Bilirubin 0.4 AST 17 ALT 14 Alkaline Phosphatase 58 LD Total 219 Total Protein 5.1 L Albumin 1.8 L Crossmatch See Detail Active Medications Generic Name Dose Route Start Last Admin Trade Name Freq PRN Reason Stop Dose Admin Acetaminophen 1,000 mg 03/30/20 18:21 04/02/20 19:43 Tylenol - PO 1,000 mg Q6H PRN Administration PAIN LEVEL 1-5 Allopurinol 300 mg 04/01/20 17:30 04/06/20 13:42 Zyloprim - PO 300 mg DAILY [facility] Administration Ascorbic Acid 500 mg 03/30/20 22:00 04/06/20 13:41 Vitamin C - PO 500 mg BID [facility] Administration Atorvastatin Calcium 5 mg 03/30/20 22:00 04/05/20 21:38 Lipitor - PO 5 mg HS [facility] Administration Cholecalciferol 500 unit 03/31/20 10:00 04/06/20 13:41 Vitamin D3 - PO 500 unit DAILY [facility] Administration Docusate Sodium 100 mg 03/30/20 22:00 04/06/20 13:46 Colace - PO 100 mg TID [facility] Administration Famotidine 20 mg 04/05/20 22:00 04/06/20 13:41 Pepcid - PO 20 mg BID [facility] Administration Ferrous Sulfate 325 mg 03/31/20 08:00 04/06/20 12:12 Feosol - PO Not Given TIDCM [facility] Heparin Sodium (Porcine) 5,000 unit 04/03/20 22:00 04/05/20 14:03 Heparin - SQ 5,000 unit TID [facility] Administration Sodium Chloride 1,000 mls @ 75 mls/hr 04/03/20 13:57 04/06/20 05:28 1/2 Normal Saline IV 75 mls/hr ASDIR [facility] Administration Lidocaine 1 patch 03/31/20 10:00 Lidoderm Patch - TP DAILY PRN PAIN LEVEL 1-5 Miscellaneous 1 each 03/30/20 22:00 04/05/20 21:39 Lidoderm Patch Removal MC 1 each DAILY@2200 [facility] Administration Oxycodone HCl 10 mg 04/03/20 13:44 04/05/20 03:00 Roxicodone - PO 10 mg Q6H PRN Administration PAIN LEVEL 6-10 Terazosin HCl 5 mg 03/30/20 22:00 04/05/20 21:38 Hytrin - PO 5 mg HS [facility] Administration ASSESSMENT/PLAN: 84 YO M with PMH of HTN, HLD, non-Hodgkin's lymphoma (in remission), & prostate cancer (s/p brachytherapy), who presents with left lumbar pain since September and has gotten acutely worse over the last 2 months. He also came in for Left flank and abdominal pain. #DLBC (recurrence vs. [place] tumor) CTA/P in ED showed a new compared with 06/14/13, 10 x 9.8 x 8 cam left pelvic mesenteric mass/ lympadenopathy, 1.1cm periaortic node and an unchanged 1.4cm splenic lesion unchanged from 06/14/13. Lt. lower back pain due to mesenteric mass 10cm , ? jourdan, Lt.periaortic 1.1 cm node, Lt. splenic 1.4cm focus CT T/L spine --- thecal sac compression, Lt. psoas muscle 8cm mass CT Chest -- extensive Rt. axillary jourdan mass Left axillary node biopsy-- Diffuse Large B cell lymphoma, double expressor(c- myc and bcl2) -- f/u FISH suspicious for Stage III, f/u bone marrow biopsy will consider R-CVP vs miniRCHOP High risk for tumor lysis because of tumor burden c/w allopurinol. gentle hydration. Will check for G6PD c/w Hep SQ because of CHEMA and possible renal dysfunction once treatment starts, ideally would be on Lovenox. #HTN #HLD as per Primary team Visit type - Emergency Visit Emergency Visit: Yes ED Registration Date: 03/21/20 Care time: The patient presented to the Emergency Department on the above date and was hospitalized for further evaluation of their emergent condition. - New Patient This patient is new to me today: Yes Date on this admission: 07/02/20 - Critical Care Critical Care patient: No - Discharge Referral Referred to [facility] Med P.C.: No ATTENDING PHYSICIAN STATEMENT I saw and evaluated the patient. I reviewed the resident's note and discussed the case with the resident. I agree with the resident's findings and plan as documented. SUBJECTIVE: OBJECTIVE: ASSESSMENT AND PLAN:
[2020-04-06] MEDS: ACETAMINOPHEN 500 MG TABLET (FP) PO PRN (17:30)
[2020-04-06] MEDS ORDERED: FUROSEMIDE 40 MG/4 ML INJECTABLE VIAL IVPUSH ONE (19:29)
--- NOTE | 2020-04-06 19:30 | PN ---
Teaching Attending Note Name of Resident: Usama Villarreal ATTENDING PHYSICIAN STATEMENT I saw and evaluated the patient. I reviewed the resident's note and discussed the case with the resident. I agree with the resident's findings and plan as documented. SUBJECTIVE: No acute distress OBJECTIVE: Vital Signs Temperature 99.4 F 04/06/20 18:36 Pulse Rate 108 H 04/06/20 18:36 Respiratory Rate 20 04/06/20 18:36 Blood Pressure 108/59 L 04/06/20 18:36 O2 Sat by Pulse Oximetry (%) 99 04/06/20 14:00 PE: RLQ mass, per resident's note CBCD WBC 2.6 K/mm3 (4.0-10.0) L 04/06/20 05:58 RBC 2.39 M/mm3 (4.00-5.60) L 04/06/20 05:58 Hgb 7.0 GM/dL (11.7-16.9) L 04/06/20 05:58 Hct 21.1 % (35.4-49) L 04/06/20 05:58 MCV 88.4 fl (80-96) 04/06/20 05:58 MCHC 33.2 g/dl (32.0-35.9) 04/06/20 05:58 RDW 16.1 % (11.9-15.9) H 04/06/20 05:58 Plt Count 137 K/MM3 (134-434) 04/06/20 05:58 MPV 9.0 fl (7.5-11.1) 04/06/20 05:58 CMP Sodium 138 mmol/L (136-145) 04/06/20 05:58 Potassium 4.6 mmol/L (3.5-5.1) 04/06/20 05:58 Chloride 109 mmol/L (98-107) H 04/06/20 05:58 Carbon Dioxide 20 mmol/L (21-32) L 04/06/20 05:58 Anion Gap 9 MMOL/L (8-16) 04/06/20 05:58 BUN 35.7 mg/dL (7-18) H 04/06/20 05:58 Creatinine 1.1 mg/dL (0.55-1.3) 04/06/20 05:58 Random Glucose 101 mg/dL (74-106) 04/06/20 05:58 Calcium 8.5 mg/dL (8.5-10.1) 04/06/20 05:58 Total Bilirubin 0.4 mg/dL (0.2-1) 04/06/20 05:58 AST 17 U/L (15-37) 04/06/20 05:58 ALT 14 U/L (13-61) 04/06/20 05:58 Alkaline Phosphatase 58 U/L (45-117) 04/06/20 05:58 Total Protein 5.1 g/dl (6.4-8.2) L 04/06/20 05:58 Albumin 1.8 g/dl (3.4-5.0) L 04/06/20 05:58 CARDIAC ENZYMES Creatine Kinase 27 U/L (26-308) 03/21/20 16:10 Troponin I 0.03 ng/ml (0.00-0.05) 03/21/20 16:10 Current Medications Generic Name Dose Route Start Last Admin Trade Name Freq PRN Reason Stop Dose Admin Acetaminophen 1,000 mg 03/30/20 18:21 04/06/20 17:30 Tylenol - PO 1,000 mg Q6H PRN Administration PAIN LEVEL 1-5 Allopurinol 300 mg 04/01/20 17:30 04/06/20 13:42 Zyloprim - PO 300 mg DAILY [facility] Administration Ascorbic Acid 500 mg 03/30/20 22:00 04/06/20 13:41 Vitamin C - PO 500 mg BID [facility] Administration Atorvastatin Calcium 5 mg 03/30/20 22:00 04/05/20 21:38 Lipitor - PO 5 mg HS [facility] Administration Cholecalciferol 500 unit 03/31/20 10:00 04/06/20 13:41 Vitamin D3 - PO 500 unit DAILY [facility] Administration Docusate Sodium 100 mg 03/30/20 22:00 04/06/20 13:46 Colace - PO 100 mg TID [facility] Administration Famotidine 20 mg 04/05/20 22:00 04/06/20 13:41 Pepcid - PO 20 mg BID [facility] Administration Ferrous Sulfate 325 mg 03/31/20 08:00 04/06/20 16:57 Feosol - PO 325 mg TIDCM [facility] Administration Heparin Sodium (Porcine) 5,000 unit 04/03/20 22:00 04/05/20 14:03 Heparin - SQ 5,000 unit TID [facility] Administration Sodium Chloride 1,000 mls @ 75 mls/hr 04/03/20 13:57 04/06/20 16:23 1/2 Normal Saline IV Not Given ASDIR [facility] Lidocaine 1 patch 03/31/20 10:00 Lidoderm Patch - TP DAILY PRN PAIN LEVEL 1-5 Miscellaneous 1 each 03/30/20 22:00 04/05/20 21:39 Lidoderm Patch Removal MC 1 each DAILY@2200 [facility] Administration Oxycodone HCl 10 mg 04/03/20 13:44 04/05/20 03:00 Roxicodone - PO 10 mg Q6H PRN Administration PAIN LEVEL 6-10 Terazosin HCl 5 mg 03/30/20 22:00 04/05/20 21:38 Hytrin - PO 5 mg HS [facility] Administration Home Medications Medication Instructions Recorded Aspirin [ASA -] 81 mg PO DAILY 09/07/12 Terazosin HCl [Hytrin -] 5 mg PO HS 09/07/12 Verapamil HCl ER [Calan Sr -] 240 mg PO DAILY 09/07/12 Cholecalciferol (Vitamin D3) 500 unit PO DAILY 09/08/12 [Vitamin D3] Simvastatin [Zocor -] 5 mg PO HS 09/08/12 Atenolol [Tenormin -] 25 mg PO DAILY 03/22/20 Microbiology 04/04/20 01:00 Blood - Peripheral Venous Blood Culture - Preliminary NO GROWTH OBTAINED AFTER 48 HOURS, INCUBATION TO CONTINUE FOR 3 DAYS. 04/04/20 00:50 Blood - Peripheral Venous Blood Culture - Preliminary NO GROWTH OBTAINED AFTER 48 HOURS, INCUBATION TO CONTINUE FOR 3 DAYS. 03/21/20 17:20 Urine - Urine Clean Catch Urine Culture - Final NO GROWTH OBTAINED ASSESSMENT AND PLAN: This patient is an 84yom with Pmhx of HTN, HLD, non-Hodgkin's lymphoma, prostate cancer (beads 13 years ago in remission), who presented with L lower back pain. #B cell Lymphoma s/p bx: s/p port today, discussed with Dr. Dodson , will have the 1st dose of chemo in the hospital , R-chop is planned for the patient. #Anemia: will give him one unit of PRBC , on iron supplement #L paravertebral mass. #Low back pain and LLQ pain due to paravertebral mass . cont oxy , pain is better #R axillary LAP : bx B-cell lymphoma will d/w ONC the treatment plan ( inpatient vs out pt ) #Hypotension :cont to hold BP meds #Anemia: Hb stable after a unit over the weekend # Pancytopenia DVT Px: SCDS, heparin sq , will monitor continue current management
--- NOTE | 2020-04-06 19:48 | PN ---
Progress Note, Physician History of Present Illness: Pt seen and examined at bedside. He is awake and alert. - Current Medication List Current Medications: Active Medications Acetaminophen (Tylenol -) 1,000 mg PO Q6H PRN PRN Reason: PAIN LEVEL 1-5 Last Admin: 04/06/20 17:30 Dose: 1,000 mg Documented by: Allopurinol (Zyloprim -) 300 mg PO DAILY [facility] Last Admin: 04/06/20 13:42 Dose: 300 mg Documented by: Allopurinol (Zyloprim -) 300 mg PO ONCE ONE Stop: 04/06/20 19:51 Ascorbic Acid (Vitamin C -) 500 mg PO BID [facility] Last Admin: 04/06/20 13:41 Dose: 500 mg Documented by: Atorvastatin Calcium (Lipitor -) 5 mg PO HS [facility] Last Admin: 04/05/20 21:38 Dose: 5 mg Documented by: Cholecalciferol (Vitamin D3 -) 500 unit PO DAILY [facility] Last Admin: 04/06/20 13:41 Dose: 500 unit Documented by: Docusate Sodium (Colace -) 100 mg PO TID [facility] Last Admin: 04/06/20 13:46 Dose: 100 mg Documented by: Famotidine (Pepcid -) 20 mg PO BID [facility] Last Admin: 04/06/20 13:41 Dose: 20 mg Documented by: Ferrous Sulfate (Feosol -) 325 mg PO TIDCM [facility] Last Admin: 04/06/20 16:57 Dose: 325 mg Documented by: Heparin Sodium (Porcine) (Heparin -) 5,000 unit SQ TID [facility] Last Admin: 04/05/20 14:03 Dose: 5,000 unit Documented by: Sodium Chloride (1/2 Normal Saline) 1,000 mls @ 75 mls/hr IV ASDIR [facility] Last Admin: 04/06/20 16:23 Dose: Not Given Documented by: Lidocaine (Lidoderm Patch -) 1 patch TP DAILY PRN PRN Reason: PAIN LEVEL 1-5 Miscellaneous (Lidoderm Patch Removal) 1 each MC DAILY@2200 [facility] Last Admin: 04/05/20 21:39 Dose: 1 each Documented by: Oxycodone HCl (Roxicodone -) 10 mg PO Q6H PRN PRN Reason: PAIN LEVEL 6-10 Last Admin: 04/05/20 03:00 Dose: 10 mg Documented by: Terazosin HCl (Hytrin -) 5 mg PO HS [facility] Last Admin: 04/05/20 21:38 Dose: 5 mg Documented by: - Objective Vital Signs: Vital Signs Temperature 99.4 F 04/06/20 18:36 Pulse Rate 108 H 04/06/20 18:36 Respiratory Rate 20 04/06/20 18:36 Blood Pressure 108/59 L 04/06/20 18:36 O2 Sat by Pulse Oximetry (%) 99 04/06/20 14:00 Constitutional: Yes: Calm Eyes: Yes: Conjunctiva Clear HENT: Yes: Atraumatic Neck: Yes: Supple Cardiovascular: Yes: S1, S2 Respiratory: Yes: CTA Bilaterally Gastrointestinal: Yes: Soft Genitourinary: Yes: WNL Edema: Yes Edema: LLE: Trace, RLE: Trace Neurological: Yes: Oriented Psychiatric: Yes: Oriented Labs: CBC, BMP 04/06/20 05:58 04/06/20 05:58 INR, PTT INR 1.13 (0.83-1.09) H 03/21/20 16:10 Problem List - Problems (1) CHEMA (acute kidney injury) Code(s): N17.9 - ACUTE KIDNEY FAILURE, UNSPECIFIED (2) Hypotension Code(s): I95.9 - HYPOTENSION, UNSPECIFIED Qualifiers: Hypotension type: unspecified hypotension type Qualified Code(s): I95.9 - Hypotension, unspecified (3) Low back pain Code(s): M54.5 - LOW BACK PAIN Qualifiers: Chronicity: acute Back pain laterality: left Sciatica presence: without sciatica Qualified Code(s): M54.5 - Low back pain Assessment/Plan Current Medications Generic Name Dose Route Start Last Admin Trade Name Freq PRN Reason Stop Dose Admin Acetaminophen 1,000 mg 03/30/20 18:21 04/06/20 17:30 Tylenol - PO 1,000 mg Q6H PRN Administration PAIN LEVEL 1-5 Allopurinol 300 mg 04/01/20 17:30 04/06/20 13:42 Zyloprim - PO 300 mg DAILY [facility] Administration Allopurinol 300 mg 04/06/20 19:50 Zyloprim - PO 04/06/20 19:51 ONCE ONE Ascorbic Acid 500 mg 03/30/20 22:00 04/06/20 13:41 Vitamin C - PO 500 mg BID [facility] Administration Atorvastatin Calcium 5 mg 03/30/20 22:00 04/05/20 21:38 Lipitor - PO 5 mg HS [facility] Administration Cholecalciferol 500 unit 03/31/20 10:00 04/06/20 13:41 Vitamin D3 - PO 500 unit DAILY [facility] Administration Docusate Sodium 100 mg 03/30/20 22:00 04/06/20 13:46 Colace - PO 100 mg TID [facility] Administration Famotidine 20 mg 04/05/20 22:00 04/06/20 13:41 Pepcid - PO 20 mg BID [facility] Administration Ferrous Sulfate 325 mg 03/31/20 08:00 04/06/20 16:57 Feosol - PO 325 mg TIDCM [facility] Administration Heparin Sodium (Porcine) 5,000 unit 04/03/20 22:00 04/05/20 14:03 Heparin - SQ 5,000 unit TID [facility] Administration Sodium Chloride 1,000 mls @ 75 mls/hr 04/03/20 13:57 04/06/20 16:23 1/2 Normal Saline IV Not Given ASDIR [facility] Lidocaine 1 patch 03/31/20 10:00 Lidoderm Patch - TP DAILY PRN PAIN LEVEL 1-5 Miscellaneous 1 each 03/30/20 22:00 04/05/20 21:39 Lidoderm Patch Removal MC 1 each DAILY@2200 [facility] Administration Oxycodone HCl 10 mg 04/03/20 13:44 04/05/20 03:00 Roxicodone - PO 10 mg Q6H PRN Administration PAIN LEVEL 6-10 Terazosin HCl 5 mg 03/30/20 22:00 04/05/20 21:38 Hytrin - PO 5 mg HS [facility] Administration Impression 1. CHEMA 2. lymphoma 3. hypotension 4. anemia 5. prostate cancer 6. hyperkalemia 7. hx of gammopathy 8. 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
[2020-04-06] MEDS ORDERED: ALLOPURINOL 300 MG TABLET (FP) PO ONE (19:50)
[2020-04-06] MEDS: ATORVASTATIN CA 10 MG TABLET (FP) PO SCH (21:25)
[2020-04-06] MEDS: LIDOCAINE PATCH REMOVAL MC SCH (21:25)
[2020-04-06] MEDS: TERAZOSIN HCL 5 MG CAPSULE PO SCH (21:27)
--- NOTE | 2020-04-07 00:50 | PN.HO ---
Progress Note (short form) - Note Progress Note: PAtient seen and examined Feels well. Denies any complaints Last Vital Signs Temp Pulse Resp BP Pulse Ox 99.2 F 99 H 18 102/57 L 98 04/03/20 21:30 04/03/20 21:30 04/03/20 21:30 04/03/20 21:30 04/03/20 21:00 Last Vital Signs Temp Pulse Resp BP Pulse Ox 98.7 F 92 H 20 111/56 L 97 04/05/20 21:41 04/05/20 21:41 04/05/20 21:41 04/05/20 21:41 04/05/20 09:00 Cor: RSR, No murmurs, No gallops Lungs: Clear to P&A Abd: Soft, Normal bowel sounds, No organomegaly Ext: 1+ edema b/l Labs/MEds reviewed A/P L sided flank pain x 1 month but worsening over the past few days that is pressure like, radiates the L abdomen and groin that fluctates intermittently but no alleviating or exacerbating factors. Pt with persisten pain without improvement with oral pain medications. ER CT of abdomen showed a new compared with 06/14/13, 10 x 9.8 x 8 cam left pelvic mesenteric mass/ lympadenopathy, 1.1cm periaortic node and an unchanged 1.4cm splenic lesion unchanged from 06/14/13. Lt. lower back pain due to mesenteric mass 10cm , ? jourdan, Lt.periaortic 1.1 cm node, Lt. splenic 1.4cm focus CT T/L spine --- thecal sac compression, Lt. psoas muscle 8cm mass CT chest -- extensive rt. axillary jourdan mass left axillary node biopsy-- Diffuse Large B cell lymphoma, double expressor( cmyc and bcl2) -- FISH pendiing Started allopurinol for uric acid 9.1 04/01 LDH--nl Stage III? awaitibg bone marrow bx s/p port-a-cath to consider steroids and RCVP with C1. mini RCHOP if tolerates RCVP High risk for tumor lysis --- on allopurinol. gentle hydration. check G6 PD monitor tumor lysis labs daily-- LDH/uric acid/CMP repeat COVID testing anemia of chronic disease discussed with patient in detail. Informational material given. Will discuss wi th his brother
[2020-04-07] MEDS: SODIUM CHLORIDE 0.45% 1,000 ML IV SCH ×3 (02:34→23:34)
[2020-04-07] MEDS: DOCUSATE SODIUM 100 MG CAPSULE (FP) PO SCH ×3 (05:32→21:36)
[2020-04-07] MEDS: HEPARIN NA (PORCINE) 5,000 UNITS/ML 1ML VIAL SQ SCH ×3 (07:10→21:37)
[2020-04-07 07:31] LABS: BASO % 0.8 % (0-2.0); EOS % 0.7 % (0-4.5); HEMATOCRIT 23.4 % (35.4-49); HEMOGLOBIN 7.7 GM/dL (11.7-16.9); LYMPH % 20.1 % (8-40); MCH 29.2 pg (25.7-33.7); MCHC 32.8 g/dl (32.0-35.9); MEAN CELL VOLUME 88.9 fl (80-96); MONO % 25.8 % (3.8-10.2); NEUT % 52.6 % (42.8-82.8); PLATELET COUNT 145 K/MM3 (134-434); RBC 2.64 M/mm3 (4.00-5.60); RDW 15.6 % (11.9-15.9)
[2020-04-07 07:46] LABS: ALBUMIN 1.9 g/dl (3.4-5.0); BILIRUBIN,TOTAL 0.4 mg/dL (0.2-1); BLOOD UREA NITROGEN 38.3 mg/dL (7-18); CALCIUM 8.3 mg/dL (8.5-10.1); CREATININE 1.3 mg/dL (0.55-1.3); PHOSPHOROUS 4.6 mg/dL (2.5-4.9); POTASSIUM 4.6 mmol/L (3.5-5.1); TOT PROT 5.1 g/dl (6.4-8.2); URIC ACID 7.8 mg/dL (2.6-7.2)
[2020-04-07] MEDS: CHOLECALCIFEROL (VIT D3) 1,000 UNIT (25 MCG) TABLET PO SCH (09:05)
[2020-04-07] MEDS: ASCORBIC ACID 500 MG TABLET (FP) PO SCH ×2 (09:05→21:37)
[2020-04-07] MEDS: FAMOTIDINE 20 MG TABLET PO SCH ×2 (09:06→21:36)
[2020-04-07] MEDS: FERROUS SO4 325 MG TABLET (FP) PO SCH ×3 (09:06→18:29)
[2020-04-07] MEDS: ALLOPURINOL 300 MG TABLET (FP) PO SCH (09:06)
[2020-04-07 10:49] LABS: ANISOCYTOSIS 1+; MACROCYTOSIS 1+; PLATELET ESTIMATE DECREASED
--- NOTE | 2020-04-07 12:19 | PN.HO ---
Progress Note (short form) - Note Progress Note: PAtient seen and examined Feels well. Denies any complaints Last Vital Signs Temp Pulse Resp BP Pulse Ox 99.2 F 99 H 18 102/57 L 98 04/03/20 21:30 04/03/20 21:30 04/03/20 21:30 04/03/20 21:30 04/03/20 21:00 Last Vital Signs Temp Pulse Resp BP Pulse Ox 98.7 F 92 H 20 111/56 L 97 04/05/20 21:41 04/05/20 21:41 04/05/20 21:41 04/05/20 21:41 04/05/20 09:00 Cor: RSR, No murmurs, No gallops Lungs: Clear to P&A Abd: Soft, Normal bowel sounds, No organomegaly Ext: 1+ edema b/l Labs/MEds reviewed A/P L sided flank pain x 1 month but worsening over the past few days that is pressure like, radiates the L abdomen and groin that fluctates intermittently but no alleviating or exacerbating factors. Pt with persisten pain without improvement with oral pain medications. ER CT of abdomen showed a new compared with 06/14/13, 10 x 9.8 x 8 cam left pelvic mesenteric mass/ lympadenopathy, 1.1cm periaortic node and an unchanged 1.4cm splenic lesion unchanged from 06/14/13. Lt. lower back pain due to mesenteric mass 10cm , ? jourdan, Lt.periaortic 1.1 cm node, Lt. splenic 1.4cm focus CT T/L spine --- thecal sac compression, Lt. psoas muscle 8cm mass CT chest -- extensive rt. axillary jourdan mass left axillary node biopsy-- Diffuse Large B cell lymphoma, double expressor( cmyc and bcl2) -- FISH pendiing Started allopurinol for uric acid 9.1 04/01 LDH--nl Stage III? awaitibg bone marrow bx s/p port-a-cath to consider steroids and RCVP with C1. mini RCHOP if tolerates RCVP. To start dexamethasone 20mg 04/07/20 High risk for tumor lysis --- on allopurinol. gentle hydration. check G6 PD monitor tumor lysis labs daily-- LDH/uric acid/CMP repeat COVID testing anemia of chronic disease Discussed with his brother in great detail.
[2020-04-07] MEDS ORDERED: SODIUM CHLORIDE 1,000 ML IV SCH ×2 (12:30)
[2020-04-07] MEDS: DEXAMETHASONE SOD PHOSPHATE 10 MG/1 ML VIAL IVPB SCH (16:02)
--- NOTE | 2020-04-07 16:27 | PN ---
Progress Note, Physician History of Present Illness: Pt seen and examined at bedside. He is awake and alert. he denies shortness of breath. - Current Medication List Current Medications: Active Medications Acetaminophen (Tylenol -) 1,000 mg PO Q6H PRN PRN Reason: PAIN LEVEL 1-5 Last Admin: 04/06/20 17:30 Dose: 1,000 mg Documented by: Allopurinol (Zyloprim -) 300 mg PO DAILY [facility] Last Admin: 04/07/20 09:06 Dose: 300 mg Documented by: Ascorbic Acid (Vitamin C -) 500 mg PO BID [facility] Last Admin: 04/07/20 09:05 Dose: 500 mg Documented by: Atorvastatin Calcium (Lipitor -) 5 mg PO HS [facility] Last Admin: 04/06/20 21:25 Dose: 5 mg Documented by: Cholecalciferol (Vitamin D3 -) 500 unit PO DAILY [facility] Last Admin: 04/07/20 09:05 Dose: 500 unit Documented by: Dexamethasone Sodium Phosphate (Decadron Injection -) 20 mg IVPB DAILY [facility] Stop: 04/10/20 10:01 Last Admin: 04/07/20 16:02 Dose: 20 mg Documented by: Docusate Sodium (Colace -) 100 mg PO TID [facility] Last Admin: 04/07/20 13:08 Dose: 100 mg Documented by: Famotidine (Pepcid -) 20 mg PO BID [facility] Last Admin: 04/07/20 09:06 Dose: 20 mg Documented by: Ferrous Sulfate (Feosol -) 325 mg PO TIDCM [facility] Last Admin: 04/07/20 13:08 Dose: 325 mg Documented by: Heparin Sodium (Porcine) (Heparin -) 5,000 unit SQ TID [facility] Last Admin: 04/07/20 13:08 Dose: 5,000 unit Documented by: Sodium Chloride (Normal Saline -) 1,000 mls @ 60 mls/hr IV ASDIR [facility] Last Admin: 04/07/20 13:08 Dose: 60 mls/hr Documented by: Lidocaine (Lidoderm Patch -) 1 patch TP DAILY PRN PRN Reason: PAIN LEVEL 1-5 Miscellaneous (Lidoderm Patch Removal) 1 each MC DAILY@2200 [facility] Last Admin: 04/06/20 21:25 Dose: Not Given Documented by: Oxycodone HCl (Roxicodone -) 10 mg PO Q6H PRN PRN Reason: PAIN LEVEL 6-10 Last Admin: 04/05/20 03:00 Dose: 10 mg Documented by: Terazosin HCl (Hytrin -) 5 mg PO HS [facility] Last Admin: 04/06/20 21:27 Dose: 5 mg Documented by: - Objective Vital Signs: Vital Signs Temperature 98.6 F 04/07/20 14:05 Pulse Rate 96 H 04/07/20 14:05 Respiratory Rate 18 04/07/20 14:05 Blood Pressure 125/72 04/07/20 14:05 O2 Sat by Pulse Oximetry (%) 100 04/07/20 09:00 Constitutional: Yes: Calm Eyes: Yes: Conjunctiva Clear HENT: Yes: Atraumatic Neck: Yes: Supple Cardiovascular: Yes: S1, S2 Respiratory: Yes: CTA Bilaterally Gastrointestinal: Yes: Soft Genitourinary: Yes: WNL Musculoskeletal: Yes: WNL Edema: Yes Edema: LLE: Trace, RLE: Trace Neurological: Yes: Oriented Labs: CBC, BMP 04/07/20 05:45 04/07/20 05:45 INR, PTT INR 1.13 (0.83-1.09) H 03/21/20 16:10 Problem List - Problems (1) CHEMA (acute kidney injury) Code(s): N17.9 - ACUTE KIDNEY FAILURE, UNSPECIFIED (2) Hypotension Code(s): I95.9 - HYPOTENSION, UNSPECIFIED Qualifiers: Hypotension type: unspecified hypotension type Qualified Code(s): I95.9 - Hypotension, unspecified (3) Low back pain Code(s): M54.5 - LOW BACK PAIN Qualifiers: Chronicity: acute Back pain laterality: left Sciatica presence: without sciatica Qualified Code(s): M54.5 - Low back pain Assessment/Plan Current Medications Generic Name Dose Route Start Last Admin Trade Name Freq PRN Reason Stop Dose Admin Acetaminophen 1,000 mg 03/30/20 18:21 04/06/20 17:30 Tylenol - PO 1,000 mg Q6H PRN Administration PAIN LEVEL 1-5 Allopurinol 300 mg 04/01/20 17:30 04/07/20 09:06 Zyloprim - PO 300 mg DAILY [facility] Administration Ascorbic Acid 500 mg 03/30/20 22:00 04/07/20 09:05 Vitamin C - PO 500 mg BID [facility] Administration Atorvastatin Calcium 5 mg 03/30/20 22:00 04/06/20 21:25 Lipitor - PO 5 mg HS [facility] Administration Cholecalciferol 500 unit 03/31/20 10:00 04/07/20 09:05 Vitamin D3 - PO 500 unit DAILY [facility] Administration Dexamethasone Sodium Phosphate 20 mg 04/07/20 15:30 04/07/20 16:02 Decadron Injection - IVPB 04/10/20 10:01 20 mg DAILY [facility] Administration Docusate Sodium 100 mg 03/30/20 22:00 04/07/20 13:08 Colace - PO 100 mg TID [facility] Administration Famotidine 20 mg 04/05/20 22:00 04/07/20 09:06 Pepcid - PO 20 mg BID [facility] Administration Ferrous Sulfate 325 mg 03/31/20 08:00 04/07/20 13:08 Feosol - PO 325 mg TIDCM [facility] Administration Heparin Sodium (Porcine) 5,000 unit 04/03/20 22:00 04/07/20 13:08 Heparin - SQ 5,000 unit TID [facility] Administration Sodium Chloride 1,000 mls @ 60 mls/hr 04/07/20 12:30 04/07/20 13:08 Normal Saline - IV 60 mls/hr ASDIR [facility] Administration Lidocaine 1 patch 03/31/20 10:00 Lidoderm Patch - TP DAILY PRN PAIN LEVEL 1-5 Miscellaneous 1 each 03/30/20 22:00 04/06/20 21:25 Lidoderm Patch Removal MC Not Given DAILY@2200 [facility] Oxycodone HCl 10 mg 04/03/20 13:44 04/05/20 03:00 Roxicodone - PO 10 mg Q6H PRN Administration PAIN LEVEL 6-10 Terazosin HCl 5 mg 03/30/20 22:00 04/06/20 21:27 Hytrin - PO 5 mg HS [facility] Administration Impression 1. CHEMA 2. lymphoma 3. hypotension 4. anemia 5. prostate cancer 6. hyperkalemia 7. hx of gammopathy 8. b-cell lymphoma Plan - onclogy input appreciated - pt started on steroids - hi risk for tumor lysis - monitor lytes - monitor hg
--- NOTE | 2020-04-07 16:47 | PN ---
Physical Exam: SUBJECTIVE: Patient seen and examined at bedside. pt OBJECTIVE: Vital Signs Period Temp Pulse Resp BP Sys/Tillman Pulse Ox Last 24 Hr 98.6 F-99.9 F 92-108 18-20 108-139/58-81 96-100 GENERAL: The patient is awake, alert, and fully oriented, in no acute distress. HEAD: Normal with no signs of trauma. EYES: PERRL, extraocular movements intact, sclera anicteric, conjunctiva clear. No ptosis. ENT: Ears normal, nares patent, oropharynx clear without exudates, moist mucous membranes. NECK: Trachea midline, full range of motion, supple. LUNGS: Breath sounds equal, clear to auscultation bilaterally, no wheezes, no crackles, no accessory muscle use. HEART: Regular rate and rhythm, S1, S2 without murmur, rub or gallop. ABDOMEN: Soft, nontender, nondistended, normoactive bowel sounds, no guarding, no rebound, no hepatosplenomegaly, no masses. EXTREMITIES: 2+ pulses, warm, well-perfused, no edema. NEUROLOGICAL: Cranial nerves II through XII grossly intact. Normal speech, gait not observed. PSYCH: Normal mood, normal affect. SKIN: Warm, dry, normal turgor, no rashes or lesions noted Laboratory Results - last 24 hr 04/06/20 04/07/20 04/07/20 14:20 05:45 05:45 WBC 3.0 L RBC 2.64 L Hgb 7.7 L Hct 23.4 L MCV 88.9 MCH 29.2 MCHC 32.8 RDW 15.6 Plt Count 145 MPV 9.0 Absolute Neuts (auto) 1.6 Neutrophils % 52.6 Neutrophils % (Manual) 76.8 Band Neutrophils % 0.0 Lymphocytes % 20.1 Lymphocytes % (Manual) 11.1 D Monocytes % 25.8 H Monocytes % (Manual) 8 Eosinophils % 0.7 Eosinophils % (Manual) 1.0 D Basophils % 0.8 Basophils % (Manual) 0.0 Myelocytes % (Man) 2 D Promyelocytes % (Man) 0 Blast Cells % (Manual) 0 Nucleated RBC % 0 Metamyelocytes 0 Hypochromia 0 Platelet Estimate Decreased Polychromasia 1+ Poikilocytosis 0 Anisocytosis 1+ Microcytosis 1+ Macrocytosis 1+ Sodium 140 Potassium 4.6 Chloride 108 H Carbon Dioxide 22 Anion Gap 10 BUN 38.3 H Creatinine 1.3 Est GFR (CKD-EPI)AfAm 58.07 Est GFR (CKD-EPI)NonAf 50.10 Random Glucose 112 H Uric Acid 7.8 H Calcium 8.3 L Phosphorus 4.6 Magnesium 2.0 Total Bilirubin 0.4 AST 17 ALT 13 Alkaline Phosphatase 67 LD Total 221 Total Protein 5.1 L Albumin 1.9 L Blood Type O POSITIVE Antibody Screen Negative Crossmatch See Detail Active Medications Generic Name Dose Route Start Last Admin Trade Name Freq PRN Reason Stop Dose Admin Acetaminophen 1,000 mg 03/30/20 18:21 04/06/20 17:30 Tylenol - PO 1,000 mg Q6H PRN Administration PAIN LEVEL 1-5 Allopurinol 300 mg 04/01/20 17:30 04/07/20 09:06 Zyloprim - PO 300 mg DAILY [facility] Administration Ascorbic Acid 500 mg 03/30/20 22:00 04/07/20 09:05 Vitamin C - PO 500 mg BID [facility] Administration Atorvastatin Calcium 5 mg 03/30/20 22:00 04/06/20 21:25 Lipitor - PO 5 mg HS [facility] Administration Cholecalciferol 500 unit 03/31/20 10:00 04/07/20 09:05 Vitamin D3 - PO 500 unit DAILY [facility] Administration Dexamethasone Sodium Phosphate 20 mg 04/07/20 15:30 04/07/20 16:02 Decadron Injection - IVPB 04/10/20 10:01 20 mg DAILY [facility] Administration Docusate Sodium 100 mg 03/30/20 22:00 04/07/20 13:08 Colace - PO 100 mg TID [facility] Administration Famotidine 20 mg 04/05/20 22:00 04/07/20 09:06 Pepcid - PO 20 mg BID [facility] Administration Ferrous Sulfate 325 mg 03/31/20 08:00 04/07/20 13:08 Feosol - PO 325 mg TIDCM [facility] Administration Heparin Sodium (Porcine) 5,000 unit 04/03/20 22:00 04/07/20 13:08 Heparin - SQ 5,000 unit TID [facility] Administration Sodium Chloride 1,000 mls @ 83 mls/hr 04/07/20 16:30 1/2 Normal Saline IV ASDIR [facility] Lidocaine 1 patch 03/31/20 10:00 Lidoderm Patch - TP DAILY PRN PAIN LEVEL 1-5 Miscellaneous 1 each 03/30/20 22:00 04/06/20 21:25 Lidoderm Patch Removal MC Not Given DAILY@2200 [facility] Oxycodone HCl 10 mg 04/03/20 13:44 04/05/20 03:00 Roxicodone - PO 10 mg Q6H PRN Administration PAIN LEVEL 6-10 Terazosin HCl 5 mg 03/30/20 22:00 04/06/20 21:27 Hytrin - PO 5 mg HS [facility] Administration ASSESSMENT/PLAN: 84 YO M with PMH of HTN, HLD, non-Hodgkin's lymphoma (5-10 years ago, in remission), & prostate cancer (13 years ago in remission), who presents with left lumbar pain since September and has gotten acutely worse over the last 2 months. He also came in for Left flank and abdominal pain. Pt was admitted for Left flank and back pain 2/2 neoplasm. Left flank and back pain 2/2 neoplasm, likely lymphoma - B cell lymphoma on axillary lymph node bx -oncology following (Dr. Dodson) -bone marrow bx taken. Waiting on results -c/w oxycodone 10mg Q6H PRN -neurosurgery consulted- reevaluate post bm biopsy -continue monitoring LDH, uric acid daily as pt is in high risk for tumor lysis. C/w allopurinol and gentle hydration -Heme onc consult appreciated. pt initiated on steroids today. Anemia of chronic disease -H&H improved ;s/p 1 PRBC (04/06/20) . cont to monitor HTN -hold meds.BP is stable. HLD -c/w statin -ASA 81mg daily FEN -/2 NS @ 83 cc/hr -Monitor Lytes -sodium-controlled diet Dispo: med-surg ATTENDING PHYSICIAN STATEMENT I saw and evaluated the patient. I reviewed the resident's note and discussed the case with the resident. I agree with the resident's findings and plan as documented. SUBJECTIVE: OBJECTIVE: ASSESSMENT AND PLAN:
--- NOTE | 2020-04-07 18:02 | PN ---
Teaching Attending Note Name of Resident: Lauren Marcus ATTENDING PHYSICIAN STATEMENT I saw and evaluated the patient. I reviewed the resident's note and discussed the case with the resident. I agree with the resident's findings and plan as documented. SUBJECTIVE: Comfortable with no acute distress OBJECTIVE: Vital Signs Temperature 98.6 F 04/07/20 14:05 Pulse Rate 96 H 04/07/20 14:05 Respiratory Rate 18 04/07/20 14:05 Blood Pressure 125/72 04/07/20 14:05 O2 Sat by Pulse Oximetry (%) 100 04/07/20 09:00 PE: per resident's note CBCD WBC 3.0 K/mm3 (4.0-10.0) L 04/07/20 05:45 RBC 2.64 M/mm3 (4.00-5.60) L 04/07/20 05:45 Hgb 7.7 GM/dL (11.7-16.9) L 04/07/20 05:45 Hct 23.4 % (35.4-49) L 04/07/20 05:45 MCV 88.9 fl (80-96) 04/07/20 05:45 MCHC 32.8 g/dl (32.0-35.9) 04/07/20 05:45 RDW 15.6 % (11.9-15.9) 04/07/20 05:45 Plt Count 145 K/MM3 (134-434) 04/07/20 05:45 MPV 9.0 fl (7.5-11.1) 04/07/20 05:45 CMP Sodium 140 mmol/L (136-145) 04/07/20 05:45 Potassium 4.6 mmol/L (3.5-5.1) 04/07/20 05:45 Chloride 108 mmol/L (98-107) H 04/07/20 05:45 Carbon Dioxide 22 mmol/L (21-32) 04/07/20 05:45 Anion Gap 10 MMOL/L (8-16) 04/07/20 05:45 BUN 38.3 mg/dL (7-18) H 04/07/20 05:45 Creatinine 1.3 mg/dL (0.55-1.3) 04/07/20 05:45 Random Glucose 112 mg/dL (74-106) H 04/07/20 05:45 Calcium 8.3 mg/dL (8.5-10.1) L 04/07/20 05:45 Total Bilirubin 0.4 mg/dL (0.2-1) 04/07/20 05:45 AST 17 U/L (15-37) 04/07/20 05:45 ALT 13 U/L (13-61) 04/07/20 05:45 Alkaline Phosphatase 67 U/L (45-117) 04/07/20 05:45 Total Protein 5.1 g/dl (6.4-8.2) L 04/07/20 05:45 Albumin 1.9 g/dl (3.4-5.0) L 04/07/20 05:45 CARDIAC ENZYMES Creatine Kinase 27 U/L (26-308) 03/21/20 16:10 Troponin I 0.03 ng/ml (0.00-0.05) 03/21/20 16:10 Current Medications Generic Name Dose Route Start Last Admin Trade Name Freq PRN Reason Stop Dose Admin Acetaminophen 1,000 mg 03/30/20 18:21 04/06/20 17:30 Tylenol - PO 1,000 mg Q6H PRN Administration PAIN LEVEL 1-5 Allopurinol 300 mg 04/01/20 17:30 04/07/20 09:06 Zyloprim - PO 300 mg DAILY [facility] Administration Ascorbic Acid 500 mg 03/30/20 22:00 04/07/20 09:05 Vitamin C - PO 500 mg BID [facility] Administration Atorvastatin Calcium 5 mg 03/30/20 22:00 04/06/20 21:25 Lipitor - PO 5 mg HS [facility] Administration Cholecalciferol 500 unit 03/31/20 10:00 04/07/20 09:05 Vitamin D3 - PO 500 unit DAILY [facility] Administration Dexamethasone Sodium Phosphate 20 mg 04/07/20 15:30 04/07/20 16:02 Decadron Injection - IVPB 04/10/20 10:01 20 mg DAILY [facility] Administration Docusate Sodium 100 mg 03/30/20 22:00 04/07/20 13:08 Colace - PO 100 mg TID [facility] Administration Famotidine 20 mg 04/05/20 22:00 04/07/20 09:06 Pepcid - PO 20 mg BID [facility] Administration Ferrous Sulfate 325 mg 03/31/20 08:00 04/07/20 13:08 Feosol - PO 325 mg TIDCM [facility] Administration Heparin Sodium (Porcine) 5,000 unit 04/03/20 22:00 04/07/20 13:08 Heparin - SQ 5,000 unit TID [facility] Administration Sodium Chloride 1,000 mls @ 83 mls/hr 04/07/20 16:30 1/2 Normal Saline IV ASDIR [facility] Lidocaine 1 patch 03/31/20 10:00 Lidoderm Patch - TP DAILY PRN PAIN LEVEL 1-5 Miscellaneous 1 each 03/30/20 22:00 04/06/20 21:25 Lidoderm Patch Removal MC Not Given DAILY@2200 [facility] Oxycodone HCl 10 mg 04/03/20 13:44 04/05/20 03:00 Roxicodone - PO 10 mg Q6H PRN Administration PAIN LEVEL 6-10 Terazosin HCl 5 mg 03/30/20 22:00 04/06/20 21:27 Hytrin - PO 5 mg HS [facility] Administration Home Medications Medication Instructions Recorded Aspirin [ASA -] 81 mg PO DAILY 09/07/12 Terazosin HCl [Hytrin -] 5 mg PO HS 09/07/12 Verapamil HCl ER [Calan Sr -] 240 mg PO DAILY 09/07/12 Cholecalciferol (Vitamin D3) 500 unit PO DAILY 09/08/12 [Vitamin D3] Simvastatin [Zocor -] 5 mg PO HS 09/08/12 Atenolol [Tenormin -] 25 mg PO DAILY 03/22/20 ASSESSMENT AND PLAN: This patient is an 84yom with Pmhx of HTN, HLD, non-Hodgkin's lymphoma, prostate cancer (beads 13 years ago in remission), who presented with L lower back pain. #B cell Lymphoma s/p bx: s/p port today, the 1st dose of chemo in the hospital , R-chop is planned for the patient. ontinue monitoring LDH, uric acid daily as pt is in high risk for tumor lysis, continue allopurinol and gentle hydration as per onc. #Anemia: will give him one unit of PRBC , on iron supplement #L paravertebral mass consulted neurosurgery #Low back pain and LLQ pain due to paravertebral mass . cont oxy , pain is better #R axillary LAP : bx B-cell lymphoma will d/w ONC the treatment plan ( inpatient vs out pt ) #HTN: controlled #Anemia: Hb stable after a unit over the weekend # Pancytopenia DVT Px: SCDS, heparin sq , will monitor continue current management
[2020-04-07] MEDS ORDERED: PT OWN MED DRAWER 7, Y5N ONE (21:24)
[2020-04-07] MEDS: LIDOCAINE PATCH REMOVAL MC SCH (21:31)
[2020-04-07] MEDS: ACETAMINOPHEN 500 MG TABLET (FP) PO PRN (21:34)
[2020-04-07] MEDS: ATORVASTATIN CA 10 MG TABLET (FP) PO SCH (21:36)
[2020-04-07] MEDS: TERAZOSIN HCL 5 MG CAPSULE PO SCH (21:37)
[2020-04-08] MEDS: DOCUSATE SODIUM 100 MG CAPSULE (FP) PO SCH ×3 (05:48→22:30)
[2020-04-08] MEDS: HEPARIN NA (PORCINE) 5,000 UNITS/ML 1ML VIAL SQ SCH ×3 (05:48→22:30)
[2020-04-08 08:25] LABS: BASO % 0.6 % (0-2.0); HEMATOCRIT 22.6 % (35.4-49); HEMOGLOBIN 7.5 GM/dL (11.7-16.9); LYMPH % 19.7 % (8-40); MCH 29.5 pg (25.7-33.7); MEAN CELL VOLUME 89.2 fl (80-96); MEAN PLT VOLUME 9.1 fl (7.5-11.1); MONO % 17.2 % (3.8-10.2); NEUT % 62.5 % (42.8-82.8); PLATELET COUNT 143 K/MM3 (134-434); RBC 2.54 M/mm3 (4.00-5.60); RDW 15.5 % (11.9-15.9); WHITE BLOOD COUNT 2.9 K/mm3 (4.0-10.0)
[2020-04-08 08:44] LABS: ALBUMIN 1.8 g/dl (3.4-5.0); BILIRUBIN,TOTAL 0.3 mg/dL (0.2-1); BLOOD UREA NITROGEN 34.1 mg/dL (7-18); CALCIUM 8.2 mg/dL (8.5-10.1); CREATININE 1.2 mg/dL (0.55-1.3); PHOSPHOROUS 4.7 mg/dL (2.5-4.9); POTASSIUM 4.4 mmol/L (3.5-5.1); TOT PROT 5.1 g/dl (6.4-8.2); URIC ACID 7.5 mg/dL (2.6-7.2)
[2020-04-08] MEDS: DEXAMETHASONE SOD PHOSPHATE 10 MG/1 ML VIAL IVPB SCH (09:31)
[2020-04-08] MEDS: ASCORBIC ACID 500 MG TABLET (FP) PO SCH ×2 (09:31→22:30)
[2020-04-08] MEDS: ALLOPURINOL 300 MG TABLET (FP) PO SCH (09:31)
[2020-04-08] MEDS: FAMOTIDINE 20 MG TABLET PO SCH ×2 (09:32→22:30)
[2020-04-08] MEDS: CHOLECALCIFEROL (VIT D3) 1,000 UNIT (25 MCG) TABLET PO SCH (09:32)
[2020-04-08] MEDS: FERROUS SO4 325 MG TABLET (FP) PO SCH ×3 (09:32→17:21)
--- NOTE | 2020-04-08 12:41 | PN ---
Progress Note (short form) - Note Progress Note: Patient is feeling better with no acute distress. Vital Signs Temperature 97.6 F 04/08/20 05:58 Pulse Rate 75 04/08/20 05:58 Respiratory Rate 18 04/08/20 05:58 Blood Pressure 113/61 04/08/20 05:58 O2 Sat by Pulse Oximetry (%) 100 04/07/20 21:00 GENERAL: The patient is awake, alert, and fully oriented, in no acute distress. HEAD: Normal with no signs of trauma. EYES: PERRL, extraocular movements intact, sclera anicteric, conjunctiva clear. ENT: Ears normal, nares patent, oropharynx clear without exudates, moist mucous membranes. NECK: Trachea midline, full range of motion, supple. LUNGS: Breath sounds equal, clear to auscultation bilaterally, no wheezes, no crackles, no accessory muscle use. HEART: Regular rate and rhythm, S1, S2 without murmur, rub or gallop. ABDOMEN: Soft, nontender,Positve LLQ mass, EXTREMITIES: 2+ pulses, warm, well-perfused, 3 plus edema bl NEUROLOGICAL: Cranial nerves II through XII grossly intact. Normal speech, gait not observed. PSYCH: Normal mood, normal affect. SKIN: Warm, dry, normal turgor, no rashes or lesions noted CBCD WBC 2.9 K/mm3 (4.0-10.0) L 04/08/20 06:20 RBC 2.54 M/mm3 (4.00-5.60) L 04/08/20 06:20 Hgb 7.5 GM/dL (11.7-16.9) L 04/08/20 06:20 Hct 22.6 % (35.4-49) L 04/08/20 06:20 MCV 89.2 fl (80-96) 04/08/20 06:20 MCHC 33.0 g/dl (32.0-35.9) 04/08/20 06:20 RDW 15.5 % (11.9-15.9) 04/08/20 06:20 Plt Count 143 K/MM3 (134-434) 04/08/20 06:20 MPV 9.1 fl (7.5-11.1) 04/08/20 06:20 CMP Sodium 140 mmol/L (136-145) 04/08/20 06:20 Potassium 4.4 mmol/L (3.5-5.1) 04/08/20 06:20 Chloride 110 mmol/L (98-107) H 04/08/20 06:20 Carbon Dioxide 24 mmol/L (21-32) 04/08/20 06:20 Anion Gap 6 MMOL/L (8-16) L 04/08/20 06:20 BUN 34.1 mg/dL (7-18) H 04/08/20 06:20 Creatinine 1.2 mg/dL (0.55-1.3) 04/08/20 06:20 Random Glucose 186 mg/dL (74-106) H 04/08/20 06:20 Calcium 8.2 mg/dL (8.5-10.1) L 04/08/20 06:20 Total Bilirubin 0.3 mg/dL (0.2-1) 04/08/20 06:20 AST 12 U/L (15-37) L 04/08/20 06:20 ALT 12 U/L (13-61) L 04/08/20 06:20 Alkaline Phosphatase 59 U/L (45-117) 04/08/20 06:20 Total Protein 5.1 g/dl (6.4-8.2) L 04/08/20 06:20 Albumin 1.8 g/dl (3.4-5.0) L 04/08/20 06:20 CARDIAC ENZYMES Creatine Kinase 27 U/L (26-308) 03/21/20 16:10 Troponin I 0.03 ng/ml (0.00-0.05) 03/21/20 16:10 Current Medications Generic Name Dose Route Start Last Admin Trade Name Freq PRN Reason Stop Dose Admin Acetaminophen 1,000 mg 03/30/20 18:21 04/07/20 21:34 Tylenol - PO 1,000 mg Q6H PRN Administration PAIN LEVEL 1-5 Allopurinol 300 mg 04/01/20 17:30 04/08/20 09:31 Zyloprim - PO 300 mg DAILY [facility] Administration Ascorbic Acid 500 mg 03/30/20 22:00 04/08/20 09:31 Vitamin C - PO 500 mg BID [facility] Administration Atorvastatin Calcium 5 mg 03/30/20 22:00 04/07/20 21:36 Lipitor - PO 5 mg HS [facility] Administration Cholecalciferol 500 unit 03/31/20 10:00 04/08/20 09:32 Vitamin D3 - PO 500 unit DAILY [facility] Administration Dexamethasone Sodium Phosphate 20 mg 04/07/20 15:30 04/08/20 09:31 Decadron Injection - IVPB 04/10/20 10:01 20 mg DAILY [facility] Administration Docusate Sodium 100 mg 03/30/20 22:00 04/08/20 05:48 Colace - PO 100 mg TID [facility] Administration Famotidine 20 mg 04/05/20 22:00 04/08/20 09:32 Pepcid - PO 20 mg BID [facility] Administration Ferrous Sulfate 325 mg 03/31/20 08:00 04/08/20 09:32 Feosol - PO 325 mg TIDCM [facility] Administration Heparin Sodium (Porcine) 5,000 unit 04/03/20 22:00 04/08/20 05:48 Heparin - SQ 5,000 unit TID [facility] Administration Sodium Chloride 1,000 mls @ 83 mls/hr 04/07/20 16:30 04/07/20 23:34 1/2 Normal Saline IV 83 mls/hr ASDIR [facility] Administration Lidocaine 1 patch 03/31/20 10:00 Lidoderm Patch - TP DAILY PRN PAIN LEVEL 1-5 Miscellaneous 1 each 03/30/20 22:00 04/07/20 21:31 Lidoderm Patch Removal MC Not Given DAILY@2200 [facility] Terazosin HCl 5 mg 03/30/20 22:00 04/07/20 21:37 Hytrin - PO 5 mg HS [facility] Administration Home Medications Medication Instructions Recorded Aspirin [ASA -] 81 mg PO DAILY 09/07/12 Terazosin HCl [Hytrin -] 5 mg PO HS 09/07/12 Verapamil HCl ER [Calan Sr -] 240 mg PO DAILY 09/07/12 Cholecalciferol (Vitamin D3) 500 unit PO DAILY 09/08/12 [Vitamin D3] Simvastatin [Zocor -] 5 mg PO HS 09/08/12 Atenolol [Tenormin -] 25 mg PO DAILY 03/22/20 Microbiology 04/06/20 05:00 Urine - Urine Clean Catch Urine Culture - Preliminary Enterococcus Faecalis 04/04/20 01:00 Blood - Peripheral Venous Blood Culture - Preliminary NO GROWTH OBTAINED AFTER 96 HOURS, INCUBATION TO CONTINUE FOR 1 DAYS. 04/04/20 00:50 Blood - Peripheral Venous Blood Culture - Preliminary NO GROWTH OBTAINED AFTER 96 HOURS, INCUBATION TO CONTINUE FOR 1 DAYS. 03/21/20 17:20 Urine - Urine Clean Catch Urine Culture - Final NO GROWTH OBTAINED Assessment and plan: This patient is an 84yom with Pmhx of HTN, HLD, non-Hodgkin's lymphoma, prostate cancer (beads 13 years ago in remission), who presented with L lower back pain. #B cell Lymphoma s/p bx: s/p port discussed with Dr. Dodson , will have the 1st dose of chemo in the hospital , R-chop is planned for the patient. continue monitoring LDH, uric acid daily as pt is in high risk for tumor lysis, continue allopurinol and gentle hydration as per onc. #Anemia: will give him one unit of PRBC , on iron supplement #L paravertebral mass consulted neurosurgery #Low back pain and LLQ pain due to paravertebral mass . cont oxy , pain is better #R axillary LAP : bx B-cell lymphoma will d/w ONC the treatment plan ( inpatient vs out pt ) #HTN: controlled #Anemia: Hb stable after a unit over the weekend # Pancytopenia monitor oncology on the case DVT Px: SCDS, heparin sq , will monitor continue current management elevate LEs s/p port will get chemo on friday Visit type - Emergency Visit Emergency Visit: Yes ED Registration Date: 03/21/20 Care time: The patient presented to the Emergency Department on the above date and was hospitalized for further evaluation of their emergent condition. - New Patient This patient is new to me today: No - Critical Care Critical Care patient: No - Discharge Referral Referred to [facility] Med P.C.: No
[2020-04-08] MEDS: SODIUM CHLORIDE 0.45% 1,000 ML IV SCH ×2 (12:44→17:19)
[2020-04-08 13:14] LABS: ANISOCYTOSIS 1+; MACROCYTOSIS 0; PLATELET ESTIMATE DECREASED; TEAR DROP CELLS 1+
--- NOTE | 2020-04-08 21:38 | PN.HO ---
Progress Note (short form) - Note Progress Note: PAtient seen and examined Feels well. Denies any complaints Last Vital Signs Temp Pulse Resp BP Pulse Ox 99.2 F 99 H 18 102/57 L 98 04/03/20 21:30 04/03/20 21:30 04/03/20 21:30 04/03/20 21:30 04/03/20 21:00 Last Vital Signs Temp Pulse Resp BP Pulse Ox 98.7 F 92 H 20 111/56 L 97 04/05/20 21:41 04/05/20 21:41 04/05/20 21:41 04/05/20 21:41 04/05/20 09:00 Last Vital Signs Temp Pulse Resp BP Pulse Ox 98 F 92 H 20 114/57 L 100 04/08/20 21:09 04/08/20 21:09 04/08/20 21:09 04/08/20 21:09 04/08/20 09:00 Cor: RSR, No murmurs, No gallops Lungs: Clear to P&A Abd: Soft, Normal bowel sounds, No organomegaly Ext: 1+ edema b/l Labs/MEds reviewed A/P L sided flank pain x 1 month but worsening over the past few days that is pressure like, radiates the L abdomen and groin that fluctates intermittently but no alleviating or exacerbating factors. Pt with persisten pain without improvement with oral pain medications. ER CT of abdomen showed a new compared with 06/14/13, 10 x 9.8 x 8 cam left pelvic mesenteric mass/ lympadenopathy, 1.1cm periaortic node and an unchanged 1.4cm splenic lesion unchanged from 06/14/13. Lt. lower back pain due to mesenteric mass 10cm , ? jourdan, Lt.periaortic 1.1 cm node, Lt. splenic 1.4cm focus CT T/L spine --- thecal sac compression, Lt. psoas muscle 8cm mass CT chest -- extensive rt. 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 awaitibg bone marrow bx s/p port-a-cath to consider steroids and RCVP with C1. mini RCHOP if tolerates RCVP. started dexamethasone 20mg 04/07/20. Rituxan split dose on 04/09 and 04/10 High risk for tumor lysis --- on allopurinol. gentle hydration. f/u G6 PD monitor tumor lysis labs daily-- LDH/uric acid/CMP repeat COVID testing anemia of chronic disease
[2020-04-08] MEDS: LIDOCAINE PATCH REMOVAL MC SCH (22:25)
[2020-04-08] MEDS: TERAZOSIN HCL 5 MG CAPSULE PO SCH (22:30)
[2020-04-08] MEDS: ATORVASTATIN CA 10 MG TABLET (FP) PO SCH (22:30)
[2020-04-08] MEDS: ACETAMINOPHEN 500 MG TABLET (FP) PO PRN (22:31)
[2020-04-09] MEDS: SODIUM CHLORIDE 0.45% 1,000 ML IV SCH ×2 (04:02→16:31)
[2020-04-09] MEDS: HEPARIN NA (PORCINE) 5,000 UNITS/ML 1ML VIAL SQ SCH ×3 (06:16→21:29)
[2020-04-09] MEDS: DOCUSATE SODIUM 100 MG CAPSULE (FP) PO SCH ×3 (06:16→21:29)
[2020-04-09] MEDS: PORTA CATH FLUSH 10 ML IVPUSH PRN (06:26)
[2020-04-09 07:33] LABS: BASO % 0.5 % (0-2.0); HEMATOCRIT 23.6 % (35.4-49); HEMOGLOBIN 7.7 GM/dL (11.7-16.9); LYMPH % 11.2 % (8-40); MCH 29.2 pg (25.7-33.7); MCHC 32.7 g/dl (32.0-35.9); MEAN CELL VOLUME 89.3 fl (80-96); MEAN PLT VOLUME 9.6 fl (7.5-11.1); MONO % 17.3 % (3.8-10.2); PLATELET COUNT 158 K/MM3 (134-434); RBC 2.64 M/mm3 (4.00-5.60); RDW 15.6 % (11.9-15.9); WHITE BLOOD COUNT 5.7 K/mm3 (4.0-10.0)
[2020-04-09 07:48] LABS: ALBUMIN 1.9 g/dl (3.4-5.0); BILIRUBIN,TOTAL 0.3 mg/dL (0.2-1); BLOOD UREA NITROGEN 42.5 mg/dL (7-18); CALCIUM 8.5 mg/dL (8.5-10.1); CREATININE 1.5 mg/dL (0.55-1.3); POTASSIUM 4.6 mmol/L (3.5-5.1); TOT PROT 5.1 g/dl (6.4-8.2); URIC ACID 6.9 mg/dL (2.6-7.2)
[2020-04-09 09:23] LABS: ANISOCYTOSIS 1+; MACROCYTOSIS 0; PLATELET ESTIMATE DECREASED
[2020-04-09] MEDS: DEXAMETHASONE SOD PHOSPHATE 10 MG/1 ML VIAL IVPB SCH (10:27)
[2020-04-09] MEDS: ALLOPURINOL 300 MG TABLET (FP) PO SCH (10:28)
[2020-04-09] MEDS: ASCORBIC ACID 500 MG TABLET (FP) PO SCH ×2 (10:28→21:29)
[2020-04-09] MEDS: CHOLECALCIFEROL (VIT D3) 1,000 UNIT (25 MCG) TABLET PO SCH (10:28)
[2020-04-09] MEDS: FAMOTIDINE 20 MG TABLET PO SCH ×2 (10:28→21:30)
[2020-04-09] MEDS: FERROUS SO4 325 MG TABLET (FP) PO SCH ×3 (10:28→17:11)
--- NOTE | 2020-04-09 14:39 | PN.HO ---
Progress Note (short form) - Note Progress Note: PAtient seen and examined Feels well. Denies any complaints Last Vital Signs Temp Pulse Resp BP Pulse Ox 99.2 F 99 H 18 102/57 L 98 04/03/20 21:30 04/03/20 21:30 04/03/20 21:30 04/03/20 21:30 04/03/20 21:00 Last Vital Signs Temp Pulse Resp BP Pulse Ox 98.7 F 92 H 20 111/56 L 97 04/05/20 21:41 04/05/20 21:41 04/05/20 21:41 04/05/20 21:41 04/05/20 09:00 Last Vital Signs Temp Pulse Resp BP Pulse Ox 98 F 92 H 20 114/57 L 100 04/08/20 21:09 04/08/20 21:09 04/08/20 21:09 04/08/20 21:09 04/08/20 09:00 Cor: RSR, No murmurs, No gallops Lungs: Clear to P&A Abd: Soft, Normal bowel sounds, No organomegaly Ext: 1+ edema b/l Labs/MEds reviewed A/P L sided flank pain x 1 month but worsening over the past few days that is pressure like, radiates the L abdomen and groin that fluctates intermittently but no alleviating or exacerbating factors. Pt with persisten pain without improvement with oral pain medications. ER CT of abdomen showed a new compared with 06/14/13, 10 x 9.8 x 8 cam left pelvic mesenteric mass/ lympadenopathy, 1.1cm periaortic node and an unchanged 1.4cm splenic lesion unchanged from 06/14/13. Lt. lower back pain due to mesenteric mass 10cm , ? jourdan, Lt.periaortic 1.1 cm node, Lt. splenic 1.4cm focus CT T/L spine --- thecal sac compression, Lt. psoas muscle 8cm mass CT chest -- extensive rt. 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 awaitibg bone marrow bx s/p port-a-cath to consider steroids and RCVP with C1. mini RCHOP if tolerates RCVP. started dexamethasone 20mg 04/07/20 x 5 days. Rituxan split dose on 04/09 and 04/10 High risk for tumor lysis --- on allopurinol. gentle hydration. f/u G6 PD monitor tumor lysis labs daily-- LDH/uric acid/CMP anemia of chronic disease
--- NOTE | 2020-04-09 15:13 | PN ---
Physical Exam: SUBJECTIVE: No overnight events. Patient seen and examined. Pt in NAD. ROS negative except for chronic back pain. OBJECTIVE: Vital Signs Period Temp Pulse Resp BP Sys/Tillman Pulse Ox Last 24 Hr 97.8 F-98 F 55-93 20-20 105-126/57-65 98-100 GENERAL: The patient is awake, alert, and fully oriented, in no acute distress. HEENT: NC, NT. LUNGS: Breath sounds equal, clear to auscultation bilaterally, no wheezes, no crackles, no accessory muscle use. HEART: Regular rate and rhythm, S1, S2 w systolic murmur best heard at aortic and pulmonic regions; No rub or gallop. ABDOMEN: L flank pain TTP. Soft, nondistended, normoactive bowel sounds, EXTREMITIES: 2+ pulses, warm, well-perfused, 2+ pitting edema b/l legs NEUROLOGICAL: gait not observed. PSYCH: Normal mood, normal affect. SKIN: Warm, dry, normal turgor, no rashes or lesions noted Laboratory Results - last 24 hr 04/06/20 04/09/20 04/09/20 21:40 06:38 06:38 WBC 5.7 RBC 2.64 L Hgb 7.7 L Hct 23.6 L MCV 89.3 MCH 29.2 MCHC 32.7 RDW 15.6 Plt Count 158 MPV 9.6 Absolute Neuts (auto) 4.1 Neutrophils % 71.0 Neutrophils % (Manual) 77.0 Band Neutrophils % 0.0 Lymphocytes % 11.2 D Lymphocytes % (Manual) 9.0 Monocytes % 17.3 H Monocytes % (Manual) 14 H Eosinophils % 0.0 Eosinophils % (Manual) 0.0 Basophils % 0.5 Basophils % (Manual) 0.0 Myelocytes % (Man) 0 Promyelocytes % (Man) 0 Blast Cells % (Manual) 0 Nucleated RBC % 0 Metamyelocytes 0 Hypochromia 0 Platelet Estimate Decreased Polychromasia 1+ Poikilocytosis 2+ Anisocytosis 1+ Microcytosis 1+ Macrocytosis 0 Stomatocytes 2+ Sodium 140 Potassium 4.6 Chloride 109 H Carbon Dioxide 23 Anion Gap 9 BUN 42.5 H Creatinine 1.5 H Est GFR (CKD-EPI)AfAm 48.85 Est GFR (CKD-EPI)NonAf 42.14 Random Glucose 123 H Uric Acid 6.9 Calcium 8.5 Total Bilirubin 0.3 AST 14 L ALT 14 Alkaline Phosphatase 61 LD Total 199 Total Protein 5.1 L Albumin 1.9 L COVID-19 (PRASHANTH) Not detected Active Medications Generic Name Dose Route Start Last Admin Trade Name Freq PRN Reason Stop Dose Admin Acetaminophen 1,000 mg 03/30/20 18:21 04/08/20 22:31 Tylenol - PO 1,000 mg Q6H PRN Administration PAIN LEVEL 1-5 Allopurinol 300 mg 04/01/20 17:30 04/09/20 10:28 Zyloprim - PO 300 mg DAILY GEORGINA Administration Ascorbic Acid 500 mg 03/30/20 22:00 04/09/20 10:28 Vitamin C - PO 500 mg BID GEORGINA Administration Atorvastatin Calcium 5 mg 03/30/20 22:00 04/08/20 22:30 Lipitor - PO 5 mg HS GEORGINA Administration Cholecalciferol 500 unit 03/31/20 10:00 04/09/20 10:28 Vitamin D3 - PO 500 unit DAILY GEORGINA Administration Dexamethasone Sodium Phosphate 20 mg 04/07/20 15:30 04/09/20 10:27 Decadron Injection - IVPB 04/10/20 10:01 20 mg DAILY GEORGINA Administration Docusate Sodium 100 mg 03/30/20 22:00 04/09/20 14:23 Colace - PO 100 mg TID GEORGINA Administration Famotidine 20 mg 04/05/20 22:00 04/09/20 10:28 Pepcid - PO 20 mg BID GEORGINA Administration Ferrous Sulfate 325 mg 03/31/20 08:00 04/09/20 14:23 Feosol - PO 325 mg TIDCM GEORGINA Administration Heparin Sodium (Porcine) 5,000 unit 04/03/20 22:00 04/09/20 14:23 Heparin - SQ 5,000 unit TID GEORGINA Administration IV Flush 10 ml 04/08/20 23:33 04/09/20 06:26 Danie-Cath Flush IVPUSH 10 ml PRN PRN Administration maintain patency, protocol Sodium Chloride 1,000 mls @ 83 mls/hr 04/07/20 16:30 04/09/20 04:02 1/2 Normal Saline IV 83 mls/hr ASDIR GEORGINA Administration Lidocaine 1 patch 03/31/20 10:00 Lidoderm Patch - TP DAILY PRN PAIN LEVEL 1-5 Miscellaneous 1 each 03/30/20 22:00 04/08/20 22:25 Lidoderm Patch Removal MC Not Given DAILY@2200 GEORGINA Terazosin HCl 5 mg 03/30/20 22:00 04/08/20 22:30 Hytrin - PO 5 mg HS GEORGINA Administration -lumbar MRI with contrast (03/28)- large mass lesion of left psoas muscle at L1- L2 disc level with extension through left L1-L2 and T12-L1 foramina into the left lateral half of the central spinal canal at levels L1-L3. A second lesion noted at T11-T12 levels extending into T11-T12 foramen without definite exten roseann into canal -CT abd pelvis- irregular nonspecific 10x9x8 cm left pelvic mesenteric soft tissue lesion suggestive of neoplastic disease, possibly lymphadenopathy; 1.1 cm left periaortic retroperitoneal lymph node at the level of the kidneys -axillary lymph node biopsy- preliminary results B-cell lymphoma, double expressor ([facility], bc12) FISH negative -ucx: enterococcus faecalis -COVID negative ASSESSMENT/PLAN: 84 YO M with PMH of HTN, HLD, non-Hodgkin's lymphoma (5-10 years ago, in remission), & prostate cancer (13 years ago in remission), who presents with left lumbar pain since September and has gotten acutely worse over the last 2 months. He also came in for Left flank and abdominal pain. Pt was admitted for Left flank and back pain 2/2 neoplasm. #Left flank and back pain 2/2 neoplasm, likely lymphoma - B cell lymphoma on axillary lymph node bx -oncology following (Dr. Dodson), s/p port-a-cath -bone marrow bx taken. Waiting on results -c/w oxycodone 10mg Q6H PRN -c/w dexamethasone 20 mg -neurosurgery consulted- reevaluate post bm biopsy -continue monitoring LDH, uric acid daily as pt is in high risk for tumor lysis. C/w allopurinol for tumor lysis syndrome ppx -Heme onc consult appreciated. RCVP. Mini CHOP if tolerates RCVP. Ritxan split dose on 04/09 & 04/10 Anemia of chronic disease -H&H improved to 7.7 & 23.6 today (04/09); s/p 1 PRBC (04/06) -c/w monitoring CBC HTN -hold meds.BP is stable. #CHEMA -Cr & BUN trended up BUN/Cr 34.1/1.2>42.5/1.5 today. -continue IVF #HLD -c/w statin -ASA 81mg daily #DVT Ppx/GI PPX -SCDs; c/w heparin -Pepcid 10 mg BID for GI PPX #FEN -0.45% saline 83 ml/hr -Monitor Lytes -sodium-controlled diet #Dispo maintain med-surg Visit type - Emergency Visit Emergency Visit: Yes ED Registration Date: 03/21/20 Care time: The patient presented to the Emergency Department on the above date and was hospitalized for further evaluation of their emergent condition. - New Patient This patient is new to me today: No - Critical Care Critical Care patient: No ATTENDING PHYSICIAN STATEMENT I saw and evaluated the patient. I reviewed the resident's note and discussed the case with the resident. I agree with the resident's findings and plan as documented. SUBJECTIVE: OBJECTIVE: ASSESSMENT AND PLAN:
--- NOTE | 2020-04-09 17:46 | PN ---
Teaching Attending Note Name of Resident: Usama Villarreal ATTENDING PHYSICIAN STATEMENT I saw and evaluated the patient. I reviewed the resident's note and discussed the case with the resident. I agree with the resident's findings and plan as documented. SUBJECTIVE: Patient is comfortable with NAD. OBJECTIVE: Vital Signs Temperature 97.8 F 04/09/20 13:41 Pulse Rate 93 H 04/09/20 13:41 Respiratory Rate 20 04/09/20 13:41 Blood Pressure 126/65 04/09/20 13:41 O2 Sat by Pulse Oximetry (%) 98 04/09/20 09:00 PE: per resident's note CBCD WBC 5.7 K/mm3 (4.0-10.0) 04/09/20 06:38 RBC 2.64 M/mm3 (4.00-5.60) L 04/09/20 06:38 Hgb 7.7 GM/dL (11.7-16.9) L 04/09/20 06:38 Hct 23.6 % (35.4-49) L 04/09/20 06:38 MCV 89.3 fl (80-96) 04/09/20 06:38 MCHC 32.7 g/dl (32.0-35.9) 04/09/20 06:38 RDW 15.6 % (11.9-15.9) 04/09/20 06:38 Plt Count 158 K/MM3 (134-434) 04/09/20 06:38 MPV 9.6 fl (7.5-11.1) 04/09/20 06:38 CMP Sodium 140 mmol/L (136-145) 04/09/20 06:38 Potassium 4.6 mmol/L (3.5-5.1) 04/09/20 06:38 Chloride 109 mmol/L (98-107) H 04/09/20 06:38 Carbon Dioxide 23 mmol/L (21-32) 04/09/20 06:38 Anion Gap 9 MMOL/L (8-16) 04/09/20 06:38 BUN 42.5 mg/dL (7-18) H 04/09/20 06:38 Creatinine 1.5 mg/dL (0.55-1.3) H 04/09/20 06:38 Random Glucose 123 mg/dL (74-106) H 04/09/20 06:38 Calcium 8.5 mg/dL (8.5-10.1) 04/09/20 06:38 Total Bilirubin 0.3 mg/dL (0.2-1) 04/09/20 06:38 AST 14 U/L (15-37) L 04/09/20 06:38 ALT 14 U/L (13-61) 04/09/20 06:38 Alkaline Phosphatase 61 U/L (45-117) 04/09/20 06:38 Total Protein 5.1 g/dl (6.4-8.2) L 04/09/20 06:38 Albumin 1.9 g/dl (3.4-5.0) L 04/09/20 06:38 CARDIAC ENZYMES Creatine Kinase 27 U/L (26-308) 03/21/20 16:10 Troponin I 0.03 ng/ml (0.00-0.05) 03/21/20 16:10 Current Medications Generic Name Dose Route Start Last Admin Trade Name Freq PRN Reason Stop Dose Admin Acetaminophen 1,000 mg 03/30/20 18:21 04/08/20 22:31 Tylenol - PO 1,000 mg Q6H PRN Administration PAIN LEVEL 1-5 Allopurinol 300 mg 04/01/20 17:30 04/09/20 10:28 Zyloprim - PO 300 mg DAILY GEORGINA Administration Ascorbic Acid 500 mg 03/30/20 22:00 04/09/20 10:28 Vitamin C - PO 500 mg BID GEORGINA Administration Atorvastatin Calcium 5 mg 03/30/20 22:00 04/08/20 22:30 Lipitor - PO 5 mg HS GEORGINA Administration Cholecalciferol 500 unit 03/31/20 10:00 04/09/20 10:28 Vitamin D3 - PO 500 unit DAILY GEORGINA Administration Dexamethasone Sodium Phosphate 20 mg 04/07/20 15:30 04/09/20 10:27 Decadron Injection - IVPB 04/10/20 10:01 20 mg DAILY [facility] Administration Docusate Sodium 100 mg 03/30/20 22:00 04/09/20 14:23 Colace - PO 100 mg TID GEORGINA Administration Famotidine 20 mg 04/05/20 22:00 04/09/20 10:28 Pepcid - PO 20 mg BID GEORGINA Administration Ferrous Sulfate 325 mg 03/31/20 08:00 04/09/20 17:11 Feosol - PO 325 mg TIDCM GEORGINA Administration Heparin Sodium (Porcine) 5,000 unit 04/03/20 22:00 04/09/20 14:23 Heparin - SQ 5,000 unit TID GEORGINA Administration IV Flush 10 ml 04/08/20 23:33 04/09/20 06:26 Danie-Cath Flush IVPUSH 10 ml PRN PRN Administration maintain patency, protocol Sodium Chloride 1,000 mls @ 83 mls/hr 04/07/20 16:30 04/09/20 16:31 1/2 Normal Saline IV 83 mls/hr ASDIR GEORGINA Administration Lidocaine 1 patch 03/31/20 10:00 Lidoderm Patch - TP DAILY PRN PAIN LEVEL 1-5 Miscellaneous 1 each 03/30/20 22:00 04/08/20 22:25 Lidoderm Patch Removal MC Not Given DAILY@2200 GEORGINA Terazosin HCl 5 mg 03/30/20 22:00 04/08/20 22:30 Hytrin - PO 5 mg HS GEORGINA Administration Home Medications Medication Instructions Recorded Aspirin [ASA -] 81 mg PO DAILY 09/07/12 Terazosin HCl [Hytrin -] 5 mg PO HS 09/07/12 Verapamil HCl ER [Calan Sr -] 240 mg PO DAILY 09/07/12 Cholecalciferol (Vitamin D3) 500 unit PO DAILY 09/08/12 [Vitamin D3] Simvastatin [Zocor -] 5 mg PO HS 09/08/12 Atenolol [Tenormin -] 25 mg PO DAILY 03/22/20 Microbiology 04/04/20 01:00 Blood - Peripheral Venous Blood Culture - Final NO GROWTH AFTER 5 DAYS INCUBATION 04/04/20 00:50 Blood - Peripheral Venous Blood Culture - Final NO GROWTH AFTER 5 DAYS INCUBATION 04/06/20 05:00 Urine - Urine Clean Catch Urine Culture - Final Enterococcus Faecalis 03/21/20 17:20 Urine - Urine Clean Catch Urine Culture - Final NO GROWTH OBTAINED ASSESSMENT AND PLAN: This patient is an 84yom with Pmhx of HTN, HLD, non-Hodgkin's lymphoma, prostate cancer (beads 13 years ago in remission), who presented with L lower back pain. #B cell Lymphoma s/p bx: s/p port discussed with Dr. Dodson , will have the 1st dose of chemo in the hospital , R-chop is planned for the patient. continue monitoring LDH, uric acid daily as pt is in high risk for tumor lysis, continue allopurinol and gentle hydration as per onc. to give steroids and RCVP with C1. mini RCHOP if tolerates RCVP. started dexamethasone 20mg 04/07/20 x 5 days. Rituxan split dose on 04/09 and 04/10 High risk for tumor lysis on allopurinol. gentle hydration. f/u G6 PD, labs daily-- LDH/uric acid/CMP #Anemia: will give him one unit of PRBC , on iron supplement #L paravertebral mass consulted neurosurgery #Low back pain and LLQ pain due to paravertebral mass . cont oxy , pain is better #R axillary LAP : bx B-cell lymphoma will d/w ONC the treatment plan ( inpatient vs out pt ) #HTN: controlled #Anemia: Hb stable after a unit over the weekend # Pancytopenia monitor oncology on the case DVT Px: SCDS, heparin sq , will monitor continue current management elevate LEs s/p port will get chemo on friday
[2020-04-09] MEDS: ATORVASTATIN CA 10 MG TABLET (FP) PO SCH (21:29)
[2020-04-09] MEDS: TERAZOSIN HCL 5 MG CAPSULE PO SCH (21:30)
[2020-04-09] MEDS: LIDOCAINE PATCH REMOVAL MC SCH (21:32)
[2020-04-10] MEDS: SODIUM CHLORIDE 0.45% 1,000 ML IV SCH ×2 (04:03→17:20)
[2020-04-10] MEDS: HEPARIN NA (PORCINE) 5,000 UNITS/ML 1ML VIAL SQ SCH ×3 (05:25→21:38)
[2020-04-10] MEDS: DOCUSATE SODIUM 100 MG CAPSULE (FP) PO SCH ×3 (05:25→21:37)
[2020-04-10] MEDS ORDERED: PT OWN MED DRAWER 7, Y5N ONE ×2 (06:43→21:30)
[2020-04-10 08:17] LABS: BASO % 0.4 % (0-2.0); HEMATOCRIT 23.5 % (35.4-49); HEMOGLOBIN 7.8 GM/dL (11.7-16.9); LYMPH % 12.8 % (8-40); MCH 29.6 pg (25.7-33.7); MEAN CELL VOLUME 89.8 fl (80-96); MONO % 16.3 % (3.8-10.2); NEUT % 70.5 % (42.8-82.8); PLATELET COUNT 159 K/MM3 (134-434); RBC 2.62 M/mm3 (4.00-5.60); WHITE BLOOD COUNT 5.2 K/mm3 (4.0-10.0)
[2020-04-10 08:45] LABS: ALBUMIN 2.1 g/dl (3.4-5.0); BILIRUBIN,TOTAL 0.3 mg/dL (0.2-1); CALCIUM 8.5 mg/dL (8.5-10.1); CREATININE 1.3 mg/dL (0.55-1.3); PHOSPHOROUS 4.6 mg/dL (2.5-4.9); POTASSIUM 4.5 mmol/L (3.5-5.1); URIC ACID 6.4 mg/dL (2.6-7.2)
[2020-04-10] MEDS: CHOLECALCIFEROL (VIT D3) 1,000 UNIT (25 MCG) TABLET PO SCH (09:32)
[2020-04-10] MEDS: FERROUS SO4 325 MG TABLET (FP) PO SCH ×3 (09:32→16:29)
[2020-04-10] MEDS: ALLOPURINOL 300 MG TABLET (FP) PO SCH (09:32)
[2020-04-10] MEDS: FAMOTIDINE 20 MG TABLET PO SCH ×2 (09:33→21:37)
[2020-04-10] MEDS: ASCORBIC ACID 500 MG TABLET (FP) PO SCH ×2 (09:37→21:38)
[2020-04-10 09:46] LABS: ANISOCYTOSIS 0; MACROCYTOSIS 0; PLATELET ESTIMATE DECREASED
--- NOTE | 2020-04-10 10:13 | PN ---
Teaching Attending Note Name of Resident: Usama Villarreal ATTENDING PHYSICIAN STATEMENT I saw and evaluated the patient. I reviewed the resident's note and discussed the case with the resident. I agree with the resident's findings and plan as documented. SUBJECTIVE: Patient is comfortable , going for chemo today OBJECTIVE: Vital Signs Temperature 97.6 F 04/10/20 05:00 Pulse Rate 98 H 04/10/20 05:00 Respiratory Rate 20 04/10/20 05:00 Blood Pressure 116/61 04/10/20 05:00 O2 Sat by Pulse Oximetry (%) 96 04/09/20 21:00 PE: per resident's note + Port CBCD WBC 5.2 K/mm3 (4.0-10.0) 04/10/20 06:20 RBC 2.62 M/mm3 (4.00-5.60) L 04/10/20 06:20 Hgb 7.8 GM/dL (11.7-16.9) L 04/10/20 06:20 Hct 23.5 % (35.4-49) L 04/10/20 06:20 MCV 89.8 fl (80-96) 04/10/20 06:20 MCHC 33.0 g/dl (32.0-35.9) 04/10/20 06:20 RDW 16.0 % (11.9-15.9) H 04/10/20 06:20 Plt Count 159 K/MM3 (134-434) 04/10/20 06:20 MPV 10.0 fl (7.5-11.1) 04/10/20 06:20 CMP Sodium 140 mmol/L (136-145) 04/10/20 06:20 Potassium 4.5 mmol/L (3.5-5.1) 04/10/20 06:20 Chloride 110 mmol/L (98-107) H 04/10/20 06:20 Carbon Dioxide 24 mmol/L (21-32) 04/10/20 06:20 Anion Gap 6 MMOL/L (8-16) L 04/10/20 06:20 BUN 43.0 mg/dL (7-18) H 04/10/20 06:20 Creatinine 1.3 mg/dL (0.55-1.3) 04/10/20 06:20 Random Glucose 104 mg/dL (74-106) 04/10/20 06:20 Calcium 8.5 mg/dL (8.5-10.1) 04/10/20 06:20 Total Bilirubin 0.3 mg/dL (0.2-1) 04/10/20 06:20 AST 16 U/L (15-37) 04/10/20 06:20 ALT 13 U/L (13-61) 04/10/20 06:20 Alkaline Phosphatase 58 U/L (45-117) 04/10/20 06:20 Total Protein 5.0 g/dl (6.4-8.2) L 04/10/20 06:20 Albumin 2.1 g/dl (3.4-5.0) L 04/10/20 06:20 CARDIAC ENZYMES Creatine Kinase 27 U/L (26-308) 03/21/20 16:10 Troponin I 0.03 ng/ml (0.00-0.05) 03/21/20 16:10 Current Medications Generic Name Dose Route Start Last Admin Trade Name Freq PRN Reason Stop Dose Admin Acetaminophen 1,000 mg 03/30/20 18:21 04/08/20 22:31 Tylenol - PO 1,000 mg Q6H PRN Administration PAIN LEVEL 1-5 Allopurinol 300 mg 04/01/20 17:30 04/10/20 09:32 Zyloprim - PO 300 mg DAILY GEORGINA Administration Ascorbic Acid 500 mg 03/30/20 22:00 04/10/20 09:37 Vitamin C - PO 500 mg BID GEORGINA Administration Atorvastatin Calcium 5 mg 03/30/20 22:00 04/09/20 21:29 Lipitor - PO 5 mg HS GEORGINA Administration Cholecalciferol 500 unit 03/31/20 10:00 04/10/20 09:32 Vitamin D3 - PO 500 unit DAILY GEORGINA Administration Docusate Sodium 100 mg 03/30/20 22:00 04/10/20 05:25 Colace - PO 100 mg TID GEORGINA Administration Famotidine 20 mg 04/05/20 22:00 04/10/20 09:33 Pepcid - PO 20 mg BID GEORGINA Administration Ferrous Sulfate 325 mg 03/31/20 08:00 04/10/20 09:32 Feosol - PO 325 mg TIDCM GEORGINA Administration Heparin Sodium (Porcine) 5,000 unit 04/03/20 22:00 04/10/20 05:25 Heparin - SQ 5,000 unit TID GEORGINA Administration IV Flush 10 ml 04/08/20 23:33 04/09/20 06:26 Danie-Cath Flush IVPUSH 10 ml PRN PRN Administration maintain patency, protocol Sodium Chloride 1,000 mls @ 83 mls/hr 04/07/20 16:30 04/10/20 04:03 1/2 Normal Saline IV 83 mls/hr ASDIR GEORGINA Administration Lidocaine 1 patch 03/31/20 10:00 Lidoderm Patch - TP DAILY PRN PAIN LEVEL 1-5 Miscellaneous 1 each 03/30/20 22:00 04/09/20 21:32 Lidoderm Patch Removal MC Not Given DAILY@2200 GEORGINA Terazosin HCl 5 mg 03/30/20 22:00 04/09/20 21:30 Hytrin - PO 5 mg HS GEORGINA Administration Home Medications Medication Instructions Recorded Aspirin [ASA -] 81 mg PO DAILY 09/07/12 Terazosin HCl [Hytrin -] 5 mg PO HS 09/07/12 Verapamil HCl ER [Calan Sr -] 240 mg PO DAILY 09/07/12 Cholecalciferol (Vitamin D3) 500 unit PO DAILY 09/08/12 [Vitamin D3] Simvastatin [Zocor -] 5 mg PO HS 09/08/12 Atenolol [Tenormin -] 25 mg PO DAILY 03/22/20 Microbiology 04/04/20 01:00 Blood - Peripheral Venous Blood Culture - Final NO GROWTH AFTER 5 DAYS INCUBATION 04/04/20 00:50 Blood - Peripheral Venous Blood Culture - Final NO GROWTH AFTER 5 DAYS INCUBATION 04/06/20 05:00 Urine - Urine Clean Catch Urine Culture - Final Enterococcus Faecalis 03/21/20 17:20 Urine - Urine Clean Catch Urine Culture - Final NO GROWTH OBTAINED ASSESSMENT AND PLAN: This patient is an 84yom with Pmhx of HTN, HLD, non-Hodgkin's lymphoma, prostate cancer (beads 13 years ago in remission), who presented with L lower back pain. #B cell Lymphoma s/p bx: s/p port discussed with Dr. Dodson , will have the 1st dose of chemo in the hospital today , R-chop is planned for the patient. continu e monitoring LDH, uric acid daily as pt is in high risk for tumor lysis, continue allopurinol and gentle hydration as per onc. to give steroids and RCVP with C1. mini RCHOP if tolerates RCVP. started dexamethasone 20mg 04/07/20 x 5 days. Rituxan split dose on 04/09 and 04/10 High risk for tumor lysis on allopurinol. gentle hydration. f/u G6 PD, labs daily-- LDH/uric acid/CMP #Anemia: s/p one unit of PRBC , on iron supplement and colace #L paravertebral mass consulted neurosurgery #Low back pain and LLQ pain due to paravertebral mass . cont oxy , pain is better #R axillary LAP : bx B-cell lymphoma will d/w ONC the treatment plan ( inpatient vs out pt ) #HTN: controlled #Anemia: Hb stable after a unit over the weekend # Pancytopenia monitor oncology on the case DVT Px: SCDS, heparin sq , will monitor continue current management elevate LEs
[2020-04-10] MEDS ORDERED: DEXAMETHASONE INJECTION 20 MG, DIPHENHYDRAMINE 25 MG in SODIUM CHLORIDE 100 ML IVPB ONE (11:00)
[2020-04-10] MEDS ORDERED: SODIUM CHLORIDE IVPB ONE ×2 (11:00→11:40)
[2020-04-10] MEDS ORDERED: RITUXIMAB IVPB ONE ×2 (11:00→11:40)
[2020-04-10] MEDS ORDERED: ACETAMINOPHEN 325 MG TABLET (FP) PO ONE (11:00)
--- NOTE | 2020-04-10 15:18 | PN ---
Progress Note (short form) - Note Progress Note: ID consult dictated asked to comment on Urine culture imp/reccd B Cell Lymphoma to start treatment he feels well no fevers, no dysuria low colony count urine culture with negative UA- no need to treat at this time d/w dr reyes please call back if needed Problem List - Problems (1) B-cell lymphoma Code(s): C85.10 - UNSPECIFIED B-CELL LYMPHOMA, UNSPECIFIED SITE (2) Asymptomatic bacteriuria Code(s): R82.71 - BACTERIURIA
--- NOTE | 2020-04-10 16:09 | PN ---
Progress Note, Physician History of Present Illness: Pt seen and examined at bedside. He is awake and alert. He denies shortness of breath. He complains of increased lower ext edema. - Current Medication List Current Medications: Active Medications Acetaminophen (Tylenol -) 1,000 mg PO Q6H PRN PRN Reason: PAIN LEVEL 1-5 Last Admin: 04/08/20 22:31 Dose: 1,000 mg Documented by: Allopurinol (Zyloprim -) 300 mg PO DAILY [facility] Last Admin: 04/10/20 09:32 Dose: 300 mg Documented by: Ascorbic Acid (Vitamin C -) 500 mg PO BID [facility] Last Admin: 04/10/20 09:37 Dose: 500 mg Documented by: Atorvastatin Calcium (Lipitor -) 5 mg PO HS [facility] Last Admin: 04/09/20 21:29 Dose: 5 mg Documented by: Cholecalciferol (Vitamin D3 -) 500 unit PO DAILY [facility] Last Admin: 04/10/20 09:32 Dose: 500 unit Documented by: Docusate Sodium (Colace -) 100 mg PO TID [facility] Last Admin: 04/10/20 14:00 Dose: Not Given Documented by: Famotidine (Pepcid -) 20 mg PO BID [facility] Last Admin: 04/10/20 09:33 Dose: 20 mg Documented by: Ferrous Sulfate (Feosol -) 325 mg PO TIDCM [facility] Last Admin: 04/10/20 11:52 Dose: 325 mg Documented by: Heparin Sodium (Porcine) (Heparin -) 5,000 unit SQ TID [facility] Last Admin: 04/10/20 14:00 Dose: 5,000 unit Documented by: IV Flush (Danie-Cath Flush) 10 ml IVPUSH PRN PRN PRN Reason: maintain patency, protocol Last Admin: 04/09/20 06:26 Dose: 10 ml Documented by: Sodium Chloride (1/2 Normal Saline) 1,000 mls @ 83 mls/hr IV ASDIR [facility] Last Admin: 04/10/20 04:03 Dose: 83 mls/hr Documented by: Lidocaine (Lidoderm Patch -) 1 patch TP DAILY PRN PRN Reason: PAIN LEVEL 1-5 Miscellaneous (Lidoderm Patch Removal) 1 each MC DAILY@2200 [facility] Last Admin: 04/09/20 21:32 Dose: Not Given Documented by: Terazosin HCl (Hytrin -) 5 mg PO HS [facility] Last Admin: 04/09/20 21:30 Dose: 5 mg Documented by: - Objective Vital Signs: Vital Signs Temperature 98.3 F 04/10/20 14:19 Pulse Rate 92 H 04/10/20 14:19 Respiratory Rate 20 04/10/20 14:19 Blood Pressure 109/63 04/10/20 14:19 O2 Sat by Pulse Oximetry (%) 96 04/10/20 09:00 Constitutional: Yes: Calm Eyes: Yes: Conjunctiva Clear Cardiovascular: Yes: S1, S2 Respiratory: Yes: CTA Bilaterally Gastrointestinal: Yes: Soft Genitourinary: Yes: WNL Edema: Yes Edema: LLE: 2+, RLE: 2+ Neurological: Yes: Oriented Psychiatric: Yes: Oriented Labs: CBC, BMP 04/10/20 06:20 04/10/20 06:20 INR, PTT INR 1.13 (0.83-1.09) H 03/21/20 16:10 Problem List - Problems (1) CHEMA (acute kidney injury) Code(s): N17.9 - ACUTE KIDNEY FAILURE, UNSPECIFIED (2) Hypotension Code(s): I95.9 - HYPOTENSION, UNSPECIFIED Qualifiers: Hypotension type: unspecified hypotension type Qualified Code(s): I95.9 - Hypotension, unspecified (3) Low back pain Code(s): M54.5 - LOW BACK PAIN Qualifiers: Chronicity: acute Back pain laterality: left Sciatica presence: without sciatica Qualified Code(s): M54.5 - Low back pain Assessment/Plan Current Medications Generic Name Dose Route Start Last Admin Trade Name Nicholas PRN Reason Stop Dose Admin Acetaminophen 1,000 mg 03/30/20 18:21 04/08/20 22:31 Tylenol - PO 1,000 mg Q6H PRN Administration PAIN LEVEL 1-5 Allopurinol 300 mg 04/01/20 17:30 04/10/20 09:32 Zyloprim - PO 300 mg DAILY [facility] Administration Ascorbic Acid 500 mg 03/30/20 22:00 04/10/20 09:37 Vitamin C - PO 500 mg BID [facility] Administration Atorvastatin Calcium 5 mg 03/30/20 22:00 04/09/20 21:29 Lipitor - PO 5 mg HS [facility] Administration Cholecalciferol 500 unit 03/31/20 10:00 04/10/20 09:32 Vitamin D3 - PO 500 unit DAILY [facility] Administration Docusate Sodium 100 mg 03/30/20 22:00 04/10/20 14:00 Colace - PO Not Given TID [facility] Famotidine 20 mg 04/05/20 22:00 04/10/20 09:33 Pepcid - PO 20 mg BID [facility] Administration Ferrous Sulfate 325 mg 03/31/20 08:00 04/10/20 11:52 Feosol - PO 325 mg TIDCM [facility] Administration Heparin Sodium (Porcine) 5,000 unit 04/03/20 22:00 04/10/20 14:00 Heparin - SQ 5,000 unit TID [facility] Administration IV Flush 10 ml 04/08/20 23:33 04/09/20 06:26 Danie-Cath Flush IVPUSH 10 ml PRN PRN Administration maintain patency, protocol Sodium Chloride 1,000 mls @ 83 mls/hr 04/07/20 16:30 04/10/20 04:03 1/2 Normal Saline IV 83 mls/hr ASDIR [facility] Administration Lidocaine 1 patch 03/31/20 10:00 Lidoderm Patch - TP DAILY PRN PAIN LEVEL 1-5 Miscellaneous 1 each 03/30/20 22:00 04/09/20 21:32 Lidoderm Patch Removal MC Not Given DAILY@2200 [facility] Terazosin HCl 5 mg 03/30/20 22:00 04/09/20 21:30 Hytrin - PO 5 mg HS [facility] Administration Impression 1. CHEMA 2. lymphoma 3. hypotension 4. anemia 5. prostate cancer 6. hyperkalemia 7. hx of gammopathy 8. b-cell lymphoma Plan - will give 20 mg of lasix - cont fluids - monitor for tumor lysis - repeat labs in am - oncology follow up
--- NOTE | 2020-04-10 17:56 | PN ---
Physical Exam: SUBJECTIVE: No overnight events. Patient seen and examined. Pt in NAD. ROS negative except for chronic back pain. OBJECTIVE: Vital Signs Period Temp Pulse Resp BP Sys/Tillman Pulse Ox Last 24 Hr 97.6 F-98.7 F 88-101 20-20 109-141/61-78 96-96 GENERAL: The patient is awake, alert, and fully oriented, in no acute distress. HEENT: NC, NT. LUNGS: Breath sounds equal, clear to auscultation bilaterally, no wheezes, no crackles, no accessory muscle use. HEART: Regular rate and rhythm, S1, S2 w systolic murmur best heard at aortic and pulmonic regions; No rub or gallop. ABDOMEN: L flank pain TTP. Soft, nondistended, normoactive bowel sounds, EXTREMITIES: 2+ pulses, warm, well-perfused, 2+ pitting edema b/l legs NEUROLOGICAL: gait not observed. PSYCH: Normal mood, normal affect. SKIN: Warm, dry, normal turgor, no rashes or lesions noted Laboratory Results - last 24 hr 04/06/20 04/10/20 04/10/20 14:20 06:20 06:20 WBC 5.2 RBC 2.62 L Hgb 7.8 L Hct 23.5 L MCV 89.8 MCH 29.6 MCHC 33.0 RDW 16.0 H Plt Count 159 MPV 10.0 Absolute Neuts (auto) 3.7 Neutrophils % 70.5 Neutrophils % (Manual) 83.0 H Band Neutrophils % 0.0 Lymphocytes % 12.8 Lymphocytes % (Manual) 5.0 L D Monocytes % 16.3 H Monocytes % (Manual) 10 Eosinophils % 0.0 Eosinophils % (Manual) 1.0 D Basophils % 0.4 Basophils % (Manual) 0.0 Myelocytes % (Man) 0 Promyelocytes % (Man) 0 Blast Cells % (Manual) 0 Nucleated RBC % 1 H Metamyelocytes 1 D Hypochromia 0 Platelet Estimate Decreased Polychromasia 0 Poikilocytosis 0 Anisocytosis 0 Microcytosis 0 Macrocytosis 0 Sodium 140 Potassium 4.5 Chloride 110 H Carbon Dioxide 24 Anion Gap 6 L BUN 43.0 H Creatinine 1.3 Est GFR (CKD-EPI)AfAm 58.07 Est GFR (CKD-EPI)NonAf 50.10 Random Glucose 104 Uric Acid 6.4 Calcium 8.5 Phosphorus 4.6 Magnesium 2.0 Total Bilirubin 0.3 AST 16 ALT 13 Alkaline Phosphatase 58 LD Total 201 Total Protein 5.0 L Albumin 2.1 L Blood Type O POSITIVE Antibody Screen Negative Crossmatch See Detail Active Medications Generic Name Dose Route Start Last Admin Trade Name Freq PRN Reason Stop Dose Admin Acetaminophen 1,000 mg 03/30/20 18:21 04/08/20 22:31 Tylenol - PO 1,000 mg Q6H PRN Administration PAIN LEVEL 1-5 Allopurinol 300 mg 04/01/20 17:30 04/10/20 09:32 Zyloprim - PO 300 mg DAILY [facility] Administration Ascorbic Acid 500 mg 03/30/20 22:00 04/10/20 09:37 Vitamin C - PO 500 mg BID [facility] Administration Atorvastatin Calcium 5 mg 03/30/20 22:00 04/09/20 21:29 Lipitor - PO 5 mg HS [facility] Administration Cholecalciferol 500 unit 03/31/20 10:00 04/10/20 09:32 Vitamin D3 - PO 500 unit DAILY [facility] Administration Docusate Sodium 100 mg 03/30/20 22:00 04/10/20 14:00 Colace - PO Not Given TID [facility] Famotidine 20 mg 04/05/20 22:00 04/10/20 09:33 Pepcid - PO 20 mg BID [facility] Administration Ferrous Sulfate 325 mg 03/31/20 08:00 04/10/20 16:29 Feosol - PO 325 mg TIDCM [facility] Administration Heparin Sodium (Porcine) 5,000 unit 04/03/20 22:00 04/10/20 14:00 Heparin - SQ 5,000 unit TID [facility] Administration IV Flush 10 ml 04/08/20 23:33 04/09/20 06:26 Danie-Cath Flush IVPUSH 10 ml PRN PRN Administration maintain patency, protocol Sodium Chloride 1,000 mls @ 83 mls/hr 04/07/20 16:30 04/10/20 17:20 1/2 Normal Saline IV 83 mls/hr ASDIR [facility] Administration Lidocaine 1 patch 03/31/20 10:00 Lidoderm Patch - TP DAILY PRN PAIN LEVEL 1-5 Miscellaneous 1 each 03/30/20 22:00 04/09/20 21:32 Lidoderm Patch Removal MC Not Given DAILY@2200 [facility] Terazosin HCl 5 mg 03/30/20 22:00 04/09/20 21:30 Hytrin - PO 5 mg HS [facility] Administration -lumbar MRI with contrast (03/28)- large mass lesion of left psoas muscle at L1- L2 disc level with extension through left L1-L2 and T12-L1 foramina into the left lateral half of the central spinal canal at levels L1-L3. A second lesion noted at T11-T12 levels extending into T11-T12 foramen without definite extension into canal -CT abd pelvis- irregular nonspecific 10x9x8 cm left pelvic mesenteric soft tissue lesion suggestive of neoplastic disease, possibly lymphadenopathy; 1.1 cm left periaortic retroperitoneal lymph node at the level of the kidneys -axillary lymph node biopsy- preliminary results B-cell lymphoma, double expressor ([facility], bc12) FISH negative -ucx: enterococcus faecalis -COVID negative ASSESSMENT/PLAN: 84 YO M with PMH of HTN, HLD, non-Hodgkin's lymphoma (5-10 years ago, in remission), & prostate cancer (13 years ago in remission), who presents with left lumbar pain since September and has gotten acutely worse over the last 2 months. He also came in for Left flank and abdominal pain. Pt was admitted for Left flank and back pain 2/2 neoplasm. #Left flank and back pain 2/2 neoplasm, likely lymphoma - B cell lymphoma on axillary lymph node bx -oncology following (Dr. Dodson), s/p port-a-cath -bone marrow bx taken. Waiting on results -c/w oxycodone 10mg Q6H PRN -c/w dexamethasone 20 mg -given rituximab today -neurosurgery consulted- reevaluate post bm biopsy -continue monitoring LDH, uric acid daily as pt is in high risk for tumor lysis. C/w allopurinol for tumor lysis syndrome ppx -Heme onc consult appreciated. RCVP. Mini CHOP if tolerates RCVP. Ritxan split dose on 04/09 & 04/10 #Anemia of chronic disease -H&H improved to 7.8 & 23.5 today (04/10); s/p 1 PRBC (04/06) -c/w monitoring CBC HTN -hold meds.BP is stable. #CHEMA -Cr & BUN trended to BUN/Cr 42.5/1.5>43/1.3 today. -continue IVF #HLD -c/w statin -ASA 81mg daily #DVT Ppx/GI PPX -SCDs; c/w heparin -Pepcid 10 mg BID for GI PPX #FEN -0.45% saline 83 ml/hr -Monitor Lytes -sodium-controlled diet #Dispo maintain med-surg Visit type - Emergency Visit Emergency Visit: Yes ED Registration Date: 03/21/20 Care time: The patient presented to the Emergency Department on the above date and was hospitalized for further evaluation of their emergent condition. - New Patient This patient is new to me today: No - Critical Care Critical Care patient: No ATTENDING PHYSICIAN STATEMENT I saw and evaluated the patient. I reviewed the resident's note and discussed the case with the resident. I agree with the resident's findings and plan as documented. SUBJECTIVE: OBJECTIVE: ASSESSMENT AND PLAN:
[2020-04-10] MEDS: PORTA CATH FLUSH 10 ML IVPUSH PRN (18:39)
[2020-04-10] MEDS: ATORVASTATIN CA 10 MG TABLET (FP) PO SCH (21:37)
[2020-04-10] MEDS: TERAZOSIN HCL 5 MG CAPSULE PO SCH (21:37)
[2020-04-10] MEDS: LIDOCAINE PATCH REMOVAL MC SCH (21:38)
--- NOTE | 2020-04-11 00:14 | CONS ---
DATE OF CONSULTATION: DATE OF DICTATION: 04/10/2020 INFECTIOUS DISEASE CONSULTATION HISTORY OF PRESENT ILLNESS: This is an 84-year-old man I am asked to see to evaluate a urine culture. He was admitted to the hospital on March 21 for left lumbar pain. He had a workup and ultimately was found to have a B-cell lymphoma. PAST MEDICAL HISTORY: Notable for hypertension, hyperlipidemia, non-Hodgkin lymphoma, prostate cancer, brachytherapy 13 years ago in remission. cystectomy and prostatic brachytherapy in the past. SOCIAL HISTORY: He lives with his . There is no history of cigarette, alcohol, substance abuse. 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 ALLERGIES: No known drug allergies. MEDICATION: Include: 1. Aspirin. 2. Hytrin. 3. Verapamil. 4. Vitamin D. 5. Simvastatin. 6. Atenolol. REVIEW OF SYSTEMS: He denies fevers, chills. He denies any cough. He has no nausea, vomiting. He has no diarrhea, dysuria whatsoever. He does note edema of his leg is new. PHYSICAL EXAMINATION: General: He is a pleasant elderly man. Vital Signs: Temperature 98.1, pulse 91, blood pressure 115/68, respiratory rate 18. HEENT: Normocephalic. Eyes are anicteric. Neck: Supple. Lungs: Clear to auscultation. Heart: Regular rate and rhythm. Abdomen: Soft, nontender. Extremities: Notable for 1+ edema bilaterally. LABORATORY: Notable for white count of 5.2, hemoglobin 7.8, platelets are 159. BUN and creatinine are 43 and 1.3 with normal LFTs. Urinalysis is negative. His COVID-19 serology is negative x2, and he had a blood culture negative as well as urine culture, and he had a urine culture with 20,000 enterococcus. IMPRESSION: In summary, this is an elderly man with lymphoma. He has no signs of any infection at this time. Do not think he needs treatment for his urine culture which seems to be consistent with asymptomatic bacteruria. The case was discussed with the treating oncologist, Dr. Dodson. Would hold off on any antibiotics at this time. Please call back if needed. ARIA DAVIDSON M.D. [id number] MTDD
--- NOTE | 2020-04-11 01:49 | PN.HO ---
Progress Note (short form) - Note Progress Note: PAtient seen and examined Feels well. Denies any complaints Last Vital Signs Temp Pulse Resp BP Pulse Ox 99.2 F 99 H 18 102/57 L 98 04/03/20 21:30 04/03/20 21:30 04/03/20 21:30 04/03/20 21:30 04/03/20 21:00 Last Vital Signs Temp Pulse Resp BP Pulse Ox 98.7 F 92 H 20 111/56 L 97 04/05/20 21:41 04/05/20 21:41 04/05/20 21:41 04/05/20 21:41 04/05/20 09:00 Last Vital Signs Temp Pulse Resp BP Pulse Ox 98 F 92 H 20 114/57 L 100 04/08/20 21:09 04/08/20 21:09 04/08/20 21:09 04/08/20 21:09 04/08/20 09:00 Last Vital Signs Temp Pulse Resp BP Pulse Ox 97.9 F 102 H 22 H 109/61 95 04/10/20 21:45 04/10/20 21:45 04/10/20 21:45 04/10/20 21:45 04/10/20 21:00 Cor: RSR, No murmurs, No gallops Lungs: Clear to P&A Abd: Soft, Normal bowel sounds, No organomegaly Ext: 2+ edema b/l Labs/MEds reviewed A/P L sided flank pain x 1 month but worsening over the past few days that is pressure like, radiates the L abdomen and groin that fluctates intermittently but no alleviating or exacerbating factors. Pt with persisten pain without improvement with oral pain medications. ER CT of abdomen showed a new compared with 06/14/13, 10 x 9.8 x 8 cam left pelvic mesenteric mass/ lympadenopathy, 1.1cm periaortic node and an unchanged 1.4cm splenic lesion unchanged from 06/14/13. Lt. lower back pain due to mesenteric mass 10cm , ? jourdan, Lt.periaortic 1.1 cm node, Lt. splenic 1.4cm focus CT T/L spine --- thecal sac compression, Lt. psoas muscle 8cm mass CT chest -- extensive rt. 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 awaitibg bone marrow bx to consider steroids and RCVP with C1. mini RCHOP if tolerates RCVP. started dexamethasone 20mg 04/07/ x 5 days. Rituxan split dose -- tolerated well today Remainder dose 03/13 High risk for tumor lysis --- on allopurinol. gentle hydration. f/u G6 PD monitor tumor lysis labs daily-- LDH/uric acid/CMP anemia of chronic disease
[2020-04-11] MEDS: SODIUM CHLORIDE 0.45% 1,000 ML IV SCH ×3 (03:04→21:40)
[2020-04-11] MEDS: HEPARIN NA (PORCINE) 5,000 UNITS/ML 1ML VIAL SQ SCH ×3 (06:31→21:30)
[2020-04-11] MEDS: DOCUSATE SODIUM 100 MG CAPSULE (FP) PO SCH ×3 (06:31→21:30)
[2020-04-11] MEDS: PORTA CATH FLUSH 10 ML IVPUSH PRN ×2 (06:31→10:30)
[2020-04-11] MEDS: ACETAMINOPHEN 500 MG TABLET (FP) PO PRN ×3 (06:33→23:03)
[2020-04-11 07:54] LABS: BASO % 0.2 % (0-2.0); HEMATOCRIT 22.8 % (35.4-49); HEMOGLOBIN 7.6 GM/dL (11.7-16.9); LYMPH % 7.9 % (8-40); MCHC 33.3 g/dl (32.0-35.9); MEAN CELL VOLUME 89.9 fl (80-96); MEAN PLT VOLUME 9.9 fl (7.5-11.1); MONO % 11.3 % (3.8-10.2); NEUT % 80.6 % (42.8-82.8); PLATELET COUNT 150 K/MM3 (134-434); RBC 2.54 M/mm3 (4.00-5.60); RDW 15.8 % (11.9-15.9); WHITE BLOOD COUNT 4.6 K/mm3 (4.0-10.0)
[2020-04-11 08:33] LABS: ALBUMIN 1.9 g/dl (3.4-5.0); BILIRUBIN,TOTAL 0.3 mg/dL (0.2-1); BLOOD UREA NITROGEN 42.2 mg/dL (7-18); CALCIUM 8.6 mg/dL (8.5-10.1); CREATININE 1.2 mg/dL (0.55-1.3); PHOSPHOROUS 4.9 mg/dL (2.5-4.9); POTASSIUM 4.6 mmol/L (3.5-5.1); TOT PROT 5.2 g/dl (6.4-8.2); URIC ACID 6.4 mg/dL (2.6-7.2)
[2020-04-11] MEDS: FERROUS SO4 325 MG TABLET (FP) PO SCH ×3 (10:07→17:04)
[2020-04-11] MEDS: CHOLECALCIFEROL (VIT D3) 1,000 UNIT (25 MCG) TABLET PO SCH (10:07)
[2020-04-11] MEDS: ASCORBIC ACID 500 MG TABLET (FP) PO SCH ×2 (10:07→21:30)
[2020-04-11] MEDS: FAMOTIDINE 20 MG TABLET PO SCH ×2 (10:07→21:30)
[2020-04-11] MEDS: ALLOPURINOL 300 MG TABLET (FP) PO SCH (10:08)
[2020-04-11 12:02] LABS: ANISOCYTOSIS 1+; MACROCYTOSIS 1+; PLATELET ESTIMATE DECREASED
--- NOTE | 2020-04-11 13:09 | PN ---
Physical Exam: SUBJECTIVE: Patient seen and examined. He endorses chronic left lower abdominal pain that radiates from the back. Pt. denies any other new complaints. Pt. endorses a good appetite and passing stool w/o diarrhea. OBJECTIVE: Vital Signs Period Temp Pulse Resp BP Sys/Tillman Pulse Ox Last 24 Hr 97.9 F-98.8 F 89-107 16-22 109-142/61-80 95 GENERAL: The patient is awake, alert, and fully oriented, in no acute distress. HEAD: Normal with no signs of trauma. EYES: Sclera anicteric, conjunctiva clear. No ptosis. ENT: Moist mucous membranes. NECK: Trachea midline, full range of motion, supple. LUNGS: Breath sounds equal, clear to auscultation bilaterally, no wheezes, no crackles, no accessory muscle use. HEART: Regular rate and rhythm, S1, S2 without murmur, rub or gallop. ABDOMEN: Soft, nontender, nondistended, normoactive bowel sounds, no guarding, no rebound, no hepatosplenomegaly, no masses. EXTREMITIES: 2+ pulses, warm, well-perfused, no edema. NEUROLOGICAL: Cranial nerves II through XII grossly intact. Normal speech, gait not observed. PSYCH: Normal mood, normal affect. SKIN: Warm, dry, normal turgor, no rashes or lesions noted Laboratory Results - last 24 hr 04/11/20 04/11/20 06:40 06:40 WBC 4.6 RBC 2.54 L Hgb 7.6 L Hct 22.8 L MCV 89.9 MCH 30.0 MCHC 33.3 RDW 15.8 Plt Count 150 MPV 9.9 Absolute Neuts (auto) 3.7 Neutrophils % 80.6 Lymphocytes % 7.9 L D Monocytes % 11.3 H Eosinophils % 0.0 Basophils % 0.2 Nucleated RBC % 0 Sodium 141 Potassium 4.6 Chloride 111 H Carbon Dioxide 21 Anion Gap 10 BUN 42.2 H Creatinine 1.2 Est GFR (CKD-EPI)AfAm 63.97 Est GFR (CKD-EPI)NonAf 55.20 Random Glucose 117 H Uric Acid 6.4 Calcium 8.6 Phosphorus 4.9 Magnesium 2.0 Total Bilirubin 0.3 AST 21 ALT 21 Alkaline Phosphatase 63 LD Total 193 Total Protein 5.2 L Albumin 1.9 L Active Medications Generic Name Dose Route Start Last Admin Trade Name Freq PRN Reason Stop Dose Admin Acetaminophen 1,000 mg 03/30/20 18:21 04/11/20 06:33 Tylenol - PO 1,000 mg Q6H PRN Administration PAIN LEVEL 1-5 Allopurinol 300 mg 04/01/20 17:30 04/11/20 10:08 Zyloprim - PO 300 mg DAILY [facility] Administration Ascorbic Acid 500 mg 03/30/20 22:00 04/11/20 10:07 Vitamin C - PO 500 mg BID [facility] Administration Atorvastatin Calcium 5 mg 03/30/20 22:00 04/10/20 21:37 Lipitor - PO 5 mg HS [facility] Administration Cholecalciferol 500 unit 03/31/20 10:00 04/11/20 10:07 Vitamin D3 - PO 500 unit DAILY [facility] Administration Docusate Sodium 100 mg 03/30/20 22:00 04/11/20 06:31 Colace - PO 100 mg TID [facility] Administration Famotidine 20 mg 04/05/20 22:00 04/11/20 10:07 Pepcid - PO 20 mg BID [facility] Administration Ferrous Sulfate 325 mg 03/31/20 08:00 04/11/20 11:39 Feosol - PO 325 mg TIDCM [facility] Administration Heparin Sodium (Porcine) 5,000 unit 04/03/20 22:00 04/11/20 06:31 Heparin - SQ 5,000 unit TID [facility] Administration IV Flush 10 ml 04/08/20 23:33 04/11/20 06:31 Danie-Cath Flush IVPUSH 10 ml PRN PRN Administration maintain patency, protocol Sodium Chloride 1,000 mls @ 60 mls/hr 04/11/20 01:51 04/11/20 05:44 1/2 Normal Saline IV 60 mls/hr ASDIR [facility] Administration Lidocaine 1 patch 03/31/20 10:00 Lidoderm Patch - TP DAILY PRN PAIN LEVEL 1-5 Miscellaneous 1 each 03/30/20 22:00 04/10/20 21:38 Lidoderm Patch Removal MC Not Given DAILY@2200 [facility] Terazosin HCl 5 mg 03/30/20 22:00 04/10/20 21:37 Hytrin - PO 5 mg HS [facility] Administration ASSESSMENT/PLAN: Pt. is an 84 y.o. M w/ PMHx. of HTN, HLD, non-Hodgkin's lymphoma (in remission), & prostate cancer (s/p brachytherapy), who presents with left lumbar pain since September and has gotten acutely worse over the last 2 months. He also came in for Left flank and abdominal pain. #DLBC (recurrence vs. [place] tumor) CTA/P in ED showed a new compared with 06/14/13, 10 x 9.8 x 8 cam left pelvic mesenteric mass/ lympadenopathy, 1.1cm periaortic node and an unchanged 1.4cm splenic lesion unchanged from 06/14/13. Lt. lower back pain due to mesenteric mass 10cm , ? jourdan, Lt.periaortic 1.1 cm node, Lt. splenic 1.4cm focus CT T/L spine --- thecal sac compression, Lt. psoas muscle 8cm mass CT Chest -- extensive Rt. axillary jourdan mass Left axillary node biopsy-- Diffuse Large B cell lymphoma, double expressor(c- myc and bcl2) -- f/u FISH suspicious for Stage III, f/u bone marrow biopsy will consider R-CVP vs miniRCHOP, c/w Dexamethasone High risk for tumor lysis because of tumor burden c/w allopurinol. gentle hydration. Will check for G6PD, monitor LDH, uric acid and CMP daily c/w Hep SQ because of CHEMA and possible renal dysfunction once treatment starts, ideally would be on Lovenox. For Rituxin tomorrow. #HTN #HLD as per Primary team A/P Visit type - Emergency Visit Emergency Visit: Yes ED Registration Date: 03/21/20 Care time: The patient presented to the Emergency Department on the above date and was hospitalized for further evaluation of their emergent condition. - New Patient This patient is new to me today: No - Critical Care Critical Care patient: No - Discharge Referral Referred to [facility] Med P.C.: No ATTENDING PHYSICIAN STATEMENT I saw and evaluated the patient. I reviewed the resident's note and discussed the case with the resident. I agree with the resident's findings and plan as documented. SUBJECTIVE: OBJECTIVE: ASSESSMENT AND PLAN:
--- NOTE | 2020-04-11 15:45 | PN ---
Progress Note, Physician History of Present Illness: Pt seen and examined at bedside. He is awake and alert. He denies shortness of breath. - Current Medication List Current Medications: Active Medications Acetaminophen (Tylenol -) 1,000 mg PO Q6H PRN PRN Reason: PAIN LEVEL 1-5 Last Admin: 04/11/20 06:33 Dose: 1,000 mg Documented by: Allopurinol (Zyloprim -) 300 mg PO DAILY [facility] Last Admin: 04/11/20 10:08 Dose: 300 mg Documented by: Ascorbic Acid (Vitamin C -) 500 mg PO BID [facility] Last Admin: 04/11/20 10:07 Dose: 500 mg Documented by: Atorvastatin Calcium (Lipitor -) 5 mg PO [facility] Last Admin: 04/10/20 21:37 Dose: 5 mg Documented by: Cholecalciferol (Vitamin D3 -) 500 unit PO DAILY [facility] Last Admin: 04/11/20 10:07 Dose: 500 unit Documented by: Docusate Sodium (Colace -) 100 mg PO TID [facility] Last Admin: 04/11/20 13:25 Dose: 100 mg Documented by: Famotidine (Pepcid -) 20 mg PO BID [facility] Last Admin: 04/11/20 10:07 Dose: 20 mg Documented by: Ferrous Sulfate (Feosol -) 325 mg PO TIDCM [facility] Last Admin: 04/11/20 11:39 Dose: 325 mg Documented by: Heparin Sodium (Porcine) (Heparin -) 5,000 unit SQ TID [facility] Last Admin: 04/11/20 13:25 Dose: 5,000 unit Documented by: IV Flush (Danie-Cath Flush) 10 ml IVPUSH PRN PRN PRN Reason: maintain patency, protocol Last Admin: 04/11/20 06:31 Dose: 10 ml Documented by: Sodium Chloride (1/2 Normal Saline) 1,000 mls @ 60 mls/hr IV ASDIR [facility] Last Admin: 04/11/20 05:44 Dose: 60 mls/hr Documented by: Lidocaine (Lidoderm Patch -) 1 patch TP DAILY PRN PRN Reason: PAIN LEVEL 1-5 Miscellaneous (Lidoderm Patch Removal) 1 each MC DAILY@2200 [facility] Last Admin: 04/10/20 21:38 Dose: Not Given Documented by: Terazosin HCl (Hytrin -) 5 mg PO [facility] Last Admin: 04/10/20 21:37 Dose: 5 mg Documented by: - Objective Vital Signs: Vital Signs Temperature 98.3 F 04/11/20 14:35 Pulse Rate 97 H 04/11/20 14:35 Respiratory Rate 20 04/11/20 14:35 Blood Pressure 109/58 L 04/11/20 14:35 O2 Sat by Pulse Oximetry (%) 94 L 04/11/20 09:00 Constitutional: Yes: Calm Eyes: Yes: Conjunctiva Clear HENT: Yes: Atraumatic Neck: Yes: Supple Cardiovascular: Yes: S1, S2 Respiratory: Yes: CTA Bilaterally Gastrointestinal: Yes: Soft Genitourinary: Yes: WNL Extremities: Yes: WNL Edema: Yes Edema: LLE: Trace, RLE: Trace Neurological: Yes: Oriented Psychiatric: Yes: Oriented Labs: CBC, BMP 04/11/20 06:40 04/11/20 06:40 INR, PTT INR 1.13 (0.83-1.09) H 03/21/20 16:10 Problem List - Problems (1) CHEMA (acute kidney injury) Code(s): N17.9 - ACUTE KIDNEY FAILURE, UNSPECIFIED (2) Hypotension Code(s): I95.9 - HYPOTENSION, UNSPECIFIED Qualifiers: Hypotension type: unspecified hypotension type Qualified Code(s): I95.9 - Hypotension, unspecified (3) Low back pain Code(s): M54.5 - LOW BACK PAIN Qualifiers: Chronicity: acute Back pain laterality: left Sciatica presence: without sciatica Qualified Code(s): M54.5 - Low back pain Assessment/Plan Current Medications Generic Name Dose Route Start Last Admin Trade Name Nicholas PRN Reason Stop Dose Admin Acetaminophen 1,000 mg 03/30/20 18:21 04/11/20 06:33 Tylenol - PO 1,000 mg Q6H PRN Administration PAIN LEVEL 1-5 Allopurinol 300 mg 04/01/20 17:30 04/11/20 10:08 Zyloprim - PO 300 mg DAILY [facility] Administration Ascorbic Acid 500 mg 03/30/20 22:00 04/11/20 10:07 Vitamin C - PO 500 mg BID [facility] Administration Atorvastatin Calcium 5 mg 03/30/20 22:00 04/10/20 21:37 Lipitor - PO 5 mg HS [facility] Administration Cholecalciferol 500 unit 03/31/20 10:00 04/11/20 10:07 Vitamin D3 - PO 500 unit DAILY [facility] Administration Docusate Sodium 100 mg 03/30/20 22:00 04/11/20 13:25 Colace - PO 100 mg TID [facility] Administration Famotidine 20 mg 04/05/20 22:00 04/11/20 10:07 Pepcid - PO 20 mg BID [facility] Administration Ferrous Sulfate 325 mg 03/31/20 08:00 04/11/20 11:39 Feosol - PO 325 mg TIDCM [facility] Administration Heparin Sodium (Porcine) 5,000 unit 04/03/20 22:00 04/11/20 13:25 Heparin - SQ 5,000 unit TID [facility] Administration IV Flush 10 ml 04/08/20 23:33 04/11/20 06:31 Danie-Cath Flush IVPUSH 10 ml PRN PRN Administration maintain patency, protocol Sodium Chloride 1,000 mls @ 60 mls/hr 04/11/20 01:51 04/11/20 05:44 1/2 Normal Saline IV 60 mls/hr ASDIR [facility] Administration Lidocaine 1 patch 03/31/20 10:00 Lidoderm Patch - TP DAILY PRN PAIN LEVEL 1-5 Miscellaneous 1 each 03/30/20 22:00 04/10/20 21:38 Lidoderm Patch Removal MC Not Given DAILY@2200 [facility] Terazosin HCl 5 mg 03/30/20 22:00 04/10/20 21:37 Hytrin - PO 5 mg HS [facility] Administration Impression 1. CHEMA 2. lymphoma 3. hypotension 4. anemia 5. prostate cancer 6. hyperkalemia 7. hx of gammopathy 8. b-cell lymphoma Plan - cont fluids - monitor for tumor lysis - lasix prn - volume status stable - pt tolerating diet - repeat labs in am - oncology follow up
--- NOTE | 2020-04-11 17:54 | PN ---
Teaching Attending Note Name of Resident: Maynor Noyola ATTENDING PHYSICIAN STATEMENT I saw and evaluated the patient. I reviewed the resident's note and discussed the case with the resident. I agree with the resident's findings and plan as documented. SUBJECTIVE: No fever or chills. minimal L flank pain. No SOB . no weakness, numbness or tingling in LEs OBJECTIVE: NAD, MMM CV: 3/6 SM at base. RRR Lungs: CTAB LE: with 2+ edema on LE Neuro of LE : strength 5/5 in in hip flexion , knee flexion /extension, ankle dorsiflexion /extension . nl sensation to light touch ASSESSMENT AND PLAN: 84 y/o man with h/o HTN, HLD, non-Hodgkin's lymphoma, prostate cancer (beads 13 years ago in remission), who presented with L lower back pain. L paravertebral mass. Low back pain due to above mass. R axillary LAP Diffuse large B cell Lymphoma Anemia Asymptomatic bacteruria Plan: - Axillary lymph node Bx reviewed. FISH pending. follow BM Bx results. - S/p Rituxan yesterday - cont to follow LDh, and electrolytes while on chemo - cont IVF - cont Allopurinol - Lasix PRN - no UTI . appreciate ID help - cont to hold BP meds - Heparin Sq - monitor renal function
[2020-04-11 19:07] LABS: HEP B CORE AB, TOT Negative (Negative)
--- NOTE | 2020-04-11 19:15 | PN ---
Teaching Attending Note Name of Resident: Omar Vera ATTENDING PHYSICIAN STATEMENT I saw and evaluated the patient. I reviewed the resident's note and discussed the case with the resident. I agree with the resident's findings and plan as documented. 84 y/o gentleman w/ PMHx. of HTN, HLD, & prostate cancer (s/p brachytherapy), who presents with left lumbar pain since September and has gotten acutely worse over the last 2 months. He also came in for Left flank and abdominal pain. Left Axillary LN biopsy showed DLBCL (Double expressor C-myc and Bcl-2) Recommend: 1) Dexamethasone 20 mg 7/3 X 5 days. Rituximab in divided doses given high risk for TLS. Monitor TLS labs daily 2) Close monitoring of L pelvic mesenteric mass and LAD to determine if that also is DLBCL vs. alternative diagnosis 3) Please see Dr. Vera's note for details 4) Thank you for this consultation
--- NOTE | 2020-04-11 19:42 | PN ---
Physical Exam: SUBJECTIVE: No ovenright events. Patient seen and examined. NAD. Endorses chronic back pain. ROS negative except as above. Denies N/V, diarrhea. OBJECTIVE: Vital Signs Period Temp Pulse Resp BP Sys/Tillman Pulse Ox Last 24 Hr 97.9 F-98.8 F 93-107 20-22 109-142/58-72 94-95 GENERAL: The patient is awake, alert, and fully oriented, in no acute distress. HEENT: NC, NT. LUNGS: Breath sounds equal, clear to auscultation bilaterally, no wheezes, no crackles, no accessory muscle use. HEART: Regular rate and rhythm, S1, S2 w/ 3/6 systolic murmur best heard at pulmonic area; No rub or gallop. Chemoport on R chest; site non-TTP; non- erythematous ABDOMEN: L flank pain TTP. Soft, nondistended, normoactive bowel sounds, EXTREMITIES: 2+ pulses, warm, well-perfused, 2+ pitting edema b/l legs. ecchymoses on hand and arms from previous blood draws and IVs NEUROLOGICAL: gait not observed. PSYCH: Normal mood, normal affect. SKIN: Warm, dry, normal turgor, no rashes or lesions noted Laboratory Results - last 24 hr 04/10/20 04/11/20 04/11/20 06:20 06:40 06:40 WBC 4.6 RBC 2.54 L Hgb 7.6 L Hct 22.8 L MCV 89.9 MCH 30.0 MCHC 33.3 RDW 15.8 Plt Count 150 MPV 9.9 Absolute Neuts (auto) 3.7 Neutrophils % 80.6 Neutrophils % (Manual) 81.9 Band Neutrophils % 0.0 Lymphocytes % 7.9 L D Lymphocytes % (Manual) 9.6 D Monocytes % 11.3 H Monocytes % (Manual) 4 Eosinophils % 0.0 Eosinophils % (Manual) 0.0 D Basophils % 0.2 Basophils % (Manual) 0.0 Myelocytes % (Man) 2 D Promyelocytes % (Man) 0 Blast Cells % (Manual) 0 Nucleated RBC % 0 Metamyelocytes 0 D Hypochromia 0 Platelet Estimate Decreased Polychromasia 0 Poikilocytosis 1+ Anisocytosis 1+ Microcytosis 1+ Macrocytosis 1+ Sodium 141 Potassium 4.6 Chloride 111 H Carbon Dioxide 21 Anion Gap 10 BUN 42.2 H Creatinine 1.2 Est GFR (CKD-EPI)AfAm 63.97 Est GFR (CKD-EPI)NonAf 55.20 Random Glucose 117 H Uric Acid 6.4 Calcium 8.6 Phosphorus 4.9 Magnesium 2.0 Total Bilirubin 0.3 AST 21 ALT 21 Alkaline Phosphatase 63 LD Total 193 Total Protein 5.2 L Albumin 1.9 L Hep A IgM Ab Confirm Negative Hepatitis A Ab Total Negative Hep Bs Antigen Negative Hep Bs Antibody Non reactive Hep B Core Total Ab Negative Hep B Core IgM Ab Negative Hepatitis Be Antibody Negative Hepatitis Be Antigen Negative Active Medications Generic Name Dose Route Start Last Admin Trade Name Freq PRN Reason Stop Dose Admin Acetaminophen 1,000 mg 03/30/20 18:21 04/11/20 17:04 Tylenol - PO 1,000 mg Q6H PRN Administration PAIN LEVEL 1-5 Allopurinol 300 mg 04/01/20 17:30 04/11/20 10:08 Zyloprim - PO 300 mg DAILY [facility] Administration Ascorbic Acid 500 mg 03/30/20 22:00 04/11/20 10:07 Vitamin C - PO 500 mg BID [facility] Administration Atorvastatin Calcium 5 mg 03/30/20 22:00 04/10/20 21:37 Lipitor - PO 5 mg HS [facility] Administration Cholecalciferol 500 unit 03/31/20 10:00 04/11/20 10:07 Vitamin D3 - PO 500 unit DAILY [facility] Administration Docusate Sodium 100 mg 03/30/20 22:00 04/11/20 13:25 Colace - PO 100 mg TID [facility] Administration Famotidine 20 mg 04/05/20 22:00 04/11/20 10:07 Pepcid - PO 20 mg BID [facility] Administration Ferrous Sulfate 325 mg 03/31/20 08:00 04/11/20 17:04 Feosol - PO 325 mg TIDCM [facility] Administration Heparin Sodium (Porcine) 5,000 unit 04/03/20 22:00 04/11/20 13:25 Heparin - SQ 5,000 unit TID [facility] Administration IV Flush 10 ml 04/08/20 23:33 04/11/20 10:30 Danie-Cath Flush IVPUSH 10 ml PRN PRN Administration maintain patency, protocol Sodium Chloride 1,000 mls @ 60 mls/hr 04/11/20 01:51 04/11/20 05:44 1/2 Normal Saline IV 60 mls/hr ASDIR [facility] Administration Lidocaine 1 patch 03/31/20 10:00 Lidoderm Patch - TP DAILY PRN PAIN LEVEL 1-5 Miscellaneous 1 each 03/30/20 22:00 04/10/20 21:38 Lidoderm Patch Removal MC Not Given DAILY@2200 [facility] Terazosin HCl 5 mg 03/30/20 22:00 04/10/20 21:37 Hytrin - PO 5 mg HS [facility] Administration -lumbar MRI w/ contrast (03/28)- mass lesion of L psoas muscle at L1-L2 disc level; lesions extending through Left L1-L2 & T12-L1 foramina. 2nd lesion at T11-T12 levels extending into T11-T12 foramen -CT abd: 10x9x8 cm left pelvic mesenteric soft tissue lesion ASSESSMENT/PLAN: 84 YO M with PMH of HTN, HLD, non-Hodgkin's lymphoma (5-10 years ago, in remission), & prostate cancer (13 years ago in remission), who presents with left lumbar pain since September and has gotten acutely worse over the last 2 months. He also came in for Left flank and abdominal pain. Pt was admitted for Left flank and back pain 2/2 neoplasm. #Left flank and back pain 2/2 neoplasm, likely lymphoma -oncology following (Dr. 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 Waiting on results -c/w oxycodone 10mg Q6H PRN -c/w dexamethasone 20 mg -neurosurgery consulted- reevaluate post bm biopsy -continue monitoring LDH, uric acid daily as pt is in high risk for tumor lysis. C/w allopurinol for tumor lysis syndrome ppx -Heme onc consult appreciated. RCVP. Mini CHOP if tolerates RCVP. -Rituximab given in divide doses due to risk of tumor lysis syndrome. -Rituxin tomorrow. #Anemia of chronic disease -H&H trended from 7.8/23.5 (04/10) to 7.6/22.8 (04/11) today; s/p 1 PRBC (04/06) -c/w monitoring CBC HTN -hold meds.BP is stable. #CHEMA -Cr & BUN downtrended to BUN/Cr 43/1.3>42.2/1.2 today. -continue IVF #HLD -c/w statin -ASA 81mg daily #DVT Ppx/GI PPX -SCDs; c/w heparin SQ. Heparin given instead of Lovenox b/c of CHEMA and possible renal issues from chemotherapy -Pepcid 10 mg BID for GI PPX #FEN -0.45% saline 83 ml/hr -Monitor Lytes -sodium-controlled diet #Dispo maintain med-surg Visit type - Emergency Visit Emergency Visit: Yes ED Registration Date: 03/21/20 Care time: The patient presented to the Emergency Department on the above date and was hospitalized for further evaluation of their emergent condition. - New Patient This patient is new to me today: No - Critical Care Critical Care patient: No ATTENDING PHYSICIAN STATEMENT I saw and evaluated the patient. I reviewed the resident's note and discussed the case with the resident. I agree with the resident's findings and plan as documented. SUBJECTIVE: OBJECTIVE: ASSESSMENT AND PLAN:
[2020-04-11] MEDS ORDERED: PT OWN MED DRAWER 7, Y5N ONE (21:19)
[2020-04-11] MEDS: ATORVASTATIN CA 10 MG TABLET (FP) PO SCH (21:30)
[2020-04-11] MEDS: TERAZOSIN HCL 5 MG CAPSULE PO SCH (21:30)
[2020-04-11] MEDS: LIDOCAINE PATCH REMOVAL MC SCH (21:31)
[2020-04-12] MEDS: SODIUM CHLORIDE 0.45% 1,000 ML IV SCH ×2 (06:31→17:55)
[2020-04-12] MEDS: HEPARIN NA (PORCINE) 5,000 UNITS/ML 1ML VIAL SQ SCH ×3 (06:32→21:35)
[2020-04-12] MEDS: DOCUSATE SODIUM 100 MG CAPSULE (FP) PO SCH ×3 (06:32→21:35)
[2020-04-12 08:15] LABS: BASO % 0.9 % (0-2.0); EOS % 1.4 % (0-4.5); HEMATOCRIT 26.3 % (35.4-49); HEMOGLOBIN 8.5 GM/dL (11.7-16.9); LYMPH % 15.1 % (8-40); MCH 28.9 pg (25.7-33.7); MCHC 32.4 g/dl (32.0-35.9); MEAN CELL VOLUME 89.2 fl (80-96); MEAN PLT VOLUME 10.2 fl (7.5-11.1); MONO % 10.8 % (3.8-10.2); NEUT % 71.8 % (42.8-82.8); PLATELET COUNT 196 K/MM3 (134-434); RBC 2.95 M/mm3 (4.00-5.60); RDW 16.1 % (11.9-15.9); WHITE BLOOD COUNT 6.5 K/mm3 (4.0-10.0)
[2020-04-12 08:36] LABS: BILIRUBIN,TOTAL 0.4 mg/dL (0.2-1); CALCIUM 8.5 mg/dL (8.5-10.1); CREATININE 1.3 mg/dL (0.55-1.3); PHOSPHOROUS 4.4 mg/dL (2.5-4.9); POTASSIUM 4.8 mmol/L (3.5-5.1); TOT PROT 5.5 g/dl (6.4-8.2); URIC ACID 6.2 mg/dL (2.6-7.2)
[2020-04-12] MEDS ORDERED: PT OWN MED DRAWER 7, Y5N ONE (09:21)
[2020-04-12] MEDS: CHOLECALCIFEROL (VIT D3) 1,000 UNIT (25 MCG) TABLET PO SCH (09:32)
[2020-04-12] MEDS: ALLOPURINOL 300 MG TABLET (FP) PO SCH (09:32)
[2020-04-12] MEDS: FERROUS SO4 325 MG TABLET (FP) PO SCH ×3 (09:32→18:18)
[2020-04-12] MEDS: ASCORBIC ACID 500 MG TABLET (FP) PO SCH ×2 (09:33→21:35)
[2020-04-12] MEDS: FAMOTIDINE 20 MG TABLET PO SCH ×2 (09:33→21:35)
[2020-04-12] MEDS ORDERED: RITUXIMAB IVPB ONE (10:15)
[2020-04-12] MEDS ORDERED: SODIUM CHLORIDE IVPB ONE (10:15)
[2020-04-12] MEDS ORDERED: SODIUM CHLORIDE 1,000 ML IV ONE (10:30)
[2020-04-12] MEDS ORDERED: DEXAMETHASONE INJECTION 20 MG, DIPHENHYDRAMINE 50 MG in SODIUM CHLORIDE 100 ML IVPB ONE (11:00)
[2020-04-12] MEDS ORDERED: ACETAMINOPHEN 325 MG TABLET (FP) PO ONE (11:00)
[2020-04-12 12:10] LABS: ANISOCYTOSIS 1+; MACROCYTOSIS 0; PLATELET ESTIMATE NORMAL
--- NOTE | 2020-04-12 14:33 | PN ---
Physical Exam: SUBJECTIVE: No overnight events. Patient seen and examined. NAD. Pt had 100.3 F fever in AM. OBJECTIVE: Vital Signs Period Temp Pulse Resp BP Sys/Tillman Pulse Ox Last 24 Hr 98.3 F-100.3 F 94-107 20-20 103-131/49-69 94-97 GENERAL: The patient is awake, alert, and fully oriented, in no acute distress. HEENT: NC, NT. LUNGS: Breath sounds equal, clear to auscultation bilaterally, no wheezes, no crackles, no accessory muscle use. HEART: Regular rate and rhythm, S1, S2 w/ 3/6 systolic murmur best heard at pulmonic area; No rub or gallop. Chemoport on R chest; site non-TTP; non- erythematous ABDOMEN: L flank pain TTP. Soft, nondistended, normoactive bowel sounds, EXTREMITIES: 2+ pulses, warm, well-perfused, 2+ pitting edema b/l legs. ecchymoses on hand and arms from previous blood draws and IVs NEUROLOGICAL: gait not observed. PSYCH: Normal mood, normal affect. SKIN: Warm, dry, normal turgor, no rashes or lesions noted Laboratory Results - last 24 hr 04/10/20 04/12/20 04/12/20 06:20 06:30 06:30 WBC 6.5 RBC 2.95 L Hgb 8.5 L Hct 26.3 L D MCV 89.2 MCH 28.9 MCHC 32.4 RDW 16.1 H Plt Count 196 D MPV 10.2 Absolute Neuts (auto) 4.7 Neutrophils % 71.8 Neutrophils % (Manual) 89.5 H Band Neutrophils % 0.0 Lymphocytes % 15.1 D Lymphocytes % (Manual) 4.2 L D Monocytes % 10.8 H Monocytes % (Manual) 3 L Eosinophils % 1.4 D Eosinophils % (Manual) 0.0 Basophils % 0.9 D Basophils % (Manual) 0.0 Myelocytes % (Man) 0 D Promyelocytes % (Man) 0 Blast Cells % (Manual) 0 Nucleated RBC % 0 Metamyelocytes 0 Hypochromia 0 Platelet Estimate Normal Polychromasia 0 Poikilocytosis 0 Anisocytosis 1+ Macrocytosis 0 Stomatocytes 1+ Sodium 139 Potassium 4.8 Chloride 108 H Carbon Dioxide 20 L Anion Gap 11 BUN 38.0 H Creatinine 1.3 Est GFR (CKD-EPI)AfAm 58.07 Est GFR (CKD-EPI)NonAf 50.10 Random Glucose 79 Uric Acid 6.2 Calcium 8.5 Phosphorus 4.4 Magnesium 2.0 Total Bilirubin 0.4 AST 23 ALT 23 Alkaline Phosphatase 72 LD Total 238 Total Protein 5.5 L Albumin 2.0 L Hep A IgM Ab Confirm Negative Hepatitis A Ab Total Negative Hep Bs Antigen Negative Hep Bs Antibody Non reactive Hep B Core Total Ab Negative Hep B Core IgM Ab Negative Hepatitis Be Antibody Negative Hepatitis Be Antigen Negative Active Medications Generic Name Dose Route Start Last Admin Trade Name Freq PRN Reason Stop Dose Admin Acetaminophen 1,000 mg 03/30/20 18:21 04/11/20 23:03 Tylenol - PO 1,000 mg Q6H PRN Administration PAIN LEVEL 1-5 Allopurinol 300 mg 04/01/20 17:30 04/12/20 09:32 Zyloprim - PO 300 mg DAILY [facility] Administration Ascorbic Acid 500 mg 03/30/20 22:00 04/12/20 09:33 Vitamin C - PO 500 mg BID [facility] Administration Atorvastatin Calcium 5 mg 03/30/20 22:00 04/11/20 21:30 Lipitor - PO 5 mg HS [facility] Administration Cholecalciferol 500 unit 03/31/20 10:00 04/12/20 09:32 Vitamin D3 - PO 500 unit DAILY [facility] Administration Docusate Sodium 100 mg 03/30/20 22:00 04/12/20 13:47 Colace - PO 100 mg TID [facility] Administration Famotidine 20 mg 04/05/20 22:00 04/12/20 09:33 Pepcid - PO 20 mg BID [facility] Administration Ferrous Sulfate 325 mg 03/31/20 08:00 04/12/20 13:48 Feosol - PO 325 mg TIDCM [facility] Administration Heparin Sodium (Porcine) 5,000 unit 04/03/20 22:00 04/12/20 13:47 Heparin - SQ 5,000 unit TID [facility] Administration IV Flush 10 ml 04/08/20 23:33 04/11/20 10:30 Danie-Cath Flush IVPUSH 10 ml PRN PRN Administration maintain patency, protocol Sodium Chloride 1,000 mls @ 75 mls/hr 04/12/20 09:56 1/2 Normal Saline IV ASDIR [facility] Rituximab 500 mg/ Rituximab 650 mls @ 50 mls/hr 04/12/20 10:15 04/12/20 13:03 150 mg/ Sodium Chloride IVPB 04/12/20 23:14 50 mls/hr ONCE ONE Administration Protocol Sodium Chloride 1,000 mls @ 75 mls/hr 04/12/20 10:30 Normal Saline - IV 04/12/20 23:49 ONCE ONE Lidocaine 1 patch 03/31/20 10:00 Lidoderm Patch - TP DAILY PRN PAIN LEVEL 1-5 Miscellaneous 1 each 03/30/20 22:00 04/11/20 21:31 Lidoderm Patch Removal MC Not Given DAILY@2200 [facility] Terazosin HCl 5 mg 03/30/20 22:00 04/11/20 21:30 Hytrin - PO 5 mg HS [facility] Administration -lumbar MRI w/ contrast (03/28)- mass lesion of L psoas muscle at L1-L2 disc l evel; lesions extending through Left L1-L2 & T12-L1 foramina. 2nd lesion at T11- T12 levels extending into T11-T12 foramen -CT abd: 10x9x8 cm left pelvic mesenteric soft tissue lesion ASSESSMENT/PLAN: 84 YO M with PMH of HTN, HLD, non-Hodgkin's lymphoma (5-10 years ago, in remission), & prostate cancer (13 years ago in remission), who presents with left lumbar pain since September and has gotten acutely worse over the last 2 months. He also came in for Left flank and abdominal pain. Pt was admitted for Left flank and back pain 2/2 neoplasm. #Left flank and back pain 2/2 neoplasm, likely lymphoma -oncology following (Dr. 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 Waiting on results -c/w lidocaine patch -neurosurgery consulted- reevaluate post bm biopsy -continue monitoring LDH, uric acid daily as pt is in high risk for tumor lysis. C/w allopurinol for tumor lysis syndrome ppx -Heme onc consult appreciated. RCVP. Mini CHOP if tolerates RCVP. -Rituximab given in divide doses due to risk of tumor lysis syndrome. -Rituxin today #Fever 2/2 infectious source vs Chemo -fever in AM, tachycardic to 106 -ucx, blood cx (peripheral venous & from chemoport), CXR ordered to r/o infectious source -acetaminophen held to prevent masking of fevers #Anemia of chronic disease -H&H trended up from 7.6/22.8 (04/11) to 8.5/26.3 (04/12) today; s/p 1 PRBC (04/06) -c/w monitoring CBC HTN -hold meds.BP is stable. #CHEMA -Cr & BUN downtrended to BUN/Cr 42.2/1.2>38/1.3 today. -continue IVF #HLD -c/w statin -ASA 81mg daily #DVT Ppx/GI PPX -SCDs; c/w heparin SQ. Heparin given instead of Lovenox b/c of CHEMA and possible renal issues from chemotherapy -Pepcid 10 mg BID for GI PPX #FEN -0.45% saline 83 ml/hr -Monitor Lytes -sodium-controlled diet #Dispo maintain med-surg Visit type - Emergency Visit Emergency Visit: Yes ED Registration Date: 03/21/20 Care time: The patient presented to the Emergency Department on the above date and was hospitalized for further evaluation of their emergent condition. - New Patient This patient is new to me today: No - Critical Care Critical Care patient: No ATTENDING PHYSICIAN STATEMENT I saw and evaluated the patient. I reviewed the resident's note and discussed the case with the resident. I agree with the resident's findings and plan as documented. SUBJECTIVE: OBJECTIVE: ASSESSMENT AND PLAN:
[2020-04-12 17:54] LABS: URINE APPEARANCE CLEAR; URINE BILIRUBIN NEGATIVE (NEGATIVE); URINE COLOR YELLOW; URINE GLUCOSE (UA) NEGATIVE (NEGATIVE); URINE KETONE NEGATIVE (NEGATIVE); URINE LEUK ESTERASE NEGATIVE (NEGATIVE); URINE NITRITE NEGATIVE (NEGATIVE); URINE PROTEIN NEGATIVE (NEGATIVE); URINE UROBILINOGEN 0.2 mg/dL (0.2-1.0)
--- NOTE | 2020-04-12 18:46 | PN ---
Teaching Attending Note Name of Resident: Usama Villarreal ATTENDING PHYSICIAN STATEMENT I saw and evaluated the patient. I reviewed the resident's note and discussed the case with the resident. I agree with the resident's findings and plan as documented. SUBJECTIVE: low grade fever this am . no pain, SOB , cough , dyuria or other complains OBJECTIVE: NAD, MMM CV: 3/6 SM at base. RRR Lungs: CTAB LE: with 2+ edema on LE skin : no erythema or edema around port in R upper chest ASSESSMENT AND PLAN: 84 y/o man with h/o HTN, HLD, non-Hodgkin's lymphoma, prostate cancer (beads 13 years ago in remission), who presented with L lower back pain. L paravertebral mass. Low back pain due to above mass. R axillary LAP Diffuse large B cell Lymphoma Anemia Asymptomatic bacteruria Plan: - Low grade fever today, could be due to receiving chemo and Tumor lysis. no obvious source. wcxray with no infiltrates, madyson send blood cx from port adn periphery . monitor for now - Rituxan today - follow BM Bx results. - cont to follow LDh, and electrolytes while on chemo - cont IVF - cont Allopurinol - Lasix PRN - cont to hold BP meds - Heparin Sq - monitor renal function
--- NOTE | 2020-04-12 18:47 | PN ---
Progress Note, Physician History of Present Illness: Pt seen and examined at bedside. He will be getting chemo today. - Current Medication List Current Medications: Active Medications Acetaminophen (Tylenol -) 1,000 mg PO Q6H PRN PRN Reason: PAIN LEVEL 1-5 Last Admin: 04/11/20 23:03 Dose: 1,000 mg Documented by: Allopurinol (Zyloprim -) 300 mg PO DAILY [facility] Last Admin: 04/12/20 09:32 Dose: 300 mg Documented by: Ascorbic Acid (Vitamin C -) 500 mg PO BID [facility] Last Admin: 04/12/20 09:33 Dose: 500 mg Documented by: Atorvastatin Calcium (Lipitor -) 5 mg PO HS [facility] Last Admin: 04/11/20 21:30 Dose: 5 mg Documented by: Cholecalciferol (Vitamin D3 -) 500 unit PO DAILY [facility] Last Admin: 04/12/20 09:32 Dose: 500 unit Documented by: Docusate Sodium (Colace -) 100 mg PO TID [facility] Last Admin: 04/12/20 13:47 Dose: 100 mg Documented by: Famotidine (Pepcid -) 20 mg PO BID [facility] Last Admin: 04/12/20 09:33 Dose: 20 mg Documented by: Ferrous Sulfate (Feosol -) 325 mg PO TIDCM [facility] Last Admin: 04/12/20 18:18 Dose: 325 mg Documented by: Heparin Sodium (Porcine) (Heparin -) 5,000 unit SQ TID [facility] Last Admin: 04/12/20 13:47 Dose: 5,000 unit Documented by: IV Flush (Danie-Cath Flush) 10 ml IVPUSH PRN PRN PRN Reason: maintain patency, protocol Last Admin: 04/11/20 10:30 Dose: 10 ml Documented by: Sodium Chloride (1/2 Normal Saline) 1,000 mls @ 75 mls/hr IV ASDIR [facility] Last Admin: 04/12/20 17:55 Dose: Not Given Documented by: Rituximab 500 mg/ Rituximab (150 mg/ Sodium Chloride) 650 mls @ 50 mls/hr IVPB ONCE ONE; Protocol Stop: 04/12/20 23:14 Last Admin: 04/12/20 13:03 Dose: 50 mls/hr Documented by: Sodium Chloride (Normal Saline -) 1,000 mls @ 75 mls/hr IV ONCE ONE Stop: 04/12/20 23:49 Last Admin: 04/12/20 17:30 Dose: 75 mls/hr Documented by: Lidocaine (Lidoderm Patch -) 1 patch TP DAILY PRN PRN Reason: PAIN LEVEL 1-5 Miscellaneous (Lidoderm Patch Removal) 1 each MC DAILY@2200 [facility] Last Admin: 04/11/20 21:31 Dose: Not Given Documented by: Terazosin HCl (Hytrin -) 5 mg PO HS [facility] Last Admin: 04/11/20 21:30 Dose: 5 mg Documented by: - Objective Vital Signs: Vital Signs Temperature 98.4 F 04/12/20 15:20 Pulse Rate 94 H 04/12/20 15:20 Respiratory Rate 20 04/12/20 15:20 Blood Pressure 127/69 04/12/20 15:20 O2 Sat by Pulse Oximetry (%) 97 04/12/20 09:00 Constitutional: Yes: Calm Eyes: Yes: Conjunctiva Clear HENT: Yes: Atraumatic Neck: Yes: Supple Cardiovascular: Yes: S1, S2 Respiratory: Yes: CTA Bilaterally Gastrointestinal: Yes: Soft Genitourinary: Yes: WNL Musculoskeletal: Yes: WNL Edema: Yes Edema: LLE: Trace, RLE: Trace Neurological: Yes: Oriented Psychiatric: Yes: Oriented Labs: CBC, BMP 04/12/20 06:30 04/12/20 06:30 INR, PTT INR 1.13 (0.83-1.09) H 03/21/20 16:10 Problem List - Problems (1) CHEMA (acute kidney injury) Code(s): N17.9 - ACUTE KIDNEY FAILURE, UNSPECIFIED (2) Hypotension Code(s): I95.9 - HYPOTENSION, UNSPECIFIED Qualifiers: Qualified Code(s): I95.9 - Hypotension, unspecified (3) Low back pain Code(s): M54.5 - LOW BACK PAIN Qualifiers: Qualified Code(s): M54.5 - Low back pain Assessment/Plan Current Medications Generic Name Dose Route Start Last Admin Trade Name Freq PRN Reason Stop Dose Admin Acetaminophen 1,000 mg 03/30/20 18:21 04/11/20 23:03 Tylenol - PO 1,000 mg Q6H PRN Administration PAIN LEVEL 1-5 Allopurinol 300 mg 04/01/20 17:30 04/12/20 09:32 Zyloprim - PO 300 mg DAILY [facility] Administration Ascorbic Acid 500 mg 03/30/20 22:00 04/12/20 09:33 Vitamin C - PO 500 mg BID [facility] Administration Atorvastatin Calcium 5 mg 03/30/20 22:00 04/11/20 21:30 Lipitor - PO 5 mg HS [facility] Administration Cholecalciferol 500 unit 03/31/20 10:00 04/12/20 09:32 Vitamin D3 - PO 500 unit DAILY [facility] Administration Docusate Sodium 100 mg 03/30/20 22:00 04/12/20 13:47 Colace - PO 100 mg TID [facility] Administration Famotidine 20 mg 04/05/20 22:00 04/12/20 09:33 Pepcid - PO 20 mg BID [facility] Administration Ferrous Sulfate 325 mg 03/31/20 08:00 04/12/20 18:18 Feosol - PO 325 mg TIDCM [facility] Administration Heparin Sodium (Porcine) 5,000 unit 04/03/20 22:00 04/12/20 13:47 Heparin - SQ 5,000 unit TID [facility] Administration IV Flush 10 ml 04/08/20 23:33 04/11/20 10:30 Danie-Cath Flush IVPUSH 10 ml PRN PRN Administration maintain patency, protocol Sodium Chloride 1,000 mls @ 75 mls/hr 04/12/20 09:56 04/12/20 17:55 1/2 Normal Saline IV Not Given ASDIR [facility] Rituximab 500 mg/ Rituximab 650 mls @ 50 mls/hr 04/12/20 10:15 04/12/20 13:03 150 mg/ Sodium Chloride IVPB 04/12/20 23:14 50 mls/hr ONCE ONE Administration Protocol Sodium Chloride 1,000 mls @ 75 mls/hr 04/12/20 10:30 04/12/20 17:30 Normal Saline - IV 04/12/20 23:49 75 mls/hr ONCE ONE Administration Lidocaine 1 patch 03/31/20 10:00 Lidoderm Patch - TP DAILY PRN PAIN LEVEL 1-5 Miscellaneous 1 each 03/30/20 22:00 04/11/20 21:31 Lidoderm Patch Removal MC Not Given DAILY@2200 [facility] Terazosin HCl 5 mg 03/30/20 22:00 04/11/20 21:30 Hytrin - PO 5 mg HS [facility] Administration Impression 1. CHEMA 2. lymphoma 3. hypotension 4. anemia 5. prostate cancer 6. hyperkalemia 7. hx of gammopathy 8. b-cell lymphoma Plan - cont with fluids - monitor for tumor lysis - lasix prn - repeat labs in am - monitor volume status - oncology follow up
[2020-04-12] MEDS: TERAZOSIN HCL 5 MG CAPSULE PO SCH (21:34)
[2020-04-12] MEDS: ATORVASTATIN CA 10 MG TABLET (FP) PO SCH (21:34)
[2020-04-12] MEDS: LIDOCAINE PATCH REMOVAL MC SCH (21:35)
--- NOTE | 2020-04-12 23:36 | PN ---
Progress Note (short form) - Note Progress Note: PAtient seen and examined Feels well. Denies any complaints Last Vital Signs Temp Pulse Resp BP Pulse Ox 99.2 F 99 H 18 102/57 L 98 04/03/20 21:30 04/03/20 21:30 04/03/20 21:30 04/03/20 21:30 04/03/20 21:00 Last Vital Signs Temp Pulse Resp BP Pulse Ox 98.7 F 92 H 20 111/56 L 97 04/05/20 21:41 04/05/20 21:41 04/05/20 21:41 04/05/20 21:41 04/05/20 09:00 Last Vital Signs Temp Pulse Resp BP Pulse Ox 98 F 92 H 20 114/57 L 100 04/08/20 21:09 04/08/20 21:09 04/08/20 21:09 04/08/20 21:09 04/08/20 09:00 Last Vital Signs Temp Pulse Resp BP Pulse Ox 97.9 F 102 H 22 H 109/61 95 04/10/20 21:45 04/10/20 21:45 04/10/20 21:45 04/10/20 21:45 04/10/20 21:00 AFVSS Cor: RSR, No murmurs, No gallops Lungs: Clear to P&A Abd: Soft, Normal bowel sounds, No organomegaly Ext: 2+ edema b/l Labs/MEds reviewed A/P L sided flank pain x 1 month but worsening over the past few days that is pressure like, radiates the L abdomen and groin that fluctates intermittently but no alleviating or exacerbating factors. Pt with persisten pain without improvement with oral pain medications. ER CT of abdomen showed a new compared with 06/14/13, 10 x 9.8 x 8 cam left pelvic mesenteric mass/ lympadenopathy, 1.1cm periaortic node and an unchanged 1.4cm splenic lesion unchanged from . Lt. lower back pain due to mesenteric mass 10cm , ? jourdan, Lt.periaortic 1.1 cm node, Lt. splenic 1.4cm focus CT T/L spine --- thecal sac compression, Lt. psoas muscle 8cm mass CT chest -- extensive rt. 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 awaitibg bone marrow bx to consider steroids and RCVP with C1. mini RCHOP if tolerates RCVP. started dexamethasone 20mg 04/07/ x 5 days. Rituxan split dose -- tolerated well today Remainder dose 03/13 High risk for tumor lysis --- on allopurinol. gentle hydration. f/u G6 PD For rituxan 100mg --04/11 Remainder dose 650 mg today Hep. serologies negative IV fluids monitor tumor lysis labs d/c planning
[2020-04-13] MEDS: HEPARIN NA (PORCINE) 5,000 UNITS/ML 1ML VIAL SQ SCH ×3 (05:00→22:06)
[2020-04-13] MEDS: DOCUSATE SODIUM 100 MG CAPSULE (FP) PO SCH ×3 (05:01→22:06)
[2020-04-13] MEDS: SODIUM CHLORIDE 0.45% 1,000 ML IV SCH ×3 (05:19→20:26)
[2020-04-13 07:41] LABS: BASO % 0.4 % (0-2.0); EOS % 0.1 % (0-4.5); HEMATOCRIT 22.9 % (35.4-49); HEMOGLOBIN 7.5 GM/dL (11.7-16.9); LYMPH % 7.9 % (8-40); MCH 29.3 pg (25.7-33.7); MCHC 32.9 g/dl (32.0-35.9); MEAN CELL VOLUME 89.1 fl (80-96); MEAN PLT VOLUME 9.9 fl (7.5-11.1); MONO % 8.2 % (3.8-10.2); NEUT % 83.4 % (42.8-82.8); PLATELET COUNT 142 K/MM3 (134-434); RBC 2.57 M/mm3 (4.00-5.60); RDW 15.9 % (11.9-15.9); WHITE BLOOD COUNT 4.6 K/mm3 (4.0-10.0)
[2020-04-13 07:47] LABS: ALBUMIN 1.8 g/dl (3.4-5.0); BILIRUBIN,TOTAL 0.4 mg/dL (0.2-1); BLOOD UREA NITROGEN 34.5 mg/dL (7-18); CALCIUM 8.2 mg/dL (8.5-10.1); CREATININE 1.2 mg/dL (0.55-1.3); MAGNESIUM 1.7 mg/dL (1.8-2.4); PHOSPHOROUS 4.5 mg/dL (2.5-4.9); POTASSIUM 4.4 mmol/L (3.5-5.1); TOT PROT 5.2 g/dl (6.4-8.2)
[2020-04-13 09:56] LABS: ANISOCYTOSIS 2+; MACROCYTOSIS 0; PLATELET ESTIMATE DECREASED
[2020-04-13] MEDS: FAMOTIDINE 20 MG TABLET PO SCH ×2 (09:57→22:06)
[2020-04-13] MEDS: FERROUS SO4 325 MG TABLET (FP) PO SCH ×3 (09:57→17:03)
[2020-04-13] MEDS: ASCORBIC ACID 500 MG TABLET (FP) PO SCH ×2 (09:57→22:06)
[2020-04-13] MEDS: ALLOPURINOL 300 MG TABLET (FP) PO SCH (09:57)
[2020-04-13] MEDS: CHOLECALCIFEROL (VIT D3) 1,000 UNIT (25 MCG) TABLET PO SCH (09:57)
[2020-04-13] MEDS ORDERED: FUROSEMIDE 40 MG TABLET (FP) PO ONE (12:39)
[2020-04-13 14:10] VITALS: BMI 37.5
[2020-04-13] MEDS ORDERED: FUROSEMIDE 40 MG TABLET (FP) PO SCH (14:15)
[2020-04-13] MEDS: ACETAMINOPHEN 500 MG TABLET (FP) PO PRN (14:37)
[2020-04-13] MEDS ORDERED: MAGNESIUM OXIDE 400 MG TABLET (FP) PO ONE (17:17)
--- NOTE | 2020-04-13 17:18 | PN ---
Progress Note, Physician History of Present Illness: Pt seen and examined at bedside. He tolerated chemo. He complains of edema. - Current Medication List Current Medications: Active Medications Acetaminophen (Tylenol -) 1,000 mg PO Q6H PRN PRN Reason: PAIN LEVEL 1-5 Last Admin: 04/13/20 14:37 Dose: 1,000 mg Documented by: Allopurinol (Zyloprim -) 300 mg PO DAILY [facility] Last Admin: 04/13/20 09:57 Dose: 300 mg Documented by: Ascorbic Acid (Vitamin C -) 500 mg PO BID [facility] Last Admin: 04/13/20 09:57 Dose: 500 mg Documented by: Atorvastatin Calcium (Lipitor -) 5 mg PO [facility] Last Admin: 04/12/20 21:34 Dose: 5 mg Documented by: Cholecalciferol (Vitamin D3 -) 500 unit PO DAILY [facility] Last Admin: 04/13/20 09:57 Dose: 500 unit Documented by: Docusate Sodium (Colace -) 100 mg PO TID [facility] Last Admin: 04/13/20 14:29 Dose: 100 mg Documented by: Famotidine (Pepcid -) 20 mg PO BID [facility] Last Admin: 04/13/20 09:57 Dose: 20 mg Documented by: Ferrous Sulfate (Feosol -) 325 mg PO TIDCM [facility] Last Admin: 04/13/20 17:03 Dose: 325 mg Documented by: Heparin Sodium (Porcine) (Heparin -) 5,000 unit SQ TID [facility] Last Admin: 04/13/20 14:29 Dose: 5,000 unit Documented by: IV Flush (Danie-Cath Flush) 10 ml IVPUSH PRN PRN PRN Reason: maintain patency, protocol Last Admin: 04/11/20 10:30 Dose: 10 ml Documented by: Sodium Chloride (1/2 Normal Saline) 1,000 mls @ 60 mls/hr IV ASDIR [facility] Last Admin: 04/13/20 09:57 Dose: 60 mls/hr Documented by: Lidocaine (Lidoderm Patch -) 1 patch TP DAILY PRN PRN Reason: PAIN LEVEL 1-5 Miscellaneous (Lidoderm Patch Removal) 1 each MC DAILY@2200 [facility] Last Admin: 04/12/20 21:35 Dose: Not Given Documented by: Terazosin HCl (Hytrin -) 5 mg PO HS [facility] Last Admin: 04/12/20 21:34 Dose: 5 mg Documented by: - Objective Vital Signs: Vital Signs Temperature 100 F H 04/13/20 14:20 Pulse Rate 114 H 04/13/20 14:20 Respiratory Rate 04/13/20 14:20 Blood Pressure 106/58 L 04/13/20 14:20 O2 Sat by Pulse Oximetry (%) 97 04/13/20 09:00 Constitutional: Yes: Calm Eyes: Yes: Conjunctiva Clear HENT: Yes: Atraumatic Neck: Yes: Supple Cardiovascular: Yes: S1, S2 Respiratory: Yes: CTA Bilaterally Gastrointestinal: Yes: Soft Genitourinary: Yes: WNL Musculoskeletal: Yes: WNL Edema: Yes Edema: LLE: 2+, RLE: 2+ Neurological: Yes: Oriented Psychiatric: Yes: Oriented Labs: CBC, BMP 04/13/20 05:15 04/13/20 05:15 INR, PTT INR 1.13 (0.83-1.09) H 03/21/20 16:10 Problem List - Problems (1) CHMEA (acute kidney injury) Code(s): N17.9 - ACUTE KIDNEY FAILURE, UNSPECIFIED (2) Hypotension Code(s): I95.9 - HYPOTENSION, UNSPECIFIED Qualifiers: Hypotension type: unspecified hypotension type Qualified Code(s): I95.9 - Hypotension, unspecified (3) Low back pain Code(s): M54.5 - LOW BACK PAIN Qualifiers: Chronicity: acute Back pain laterality: left Sciatica presence: without sciatica Qualified Code(s): M54.5 - Low back pain Assessment/Plan Current Medications Generic Name Dose Route Start Last Admin Trade Name Nicholas PRN Reason Stop Dose Admin Acetaminophen 1,000 mg 03/30/20 18:21 04/13/20 14:37 Tylenol - PO 1,000 mg Q6H PRN Administration PAIN LEVEL 1-5 Allopurinol 300 mg 04/01/20 17:30 04/13/20 09:57 Zyloprim - PO 300 mg DAILY [facility] Administration Ascorbic Acid 500 mg 03/30/20 22:00 04/13/20 09:57 Vitamin C - PO 500 mg BID [facility] Administration Atorvastatin Calcium 5 mg 03/30/20 22:00 04/12/20 21:34 Lipitor - PO 5 mg HS [facility] Administration Cholecalciferol 500 unit 03/31/20 10:00 04/13/20 09:57 Vitamin D3 - PO 500 unit DAILY [facility] Administration Docusate Sodium 100 mg 03/30/20 22:00 04/13/20 14:29 Colace - PO 100 mg TID [facility] Administration Famotidine 20 mg 04/05/20 22:00 04/13/20 09:57 Pepcid - PO 20 mg BID [facility] Administration Ferrous Sulfate 325 mg 03/31/20 08:00 04/13/20 17:03 Feosol - PO 325 mg TIDCM [facility] Administration Heparin Sodium (Porcine) 5,000 unit 04/03/20 22:00 04/13/20 14:29 Heparin - SQ 5,000 unit TID [facility] Administration IV Flush 10 ml 04/08/20 23:33 04/11/20 10:30 Danie-Cath Flush IVPUSH 10 ml PRN PRN Administration maintain patency, protocol Sodium Chloride 1,000 mls @ 60 mls/hr 04/13/20 08:58 04/13/20 09:57 1/2 Normal Saline IV 60 mls/hr [facility] Administration Lidocaine 1 patch 03/31/20 10:00 Lidoderm Patch - TP DAILY PRN PAIN LEVEL 1-5 Magnesium Oxide 800 mg 04/13/20 17:17 Mag-Ox - PO 04/13/20 17:18 ONCE ONE Miscellaneous 1 each 03/30/20 22:00 04/12/20 21:35 Lidoderm Patch Removal MC Not Given DAILY@2200 [facility] Terazosin HCl 5 mg 03/30/20 22:00 04/12/20 21:34 Hytrin - PO 5 mg HS [facility] Administration Impression 1. CHEMA 2. lymphoma 3. hypotension 4. anemia 5. prostate cancer 6. hyperkalemia 7. hx of gammopathy 8. b-cell lymphoma Plan - will give lasix for edema - cont to monitor lytes - monitor for tumor lysis - repeat labs in am - monitor volume status - oncology follow up
--- NOTE | 2020-04-13 18:15 | PN ---
Teaching Attending Note Name of Resident: Omar Vera ATTENDING PHYSICIAN STATEMENT I saw and evaluated the patient. I reviewed the resident's note and discussed the case with the resident. I agree with the resident's findings and plan as documented. 84 y.o. M w/ PMHx. of HTN, HLD, and NHL. Admitted with Left flank and abdominal pain. Imaging showed evidence of recurrent disease. Left axillary node biopsy-- Diffuse Large B cell lymphoma, double expressor(c- myc and bcl2. Started rituxan, with plan for CVP. Watching for tumor lyses. +2 B/L LE edema. Doing well.
--- NOTE | 2020-04-13 18:56 | PN ---
Teaching Attending Note Name of Resident: Usama Villarreal ATTENDING PHYSICIAN STATEMENT I saw and evaluated the patient. I reviewed the resident's note and discussed the case with the resident. I agree with the resident's findings and plan as documented. SUBJECTIVE:seen at 9 am no pain, no SOB OBJECTIVE: NAD, MMM, looks winded when talking while lying flat CV: 3/6 SM at base. RRR Lungs: CTAB LE: with 2+ edema on LE ( worse than yesterday ) skin : no erythema or edema around port in R upper chest ASSESSMENT AND PLAN: 84 y/o man with h/o HTN, HLD, non-Hodgkin's lymphoma, prostate cancer (beads 13 years ago in remission), who presented with L lower back pain. L paravertebral mass. Low back pain due to above mass. R axillary LAP Diffuse large B cell Lymphoma Anemia Asymptomatic bacteruria Plan: - Low grade fever today again, could be due to receiving chemo and Tumor lysis. follow blood cx form yesterday - more overloaded today. give a dose of lasix - follow BM Bx results. - cont to follow LDh ( slightly elevated ) , and electrolytes while on chemo - cont IVF - cont Allopurinol - cont to hold BP meds - Heparin Sq - monitor renal function ASSESSMENT AND PLAN:
--- NOTE | 2020-04-13 21:34 | PN ---
Physical Exam: SUBJECTIVE: No overnight events. Patient seen and examined. NAD. Pt had temp of 100 F. ROS negative except for chronic back pain. OBJECTIVE: Vital Signs Period Temp Pulse Resp BP Sys/Tillman Pulse Ox Last 24 Hr 98.4 F-100 F 91-114 -20 100-123/56-69 97 GENERAL: The patient is awake, alert, and fully oriented, in no acute distress. HEENT: NC, NT. LUNGS: Breath sounds equal, clear to auscultation bilaterally, no wheezes, no crackles, no accessory muscle use. HEART: Regular rate and rhythm, S1, S2 w/ 3/6 systolic murmur best heard at pulmonic area; No rub or gallop. Chemoport on R chest; site non-TTP; non- erythematous ABDOMEN: L flank pain TTP. Soft, nondistended, normoactive bowel sounds, EXTREMITIES: 2+ pulses, warm, well-perfused, 2+ pitting edema b/l legs, but worse than yesterday. NEUROLOGICAL: gait not observed. PSYCH: Normal mood, normal affect. SKIN: Warm, dry, normal turgor, no rashes or lesions noted Laboratory Results - last 24 hr 04/13/20 04/13/20 05:15 05:15 WBC 4.6 RBC 2.57 L Hgb 7.5 L Hct 22.9 L MCV 89.1 MCH 29.3 MCHC 32.9 RDW 15.9 Plt Count 142 D MPV 9.9 Absolute Neuts (auto) 3.9 Neutrophils % 83.4 H Neutrophils % (Manual) 86.9 H Band Neutrophils % 0.0 Lymphocytes % 7.9 L D Lymphocytes % (Manual) 2.0 L D Monocytes % 8.2 Monocytes % (Manual) 10 D Eosinophils % 0.1 D Eosinophils % (Manual) 0.0 Basophils % 0.4 Basophils % (Manual) 1.0 D Myelocytes % (Man) 0 Promyelocytes % (Man) 0 Blast Cells % (Manual) 0 Nucleated RBC % 0 Metamyelocytes 0 Hypochromia 0 Platelet Estimate Decreased Polychromasia 1+ Poikilocytosis 0 Basophilic Stippling 1+ Anisocytosis 2+ Microcytosis 2+ Macrocytosis 0 Sodium 140 Potassium 4.4 Chloride 110 H Carbon Dioxide 21 Anion Gap 9 BUN 34.5 H Creatinine 1.2 Est GFR (CKD-EPI)AfAm 63.97 Est GFR (CKD-EPI)NonAf 55.20 Random Glucose 123 H Uric Acid 6.0 Calcium 8.2 L Phosphorus 4.5 Magnesium 1.7 L Total Bilirubin 0.4 AST 20 ALT 17 Alkaline Phosphatase 68 LD Total 260 H Total Protein 5.2 L Albumin 1.8 L Active Medications Generic Name Dose Route Start Last Admin Trade Name Freq PRN Reason Stop Dose Admin Acetaminophen 1,000 mg 03/30/20 18:21 04/13/20 14:37 Tylenol - PO 1,000 mg Q6H PRN Administration PAIN LEVEL 1-5 Allopurinol 300 mg 04/01/20 17:30 04/13/20 09:57 Zyloprim - PO 300 mg DAILY [facility] Administration Ascorbic Acid 500 mg 03/30/20 22:00 04/13/20 09:57 Vitamin C - PO 500 mg BID [facility] Administration Atorvastatin Calcium 5 mg 03/30/20 22:00 04/12/20 21:34 Lipitor - PO 5 mg HS [facility] Administration Cholecalciferol 500 unit 03/31/20 10:00 04/13/20 09:57 Vitamin D3 - PO 500 unit DAILY [facility] Administration Docusate Sodium 100 mg 03/30/20 22:00 04/13/20 14:29 Colace - PO 100 mg TID [facility] Administration Famotidine 20 mg 04/05/20 22:00 04/13/20 09:57 Pepcid - PO 20 mg BID [facility] Administration Ferrous Sulfate 325 mg 03/31/20 08:00 04/13/20 17:03 Feosol - PO 325 mg TIDCM [facility] Administration Heparin Sodium (Porcine) 5,000 unit 04/03/20 22:00 04/13/20 14:29 Heparin - SQ 5,000 unit TID [facility] Administration IV Flush 10 ml 04/08/20 23:33 04/11/20 10:30 Danie-Cath Flush IVPUSH 10 ml PRN PRN Administration maintain patency, protocol Sodium Chloride 1,000 mls @ 60 mls/hr 04/13/20 08:58 04/13/20 20:26 1/2 Normal Saline IV 60 mls/hr [facility] Administration Lidocaine 1 patch 03/31/20 10:00 Lidoderm Patch - TP DAILY PRN PAIN LEVEL 1-5 Miscellaneous 1 each 03/30/20 22:00 04/12/20 21:35 Lidoderm Patch Removal MC Not Given DAILY@2200 [facility] Terazosin HCl 5 mg 03/30/20 22:00 04/12/20 21:34 Hytrin - PO 5 mg HS [facility] Administration ASSESSMENT/PLAN: 84 YO M with PMH of HTN, HLD, non-Hodgkin's lymphoma (5-10 years ago, in remission), & prostate cancer (13 years ago in remission), who presents with left lumbar pain since September and has gotten acutely worse over the last 2 months. He also came in for Left flank and abdominal pain. Pt was admitted for Left flank and back pain 2/2 neoplasm. #Left flank and back pain 2/2 neoplasm, likely lymphoma -oncology following (Dr. 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 Waiting on results -c/w lidocaine patch -neurosurgery consulted- reevaluate post bm biopsy -continue monitoring LDH, uric acid daily as pt is in high risk for tumor lysis. C/w allopurinol for tumor lysis syndrome ppx -Heme onc consult appreciated. RCVP. Mini CHOP if tolerates RCVP. -Rituximab given in divide doses due to risk of tumor lysis syndrome. -Rituxin today -LDH elevated -increased LE edema>> fluid overload possibly due to chemo> lasix given #Fever 2/2 infectious source vs Chemo -fever again. acetaminophen given -blood cx (peripheral venous & from chemoport) shows no growth; CXR: no acute lung pathology -fever could be due to chemo & tumor lysis syndrome -f/u ucx #Anemia of chronic disease -H&H trended 8.5/26.3 (04/12)> 7.5/22.4 (04/13) today; s/p 1 PRBC (04/06) -c/w monitoring CBC HTN -hold meds.BP is stable. #CHEMA -Cr & BUN downtrended to BUN/Cr 38/1.3>34.5/1.2 today. -continue IVF #HLD -c/w statin -ASA 81mg daily #DVT Ppx/GI PPX -SCDs; c/w heparin SQ. Heparin given instead of Lovenox b/c of CHEMA and possible renal issues from chemotherapy -Pepcid 10 mg BID for GI PPX #FEN -0.45% saline 83 ml/hr -Monitor Lytes -sodium-controlled diet #Dispo maintain med-surg Visit type - Emergency Visit Emergency Visit: Yes ED Registration Date: 03/21/20 Care time: The patient presented to the Emergency Department on the above date and was hospitalized for further evaluation of their emergent condition. - New Patient This patient is new to me today: No - Critical Care Critical Care patient: No ATTENDING PHYSICIAN STATEMENT I saw and evaluated the patient. I reviewed the resident's note and discussed the case with the resident. I agree with the resident's findings and plan as documented. SUBJECTIVE: OBJECTIVE: ASSESSMENT AND PLAN:
[2020-04-13] MEDS: ATORVASTATIN CA 10 MG TABLET (FP) PO SCH (22:06)
[2020-04-13] MEDS: TERAZOSIN HCL 5 MG CAPSULE PO SCH (22:07)
[2020-04-13] MEDS: LIDOCAINE PATCH REMOVAL MC SCH (22:07)
[2020-04-14] MEDS: DOCUSATE SODIUM 100 MG CAPSULE (FP) PO SCH ×3 (05:34→23:06)
[2020-04-14] MEDS: HEPARIN NA (PORCINE) 5,000 UNITS/ML 1ML VIAL SQ SCH ×3 (05:34→23:06)
[2020-04-14] MEDS: ACETAMINOPHEN 500 MG TABLET (FP) PO PRN ×2 (05:49→23:08)
[2020-04-14 08:17] LABS: ALBUMIN 1.7 g/dl (3.4-5.0); BILIRUBIN,TOTAL 0.4 mg/dL (0.2-1); BLOOD UREA NITROGEN 35.2 mg/dL (7-18); CALCIUM 7.8 mg/dL (8.5-10.1); CREATININE 1.3 mg/dL (0.55-1.3); MAGNESIUM 1.8 mg/dL (1.8-2.4); POTASSIUM 4.3 mmol/L (3.5-5.1); TOT PROT 4.9 g/dl (6.4-8.2); URIC ACID 6.8 mg/dL (2.6-7.2)
[2020-04-14 08:22] LABS: BASO % 0.9 % (0-2.0); EOS % 0.9 % (0-4.5); HEMATOCRIT 20.9 % (35.4-49); LYMPH % 10.1 % (8-40); MCH 29.3 pg (25.7-33.7); MEAN CELL VOLUME 88.9 fl (80-96); MEAN PLT VOLUME 9.6 fl (7.5-11.1); MONO % 10.5 % (3.8-10.2); NEUT % 77.6 % (42.8-82.8); PLATELET COUNT 135 K/MM3 (134-434); RBC 2.35 M/mm3 (4.00-5.60); RDW 15.4 % (11.9-15.9); WHITE BLOOD COUNT 3.4 K/mm3 (4.0-10.0)
[2020-04-14 08:36] LABS: HEMOGLOBIN 6.9 GM/dL (11.7-16.9)
[2020-04-14 10:07] LABS: ANISOCYTOSIS 1+; MACROCYTOSIS 0; PLATELET ESTIMATE DECREASED
[2020-04-14] MEDS: CHOLECALCIFEROL (VIT D3) 1,000 UNIT (25 MCG) TABLET PO SCH (10:38)
[2020-04-14] MEDS: FERROUS SO4 325 MG TABLET (FP) PO SCH ×3 (10:38→19:22)
[2020-04-14] MEDS: ALLOPURINOL 300 MG TABLET (FP) PO SCH (10:39)
[2020-04-14] MEDS: FAMOTIDINE 20 MG TABLET PO SCH ×2 (10:39→23:07)
[2020-04-14] MEDS: ASCORBIC ACID 500 MG TABLET (FP) PO SCH ×2 (10:39→23:07)
[2020-04-14] MEDS: SODIUM CHLORIDE 0.45% 1,000 ML IV SCH (12:47)
[2020-04-14] MEDS ORDERED: FUROSEMIDE 40 MG TABLET (FP) PO ONE (14:22)
--- NOTE | 2020-04-14 14:38 | PN ---
Progress Note, Physician History of Present Illness: Pt seen and examined at bedside. He is awake and alert. He complains of edema. - Current Medication List Current Medications: Active Medications Acetaminophen (Tylenol -) 1,000 mg PO Q6H PRN PRN Reason: PAIN LEVEL 1-5 Last Admin: 04/14/20 05:49 Dose: 1,000 mg Documented by: Allopurinol (Zyloprim -) 300 mg PO DAILY [facility] Last Admin: 04/14/20 10:39 Dose: 300 mg Documented by: Ascorbic Acid (Vitamin C -) 500 mg PO BID [facility] Last Admin: 04/14/20 10:39 Dose: 500 mg Documented by: Atorvastatin Calcium (Lipitor -) 5 mg PO [facility] Last Admin: 04/13/20 22:06 Dose: 5 mg Documented by: Cholecalciferol (Vitamin D3 -) 500 unit PO DAILY [facility] Last Admin: 04/14/20 10:38 Dose: 500 unit Documented by: Docusate Sodium (Colace -) 100 mg PO TID [facility] Last Admin: 04/14/20 05:34 Dose: 100 mg Documented by: Famotidine (Pepcid -) 20 mg PO BID [facility] Last Admin: 04/14/20 10:39 Dose: 20 mg Documented by: Ferrous Sulfate (Feosol -) 325 mg PO TIDCM [facility] Last Admin: 04/14/20 10:38 Dose: 325 mg Documented by: Heparin Sodium (Porcine) (Heparin -) 5,000 unit SQ TID [facility] Last Admin: 04/14/20 05:34 Dose: 5,000 unit Documented by: IV Flush (Danie-Cath Flush) 10 ml IVPUSH PRN PRN PRN Reason: maintain patency, protocol Last Admin: 04/11/20 10:30 Dose: 10 ml Documented by: Sodium Chloride (1/2 Normal Saline) 1,000 mls @ 60 mls/hr IV ASDIR [facility] Last Admin: 04/14/20 12:47 Dose: 60 mls/hr Documented by: Lidocaine (Lidoderm Patch -) 1 patch TP DAILY PRN PRN Reason: PAIN LEVEL 1-5 Miscellaneous (Lidoderm Patch Removal) 1 each MC DAILY@2200 [facility] Last Admin: 04/13/20 22:07 Dose: Not Given Documented by: Terazosin HCl (Hytrin -) 5 mg PO [facility] Last Admin: 04/13/20 22:07 Dose: 5 mg Documented by: - Objective Vital Signs: Vital Signs Temperature 98.4 F 04/14/20 13:22 Pulse Rate 90 04/14/20 13:22 Respiratory Rate 20 04/14/20 13:22 Blood Pressure 105/49 L 04/14/20 13:22 O2 Sat by Pulse Oximetry (%) 96 04/14/20 09:00 Constitutional: Yes: Calm Eyes: Yes: Conjunctiva Clear HENT: Yes: Atraumatic Neck: Yes: Supple Cardiovascular: Yes: S1, S2 Respiratory: Yes: CTA Bilaterally Gastrointestinal: Yes: Soft Genitourinary: Yes: WNL Musculoskeletal: Yes: WNL Edema: Yes Edema: LLE: 2+, RLE: 2+ Neurological: Yes: Oriented Psychiatric: Yes: Oriented Labs: CBC, BMP 04/14/20 05:30 04/14/20 05:30 INR, PTT INR 1.13 (0.83-1.09) H 03/21/20 16:10 Problem List - Problems (1) CHEMA (acute kidney injury) Code(s): N17.9 - ACUTE KIDNEY FAILURE, UNSPECIFIED (2) Hypotension Code(s): I95.9 - HYPOTENSION, UNSPECIFIED Qualifiers: Hypotension type: unspecified hypotension type Qualified Code(s): I95.9 - Hypotension, unspecified (3) Low back pain Code(s): M54.5 - LOW BACK PAIN Qualifiers: Chronicity: acute Back pain laterality: left Sciatica presence: without sciatica Qualified Code(s): M54.5 - Low back pain Assessment/Plan Current Medications Generic Name Dose Route Start Last Admin Trade Name Freq PRN Reason Stop Dose Admin Acetaminophen 1,000 mg 03/30/20 18:21 04/14/20 05:49 Tylenol - PO 1,000 mg Q6H PRN Administration PAIN LEVEL 1-5 Allopurinol 300 mg 04/01/20 17:30 04/14/20 10:39 Zyloprim - PO 300 mg DAILY [facility] Administration Ascorbic Acid 500 mg 03/30/20 22:00 04/14/20 10:39 Vitamin C - PO 500 mg BID [facility] Administration Atorvastatin Calcium 5 mg 03/30/20 22:00 04/13/20 22:06 Lipitor - PO 5 mg HS [facility] Administration Cholecalciferol 500 unit 03/31/20 10:00 04/14/20 10:38 Vitamin D3 - PO 500 unit DAILY [facility] Administration Docusate Sodium 100 mg 03/30/20 22:00 04/14/20 05:34 Colace - PO 100 mg TID [facility] Administration Famotidine 20 mg 04/05/20 22:00 04/14/20 10:39 Pepcid - PO 20 mg BID [facility] Administration Ferrous Sulfate 325 mg 03/31/20 08:00 04/14/20 10:38 Feosol - PO 325 mg TIDCM [facility] Administration Heparin Sodium (Porcine) 5,000 unit 04/03/20 22:00 04/14/20 05:34 Heparin - SQ 5,000 unit TID [facility] Administration IV Flush 10 ml 04/08/20 23:33 04/11/20 10:30 Danie-Cath Flush IVPUSH 10 ml PRN PRN Administration maintain patency, protocol Sodium Chloride 1,000 mls @ 60 mls/hr 04/13/20 08:58 04/14/20 12:47 1/2 Normal Saline IV 60 mls/hr ASDIR [facility] Administration Lidocaine 1 patch 03/31/20 10:00 Lidoderm Patch - TP DAILY PRN PAIN LEVEL 1-5 Miscellaneous 1 each 03/30/20 22:00 04/13/20 22:07 Lidoderm Patch Removal MC Not Given DAILY@2200 [facility] Terazosin HCl 5 mg 03/30/20 22:00 04/13/20 22:07 Hytrin - PO 5 mg HS [facility] Administration Impression 1. CHEMA 2. lymphoma 3. hypotension 4. anemia 5. prostate cancer 6. hyperkalemia 7. hx of gammopathy 8. b-cell lymphoma Plan - will give lasix today - cont to monitor renal function - discussed with oncology - pt s/p chemo - monitor for tumor lysis - repeat labs in am - monitor volume status - lasix prn - can stop fluids after this bag, discussed with oncology
[2020-04-14] MEDS ORDERED: FUROSEMIDE 40 MG/4 ML INJECTABLE VIAL IVPUSH ONE (17:00)
--- NOTE | 2020-04-14 17:46 | PN.HO ---
Progress Note (short form) - Note Progress Note: PAtient seen and examined Denies any complaints Last Vital Signs Temp Pulse Resp BP Pulse Ox 99.2 F 99 H 18 102/57 L 98 04/03/20 21:30 04/03/20 21:30 04/03/20 21:30 04/03/20 21:30 04/03/20 21:00 Last Vital Signs Temp Pulse Resp BP Pulse Ox 98.7 F 92 H 20 111/56 L 97 04/05/20 21:41 04/05/20 21:41 04/05/20 21:41 04/05/20 21:41 04/05/20 09:00 Last Vital Signs Temp Pulse Resp BP Pulse Ox 98 F 92 H 20 114/57 L 100 04/08/20 21:09 04/08/20 21:09 04/08/20 21:09 04/08/20 21:09 04/08/20 09:00 Last Vital Signs Temp Pulse Resp BP Pulse Ox 97.9 F 102 H 22 H 109/61 95 04/10/20 21:45 04/10/20 21:45 04/10/20 21:45 04/10/20 21:45 04/10/20 21:00 AFVSS Cor: RSR, No murmurs, No gallops Lungs: Clear to P&A Abd: Soft, Normal bowel sounds, No organomegaly Ext: 2+ edema b/l Labs/MEds reviewed A/P L sided flank pain x 1 month but worsening over the past few days that is pressure like, radiates the L abdomen and groin that fluctates intermittently but no alleviating or exacerbating factors. Pt with persisten pain without improvement with oral pain medications. ER CT of abdomen showed a new compared with 06/14/13, 10 x 9.8 x 8 cam left pelvic mesenteric mass/ lympadenopathy, 1.1cm periaortic node and an unchanged 1.4cm splenic lesion unchanged from 06/14/13. Lt. lower back pain due to mesenteric mass 10cm , ? jourdan, Lt.periaortic 1.1 cm node, Lt. splenic 1.4cm focus CT T/L spine --- thecal sac compression, Lt. psoas muscle 8cm mass CT chest -- extensive rt. 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 awaitibg bone marrow bx to consider steroids and RCVP with C1. mini RCHOP if tolerates RCVP. started dexamethasone 20mg 04/07/20 x 5 days. Rituxan split dose -- tolerated well today Remainder dose 03/13 High risk for tumor lysis --- on allopurinol. gentle hydration. f/u G6 PD For rituxan 100mg --04/11 Remainder dose 650 mg 04/13 Hep. serologies negative Anemia of chronic disease-- s/p PRBCs 04/14 CXR --mild CHF . Gentle diuresis d/c planning will need close f/u outpatient -- Friday at [facility] for labs Will need to continue allopurinol --- discussed the importance of this with patient
--- NOTE | 2020-04-14 19:20 | PN ---
Teaching Attending Note Name of Resident: Usama Villarreal ATTENDING PHYSICIAN STATEMENT I saw and evaluated the patient. I reviewed the resident's note and discussed the case with the resident. I agree with the resident's findings and plan as documented. SUBJECTIVE: No fever or chills. No SOB. No BERUMEN . no pain OBJECTIVE: NAD, comfortable in bed in flat position CV: 3/6 SM at base. RRR Lungs: CTAB LE: with 2+ edema on LE , better than yesterday skin : no erythema or edema around port in R upper chest ASSESSMENT AND PLAN: 84 y/o man with h/o HTN, HLD, non-Hodgkin's lymphoma, prostate cancer (beads 13 years ago in remission), who presented with L lower back pain. L paravertebral mass. Low back pain due to above mass. R axillary LAP Diffuse large B cell Lymphoma Anemia: worse Asymptomatic bacteruria Plan: - transfuse 1 unit of RBC - give lasix with transfusion - blood cx neg so far - follow BM Bx results. - cont to follow LDH ( slightly elevated ) , and electrolytes while on chemo - cont IVF. will dc in AM - cont Allopurinol - cont to hold BP meds - Heparin Sq - monitor renal function will dc in am ASSESSMENT AND PLAN:
[2020-04-14 21:30] LABS: EOS % 1.2 % (0-4.5); HEMATOCRIT 24.4 % (35.4-49); HEMOGLOBIN 8.2 GM/dL (11.7-16.9); LYMPH % 8.6 % (8-40); MCH 29.7 pg (25.7-33.7); MCHC 33.7 g/dl (32.0-35.9); MEAN PLT VOLUME 9.2 fl (7.5-11.1); MONO % 11.4 % (3.8-10.2); NEUT % 77.8 % (42.8-82.8); PLATELET COUNT 136 K/MM3 (134-434); RBC 2.77 M/mm3 (4.00-5.60); WHITE BLOOD COUNT 4.2 K/mm3 (4.0-10.0)
[2020-04-14 21:50] LABS: ALBUMIN 1.9 g/dl (3.4-5.0); BILIRUBIN,TOTAL 0.5 mg/dL (0.2-1); BLOOD UREA NITROGEN 37.1 mg/dL (7-18); CALCIUM 8.2 mg/dL (8.5-10.1); CREATININE 1.4 mg/dL (0.55-1.3); POTASSIUM 4.3 mmol/L (3.5-5.1); TOT PROT 5.2 g/dl (6.4-8.2); URIC ACID 6.5 mg/dL (2.6-7.2)
--- NOTE | 2020-04-14 22:09 | PN ---
Physical Exam: SUBJECTIVE: No overnight events. Patient seen and examined. NAD. ROS negative except for chronic back pain. OBJECTIVE: Vital Signs Period Temp Pulse Resp BP Sys/Tillman Pulse Ox Last 24 Hr 98.4 F-99.9 F 90-123 18-20 104-142/49-76 96 GENERAL: The patient is awake, alert, and fully oriented, in no acute distress. HEENT: NC, NT. LUNGS: Breath sounds equal, clear to auscultation bilaterally, no wheezes, no crackles, no accessory muscle use. HEART: Regular rate and rhythm, S1, S2 w/ 3/6 systolic murmur best heard at pulmonic area; No rub or gallop. Chemoport on R chest; site non-TTP; non- erythematous ABDOMEN: L flank pain TTP. Soft, nondistended, normoactive bowel sounds, EXTREMITIES: 2+ pulses, warm, well-perfused, 2+ pitting edema b/l legs, but worse than yesterday. NEUROLOGICAL: gait not observed. PSYCH: Normal mood, normal affect. SKIN: Warm, dry, normal turgor, no rashes or lesions noted Laboratory Results - last 24 hr 04/14/20 04/14/20 04/14/20 05:30 05:30 10:45 WBC 3.4 L RBC 2.35 L Hgb 6.9 L* Hct 20.9 L MCV 88.9 MCH 29.3 MCHC 33.0 RDW 15.4 Plt Count 135 MPV 9.6 Absolute Neuts (auto) 2.7 Neutrophils % 77.6 Neutrophils % (Manual) 85.9 H Band Neutrophils % 0.0 Lymphocytes % 10.1 D Lymphocytes % (Manual) 3.0 L D Monocytes % 10.5 H Monocytes % (Manual) 11 H Eosinophils % 0.9 D Eosinophils % (Manual) 0.0 Basophils % 0.9 Basophils % (Manual) 0.0 Myelocytes % (Man) 0 Promyelocytes % (Man) 0 Blast Cells % (Manual) 0 Nucleated RBC % 0 Metamyelocytes 0 Hypochromia 1+ Platelet Estimate Decreased Polychromasia 1+ Poikilocytosis 1+ Basophilic Stippling 1+ Anisocytosis 1+ Microcytosis 1+ Macrocytosis 0 Stomatocytes 1+ Sodium 140 Potassium 4.3 Chloride 109 H Carbon Dioxide 24 Anion Gap 7 L BUN 35.2 H Creatinine 1.3 Est GFR (CKD-EPI)AfAm 58.07 Est GFR (CKD-EPI)NonAf 50.10 Random Glucose 79 Uric Acid 6.8 Calcium 7.8 L Phosphorus 4.0 Magnesium 1.8 Total Bilirubin 0.4 AST 18 ALT 15 Alkaline Phosphatase 66 LD Total 227 Total Protein 4.9 L Albumin 1.7 L Blood Type O POSITIVE Antibody Screen Negative Crossmatch See Detail 04/14/20 04/14/20 20:55 20:55 WBC 4.2 RBC 2.77 L Hgb 8.2 L Hct 24.4 L D MCV 88.0 MCH 29.7 MCHC 33.7 RDW 16.0 H Plt Count 136 MPV 9.2 Absolute Neuts (auto) 3.3 Neutrophils % 77.8 Neutrophils % (Manual) Band Neutrophils % Lymphocytes % 8.6 Lymphocytes % (Manual) Monocytes % 11.4 H Monocytes % (Manual) Eosinophils % 1.2 Eosinophils % (Manual) Basophils % 1.0 Basophils % (Manual) Myelocytes % (Man) Promyelocytes % (Man) Blast Cells % (Manual) Nucleated RBC % 0 Metamyelocytes Hypochromia Platelet Estimate Polychromasia Poikilocytosis Basophilic Stippling Anisocytosis Microcytosis Macrocytosis Stomatocytes Sodium 139 Potassium 4.3 Chloride 108 H Carbon Dioxide 21 Anion Gap 10 BUN 37.1 H Creatinine 1.4 H Est GFR (CKD-EPI)AfAm 53.09 Est GFR (CKD-EPI)NonAf 45.81 Random Glucose 98 Uric Acid 6.5 Calcium 8.2 L Phosphorus Magnesium Total Bilirubin 0.5 AST 24 ALT 17 Alkaline Phosphatase 70 LD Total 239 Total Protein 5.2 L Albumin 1.9 L Blood Type Antibody Screen Crossmatch Active Medications Generic Name Dose Route Start Last Admin Trade Name Freq PRN Reason Stop Dose Admin Acetaminophen 1,000 mg 03/30/20 18:21 04/14/20 05:49 Tylenol - PO 1,000 mg Q6H PRN Administration PAIN LEVEL 1-5 Allopurinol 300 mg 04/01/20 17:30 04/14/20 10:39 Zyloprim - PO 300 mg DAILY [facility] Administration Ascorbic Acid 500 mg 03/30/20 22:00 04/14/20 10:39 Vitamin C - PO 500 mg BID [facility] Administration Atorvastatin Calcium 5 mg 03/30/20 22:00 04/13/20 22:06 Lipitor - PO 5 mg HS [facility] Administration Cholecalciferol 500 unit 03/31/20 10:00 04/14/20 10:38 Vitamin D3 - PO 500 unit DAILY [facility] Administration Docusate Sodium 100 mg 03/30/20 22:00 04/14/20 15:40 Colace - PO 100 mg TID [facility] Administration Famotidine 20 mg 04/05/20 22:00 04/14/20 10:39 Pepcid - PO 20 mg BID [facility] Administration Ferrous Sulfate 325 mg 03/31/20 08:00 04/14/20 19:22 Feosol - PO Not Given TIDCM [facility] Heparin Sodium (Porcine) 5,000 unit 04/03/20 22:00 04/14/20 15:40 Heparin - SQ 5,000 unit TID [facility] Administration IV Flush 10 ml 04/08/20 23:33 04/11/20 10:30 Danie-Cath Flush IVPUSH 10 ml PRN PRN Administration maintain patency, protocol Sodium Chloride 1,000 mls @ 60 mls/hr 04/13/20 08:58 04/14/20 12:47 1/2 Normal Saline IV 60 mls/hr ASDIR [facility] Administration Lidocaine 1 patch 03/31/20 10:00 Lidoderm Patch - TP DAILY PRN PAIN LEVEL 1-5 Miscellaneous 1 each 03/30/20 22:00 04/13/20 22:07 Lidoderm Patch Removal MC Not Given DAILY@2200 [facility] Terazosin HCl 5 mg 03/30/20 22:00 04/13/20 22:07 Hytrin - PO 5 mg HS [facility] Administration ASSESSMENT/PLAN: 84 YO M with PMH of HTN, HLD, non-Hodgkin's lymphoma (5-10 years ago, in remission), & prostate cancer (13 years ago in remission), who presents with left lumbar pain since September and has gotten acutely worse over the last 2 months. He also came in for Left flank and abdominal pain. Pt was admitted for Left flank and back pain 2/2 neoplasm. #Left flank and back pain 2/2 neoplasm, likely lymphoma -oncology following (Dr. 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 Waiting on results -c/w lidocaine patch -neurosurgery consulted- reevaluate post bm biopsy -continue monitoring LDH, uric acid daily as pt is in high risk for tumor lysis. C/w allopurinol for tumor lysis syndrome ppx -Heme onc consult appreciated. RCVP. Mini CHOP if tolerates RCVP. -Rituximab given in divide doses due to risk of tumor lysis syndrome. #Fever 2/2 infectious source vs Chemo -fever again. acetaminophen given -blood cx (peripheral venous & from chemoport) shows no growth; CXR: no acute lung pathology -fever could be due to chemo & tumor lysis syndrome -f/u ucx #Anemia of chronic disease -H&H trended 6.9. PRBC given today; s/p PRBC (04/06, 04/14) -c/w monitoring CBC HTN -hold meds.BP is stable. #CHEMA -Cr 1.4 today -continue IVF #HLD -c/w statin -ASA 81mg daily #DVT Ppx/GI PPX -SCDs; c/w heparin SQ. Heparin given instead of Lovenox b/c of CHEMA and possible renal issues from chemotherapy -Pepcid 10 mg BID for GI PPX #FEN -0.45% saline 83 ml/hr -Monitor Lytes -sodium-controlled diet #Dispo maintain med-surg -d/c tomorrow. D/C was delayed today because pt had 99 F, so PRBC was given later than planned. Visit type - Emergency Visit Emergency Visit: Yes ED Registration Date: 03/21/20 Care time: The patient presented to the Emergency Department on the above date and was hospitalized for further evaluation of their emergent condition. - New Patient This patient is new to me today: No - Critical Care Critical Care patient: No ATTENDING PHYSICIAN STATEMENT I saw and evaluated the patient. I reviewed the resident's note and discussed the case with the resident. I agree with the resident's findings and plan as documented. SUBJECTIVE: OBJECTIVE: ASSESSMENT AND PLAN:
[2020-04-14] MEDS ORDERED: SODIUM CHLORIDE 0.45% 1,000 ML IV SCH (22:13)
[2020-04-14 22:59] LABS: PLATELET ESTIMATE ADEQUATE
[2020-04-14] MEDS: ATORVASTATIN CA 10 MG TABLET (FP) PO SCH (23:07)
[2020-04-14] MEDS: TERAZOSIN HCL 5 MG CAPSULE PO SCH (23:07)
[2020-04-14] MEDS: LIDOCAINE PATCH REMOVAL MC SCH (23:22)
[2020-04-15] MEDS: DOCUSATE SODIUM 100 MG CAPSULE (FP) PO SCH ×2 (05:07→14:53)
[2020-04-15] MEDS: HEPARIN NA (PORCINE) 5,000 UNITS/ML 1ML VIAL SQ SCH ×2 (05:07→14:53)
[2020-04-15] MEDS: FERROUS SO4 325 MG TABLET (FP) PO SCH ×3 (09:00→16:43)
[2020-04-15] MEDS: ALLOPURINOL 300 MG TABLET (FP) PO SCH (09:01)
[2020-04-15] MEDS: ASCORBIC ACID 500 MG TABLET (FP) PO SCH (09:01)
[2020-04-15] MEDS: FAMOTIDINE 20 MG TABLET PO SCH (09:01)
[2020-04-15] MEDS: CHOLECALCIFEROL (VIT D3) 1,000 UNIT (25 MCG) TABLET PO SCH (09:01)
[2020-04-15 09:47] LABS: BASO % 0.9 % (0-2.0); EOS % 1.8 % (0-4.5); HEMATOCRIT 24.5 % (35.4-49); HEMOGLOBIN 8.2 GM/dL (11.7-16.9); LYMPH % 10.6 % (8-40); MCH 29.6 pg (25.7-33.7); MCHC 33.4 g/dl (32.0-35.9); MEAN CELL VOLUME 88.4 fl (80-96); MEAN PLT VOLUME 9.2 fl (7.5-11.1); MONO % 10.5 % (3.8-10.2); NEUT % 76.2 % (42.8-82.8); PLATELET COUNT 135 K/MM3 (134-434); RBC 2.78 M/mm3 (4.00-5.60); RDW 16.3 % (11.9-15.9); WHITE BLOOD COUNT 4.6 K/mm3 (4.0-10.0)
[2020-04-15 10:27] LABS: ALBUMIN 1.8 g/dl (3.4-5.0); BILIRUBIN,TOTAL 0.4 mg/dL (0.2-1); BLOOD UREA NITROGEN 34.9 mg/dL (7-18); CALCIUM 8.3 mg/dL (8.5-10.1); CREATININE 1.3 mg/dL (0.55-1.3); POTASSIUM 4.3 mmol/L (3.5-5.1); TOT PROT 5.2 g/dl (6.4-8.2); URIC ACID 6.9 mg/dL (2.6-7.2)
[2020-04-15 12:26] LABS: ANISOCYTOSIS 1+; PLATELET ESTIMATE DECREASED
[2020-04-15 13:15] VITALS: BP 103/56; PULSE 117; TEMP 99.4
--- NOTE | 2020-04-15 14:23 | PN ---
Teaching Attending Note Name of Resident: Lauren Marcus ATTENDING PHYSICIAN STATEMENT I saw and evaluated the patient. I reviewed the resident's note and discussed the case with the resident. I agree with the resident's findings and plan as documented. SUBJECTIVE: no fever or chills. feels better . No N/V . No BERUMEN . no CP . no diarrhea . denies SOB OBJECTIVE: NAD, comfortable CV: 3/6 SM at base. RRR Lungs: CTAB LE:1 + edema on legs. much better wrinkly skin skin : no erythema or edema around port in R upper chest . small bruise in L forearm. ASSESSMENT AND PLAN: 84 y/o man with h/o HTN, HLD, non-Hodgkin's lymphoma, prostate cancer (beads 13 years ago in remission), who presented with L lower back pain. L paravertebral mass. Low back pain due to above mass. R axillary LAP Diffuse large B cell Lymphoma. Anemia: s/p transfusion Asymptomatic bacteruria Plan: - Hb improved . renal function improved. - will need repeat labs on Friday in Onc clinic on first floor and needs f/u with Dr. Nina in 1 week. - case was d/w Dr. Dodson. - will dc home on lasix 20 QOD , with close f/u with renal . - cont [place]opurinol [place] - BM Bx results are still pending. to be followed by heme team - resume verapamil at [place] . Bp has been acceptable. will cont to hold atenolol above was d/w him. he agrees to VNS services arranged.
--- NOTE | 2020-04-15 15:11 | DS ---
Physical Exam: SUBJECTIVE: Patient seen and examined at bedside. pt has no acute complaints. pt states he is ready to go home. OBJECTIVE: Vital Signs Period Temp Pulse Resp BP Sys/Tillman Pulse Ox Last 24 Hr 98.2 F-99.9 F 96-123 20-20 103-142/52-76 95-96 PHYSICAL EXAM GENERAL: The patient is awake, alert, and fully oriented, in no acute distress. HEAD: Normal with no signs of trauma. EYES: extraocular movements intact LUNGS: Breath sounds equal, clear to auscultation bilaterally, no accessory muscle use. HEART: Regular rate and rhythm, S1, S2 without murmur ABDOMEN: Soft, nontender, nondistended, normoactive bowel sounds, no guarding, no rebound EXTREMITIES: 2+ pulses, warm, well-perfused, no edema. NEUROLOGICAL: Cranial nerves II through XII grossly intact. Normal speech, gait not observed. LABS Laboratory Results - last 24 hr 04/14/20 04/14/20 04/14/20 10:45 20:55 20:55 WBC 4.2 RBC 2.77 L Hgb 8.2 L Hct 24.4 L D MCV 88.0 MCH 29.7 MCHC 33.7 RDW 16.0 H Plt Count 136 MPV 9.2 Absolute Neuts (auto) 3.3 Neutrophils % 77.8 Neutrophils % (Manual) 72.0 Band Neutrophils % 0.0 Lymphocytes % 8.6 Lymphocytes % (Manual) 15.0 D Monocytes % 11.4 H Monocytes % (Manual) 10 Eosinophils % 1.2 Eosinophils % (Manual) 0.0 Basophils % 1.0 Basophils % (Manual) 0.0 Myelocytes % (Man) 1 D Promyelocytes % (Man) Blast Cells % (Manual) Nucleated RBC % 0 Metamyelocytes 2 D Hypochromia Platelet Estimate Adequate Anisocytosis Microcytosis Sodium 139 Potassium 4.3 Chloride 108 H Carbon Dioxide 21 Anion Gap 10 BUN 37.1 H Creatinine 1.4 H Est GFR (CKD-EPI)AfAm 53.09 Est GFR (CKD-EPI)NonAf 45.81 Random Glucose 98 Uric Acid 6.5 Calcium 8.2 L Total Bilirubin 0.5 AST 24 ALT 17 Alkaline Phosphatase 70 LD Total 239 Total Protein 5.2 L Albumin 1.9 L Blood Type O POSITIVE Antibody Screen Negative Crossmatch See Detail 04/15/20 04/15/20 09:00 09:00 WBC 4.6 RBC 2.78 L Hgb 8.2 L Hct 24.5 L MCV 88.4 MCH 29.6 MCHC 33.4 RDW 16.3 H Plt Count 135 MPV 9.2 Absolute Neuts (auto) 3.5 Neutrophils % 76.2 Neutrophils % (Manual) 77.9 Band Neutrophils % 1.0 Lymphocytes % 10.6 D Lymphocytes % (Manual) 9.5 D Monocytes % 10.5 H Monocytes % (Manual) 7 Eosinophils % 1.8 Eosinophils % (Manual) 4.2 D Basophils % 0.9 Basophils % (Manual) 0.0 Myelocytes % (Man) 0 D Promyelocytes % (Man) 0 Blast Cells % (Manual) 0 Nucleated RBC % 0 Metamyelocytes 0 D Hypochromia 1+ Platelet Estimate Decreased Anisocytosis 1+ Microcytosis 1+ Sodium 140 Potassium 4.3 Chloride 108 H Carbon Dioxide 21 Anion Gap 11 BUN 34.9 H Creatinine 1.3 Est GFR (CKD-EPI)AfAm 58.07 Est GFR (CKD-EPI)NonAf 50.10 Random Glucose 80 Uric Acid 6.9 Calcium 8.3 L Total Bilirubin 0.4 AST 21 ALT 17 Alkaline Phosphatase 67 LD Total 245 Total Protein 5.2 L Albumin 1.8 L Blood Type Antibody Screen Crossmatch HOSPITAL COURSE: Date of Admission:03/21/20 84 yo M PMH HTN, HLD, non-Hodgkin's lymphoma, prostate cancer (beads 13 y, in remission), who presented with L lower back pain. pt was found to have a L paravertabral mass, R axillary LAP. 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 pt was evaluated by heme/onc and given dexamethasone x 5 days,started on rituxan. renal also closely monitored . pt was monitored closely for tumor lysis , on allopurinol and IVF. pt was also anemic, requiring multiple blood transfusions. Pt is homebound Pt needs SN and PT services Date of Discharge: 04/15/20 Discharge Summary Problems reviewed: Yes Reason For Visit: ACUTE KIDNEY INJURY,LOW BACK PAIN,NEOPLASM Current Active Problems CHEMA (acute kidney injury) (Acute) Asymptomatic bacteriuria (Acute) B-cell lymphoma (Acute) Hypotension (Acute) Low back pain (Acute) Neoplasm (Acute) Condition: Improved - Instructions Diet, Activity, Other Instructions: You were seen in the hospital for complaints of lower back pain. You had a biopsy showing diffuse large B cell lymphoma. You had a bone biopsy and the results are still pending. You are starting therapy and following with the oncologist for management. You also had low red blood cell counts and you were given blood transfusions. You were started on new medications noted below and should continue to take your medications as directed and follow up with your doctors. Medications We have made the following changes to your medication regimen: Please take Ferrous Sulfate 325 mg three times a day by mouth. Please take Allopurinol 300 mg daily Please take Pepcid 20 mg twice a day. Please take Lasix 20 mg daily. You may continue to take Zocor, Terazosin, and your vitamins. Please continue to take Verapamil at home. Please do not take Atenonolol at home. Recommendations Please follow up with your primary care physician, Dr. De La Rosa within 1 week. You will need to get repeat blood work. On Friday,please come to the hematology/oncology clinic in the [facility] for blood work. Please follow up with your hematology oncologist, Dr. Nina within 1 week Please follow up with your buying intern, Dr. Hinkle in 1 week to continue to monitor your kidneys If you have new, worsening, or concerning symptoms please return to the ED or call 911. Referrals: Yariel Good MD, FAANS [Staff Physician] - 3 Weeks Pk Nina MD [Staff Physician] - 1 Week Shayla Hinkle MD [Staff Physician] - 1 Week Bar De La Rosa MD [Primary Care Provider] - 1 Week Disposition: VNS/HOME HEALTH CARE - Home Medications Comprehensive Discharge Medication List: Ambulatory Orders Aspirin [ASA -] 81 mg PO DAILY 09/07/12 Terazosin HCl [Hytrin -] 5 mg PO HS 09/07/12 Verapamil HCl ER [Calan Sr -] 240 mg PO DAILY 09/07/12 Cholecalciferol (Vitamin D3) [Vitamin D3] 500 unit PO DAILY 09/08/12 Simvastatin [Zocor -] 5 mg PO HS 09/08/12 Allopurinol [Zyloprim -] 300 mg PO DAILY #30 tablet 04/15/20 Famotidine [Pepcid -] 20 mg PO BID #60 tablet 04/15/20 Furosemide [Lasix] 20 mg PO Q48H #30 tablet 04/15/20 - Discharge Referral Referred to [facility] No ATTENDING PHYSICIAN STATEMENT I saw and evaluated the patient. I reviewed the resident's note and discussed the case with the resident. I agree with the resident's findings and plan as documented. SUBJECTIVE: OBJECTIVE: ASSESSMENT AND PLAN:
--- NOTE | 2020-04-15 17:42 | PN.HO ---
Progress Note, Physician History of Present Illness: Feels well. Denies SOB bleeding. Wants to go home. - Current Medication List Current Medications: Active Medications Acetaminophen (Tylenol -) 1,000 mg PO Q6H PRN PRN Reason: PAIN LEVEL 1-5 Last Admin: 04/14/20 23:08 Dose: 1,000 mg Documented by: Allopurinol (Zyloprim -) 300 mg PO DAILY [facility] Last Admin: 04/15/20 09:01 Dose: 300 mg Documented by: Ascorbic Acid (Vitamin C -) 500 mg PO BID [facility] Last Admin: 04/15/20 09:01 Dose: 500 mg Documented by: Atorvastatin Calcium (Lipitor -) 5 mg PO [facility] Last Admin: 04/14/20 23:07 Dose: 5 mg Documented by: Cholecalciferol (Vitamin D3 -) 500 unit PO DAILY [facility] Last Admin: 04/15/20 09:01 Dose: 500 unit Documented by: Docusate Sodium (Colace -) 100 mg PO TID [facility] Last Admin: 04/15/20 14:53 Dose: 100 mg Documented by: Famotidine (Pepcid -) 20 mg PO BID [facility] Last Admin: 04/15/20 09:01 Dose: 20 mg Documented by: Ferrous Sulfate (Feosol -) 325 mg PO TIDCM [facility] Last Admin: 04/15/20 16:43 Dose: Not Given Documented by: Heparin Sodium (Porcine) (Heparin -) 5,000 unit SQ TID [facility] Last Admin: 04/15/20 14:53 Dose: 5,000 unit Documented by: IV Flush (Danie-Cath Flush) 10 ml IVPUSH PRN PRN PRN Reason: maintain patency, protocol Last Admin: 04/11/20 10:30 Dose: 10 ml Documented by: Lidocaine (Lidoderm Patch -) 1 patch TP DAILY PRN PRN Reason: PAIN LEVEL 1-5 Miscellaneous (Lidoderm Patch Removal) 1 each MC DAILY@2200 [facility] Last Admin: 04/14/20 23:22 Dose: 1 each Documented by: Terazosin HCl (Hytrin -) 5 mg PO [facility] Last Admin: 04/14/20 23:07 Dose: 5 mg Documented by: - Objective Vital Signs: Vital Signs Temperature 99.4 F 04/15/20 13:13 Pulse Rate 117 H 04/15/20 13:13 Respiratory Rate 20 04/15/20 13:13 Blood Pressure 103/56 L 04/15/20 13:13 O2 Sat by Pulse Oximetry (%) 96 04/15/20 09:00 Constitutional: Yes: No Distress, Calm Eyes: Yes: Conjunctiva Clear Respiratory: Yes: WNL Gastrointestinal: Yes: Soft. No: Tenderness Edema: LLE: Trace, RLE: Trace Labs: CBC, BMP 04/15/20 09:00 04/15/20 09:00 INR, PTT INR 1.13 (0.83-1.09) H 03/21/20 16:10 Assessment/Plan 84M w/HTN, HLD, and NHL admitted with Left flank and abdominal pain. Imaging showed evidence of recurrent disease. Left axillary node biopsy-- Diffuse Large B cell lymphoma, double expressor(c- myc and bcl2) Watching for tumor lysis, on allopurinol Started Rituxan. C1 planned with mini RCHOP; if tolerates RCVP. s/p dexamethasone 20mg 04/07/20 x 5 days. will need close f/u outpatient -- friday at [facility] for labs
--- NOTE | 2020-04-18 10:11 | PATH ---
Surgical Pathology Report Patient Name: SONDRA MERAZ [facility]. Rec. #: [id number] /Age/Gender: 1935 (Age: 84) / M Account: [id number] Location: [facility] MED/SURG Taken: 04/04/2020 Received: 04/05/2020 Reported: 04/18/2020 Physicians: Demetrice Bray M.D. Specimen(s) Received A: BONE MARROW BIOPSY B: BONE MARROW CLOT C: BONE MARROW ASPIRATION SMEARS D: BONE MARROW BLOOD [facility] Clinical History Large B-cell lymphoma Final Diagnosis BONE MARROW [facility]ORPHOLOGY [facility] [place] [place] ([id number]) shows the following: DIAGNOSIS: BONE MARROW ASPIRATE SMEAR, CORE BIOPSY, AND CLOT SECTION: -Hemodilute and partially crushed specimen involved by low-grade B-cell lymphoma (~50%). INTERPRETATION: See [facility] report for additional details. COMPREHENSIVE FLOW PANEL performed and interpreted at [place], [place] ([id number]) shows the following: INTERPRETATION: In the sample analyzed, there is no evidence of B or T-cell proliferative disorders COMMENT: Correlation with FISH studies, cytogenetic, and clinical findings suggested. PHENOTYPE: Lymphocytes include polyclonal B cells, NK cells and immunophenotypically normal CD4+ and CD8+ T-cells in normal proportions. No evidence of a clonal lymphoid expansion. Granulocytes are immunophenotypically mature. Additional Tests: Cytogenetics See [facility] report for additional details. LYMPHOMA FISH PANEL performed and interpreted at [facility] ([id number]) shows the following: INTERPRETATION: No IGH/BCL2 t(14;18) translocation is detected. No CCND1/IGH t(11;14) translocation is detected. No MYC (8q24) rearrangement is detected. No BCL6 (3q27) rearrangement is detected. COMMENTS: Correlation with pending cytogenetics ([id number]) is recommended. Four multiplex probe stain procedures were performed. See [facility] report for additional details. CYTOGENETIC KARYOTYPE ANALYSIS performed and interpreted at [facility] ([id number]) shows the following: RESULTS: 46, XY [18] INTERPRETATION: Normal Karyotype Within the limits of the cytogenetic methods, the chromosomes had normal G-banding patterns with no evidence of an acquired clonal numerical or structural abnormality. This normal result does not rule out a neoplasm. Subtle rearrangements or the presence of an aberrant clone in a low proportion of cells cannot be ruled out. Correlation with other clinical and hematologic data is suggested. Analysis was performed on cells from a tissue culture that was stimulated with lymphoid mitogens. See [facility] report for additional details. Electronically Signed Josephine Phoenix M.D. Microscopic Description Gross Description A. Received in formalin labeled "bone marrow biopsy," is a 0.6 x 0.5 x 0.1 cm aggregate of klein bone fragments admixed with blood clot. The formalin is filtered and the specimen is entirely submitted in one cassette, following decalcification. B. Received in formalin labeled "bone marrow biopsy clot," is a 2.6 x 2.1 x 0.3 cm aggregate of red-brown blood clot. The formalin is filtered and the specimen is entirely submitted in one cassette. C. Received are 9 bone marrow aspiration smear slides. D. Received are 2 green top tubes and 2 lavender top tubes of bone marrow blood which are sent to [facility]. 04/05/2020 saudi04/05/2020
== END 2020-04-15 18:15 | disposition home health service (06) | DRG 840 ==
LOC: JER 15:39 → JERBED 17:03 → J4S 03-22 07:09 → J7W 03-30 18:13
PROVIDERS: ADMIT Internal Medicine; ATTEND Internal Medicine
PROC: 30233N1 Transfusion of Nonautologous Red Blood Cells into Peripheral Vein, Percutaneous Approach (ICD-10-PCS; 2020-03-22)
PROC: 07D53ZX Extraction of Right Axillary Lymphatic, Percutaneous Approach, Diagnostic (ICD-10-PCS; 2020-03-24)
PROC: 07DR3ZX Extraction of Iliac Bone Marrow, Percutaneous Approach, Diagnostic (ICD-10-PCS; principal; 2020-04-04)
PROC: 0JH63XZ Insertion of Tunneled Vascular Access Device into Chest Subcutaneous Tissue and Fascia, Percutaneous Approach (ICD-10-PCS; 2020-04-06)
PROC: 05HM33Z Insertion of Infusion Device into Right Internal Jugular Vein, Percutaneous Approach (ICD-10-PCS; 2020-04-06)
PROC: B513ZZA Fluoroscopy of Right Jugular Veins, Guidance (ICD-10-PCS; 2020-04-06)
DX: C83.30 Diffuse large B-cell lymphoma, unspecified site (principal); E88.3 Tumor lysis syndrome; N17.9 Acute kidney failure, unspecified; C79.51 Secondary malignant neoplasm of bone; E87.2 Acidosis; D61.818 Other pancytopenia; I10 Essential (primary) hypertension; E78.5 Hyperlipidemia, unspecified; E66.9 Obesity, unspecified; Z68.37 Body mass index [BMI] 37.0-37.9, adult; M54.9 Dorsalgia, unspecified; M54.5 Low back pain; I95.9 Hypotension, unspecified; R19.09 Other intra-abdominal and pelvic swelling, mass and lump; C61 Malignant neoplasm of prostate; R10.32 Left lower quadrant pain; E87.5 Hyperkalemia; I12.9 Hypertensive chronic kidney disease with stage 1 through stage 4 chronic kidney disease, or unspecified chronic kidney disease; N18.9 Chronic kidney disease, unspecified; D63.8 Anemia in other chronic diseases classified elsewhere; R59.9 Enlarged lymph nodes, unspecified; R82.71 Bacteriuria
CPT/HCPCS: 20220; 36415; 36430; 36511; 36561; 71045-TC-FY; 71250-TC; 72131-TC; 72149-TC; 72192-TC; 74176-TC; 76856-TC; 76942-TC; 77001-TC-FY; 80048; 80053; 81003; 82272; 82436; 82550; 82565; 82607; 82668; 82728; 82746; 82784; 82955; 82962; 83010; 83540; 83550; 83605; 83615; 83690; 83735; 84100; 84133; 84153; 84156; 84166; 84300; 84484; 84550; 85025; 85027; 85041; 85610; 86704; 86706; 86707; 86708; 86709; 86850; 86900; 86901; 86922; 87040; 87086; 87186; 87340; 87899; 88300-TC; 88305-TC; 88311-TC; 88313-TC; 93005; 93010; 93306-TC; 97116-GP; 97161-GP; 99285-25; C1788; J0131; J1100; J1644; J9312; P9038; P9058; U0003

== ENCOUNTER 2020-04-27 08:05 | Day surgery (SDC) | payer BC ==
[2020-04-27] MEDS ORDERED: FUROSEMIDE 40 MG/4 ML INJECTABLE VIAL IVPUSH ONE (16:30)
[2020-04-27 21:53] VITALS: BP 121/63; PULSE 91; TEMP 98.4
[2020-04-27 23:22] LABS: BASO % 0.9 % (0-2.0); EOS % 0.3 % (0-4.5); HEMATOCRIT 22.6 % (35.4-49); HEMOGLOBIN 7.6 GM/dL (11.7-16.9); LYMPH % 15.2 % (8-40); MCH 29.1 pg (25.7-33.7); MCHC 33.6 g/dl (32.0-35.9); MEAN CELL VOLUME 86.6 fl (80-96); MEAN PLT VOLUME 9.1 fl (7.5-11.1); MONO % 24.1 % (3.8-10.2); NEUT % 59.5 % (42.8-82.8); PLATELET COUNT 139 K/MM3 (134-434); RBC 2.61 M/mm3 (4.00-5.60); RDW 15.5 % (11.9-15.9); WHITE BLOOD COUNT 3.1 K/mm3 (4.0-10.0)
[2020-04-27 23:53] LABS: ANISOCYTOSIS 1+; MACROCYTOSIS 1+; PLATELET ESTIMATE DECREASED
== END 2020-04-27 22:56 | disposition home or self-care (01) ==
LOC: JONCBLOOD 08:05 → J7W 08:06 → JONCBLOOD 22:56
PROVIDERS: ATTEND Internal Medicine Hematology & Oncology
PROC: 30233N1 Transfusion of Nonautologous Red Blood Cells into Peripheral Vein, Percutaneous Approach (ICD-10-PCS; principal; 2020-04-27)
DX: D63.8 Anemia in other chronic diseases classified elsewhere (principal); C83.30 Diffuse large B-cell lymphoma, unspecified site; D61.818 Other pancytopenia; I12.9 Hypertensive chronic kidney disease with stage 1 through stage 4 chronic kidney disease, or unspecified chronic kidney disease; N18.9 Chronic kidney disease, unspecified
CPT/HCPCS: 36415; 36430; 36511; 85025; 86850; 86900; 86901; 86922; P9038; P9058

== ENCOUNTER 2020-05-09 07:07 | Day surgery (SDC) | payer BC ==
[2020-05-09] MEDS ORDERED: SODIUM CHLORIDE 0.45% 250 ML IVPB ONE ×2 (09:00→14:00)
[2020-05-09 09:31] LABS: BASO % 0.7 % (0-2.0); EOS % 0.3 % (0-4.5); HEMATOCRIT 19.6 % (35.4-49); LYMPH % 10.4 % (8-40); MCH 28.9 pg (25.7-33.7); MCHC 33.1 g/dl (32.0-35.9); MEAN CELL VOLUME 87.2 fl (80-96); MEAN PLT VOLUME 8.9 fl (7.5-11.1); MONO % 18.5 % (3.8-10.2); NEUT % 70.1 % (42.8-82.8); PLATELET COUNT 126 K/MM3 (134-434); RBC 2.25 M/mm3 (4.00-5.60); RDW 17.2 % (11.9-15.9); WHITE BLOOD COUNT 5.2 K/mm3 (4.0-10.0)
[2020-05-09 09:46] LABS: HEMOGLOBIN 6.5 GM/dL (11.7-16.9)
[2020-05-09] MEDS ORDERED: DEXAMETHASONE SODIUM PHOSPHATE 12 MG, DIPHENHYDRAMINE 25 MG in SODIUM CHLORIDE 100 ML IVPB ONE (10:00)
[2020-05-09] MEDS ORDERED: ACETAMINOPHEN 325 MG TABLET (FP) PO ONE (10:00)
[2020-05-09 10:01] LABS: ALBUMIN 1.9 g/dl (3.4-5.0); BILIRUBIN,TOTAL 0.6 mg/dL (0.2-1); BLOOD UREA NITROGEN 43.7 mg/dL (7-18); CALCIUM 8.6 mg/dL (8.5-10.1); CREATININE 1.8 mg/dL (0.55-1.3); MAGNESIUM 2.2 mg/dL (1.8-2.4); POTASSIUM 4.5 mmol/L (3.5-5.1); TOT PROT 5.3 g/dl (6.4-8.2)
[2020-05-09] MEDS ORDERED: SODIUM CHLORIDE IVPB ONE (10:30)
[2020-05-09] MEDS ORDERED: RITUXIMAB IVPB ONE (10:30)
[2020-05-09 11:39] LABS: ANISOCYTOSIS 0; MACROCYTOSIS 0; PLATELET ESTIMATE DECREASED; ROULEAU 1+
[2020-05-09] MEDS ORDERED: FUROSEMIDE 40 MG/4 ML INJECTABLE VIAL IVPUSH ONE (12:00)
[2020-05-09] MEDS ORDERED: PORTA CATH FLUSH 10 ML IVPUSH ONE (14:52)
[2020-05-09 14:53] VITALS: PULSE 84
[2020-05-09 19:22] VITALS: BP 106/46; TEMP 98.7
== END 2020-05-09 19:30 | disposition home or self-care (01) ==
LOC: JONCCHEMO 07:07 → JONCBLOOD 07:07 → JONCCHEMO 19:30
PROVIDERS: ATTEND Internal Medicine Hematology & Oncology
PROC: 30243N1 Transfusion of Nonautologous Red Blood Cells into Central Vein, Percutaneous Approach (ICD-10-PCS; principal; 2020-05-09)
DX: C83.33 Diffuse large B-cell lymphoma, intra-abdominal lymph nodes (principal); I10 Essential (primary) hypertension; E78.00 Pure hypercholesterolemia, unspecified; Z85.46 Personal history of malignant neoplasm of prostate
CPT/HCPCS: 36415; 36430; 36511; 80053; 83735; 85025; 86850; 86900; 86901; 86922; P9038; P9058

== ENCOUNTER 2020-05-10 07:19 | Day surgery (SDC) | payer BC ==
[2020-05-10] MEDS ORDERED: SODIUM CHLORIDE 0.45% 250 ML IVPB ONE ×2 (10:00→14:00)
[2020-05-10] MEDS ORDERED: DEXAMETHASONE SODIUM PHOSPHATE 12 MG, DIPHENHYDRAMINE 25 MG in SODIUM CHLORIDE 100 ML IVPB ONE (10:00)
[2020-05-10] MEDS ORDERED: SODIUM CHLORIDE IVPB ONE (10:30)
[2020-05-10] MEDS ORDERED: RITUXIMAB IVPB ONE (10:30)
[2020-05-10 10:52] LABS: EOS % 0.2 % (0-4.5); HEMATOCRIT 23.9 % (35.4-49); HEMOGLOBIN 8.2 GM/dL (11.7-16.9); MCH 29.8 pg (25.7-33.7); MCHC 34.2 g/dl (32.0-35.9); MEAN CELL VOLUME 87.3 fl (80-96); MEAN PLT VOLUME 9.1 fl (7.5-11.1); MONO % 18.3 % (3.8-10.2); NEUT % 69.5 % (42.8-82.8); PLATELET COUNT 130 K/MM3 (134-434); RBC 2.73 M/mm3 (4.00-5.60); WHITE BLOOD COUNT 5.9 K/mm3 (4.0-10.0)
[2020-05-10] MEDS ORDERED: ACETAMINOPHEN 325 MG TABLET (FP) PO ONE (11:00)
[2020-05-10 11:28] LABS: ALBUMIN 1.9 g/dl (3.4-5.0); BILIRUBIN,TOTAL 0.5 mg/dL (0.2-1); BLOOD UREA NITROGEN 39.9 mg/dL (7-18); CALCIUM 8.6 mg/dL (8.5-10.1); CREATININE 1.5 mg/dL (0.55-1.3); PHOSPHOROUS 4.4 mg/dL (2.5-4.9); POTASSIUM 4.4 mmol/L (3.5-5.1); TOT PROT 5.1 g/dl (6.4-8.2); URIC ACID 5.8 mg/dL (2.6-7.2)
[2020-05-10 12:10] LABS: ANISOCYTOSIS 1+; MACROCYTOSIS 1+; OVALOCYTE 1+; PLATELET ESTIMATE DECREASED
[2020-05-10 16:23] VITALS: TEMP 99
[2020-05-10] MEDS ORDERED: PORTA CATH FLUSH 10 ML IVPUSH ONE (16:32)
[2020-05-10 17:17] VITALS: BP 109/61; PULSE 96
== END 2020-05-10 17:32 | disposition home or self-care (01) ==
LOC: JONCCHEMO 07:19
PROVIDERS: ATTEND Internal Medicine Hematology & Oncology
PROC: 3E04305 Introduction of Other Antineoplastic into Central Vein, Percutaneous Approach (ICD-10-PCS; principal; 2020-05-10)
PROC: 3E0437Z Introduction of Electrolytic and Water Balance Substance into Central Vein, Percutaneous Approach (ICD-10-PCS; 2020-05-10)
DX: Z51.11 Encounter for antineoplastic chemotherapy (principal); C83.33 Diffuse large B-cell lymphoma, intra-abdominal lymph nodes; I10 Essential (primary) hypertension; E78.00 Pure hypercholesterolemia, unspecified; Z85.46 Personal history of malignant neoplasm of prostate
CPT/HCPCS: 36415; 80053; 83615; 84100; 84550; 85025; 96361; 96367; 96413; 96415; J9312

== ENCOUNTER 2020-05-11 07:33 | Day surgery (SDC) | payer BC ==
[2020-05-11] MEDS ORDERED: SODIUM CHLORIDE 0.45% 250 ML IVPB ONE ×2 (09:00→11:45)
[2020-05-11] MEDS ORDERED: DEXAMETHASONE SODIUM PHOSPHATE IVPB ONE (10:00)
[2020-05-11] MEDS ORDERED: [UNRECOGNIZED DRUG - OTHER] IVPB ONE (10:00)
[2020-05-11] MEDS ORDERED: ONDANSETRON IVPB ONE (10:00)
[2020-05-11] MEDS ORDERED: SODIUM CHLORIDE IVPB ONE ×2 (10:30→11:30)
[2020-05-11] MEDS ORDERED: CYCLOPHOSPHAMIDE IVPB ONE (10:30)
[2020-05-11 10:40] LABS: BASO % 0.3 % (0-2.0); HEMATOCRIT 24.7 % (35.4-49); HEMOGLOBIN 8.1 GM/dL (11.7-16.9); LYMPH % 6.1 % (8-40); MCH 28.6 pg (25.7-33.7); MCHC 32.7 g/dl (32.0-35.9); MEAN CELL VOLUME 87.3 fl (80-96); MONO % 15.2 % (3.8-10.2); NEUT % 78.4 % (42.8-82.8); PLATELET COUNT 124 K/MM3 (134-434); RBC 2.83 M/mm3 (4.00-5.60); RDW 16.7 % (11.9-15.9); WHITE BLOOD COUNT 7.7 K/mm3 (4.0-10.0)
[2020-05-11] MEDS ORDERED: SODIUM CHLORIDE IV ONE (11:00)
[2020-05-11] MEDS ORDERED: DOXORUBICIN HCL IV ONE (11:00)
[2020-05-11 11:10] LABS: BILIRUBIN,TOTAL 0.4 mg/dL (0.2-1); CALCIUM 9.3 mg/dL (8.5-10.1); CREATININE 1.6 mg/dL (0.55-1.3); MAGNESIUM 2.1 mg/dL (1.8-2.4); POTASSIUM 4.4 mmol/L (3.5-5.1); TOT PROT 5.4 g/dl (6.4-8.2)
[2020-05-11] MEDS ORDERED: VINCRISTINE SULFATE IVPB ONE (11:30)
[2020-05-11 11:45] LABS: ANISOCYTOSIS 1+; MACROCYTOSIS 1+; PLATELET ESTIMATE DECREASED
[2020-05-11] MEDS ORDERED: INSULIN (NOVOLOG) ASPART 100 UNITS/ML 10ML VIAL SQ ONE (13:00)
[2020-05-11 15:37] VITALS: TEMP 98.1
[2020-05-11] MEDS ORDERED: PORTA CATH FLUSH 10 ML IVPUSH ONE (16:03)
[2020-05-11 16:05] VITALS: BP 99/56; PULSE 98
== END 2020-05-11 14:10 | disposition home or self-care (01) ==
LOC: JONCCHEMO 07:33
PROVIDERS: ATTEND Internal Medicine Hematology & Oncology
PROC: 3E04305 Introduction of Other Antineoplastic into Central Vein, Percutaneous Approach (ICD-10-PCS; principal; 2020-05-11)
PROC: 3E043GC Introduction of Other Therapeutic Substance into Central Vein, Percutaneous Approach (ICD-10-PCS; 2020-05-11)
PROC: 3E0437Z Introduction of Electrolytic and Water Balance Substance into Central Vein, Percutaneous Approach (ICD-10-PCS; 2020-05-11)
PROC: 3E04305 Introduction of Other Antineoplastic into Central Vein, Percutaneous Approach (ICD-10-PCS; 2020-05-11)
PROC: 3E013VG Introduction of Insulin into Subcutaneous Tissue, Percutaneous Approach (ICD-10-PCS; 2020-05-11)
DX: Z51.11 Encounter for antineoplastic chemotherapy (principal); C83.33 Diffuse large B-cell lymphoma, intra-abdominal lymph nodes; I10 Essential (primary) hypertension; E78.00 Pure hypercholesterolemia, unspecified; Z85.46 Personal history of malignant neoplasm of prostate
CPT/HCPCS: 36415; 80053; 82962; 83735; 85025; 96360; 96367; 96372; 96409; 96413; 96417; J9070; J9370

== ENCOUNTER 2020-05-12 08:18 | Day surgery (SDC) | payer BC ==
[2020-05-12 09:49] LABS: BASO % 0.3 % (0-2.0); HEMATOCRIT 24.1 % (35.4-49); LYMPH % 6.7 % (8-40); MCH 29.3 pg (25.7-33.7); MEAN CELL VOLUME 88.6 fl (80-96); MEAN PLT VOLUME 9.1 fl (7.5-11.1); MONO % 12.9 % (3.8-10.2); NEUT % 80.1 % (42.8-82.8); PLATELET COUNT 125 K/MM3 (134-434); RBC 2.72 M/mm3 (4.00-5.60); RDW 16.9 % (11.9-15.9); WHITE BLOOD COUNT 11.4 K/mm3 (4.0-10.0)
[2020-05-12] MEDS ORDERED: DEXAMETHASONE SODIUM PHOSPHATE IVPB ONE (10:00)
[2020-05-12] MEDS ORDERED: PEGFILGRASTIM-CBQV (UDENYCA) 6 MG/0.6 ML SYRINGE SQ ONE (10:00)
[2020-05-12] MEDS ORDERED: [UNRECOGNIZED DRUG - OTHER] IVPB ONE (10:00)
[2020-05-12] MEDS ORDERED: ONDANSETRON IVPB ONE (10:00)
[2020-05-12 10:40] LABS: ANISOCYTOSIS 1+; MACROCYTOSIS 1+; PLATELET ESTIMATE DECREASED
[2020-05-12 10:53] LABS: BILIRUBIN,TOTAL 0.4 mg/dL (0.2-1); CALCIUM 9.6 mg/dL (8.5-10.1); CREATININE 1.5 mg/dL (0.55-1.3); POTASSIUM 4.6 mmol/L (3.5-5.1); TOT PROT 5.2 g/dl (6.4-8.2)
[2020-05-12 12:27] LABS: MAGNESIUM 2.1 mg/dL (1.8-2.4); PHOSPHOROUS 4.9 mg/dL (2.5-4.9); URIC ACID 5.2 mg/dL (2.6-7.2)
[2020-05-12 16:02] VITALS: TEMP 98.3
[2020-05-12] MEDS ORDERED: PORTA CATH FLUSH 10 ML IVPUSH ONE (16:02)
[2020-05-12 19:10] VITALS: BP 123/69; PULSE 92
== END 2020-05-12 19:16 | disposition home or self-care (01) ==
LOC: JONCCHEMO 08:18
PROVIDERS: ATTEND Internal Medicine Hematology & Oncology
PROC: 3E033GC Introduction of Other Therapeutic Substance into Peripheral Vein, Percutaneous Approach (ICD-10-PCS; principal; 2020-05-12)
PROC: 3E013GC Introduction of Other Therapeutic Substance into Subcutaneous Tissue, Percutaneous Approach (ICD-10-PCS; 2020-05-12)
DX: Z76.89 Persons encountering health services in other specified circumstances (principal); C83.33 Diffuse large B-cell lymphoma, intra-abdominal lymph nodes
CPT/HCPCS: 36415; 36430; 80053; 83735; 84100; 84550; 85025; 86850; 86900; 86901; 86922; 96365; 96372; P9058; Q5111

== ENCOUNTER 2020-05-29 08:40 | Day surgery (SDC) | payer BC ==
[2020-05-29] MEDS ORDERED: SODIUM CHLORIDE 0.45% 250 ML IVPB ONE ×2 (09:00→14:00)
[2020-05-29] MEDS ORDERED: DEXAMETHASONE SODIUM PHOSPHATE 12 MG, DIPHENHYDRAMINE 25 MG in SODIUM CHLORIDE 100 ML IVPB ONE (10:00)
[2020-05-29] MEDS ORDERED: ACETAMINOPHEN 325 MG TABLET (FP) PO ONE (10:00)
[2020-05-29] MEDS ORDERED: RITUXIMAB IVPB ONE (10:30)
[2020-05-29] MEDS ORDERED: SODIUM CHLORIDE IVPB ONE (10:30)
[2020-05-29 12:31] LABS: BASO % 0.5 % (0-2.0); EOS % 0.1 % (0-4.5); HEMATOCRIT 19.8 % (35.4-49); LYMPH % 13.9 % (8-40); MCH 28.7 pg (25.7-33.7); MCHC 33.5 g/dl (32.0-35.9); MEAN CELL VOLUME 85.7 fl (80-96); MEAN PLT VOLUME 8.7 fl (7.5-11.1); MONO % 19.3 % (3.8-10.2); NEUT % 66.2 % (42.8-82.8); PLATELET COUNT 142 K/MM3 (134-434); RBC 2.31 M/mm3 (4.00-5.60); RDW 18.3 % (11.9-15.9); WHITE BLOOD COUNT 7.4 K/mm3 (4.0-10.0)
[2020-05-29 12:36] LABS: HEMOGLOBIN 6.6 GM/dL (11.7-16.9)
[2020-05-29 12:56] LABS: URIC ACID 6.4 mg/dL (2.6-7.2)
[2020-05-29 13:11] LABS: ALBUMIN 2.1 g/dl (3.4-5.0); BILIRUBIN,DIRECT 0.2 mg/dL (0.0-0.2); BILIRUBIN,TOTAL 0.7 mg/dL (0.2-1); BLOOD UREA NITROGEN 33.2 mg/dL (7-18); CREATININE 1.5 mg/dL (0.55-1.3); MAGNESIUM 2.3 mg/dL (1.8-2.4); POTASSIUM 4.3 mmol/L (3.5-5.1); TOT PROT 5.2 g/dl (6.4-8.2)
[2020-05-29 15:19] LABS: PLATELET ESTIMATE ADEQUATE
[2020-05-29] MEDS ORDERED: FUROSEMIDE 20 MG TABLET (FP) PO ONE (18:00)
[2020-05-29] MEDS ORDERED: PORTA CATH FLUSH 10 ML IVPUSH ONE (18:27)
[2020-05-29 21:35] VITALS: PULSE 93
[2020-05-30 00:48] VITALS: BP 100/54; TEMP 99.7
[2020-05-30 01:57] LABS: HEMATOCRIT 23.8 % (35.4-49); HEMOGLOBIN 8.2 GM/dL (11.7-16.9); MCH 28.9 pg (25.7-33.7); MCHC 34.2 g/dl (32.0-35.9); MEAN CELL VOLUME 84.3 fl (80-96); MEAN PLT VOLUME 8.8 fl (7.5-11.1); PLATELET COUNT 135 K/MM3 (134-434); RBC 2.83 M/mm3 (4.00-5.60); RDW 16.6 % (11.9-15.9); WHITE BLOOD COUNT 8.4 K/mm3 (4.0-10.0)
[2020-05-30 12:51] LABS: BASO % 1.1 % (0-2.0); EOS % 0.5 % (0-4.5); HEMATOCRIT 24.2 % (35.4-49); HEMOGLOBIN 8.2 GM/dL (11.7-16.9); LYMPH % 13.1 % (8-40); MCH 28.7 pg (25.7-33.7); MCHC 33.8 g/dl (32.0-35.9); MEAN CELL VOLUME 84.9 fl (80-96); MEAN PLT VOLUME 9.1 fl (7.5-11.1); MONO % 17.5 % (3.8-10.2); NEUT % 67.8 % (42.8-82.8); PLATELET COUNT 136 K/MM3 (134-434); RBC 2.84 M/mm3 (4.00-5.60); RDW 16.9 % (11.9-15.9); WHITE BLOOD COUNT 7.4 K/mm3 (4.0-10.0)
[2020-05-30 13:02] LABS: BILIRUBIN,TOTAL 0.5 mg/dL (0.2-1); CALCIUM 9.5 mg/dL (8.5-10.1); CREATININE 1.4 mg/dL (0.55-1.3); TOT PROT 4.9 g/dl (6.4-8.2)
[2020-05-30 13:41] LABS: RETICULOCYTES 1.26 % (0.5-1.5)
[2020-05-30 13:53] LABS: ANISOCYTOSIS 1+; MACROCYTOSIS 1+; PLATELET ESTIMATE DECREASED
== END 2020-05-30 01:30 | disposition home or self-care (01) ==
LOC: JONCCHEMO 08:40 → J7W 19:10 → JONCCHEMO 05-30 01:30
PROVIDERS: ATTEND Internal Medicine Hematology & Oncology
PROC: 30233N1 Transfusion of Nonautologous Red Blood Cells into Peripheral Vein, Percutaneous Approach (ICD-10-PCS; principal; 2020-05-29)
DX: C83.33 Diffuse large B-cell lymphoma, intra-abdominal lymph nodes (principal); D64.81 Anemia due to antineoplastic chemotherapy
CPT/HCPCS: 36415; 36430; 36511; 80048; 80053; 80076; 83615; 83735; 84550; 85025; 85027; 85045; 86850; 86900; 86901; 86922; P9038; P9058

== ENCOUNTER 2020-05-31 07:17 | Day surgery (SDC) | payer BC ==
[2020-05-31] MEDS ORDERED: SODIUM CHLORIDE 0.45% 250 ML IVPB ONE ×2 (09:00→11:30)
[2020-05-31] MEDS ORDERED: [UNRECOGNIZED DRUG - OTHER] IVPB ONE (10:00)
[2020-05-31] MEDS ORDERED: DEXAMETHASONE SODIUM PHOSPHATE IVPB ONE (10:00)
[2020-05-31] MEDS ORDERED: ONDANSETRON IVPB ONE (10:00)
[2020-05-31] MEDS ORDERED: CYCLOPHOSPHAMIDE INJECTION 780 MG in SODIUM CHLORIDE 250 ML IVPB ONE (10:30)
[2020-05-31] MEDS ORDERED: DOXORUBICIN HCL IV ONE (11:00)
[2020-05-31] MEDS ORDERED: SODIUM CHLORIDE IV ONE (11:00)
[2020-05-31] MEDS ORDERED: SODIUM CHLORIDE IVPB ONE (11:30)
[2020-05-31] MEDS ORDERED: VINCRISTINE SULFATE IVPB ONE (11:30)
[2020-05-31 15:58] VITALS: TEMP 97.5
[2020-05-31 16:36] VITALS: BP 102/56; PULSE 85
[2020-05-31] MEDS ORDERED: PORTA CATH FLUSH 10 ML IVPUSH ONE (16:36)
== END 2020-05-31 15:00 | disposition home or self-care (01) ==
LOC: JONCCHEMO 07:17
PROVIDERS: ATTEND Internal Medicine Hematology & Oncology
DX: C83.33 Diffuse large B-cell lymphoma, intra-abdominal lymph nodes (principal); D64.81 Anemia due to antineoplastic chemotherapy
CPT/HCPCS: 96361; 96367; 96411; 96413; 96417; J2405; J9070; J9370

== ENCOUNTER 2020-06-01 07:09 | Day surgery (SDC) | payer BC ==
[2020-06-01 09:28] LABS: BASO % 0.3 % (0-2.0); HEMATOCRIT 24.8 % (35.4-49); HEMOGLOBIN 8.3 GM/dL (11.7-16.9); LYMPH % 7.3 % (8-40); MCH 28.8 pg (25.7-33.7); MCHC 33.4 g/dl (32.0-35.9); MEAN CELL VOLUME 86.2 fl (80-96); MEAN PLT VOLUME 9.1 fl (7.5-11.1); MONO % 9.3 % (3.8-10.2); NEUT % 83.1 % (42.8-82.8); PLATELET COUNT 141 K/MM3 (134-434); RBC 2.88 M/mm3 (4.00-5.60); RDW 17.6 % (11.9-15.9); RETICULOCYTES 2.01 % (0.5-1.5); WHITE BLOOD COUNT 16.2 K/mm3 (4.0-10.0)
[2020-06-01] MEDS ORDERED: SODIUM CHLORIDE 0.45% 750 ML IV ONE (10:00)
[2020-06-01] MEDS ORDERED: DEXAMETHASONE SODIUM PHOSPHATE IVPB ONE (10:00)
[2020-06-01] MEDS ORDERED: [UNRECOGNIZED DRUG - OTHER] IVPB ONE (10:00)
[2020-06-01] MEDS ORDERED: ONDANSETRON IVPB ONE (10:00)
[2020-06-01] MEDS ORDERED: PEGFILGRASTIM-CBQV (UDENYCA) 6 MG/0.6 ML SYRINGE SQ ONE (10:00)
[2020-06-01] MEDS ORDERED: FUROSEMIDE 20 MG TABLET (FP) PO ONE (10:00)
[2020-06-01 18:31] VITALS: BP 135/62; PULSE 70; TEMP 97.7
[2020-06-01 19:32] LABS: BASO % 0.2 % (0-2.0); HEMATOCRIT 30.3 % (35.4-49); LYMPH % 5.6 % (8-40); MCHC 33.1 g/dl (32.0-35.9); MEAN CELL VOLUME 84.6 fl (80-96); MEAN PLT VOLUME 8.8 fl (7.5-11.1); MONO % 9.7 % (3.8-10.2); NEUT % 84.5 % (42.8-82.8); PLATELET COUNT 144 K/MM3 (134-434); RBC 3.58 M/mm3 (4.00-5.60); RDW 17.2 % (11.9-15.9); WHITE BLOOD COUNT 14.3 K/mm3 (4.0-10.0)
== END 2020-06-01 19:10 | disposition home or self-care (01) ==
LOC: JONCBLOOD 07:09
PROVIDERS: ATTEND Internal Medicine Hematology & Oncology
PROC: 3E013GC Introduction of Other Therapeutic Substance into Subcutaneous Tissue, Percutaneous Approach (ICD-10-PCS; principal; 2020-06-01)
PROC: 30233N1 Transfusion of Nonautologous Red Blood Cells into Peripheral Vein, Percutaneous Approach (ICD-10-PCS; 2020-06-01)
DX: C83.33 Diffuse large B-cell lymphoma, intra-abdominal lymph nodes (principal); D64.81 Anemia due to antineoplastic chemotherapy; Z76.89 Persons encountering health services in other specified circumstances
CPT/HCPCS: 36415; 36430; 83010; 83615; 85025; 85045; 86850; 86900; 86901; 86922; 96372; P9058; Q5111

== ENCOUNTER 2020-06-09 07:36 | Day surgery (SDC) | payer BC ==
[2020-06-09] MEDS ORDERED: SODIUM CHLORIDE 0.45% 500 ML IV ONE (08:15)
[2020-06-09] MEDS ORDERED: DENOSUMAB 120 MG/1.7 ML VIAL SQ ONE (08:15)
[2020-06-09 11:28] LABS: BASO % 0.5 % (0-2.0); EOS % 0.2 % (0-4.5); HEMATOCRIT 26.3 % (35.4-49); HEMOGLOBIN 8.7 GM/dL (11.7-16.9); LYMPH % 5.4 % (8-40); MCH 28.3 pg (25.7-33.7); MCHC 33.1 g/dl (32.0-35.9); MEAN CELL VOLUME 85.5 fl (80-96); MEAN PLT VOLUME 9.1 fl (7.5-11.1); MONO % 11.3 % (3.8-10.2); NEUT % 82.6 % (42.8-82.8); PLATELET COUNT 155 K/MM3 (134-434); RBC 3.07 M/mm3 (4.00-5.60); RDW 17.7 % (11.9-15.9); WHITE BLOOD COUNT 8.3 K/mm3 (4.0-10.0)
[2020-06-09 12:04] LABS: ALBUMIN 2.2 g/dl (3.4-5.0); BILIRUBIN,TOTAL 0.5 mg/dL (0.2-1); BLOOD UREA NITROGEN 32.8 mg/dL (7-18); CALCIUM 10.3 mg/dL (8.5-10.1); CREATININE 1.4 mg/dL (0.55-1.3); PHOSPHOROUS 3.8 mg/dL (2.5-4.9)
[2020-06-09 15:57] VITALS: TEMP 98.1
[2020-06-09 17:00] VITALS: BP 102/57; PULSE 90
== END 2020-06-09 13:54 | disposition home or self-care (01) ==
LOC: JONCCHEMO 07:36
PROVIDERS: ATTEND Internal Medicine Hematology & Oncology
PROC: 3E013GC Introduction of Other Therapeutic Substance into Subcutaneous Tissue, Percutaneous Approach (ICD-10-PCS; principal; 2020-06-09)
PROC: 3E0337Z Introduction of Electrolytic and Water Balance Substance into Peripheral Vein, Percutaneous Approach (ICD-10-PCS; 2020-06-09)
DX: Z76.89 Persons encountering health services in other specified circumstances (principal); C83.33 Diffuse large B-cell lymphoma, intra-abdominal lymph nodes
CPT/HCPCS: 36415; 80053; 82306; 82310; 82397; 83735; 83970; 84100; 85025; 96360; 96361; 96372; J0897

== ENCOUNTER 2020-06-14 14:19 | Day surgery (SDC) | payer BC ==
[2020-06-14 12:36] LABS: BASO % 0.7 % (0-2.0); EOS % 0.3 % (0-4.5); HEMATOCRIT 22.8 % (35.4-49); HEMOGLOBIN 7.7 GM/dL (11.7-16.9); LYMPH % 9.3 % (8-40); MCH 28.9 pg (25.7-33.7); MCHC 33.7 g/dl (32.0-35.9); MEAN CELL VOLUME 85.9 fl (80-96); MEAN PLT VOLUME 8.7 fl (7.5-11.1); MONO % 12.1 % (3.8-10.2); NEUT % 77.6 % (42.8-82.8); PLATELET COUNT 118 K/MM3 (134-434); RBC 2.66 M/mm3 (4.00-5.60); RDW 18.8 % (11.9-15.9); RETICULOCYTES 0.96 % (0.5-1.5); WHITE BLOOD COUNT 8.7 K/mm3 (4.0-10.0)
[2020-06-14 13:16] LABS: ALBUMIN 2.2 g/dl (3.4-5.0); BILIRUBIN,DIRECT 0.2 mg/dL (0.0-0.2); BILIRUBIN,TOTAL 0.6 mg/dL (0.2-1); BLOOD UREA NITROGEN 31.2 mg/dL (7-18); CALCIUM 9.1 mg/dL (8.5-10.1); CREATININE 1.5 mg/dL (0.55-1.3); POTASSIUM 4.5 mmol/L (3.5-5.1); TOT PROT 5.1 g/dl (6.4-8.2); URIC ACID 5.9 mg/dL (2.6-7.2)
[~2020-06-14 14:19] MED LIST: SODIUM CHLORIDE 500 ML IV ONE
[2020-06-14 15:00] LABS: ANISOCYTOSIS 1+; MACROCYTOSIS 0; PLATELET ESTIMATE DECREASED
[2020-06-14 16:27] VITALS: TEMP 98.4
[2020-06-14] MEDS ORDERED: PORTA CATH FLUSH 10 ML IVPUSH ONE (16:27)
[2020-06-14 16:28] VITALS: BP 80/46; PULSE 94
== END 2020-06-14 15:40 | disposition home or self-care (01) ==
LOC: JONCNONCHE 14:19
PROVIDERS: ATTEND Internal Medicine Hematology & Oncology
PROC: 3E0437Z Introduction of Electrolytic and Water Balance Substance into Central Vein, Percutaneous Approach (ICD-10-PCS; principal; 2020-06-14)
DX: Z76.89 Persons encountering health services in other specified circumstances (principal); C83.33 Diffuse large B-cell lymphoma, intra-abdominal lymph nodes; I10 Essential (primary) hypertension; E78.5 Hyperlipidemia, unspecified
CPT/HCPCS: 36415; 36430; 36511; 80048; 80076; 82728; 83010; 83540; 83550; 83615; 84550; 85025; 85045; 86850; 86900; 86901; 86922; 96360; 96361; P9038; P9058

== ENCOUNTER 2020-06-15 07:07 | Day surgery (SDC) | payer BC ==
[2020-06-15 17:17] LABS: BASO % 0.6 % (0-2.0); EOS % 0.7 % (0-4.5); HEMATOCRIT 27.8 % (35.4-49); HEMOGLOBIN 9.5 GM/dL (11.7-16.9); LYMPH % 10.5 % (8-40); MCH 29.6 pg (25.7-33.7); MCHC 34.2 g/dl (32.0-35.9); MEAN CELL VOLUME 86.4 fl (80-96); MEAN PLT VOLUME 8.7 fl (7.5-11.1); NEUT % 76.2 % (42.8-82.8); PLATELET COUNT 114 K/MM3 (134-434); RBC 3.21 M/mm3 (4.00-5.60); WHITE BLOOD COUNT 8.6 K/mm3 (4.0-10.0)
[2020-06-15 20:18] LABS: ANISOCYTOSIS 1+; MACROCYTOSIS 0; PLATELET ESTIMATE DECREASED; TEAR DROP CELLS 1+
[2020-06-16 07:41] VITALS: BP 90/50; PULSE 81; TEMP 97.8
[2020-06-16] MEDS ORDERED: PORTA CATH FLUSH 10 ML IVPUSH ONE (07:41)
== END 2020-06-15 17:25 | disposition home or self-care (01) ==
LOC: JONCBLOOD 07:07
PROVIDERS: ATTEND Internal Medicine Hematology & Oncology
PROC: 30243N1 Transfusion of Nonautologous Red Blood Cells into Central Vein, Percutaneous Approach (ICD-10-PCS; principal; 2020-06-15)
DX: Z76.89 Persons encountering health services in other specified circumstances (principal); D64.81 Anemia due to antineoplastic chemotherapy; C83.33 Diffuse large B-cell lymphoma, intra-abdominal lymph nodes
CPT/HCPCS: 36415; 85025; 86922

== ENCOUNTER 2020-06-19 06:13 | Day surgery (SDC) | payer BC ==
[2020-06-19] MEDS ORDERED: SODIUM CHLORIDE 0.45% 250 ML IV ONE ×2 (09:00→13:00)
[2020-06-19] MEDS ORDERED: DEXAMETHASONE SODIUM PHOSPHATE 12 MG, DIPHENHYDRAMINE 25 MG in SODIUM CHLORIDE 100 ML IVPB ONE (09:30)
[2020-06-19] MEDS ORDERED: ACETAMINOPHEN 325 MG TABLET (FP) PO ONE (09:30)
[2020-06-19] MEDS ORDERED: RITUXIMAB IVPB ONE (10:00)
[2020-06-19] MEDS ORDERED: SODIUM CHLORIDE IVPB ONE (10:00)
[2020-06-19 11:53] LABS: BASO % 0.6 % (0-2.0); EOS % 0.4 % (0-4.5); HEMATOCRIT 25.1 % (35.4-49); HEMOGLOBIN 8.5 GM/dL (11.7-16.9); LYMPH % 13.6 % (8-40); MCH 29.4 pg (25.7-33.7); MCHC 33.9 g/dl (32.0-35.9); MEAN CELL VOLUME 86.8 fl (80-96); MEAN PLT VOLUME 8.8 fl (7.5-11.1); MONO % 15.1 % (3.8-10.2); NEUT % 70.3 % (42.8-82.8); PLATELET COUNT 100 K/MM3 (134-434); RBC 2.89 M/mm3 (4.00-5.60); RDW 18.8 % (11.9-15.9); WHITE BLOOD COUNT 6.5 K/mm3 (4.0-10.0)
[2020-06-19 11:58] LABS: INR 1.16 (0.83-1.09); PROTHROMBIN TIME (PATIENT) 13.7 SEC (9.7-13.0)
[2020-06-19 12:27] LABS: BILIRUBIN,DIRECT 0.2 mg/dL (0.0-0.2); BILIRUBIN,TOTAL 0.5 mg/dL (0.2-1); BLOOD UREA NITROGEN 39.8 mg/dL (7-18); CALCIUM 8.4 mg/dL (8.5-10.1); CREATININE 1.9 mg/dL (0.55-1.3); MAGNESIUM 2.3 mg/dL (1.8-2.4); POTASSIUM 4.5 mmol/L (3.5-5.1); TOT PROT 5.4 g/dl (6.4-8.2); URIC ACID 6.5 mg/dL (2.6-7.2)
[2020-06-19 12:34] LABS: PHOSPHOROUS 3.9 mg/dL (2.5-4.9)
[2020-06-19 13:26] LABS: TEAR DROP CELLS 1+
[2020-06-19 17:09] VITALS: TEMP 98.3
[2020-06-19] MEDS ORDERED: PORTA CATH FLUSH 10 ML IVPUSH ONE (17:10)
[2020-06-19 17:59] VITALS: BP 87/54; PULSE 95
== END 2020-06-19 17:59 | disposition home or self-care (01) ==
LOC: JONCCHEMO 06:13
PROVIDERS: ATTEND Internal Medicine Hematology & Oncology
DX: Z51.11 Encounter for antineoplastic chemotherapy (principal); C83.33 Diffuse large B-cell lymphoma, intra-abdominal lymph nodes
CPT/HCPCS: 36415; 80048; 80076; 82232; 82728; 82784; 83540; 83550; 83615; 83735; 84100; 84550; 85025; 85610; 86850; 86900; 86901; 96361; 96367; 96413; 96415; J9312

== ENCOUNTER 2020-06-20 06:11 | Day surgery (SDC) | payer BC ==
--- OUTSIDE RECORDS SUMMARY | 2020-06-20 06:15 | XMS ---
:1935 [facility] Support Name Relationship Address Phone RE, RETIRED Unavailable Unavailable Unavailable RE Unavailable Unavailable Unavailable JAYLYN MERAZ [address] [phone] [place] [address] JAYLYN MERAZ Spouse [address] [place] [address] Re-disclosure Warning The records that you are about to access may contain information from federally- assisted alcohol or drug abuse programs. If such information is present, then the following federally mandated warning applies: This information has been disclosed to you from records protected by federal confidentiality rules (42 CFR part 2). The federal rules prohibit you from making any further disclosure of this information unless further disclosure is expressly permitted by the written consent of the person to whom it pertains or as otherwise permitted by 42 CFR part 2. A general authorization for the release of medical or other information is NOT sufficient for this purpose. The Federal rules restrict any use of the information to criminally investigate or prosecute any alcohol or drug abuse patient.The records that you are about to access may contain highly sensitive health information, the redisclosure of which is protected by Article 27-F of the [facility] Public Health law. If you continue you may haveaccess to information: Regarding HIV / AIDS; Provided by facilities licensed or operated by the [facility] Office of Mental Health; or Provided by the [facility] Office for People With Developmental Disabilities. If such information is present, then the following [facility] mandated warning applies: This information has been disclosed to you from confidential records which are protected by state law. State law prohibits you from making any further disclosure of this information without the specific written consent of the person to whom it pertains, or as otherwise permitted by law. Any unauthorized further disclosure in violation of state law may result in a fine or fdc sentence or both. A general authorization for the release of medical or other information is NOT sufficient authorization for further disclosure. Insurance Providers Payer name Policy type Policy ID Covered Covered alliance party's Policy P can / Coverage alliance party ID relationship to Clemens Inf ormation type clemens FAWAD CROSS [id number] SP [id number] SENIOR PLAN 4 DELANO MEDICARE [id number] SP [id number] Results ID Date Data Source [id number] 04/07/2020 09:40:00 PM EDT [facility] Name Value Range Interpretation Description Data Sup porting Code Source(s) Document(s ) SARS [facility] CORONAVIRUS 2 RNA This lab was ordered by [facility] and reported by [facility]. ID Date Data Source [id number] 03/21/2020 05:20:00 PM EDT [facility] Name Value Range Interpretation Description Data Sup porting Code Source(s) Document(s ) SARS [facility] CORONAVIRUS 2 RNA This lab was ordered by [facility] and reported by [facility]. Procedure
[2020-06-20] MEDS ORDERED: SODIUM CHLORIDE 0.45% 250 ML IV ONE ×2 (09:00→12:00)
[2020-06-20] MEDS ORDERED: ONDANSETRON IVPB ONE (09:30)
[2020-06-20] MEDS ORDERED: [UNRECOGNIZED DRUG - OTHER] IVPB ONE (09:30)
[2020-06-20] MEDS ORDERED: DEXAMETHASONE SODIUM PHOSPHATE IVPB ONE (09:30)
[2020-06-20 09:56] LABS: BASO % 0.2 % (0-2.0); HEMOGLOBIN 8.7 GM/dL (11.7-16.9); LYMPH % 9.3 % (8-40); MCH 29.4 pg (25.7-33.7); MCHC 33.4 g/dl (32.0-35.9); MEAN PLT VOLUME 8.9 fl (7.5-11.1); MONO % 6.7 % (3.8-10.2); NEUT % 83.8 % (42.8-82.8); PLATELET COUNT 113 K/MM3 (134-434); RBC 2.95 M/mm3 (4.00-5.60); RDW 18.5 % (11.9-15.9); WHITE BLOOD COUNT 9.7 K/mm3 (4.0-10.0)
[2020-06-20] MEDS ORDERED: CYCLOPHOSPHAMIDE IVPB ONE (10:00)
[2020-06-20] MEDS ORDERED: SODIUM CHLORIDE IVPB ONE ×2 (10:00→10:45)
[2020-06-20 10:29] LABS: ALBUMIN 2.1 g/dl (3.4-5.0); BILIRUBIN,DIRECT 0.1 mg/dL (0.0-0.2); BILIRUBIN,TOTAL 0.3 mg/dL (0.2-1); BLOOD UREA NITROGEN 47.2 mg/dL (7-18); CALCIUM 8.4 mg/dL (8.5-10.1); CREATININE 1.8 mg/dL (0.55-1.3); MAGNESIUM 2.4 mg/dL (1.8-2.4); POTASSIUM 4.2 mmol/L (3.5-5.1); URIC ACID 6.4 mg/dL (2.6-7.2)
[2020-06-20] MEDS ORDERED: DOXOrubicin HCL 50 MG/25 ML VIAL IV ONE (10:30)
[2020-06-20] MEDS ORDERED: VINCRISTINE SULFATE IVPB ONE (10:45)
[2020-06-20 10:57] VITALS: TEMP 97.5
[2020-06-20] MEDS ORDERED: PORTA CATH FLUSH 10 ML IVPUSH ONE (11:04)
[2020-06-20 16:34] VITALS: BP 96/42; PULSE 85
== END 2020-06-20 13:55 | disposition home or self-care (01) ==
LOC: JONCCHEMO 06:11
PROVIDERS: ATTEND Internal Medicine Hematology & Oncology
PROC: 3E04305 Introduction of Other Antineoplastic into Central Vein, Percutaneous Approach (ICD-10-PCS; principal; 2020-06-20)
PROC: 3E043GC Introduction of Other Therapeutic Substance into Central Vein, Percutaneous Approach (ICD-10-PCS; 2020-06-20)
PROC: 3E0437Z Introduction of Electrolytic and Water Balance Substance into Central Vein, Percutaneous Approach (ICD-10-PCS; 2020-06-20)
DX: Z51.11 Encounter for antineoplastic chemotherapy (principal); C83.33 Diffuse large B-cell lymphoma, intra-abdominal lymph nodes
CPT/HCPCS: 36415; 80048; 80076; 83615; 83735; 84550; 85025; 96361; 96367; 96375; 96411; 96413; J2405; J9070; J9370

== ENCOUNTER 2020-06-21 07:17 | Day surgery (SDC) | payer BC ==
--- OUTSIDE RECORDS SUMMARY | 2020-06-21 07:20 | XMS ---
:1935 [facility] Support Name Relationship Address Phone RE, RETIRED Unavailable Unavailable Unavailable RE Unavailable Unavailable Unavailable JAYLYN MERAZ [address] [place] [address] JAYLYN MERAZ Spouse [address] [address] Re-disclosure Warning The records that you are [...] is protected by Article 27-F of the [facility] Public Health law. If you continue you may haveaccess to information: Regarding HIV / AIDS; Provided by facilities licensed or operated by the [facility] Office of Mental Health; or Provided by the [facility] Office for People With Developmental Disabilities. If such information is present, then the following [facility] mandated warning applies: This information has been [...] law may result in a fine or snf sentence or both. A general authorization for the release of medical or other information is NOT sufficient authorization for further disclosure. Insurance Providers Payer name Policy type Policy ID Covered Covered republican's Policy P can / Coverage republican ID relationship to Clemens Inf ormation type clemens FAWAD CROSS [id number] SP [id number] SENIOR PLAN 4 DELANO MEDICARE [id number] SP [id number] 0 Results ID Date Data Source [id number] 04/07/2020 09:40:00 PM EDT [facility] Name Value Range Interpretation Description Data Sup porting Code Source(s) Document(s ) SARS [facility] CORONAVIRUS 2 RNA This lab was ordered by [facility] and reported by [facility]. ID Date Data Source [id number] 03/21/2020 05:20:00 PM EDT [facility] Name Value Range Interpretation Description Data Sup porting Code Source(s) Document(s ) SARS [facility] CORONAVIRUS 2 RNA This lab was ordered by [facility] and reported by [facility]. Procedure
[2020-06-21] MEDS ORDERED: SODIUM CHLORIDE 0.45% 750 ML IV ONE (09:00)
[2020-06-21] MEDS ORDERED: PEGFILGRASTIM-CBQV (UDENYCA) 6 MG/0.6 ML SYRINGE SQ ONE (10:00)
[2020-06-21] MEDS ORDERED: DEXAMETHASONE SODIUM PHOSPHATE IVPB ONE (10:00)
[2020-06-21] MEDS ORDERED: PEGFILGRASTIM (NEULASTA) 6 MG/0.6 ML DISP.SYRIN SQ ONE (10:00)
[2020-06-21] MEDS ORDERED: ONDANSETRON IVPB ONE (10:00)
[2020-06-21] MEDS ORDERED: [UNRECOGNIZED DRUG - OTHER] IVPB ONE (10:00)
[2020-06-21] MEDS ORDERED: D5-1/2NS+20 MEQ KCL - 10 MEQ/500 ML INFUS.BAG IV ONE (12:00)
[2020-06-21 12:18] LABS: BASO % 0.5 % (0-2.0); HEMATOCRIT 26.1 % (35.4-49); HEMOGLOBIN 8.6 GM/dL (11.7-16.9); MEAN CELL VOLUME 87.9 fl (80-96); MONO % 5.9 % (3.8-10.2); NEUT % 90.6 % (42.8-82.8); PLATELET COUNT 121 K/MM3 (134-434); RBC 2.97 M/mm3 (4.00-5.60); RDW 19.2 % (11.9-15.9); WHITE BLOOD COUNT 23.3 K/mm3 (4.0-10.0)
[2020-06-21 12:53] LABS: ALBUMIN 2.1 g/dl (3.4-5.0); BILIRUBIN,DIRECT 0.1 mg/dL (0.0-0.2); BILIRUBIN,TOTAL 0.3 mg/dL (0.2-1); BLOOD UREA NITROGEN 51.9 mg/dL (7-18); CALCIUM 8.5 mg/dL (8.5-10.1); CREATININE 1.7 mg/dL (0.55-1.3); POTASSIUM 4.6 mmol/L (3.5-5.1); TOT PROT 4.8 g/dl (6.4-8.2)
[2020-06-21 13:23] LABS: ANISOCYTOSIS 2+; MACROCYTOSIS 0; PLATELET ESTIMATE DECREASED
[2020-06-21 17:35] VITALS: TEMP 97.6
[2020-06-21 17:44] VITALS: BP 100/51; PULSE 89
[2020-06-21] MEDS ORDERED: PORTA CATH FLUSH 10 ML IVPUSH ONE (17:44)
== END 2020-06-21 15:30 | disposition home or self-care (01) ==
LOC: JONCCHEMO 07:17
PROVIDERS: ATTEND Internal Medicine Hematology & Oncology
PROC: 3E013GC Introduction of Other Therapeutic Substance into Subcutaneous Tissue, Percutaneous Approach (ICD-10-PCS; principal; 2020-06-21)
PROC: 3E0337Z Introduction of Electrolytic and Water Balance Substance into Peripheral Vein, Percutaneous Approach (ICD-10-PCS; 2020-06-21)
PROC: 3E033GC Introduction of Other Therapeutic Substance into Peripheral Vein, Percutaneous Approach (ICD-10-PCS; 2020-06-21)
DX: Z76.89 Persons encountering health services in other specified circumstances (principal); C83.33 Diffuse large B-cell lymphoma, intra-abdominal lymph nodes
CPT/HCPCS: 36415; 80048; 80076; 85025; 96361; 96365; 96372; J2405; Q5111

== ENCOUNTER → 2020-07-10 | Day surgery (SDC) | payer BC ==
[~2020-07-10] MED LIST changes: +ACETAMINOPHEN 325 MG TABLET (FP) PO ONE; +DEXAMETHASONE SODIUM PHOSPHATE 12 MG, DIPHENHYDRAMINE 25 MG in SODIUM CHLORIDE 100 ML IVPB ONE; +RITUXIMAB IVPB ONE; +SODIUM CHLORIDE 0.45% 250 ML IVPB ONE; -SODIUM CHLORIDE 500 ML IV ONE; +SODIUM CHLORIDE IVPB ONE
--- OUTSIDE RECORDS SUMMARY | 2020-07-10 07:04 | XMS ---
:1935 Author Organization [facility] Support Name Relationship Address Phone LUDMILA MERAZ BROTHER [address] [facility] [place] [address] RE, RETIRED Unavailable Unavailable Unavailable RE Unavailable Unavailable Unavailable JAYLYN MERAZ [address] [phone] [place] [address] JAYLYN MERAZ Spouse [address] [place] [address] Re-disclosure Warning The records that you are [...] is protected by Article 27-F of the [facility] Public Health law. If you continue you may haveaccess to information: Regarding HIV / AIDS; Provided by facilities licensed or operated by the [facility] Office of Mental Health; or Provided by the [facility] Office for People With Developmental Disabilities. If such information is present, then the following [facility] mandated warning applies: This information has been [...] law may result in a fine or mcc sentence or both. A general authorization for the release of medical or other information is NOT sufficient authorization for further disclosure. Insurance Providers Payer name Policy type Policy ID Covered Covered constitution party's Policy P can / Coverage constitution party ID relationship to Clemens Inf ormation type clemens BLUE CROSS [id number] SP [id number] SENIOR PLAN 4 DELANO MEDICARE [id number] SP [id number] 0 Results ID Date Data Source [id number] 04/07/2020 09:40:00 PM EDT [facility] Name Value Range Interpretation Description Data Sup porting Code Source(s) Document(s ) SARS [facility] CORONAVIRUS 2 RNA This lab was ordered by [facility] and reported by [facility]. ID Date Data Source [id number] 03/21/2020 05:20:00 PM EDT [facility] Name Value Range Interpretation Description Data Sup porting Code Source(s) Document(s ) SARS [facility] CORONAVIRUS 2 RNA This lab was ordered by [facility] and reported by [facility]. Procedure
[2020-07-10 11:53] LABS: BASO % 0.5 % (0-2.0); EOS % 0.8 % (0-4.5); LYMPH % 17.9 % (8-40); MCH 30.4 pg (25.7-33.7); MCHC 33.8 g/dl (32.0-35.9); MEAN PLT VOLUME 8.1 fl (7.5-11.1); MONO % 14.6 % (3.8-10.2); NEUT % 66.2 % (42.8-82.8); PLATELET COUNT 146 K/MM3 (134-434); RBC 2.11 M/mm3 (4.00-5.60); RDW 20.2 % (11.9-15.9)
[2020-07-10 12:00] LABS: HEMOGLOBIN 6.4 GM/dL (11.7-16.9)
[2020-07-10 12:10] LABS: ALBUMIN 2.2 g/dl (3.4-5.0); BILIRUBIN,DIRECT 0.1 mg/dL (0.0-0.2); BILIRUBIN,TOTAL 0.5 mg/dL (0.2-1); BLOOD UREA NITROGEN 24.4 mg/dL (7-18); CALCIUM 7.8 mg/dL (8.5-10.1); CREATININE 1.3 mg/dL (0.55-1.3); MAGNESIUM 2.3 mg/dL (1.8-2.4); POTASSIUM 4.5 mmol/L (3.5-5.1); TOT PROT 4.8 g/dl (6.4-8.2); URIC ACID 5.4 mg/dL (2.6-7.2)
[2020-07-10 12:16] LABS: IRON SERUM 46 ug/dL (50-175); TOTAL IRON BINDING CAPACITY 162 ug/dL (250-450)
[2020-07-10 14:15] LABS: ANISOCYTOSIS 1+; MACROCYTOSIS 0; OVALOCYTE 1+; PLATELET ESTIMATE DECREASED
[2020-07-10 17:59] VITALS: TEMP 98.4
[2020-07-10 18:32] VITALS: BP 110/61; PULSE 94
== END | disposition home or self-care (01) ==
LOC: JONCCHEMO 07:01
PROVIDERS: ATTEND Internal Medicine Hematology & Oncology
DX: Z51.11 Encounter for antineoplastic chemotherapy (principal); C83.33 Diffuse large B-cell lymphoma, intra-abdominal lymph nodes
CPT/HCPCS: 36415; 36430; 80048; 80076; 82728; 83540; 83550; 83615; 83735; 84550; 85025; 85651; 86850; 86900; 86901; 86922; 96361; 96367; 96413; J9312; P9058

== ENCOUNTER 2020-07-11 06:33 | Day surgery (SDC) | payer BC ==
--- OUTSIDE RECORDS SUMMARY | 2020-07-11 06:49 | XMS ---
:1935 Author Organization [facility] Support Name Relationship Address Phone LUDMILA MERAZ BROTHER [address] [facility] [place] [address] RE, RETIRED Unavailable Unavailable Unavailable RE Unavailable Unavailable Unavailable JAYLYN MERAZ [address] [phone] [place] [address] JAYLYN MERAZ Spouse [address] [place] [address] Re-disclosure Warning The records that you are [...] is protected by Article 27-F of the [facility] Public Health law. If you continue you may haveaccess to information: Regarding HIV / AIDS; Provided by facilities licensed or operated by the [facility] Office of Mental Health; or Provided by the [facility] Office for People With Developmental Disabilities. If such information is present, then the following [facility] mandated warning applies: This information has [...] law may result in a fine or shelter sentence or both. A general authorization for the release of medical or other information is NOT sufficient authorization for further disclosure. Insurance Providers Payer name Policy type Policy ID Covered Covered constitution party's Policy P can / Coverage constitution party ID relationship to Clemens Inf ormation type clemens BLUE CROSS [id number] SP [id number] SENIOR PLAN 4 DELANO MEDICARE [id number] SP [id number] 0 Results ID Date Data Source [id number] 04/07/2020 09:40:00 PM EDT [facility] Name Value Range Interpretation Description Data Sup porting Code Source(s) Document(s ) SARS [facility] CORONAVIRUS 2 RNA This lab was ordered by [facility] and reported by [facility]. ID Date Data Source [id number] 03/21/2020 05:20:00 PM EDT [facility] Name Value Range Interpretation Description Data Sup porting Code Source(s) Document(s ) SARS [facility] CORONAVIRUS 2 RNA This lab was ordered by [facility] and reported by [facility]. Procedure
[2020-07-11] MEDS ORDERED: SODIUM CHLORIDE 0.45% 250 ML IVPB ONE ×2 (09:00→11:30)
[2020-07-11] MEDS ORDERED: DEXAMETHASONE SODIUM PHOSPHATE IVPB ONE (10:00)
[2020-07-11] MEDS ORDERED: ONDANSETRON IVPB ONE (10:00)
[2020-07-11] MEDS ORDERED: [UNRECOGNIZED DRUG - OTHER] IVPB ONE (10:00)
[2020-07-11] MEDS ORDERED: CYCLOPHOSPHAMIDE INJECTION 780 MG in SODIUM CHLORIDE 250 ML IVPB ONE (10:30)
[2020-07-11] MEDS ORDERED: SODIUM CHLORIDE IV ONE (11:00)
[2020-07-11] MEDS ORDERED: DOXORUBICIN HCL IV ONE (11:00)
[2020-07-11] MEDS ORDERED: SODIUM CHLORIDE IVPB ONE (11:30)
[2020-07-11] MEDS ORDERED: VINCRISTINE SULFATE IVPB ONE (11:30)
[2020-07-11 15:04] VITALS: TEMP 97.7
[2020-07-11 15:05] VITALS: BP 86/37; PULSE 95
== END 2020-07-11 14:00 | disposition home or self-care (01) ==
LOC: JONCCHEMO 06:33
PROVIDERS: ATTEND Internal Medicine Hematology & Oncology
DX: Z51.11 Encounter for antineoplastic chemotherapy (principal); C83.33 Diffuse large B-cell lymphoma, intra-abdominal lymph nodes
CPT/HCPCS: 96361; 96367; 96411; 96413; 96417; J9070; J9370

== ENCOUNTER 2020-07-12 08:15 | Day surgery (SDC) | payer BC ==
--- OUTSIDE RECORDS SUMMARY | 2020-07-12 08:27 | XMS ---
:1935 Author Organization [facility] Support Name Relationship Address Phone LUDMILA MERAZ BROTHER [address] [facility] [place] [address] RE, RETIRED Unavailable Unavailable Unavailable RE Unavailable Unavailable Unavailable JAYLYN MERAZ [address] [place] [address] JAYLYN MERAZ Spouse [address] [place] [address] Re-disclosure Warning The records that you are [...] is protected by Article 27-F of the [facility] Public Health law. If you continue you may haveaccess to information: Regarding HIV / AIDS; Provided by facilities licensed or operated by the [facility] Office of Mental Health; or Provided by the [facility] Office for People With Developmental Disabilities. If such information is present, then the following [facility] mandated warning applies: This information has [...] law may result in a fine or fpc sentence or both. A general authorization for the release of medical or other information is NOT sufficient authorization for further disclosure. Insurance Providers Payer name Policy type Policy ID Covered Covered alliance party's Policy P can / Coverage alliance party ID relationship to Clemens Inf ormation type clemens BLUE CROSS [id number] SP [id number] SENIOR PLAN 4 DELANO MEDICARE [id number] SP [id number] 0 Results ID Date Data Source [id number] 04/07/2020 09:40:00 PM EDT [facility] Name Value Range Interpretation Description Data Sup porting Code Source(s) Document(s ) SARS [facility] CORONAVIRUS 2 RNA This lab was ordered by [facility] and reported by [facility]. ID Date Data Source [id number] 03/21/2020 05:20:00 PM EDT [facility] Name Value Range Interpretation Description Data Sup porting Code Source(s) Document(s ) SARS [facility] CORONAVIRUS 2 RNA This lab was ordered by [facility] and reported by [facility]. Procedure
[2020-07-12] MEDS ORDERED: PEGFILGRASTIM-CBQV (UDENYCA) 6 MG/0.6 ML SYRINGE SQ ONE (10:00)
[2020-07-12] MEDS ORDERED: ONDANSETRON IVPB ONE (10:00)
[2020-07-12] MEDS ORDERED: DEXAMETHASONE SODIUM PHOSPHATE IVPB ONE (10:00)
[2020-07-12] MEDS ORDERED: [UNRECOGNIZED DRUG - OTHER] IVPB ONE (10:00)
[2020-07-12] MEDS ORDERED: FUROSEMIDE 40 MG TABLET (FP) PO ONE (11:45)
[2020-07-12 15:09] VITALS: TEMP 97.8
[2020-07-12 18:37] VITALS: BP 116/58; PULSE 87
[2020-07-12 19:17] LABS: HEMATOCRIT 24.5 % (35.4-49); HEMOGLOBIN 8.2 GM/dL (11.7-16.9); MCH 30.7 pg (25.7-33.7); MCHC 33.4 g/dl (32.0-35.9); MEAN CELL VOLUME 92.1 fl (80-96); MEAN PLT VOLUME 8.7 fl (7.5-11.1); PLATELET COUNT 175 K/MM3 (134-434); RBC 2.67 M/mm3 (4.00-5.60); WHITE BLOOD COUNT 7.1 K/mm3 (4.0-10.0)
== END 2020-07-12 18:47 | disposition home or self-care (01) ==
LOC: JONCCHEMO 08:15
PROVIDERS: ATTEND Internal Medicine Hematology & Oncology
DX: C83.33 Diffuse large B-cell lymphoma, intra-abdominal lymph nodes (principal); Z76.89 Persons encountering health services in other specified circumstances
CPT/HCPCS: 36415; 85027; 86922; 96365; 96372; Q5111

== ENCOUNTER 2020-08-21 09:18 | Day surgery (SDC) | payer BC, OTHER ==
[~2020-08-21 09:18] MED LIST changes: -ACETAMINOPHEN 325 MG TABLET (FP) PO ONE; -DEXAMETHASONE SODIUM PHOSPHATE 12 MG, DIPHENHYDRAMINE 25 MG in SODIUM CHLORIDE 100 ML IVPB ONE; -RITUXIMAB IVPB ONE; +SODIUM CHLORIDE 0.45% 250 ML IV ONE; -SODIUM CHLORIDE 0.45% 250 ML IVPB ONE; -SODIUM CHLORIDE IVPB ONE
[2020-08-21 10:21] LABS: BASO % 0.7 % (0-2.0); EOS % 1.5 % (0-4.5); HEMATOCRIT 25.6 % (35.4-49); HEMOGLOBIN 8.6 GM/dL (11.7-16.9); LYMPH % 19.5 % (8-40); MCH 32.7 pg (25.7-33.7); MCHC 33.7 g/dl (32.0-35.9); MEAN PLT VOLUME 8.2 fl (7.5-11.1); MONO % 11.4 % (3.8-10.2); NEUT % 66.9 % (42.8-82.8); PLATELET COUNT 151 K/MM3 (134-434); RBC 2.63 M/mm3 (4.00-5.60); RDW 17.7 % (11.9-15.9)
[2020-08-21] MEDS ORDERED: DEXAMETHASONE SODIUM PHOSPHATE 12 MG, DIPHENHYDRAMINE 25 MG in SODIUM CHLORIDE 100 ML IVPB ONE (10:30)
[2020-08-21] MEDS ORDERED: ACETAMINOPHEN 325 MG TABLET (FP) PO ONE (10:30)
[2020-08-21 10:37] LABS: POTASSIUM 4.5 mmol/L (3.5-5.1)
[2020-08-21 10:42] LABS: CALCIUM 7.4 mg/dL (8.5-10.1)
[2020-08-21 10:43] LABS: BLOOD UREA NITROGEN 28.9 mg/dL (7-18); MAGNESIUM 2.3 mg/dL (1.8-2.4)
[2020-08-21 10:45] LABS: ALBUMIN 2.3 g/dl (3.4-5.0)
[2020-08-21 10:46] LABS: CREATININE 1.1 mg/dL (0.55-1.3)
[2020-08-21 10:48] LABS: BILIRUBIN,DIRECT 0.1 mg/dL (0.0-0.2)
[2020-08-21 10:49] LABS: BILIRUBIN,TOTAL 0.4 mg/dL (0.2-1); TOT PROT 4.6 g/dl (6.4-8.2)
[2020-08-21 10:54] LABS: URIC ACID 4.2 mg/dL (2.6-7.2)
[2020-08-21] MEDS ORDERED: SODIUM CHLORIDE IVPB ONE (11:00)
[2020-08-21] MEDS ORDERED: RITUXIMAB ABBS IVPB ONE (11:00)
[2020-08-21] MEDS ORDERED: SODIUM CHLORIDE 0.45% 250 ML IV ONE (14:00)
[2020-08-21 17:52] VITALS: TEMP 98.5
[2020-08-21 17:58] VITALS: BP 96/42; PULSE 87
[2020-08-22 08:06] LABS: IGA IMMUNOGLOBULIN 12 mg/dL (61-437); IGG QN IMMUNOGLOBULIN 298 mg/dL (603-1613); IGM QN SERUM 323 mg/dL (15-143)
== END 2020-08-21 16:30 | disposition home or self-care (01) ==
LOC: JONCCHEMO 09:18
PROVIDERS: ATTEND Internal Medicine Hematology & Oncology
DX: Z51.11 Encounter for antineoplastic chemotherapy (principal); C83.33 Diffuse large B-cell lymphoma, intra-abdominal lymph nodes
CPT/HCPCS: 36415; 80048; 80076; 82232; 82784; 83615; 83735; 84550; 85025; 96361; 96367; 96413; 96415; Q5115

== ENCOUNTER 2020-08-22 06:19 | Day surgery (SDC) | payer BC, OTHER ==
[2020-08-22] MEDS ORDERED: SODIUM CHLORIDE 0.45% 250 ML IV ONE ×2 (09:00→12:00)
[2020-08-22] MEDS ORDERED: DEXAMETHASONE SODIUM PHOSPHATE IVPB ONE (09:30)
[2020-08-22] MEDS ORDERED: [UNRECOGNIZED DRUG - OTHER] IVPB ONE (09:30)
[2020-08-22] MEDS ORDERED: ONDANSETRON IVPB ONE (09:30)
[2020-08-22] MEDS ORDERED: CYCLOPHOSPHAMIDE INJECTION 780 MG in SODIUM CHLORIDE 250 ML IVPB ONE (10:00)
[2020-08-22] MEDS ORDERED: DOXORUBICIN HCL IV ONE (10:30)
[2020-08-22] MEDS ORDERED: DOXOrubicin HCL 50 MG/25 ML VIAL IV ONE (10:30)
[2020-08-22] MEDS ORDERED: SODIUM CHLORIDE IV ONE (10:30)
[2020-08-22] MEDS ORDERED: SODIUM CHLORIDE IVPB ONE (11:00)
[2020-08-22] MEDS ORDERED: VINCRISTINE SULFATE IVPB ONE (11:00)
[2020-08-22 16:34] VITALS: BP 115/46; PULSE 76; TEMP 97.6
== END 2020-08-22 14:00 | disposition home or self-care (01) ==
LOC: JONCCHEMO 06:19
PROVIDERS: ATTEND Internal Medicine Hematology & Oncology
DX: Z51.11 Encounter for antineoplastic chemotherapy (principal); C83.33 Diffuse large B-cell lymphoma, intra-abdominal lymph nodes
CPT/HCPCS: 96361; 96367; 96411; 96413; J2405; J9070; J9370

== ENCOUNTER 2020-08-23 06:52 | Day surgery (SDC) | payer BC, OTHER ==
[2020-08-23] MEDS ORDERED: SODIUM CHLORIDE 0.45% 750 ML IV ONE (09:00)
[2020-08-23] MEDS ORDERED: DEXAMETHASONE SODIUM PHOSPHATE IVPB ONE (09:30)
[2020-08-23] MEDS ORDERED: ONDANSETRON IVPB ONE (09:30)
[2020-08-23] MEDS ORDERED: [UNRECOGNIZED DRUG - OTHER] IVPB ONE (09:30)
[2020-08-23] MEDS ORDERED: PEGFILGRASTIM-CBQV (UDENYCA) 6 MG/0.6 ML SYRINGE SQ ONE (10:00)
[2020-08-23 15:12] VITALS: BP 112/50; PULSE 66; TEMP 98
[2020-08-23] MEDS ORDERED: PORTA CATH FLUSH 10 ML IVPUSH ONE (15:12)
== END 2020-08-23 13:45 | disposition home or self-care (01) ==
LOC: JONCCHEMO 06:52
PROVIDERS: ATTEND Internal Medicine Hematology & Oncology
PROC: 3E013GC Introduction of Other Therapeutic Substance into Subcutaneous Tissue, Percutaneous Approach (ICD-10-PCS; principal; 2020-08-23)
PROC: 3E0437Z Introduction of Electrolytic and Water Balance Substance into Central Vein, Percutaneous Approach (ICD-10-PCS; 2020-08-23)
PROC: 3E043GC Introduction of Other Therapeutic Substance into Central Vein, Percutaneous Approach (ICD-10-PCS; 2020-08-23)
DX: C83.33 Diffuse large B-cell lymphoma, intra-abdominal lymph nodes (principal); Z76.89 Persons encountering health services in other specified circumstances
CPT/HCPCS: 96361; 96365; 96372; J2405; Q5111

== ENCOUNTER 2020-11-14 04:41 | Day surgery (SDC) | payer OTHER, BC ==
[2020-11-14 08:12] VITALS: BMI 31.2
[2020-11-14] MEDS ORDERED: MIDAZOLAM HCL 2 MG/2 ML SINGLE DOSE VIAL IVPUSH ONE (12:30)
[2020-11-14] MEDS ORDERED: SODIUM CHLORIDE 0.9% 500 ML IV SCH (12:30)
[2020-11-14 14:29] VITALS: TEMP 97.4
[2020-11-14 15:38] VITALS: BP 127/62; PULSE 73
== END 2020-11-14 14:56 | disposition home or self-care (01) ==
LOC: JRADIR 04:41
PROVIDERS: ATTEND Internal Medicine Hematology & Oncology
PROC: 0WBH3ZX Excision of Retroperitoneum, Percutaneous Approach, Diagnostic (ICD-10-PCS; principal; 2020-11-14)
DX: D48.3 Neoplasm of uncertain behavior of retroperitoneum (principal); C83.30 Diffuse large B-cell lymphoma, unspecified site
CPT/HCPCS: 49180; 88305-TC

== ENCOUNTER 2020-12-19 05:32 | Day surgery (SDC) | payer OTHER, BC ==
[2020-12-15 16:30] VITALS: BMI 33.6
[2020-12-19] MEDS ORDERED: MIDAZOLAM HCL 2 MG/2 ML SINGLE DOSE VIAL IVPUSH ONE (13:35)
[2020-12-19 17:21] VITALS: BP 132/82; PULSE 86; TEMP 97.3
== END 2020-12-19 16:50 | disposition home or self-care (01) ==
LOC: JRADIR 05:32
PROVIDERS: ATTEND Internal Medicine Hematology & Oncology
PROC: 0WBH3ZX Excision of Retroperitoneum, Percutaneous Approach, Diagnostic (ICD-10-PCS; principal; 2020-12-19)
DX: C83.36 Diffuse large B-cell lymphoma, intrapelvic lymph nodes (principal)
CPT/HCPCS: 49180; 88305-TC

== ENCOUNTER 2021-01-18 07:48 | Day surgery (SDC) | payer OTHER, BC ==
[2021-01-18] MEDS ORDERED: DEXAMETHASONE SODIUM PHOSPHATE 20 MG, DIPHENHYDRAMINE 25 MG in SODIUM CHLORIDE 100 ML IVPB ONE ×2 (08:30→09:30)
[2021-01-18] MEDS ORDERED: ACETAMINOPHEN 325 MG TABLET (FP) PO ONE ×2 (08:30→09:30)
[2021-01-18] MEDS ORDERED: RITUXIMAB ABBS IVPB ONE ×2 (09:00→10:00)
[2021-01-18] MEDS ORDERED: SODIUM CHLORIDE IVPB ONE ×2 (09:00→10:00)
[2021-01-18 15:59] VITALS: TEMP 98.2
[2021-01-18] MEDS ORDERED: PORTA CATH FLUSH 10 ML IVPUSH ONE (15:59)
[2021-01-18 16:01] VITALS: BP 136/69; PULSE 78
== END 2021-01-18 13:45 | disposition home or self-care (01) ==
LOC: JONCCHEMO 07:48
PROVIDERS: ATTEND Internal Medicine Hematology & Oncology
PROC: 3E04305 Introduction of Other Antineoplastic into Central Vein, Percutaneous Approach (ICD-10-PCS; principal; 2021-01-18)
PROC: 3E0433Z Introduction of Anti-inflammatory into Central Vein, Percutaneous Approach (ICD-10-PCS; 2021-01-18)
DX: C83.33 Diffuse large B-cell lymphoma, intra-abdominal lymph nodes (principal); Z96.89 Presence of other specified functional implants
CPT/HCPCS: 96367; 96413; 96415; Q5115

== ENCOUNTER 2021-01-19 06:42 | Day surgery (SDC) | payer OTHER, BC ==
[2021-01-19] MEDS ORDERED: DEXAMETHASONE SODIUM PHOSPHATE 20 MG in SODIUM CHLORIDE 50 ML IVPB ONE (09:30)
[2021-01-19] MEDS ORDERED: PALONOSETRON HCL 0.25 MG/5 ML VIAL IVPUSH ONE (09:30)
[2021-01-19] MEDS ORDERED: CARBOPLATIN IVPB ONE (10:00)
[2021-01-19] MEDS ORDERED: SODIUM CHLORIDE IVPB ONE (10:00)
[2021-01-19] MEDS ORDERED: SODIUM CHLORIDE IV ONE (10:30)
[2021-01-19] MEDS ORDERED: GEMCITABINE HCL IV ONE (10:30)
[2021-01-19 17:01] VITALS: TEMP 98.3
[2021-01-19 17:09] VITALS: BP 135/56; PULSE 64
[2021-01-19] MEDS ORDERED: PORTA CATH FLUSH 10 ML IVPUSH ONE (17:09)
== END 2021-01-19 10:50 | disposition home or self-care (01) ==
LOC: JONCCHEMO 06:42
PROVIDERS: ATTEND Internal Medicine Hematology & Oncology
DX: Z51.11 Encounter for antineoplastic chemotherapy (principal); C83.33 Diffuse large B-cell lymphoma, intra-abdominal lymph nodes
CPT/HCPCS: 82962; 96375; 96413; 96417; J2469

== ENCOUNTER 2021-01-25 07:26 | Day surgery (SDC) | payer OTHER, BC ==
[~2021-01-25 07:26] MED LIST changes: +CALCIUM GLUCONATE 10% - 1,000 MG/10 ML VIAL IVPB ONE; -SODIUM CHLORIDE 0.45% 250 ML IV ONE
[2021-01-25] MEDS ORDERED: CALCIUM GLUCONATE IN NACL 1 GM/50 ML BAG IVPB ONE (08:00)
[2021-01-25] MEDS ORDERED: DEXAMETHASONE SODIUM PHOSPHATE 20 MG, ONDANSETRON INJECTION 8 MG in SODIUM CHLORIDE 100 ML IVPB ONE (09:30)
[2021-01-25] MEDS ORDERED: GEMCITABINE HCL IV ONE (10:00)
[2021-01-25] MEDS ORDERED: SODIUM CHLORIDE IV ONE (10:00)
[2021-01-25 16:13] VITALS: TEMP 98.4
[2021-01-25] MEDS ORDERED: PORTA CATH FLUSH 10 ML IVPUSH ONE (16:27)
[2021-01-25 16:28] VITALS: BP 96/50; PULSE 72
== END 2021-01-25 11:30 | disposition home or self-care (01) ==
LOC: JONCCHEMO 07:26
PROVIDERS: ATTEND Internal Medicine Hematology & Oncology
DX: Z51.11 Encounter for antineoplastic chemotherapy (principal); C83.33 Diffuse large B-cell lymphoma, intra-abdominal lymph nodes
CPT/HCPCS: 96367; 96413; J2405

== ENCOUNTER 2021-01-26 07:24 | Day surgery (SDC) | payer BC, OTHER ==
[2021-01-26] MEDS ORDERED: PEGFILGRASTIM-CBQV (UDENYCA) 6 MG/0.6 ML SYRINGE SQ ONE (10:00)
[2021-01-26 10:26] VITALS: BP 116/56; PULSE 78; TEMP 97.8
== END 2021-01-26 10:20 | disposition home or self-care (01) ==
LOC: JONCCHEMO 07:24
PROVIDERS: ATTEND Internal Medicine Hematology & Oncology
PROC: 3E013GC Introduction of Other Therapeutic Substance into Subcutaneous Tissue, Percutaneous Approach (ICD-10-PCS; principal; 2021-01-26)
DX: C83.33 Diffuse large B-cell lymphoma, intra-abdominal lymph nodes (principal); Z76.89 Persons encountering health services in other specified circumstances
CPT/HCPCS: 96372; Q5111

== ENCOUNTER 2021-02-08 07:27 | Day surgery (SDC) | payer OTHER, BC ==
[2021-02-08] MEDS ORDERED: DEXAMETHASONE SODIUM PHOSPHATE 20 MG, DIPHENHYDRAMINE 25 MG in SODIUM CHLORIDE 100 ML IVPB ONE (09:30)
[2021-02-08] MEDS ORDERED: ACETAMINOPHEN 325 MG TABLET (FP) PO ONE (09:30)
[2021-02-08] MEDS ORDERED: RITUXIMAB ABBS IVPB ONE (10:00)
[2021-02-08] MEDS ORDERED: SODIUM CHLORIDE IVPB ONE (10:00)
[2021-02-08 11:04] LABS: BASO % 0.3 % (0-2.0); EOS % 0.2 % (0-4.5); HEMATOCRIT 27.3 % (35.4-49); HEMOGLOBIN 9.4 GM/dL (11.7-16.9); LYMPH % 8.4 % (8-40); MCH 31.5 pg (25.7-33.7); MCHC 34.5 g/dl (32.0-35.9); MEAN CELL VOLUME 91.3 fl (80-96); MEAN PLT VOLUME 7.8 fl (7.5-11.1); MONO % 10.6 % (3.8-10.2); NEUT % 80.5 % (42.8-82.8); PLATELET COUNT 209 K/MM3 (134-434); RBC 2.99 M/mm3 (4.00-5.60); RDW 13.8 % (11.9-15.9); WHITE BLOOD COUNT 13.6 K/mm3 (4.0-10.0)
[2021-02-08 11:30] LABS: CALCIUM 8.7 mg/dL (8.5-10.1)
[2021-02-08 11:31] LABS: ALBUMIN 3.4 g/dl (3.4-5.0); BLOOD UREA NITROGEN 23.3 mg/dL (7-18); MAGNESIUM 1.7 mg/dL (1.8-2.4)
[2021-02-08 11:33] LABS: BILIRUBIN,DIRECT 0.1 mg/dL (0.0-0.2); URIC ACID 5.2 mg/dL (2.6-7.2)
[2021-02-08 11:34] LABS: CREATININE 1.5 mg/dL (0.55-1.3)
[2021-02-08 11:35] LABS: BILIRUBIN,TOTAL 0.3 mg/dL (0.2-1); TOT PROT 5.8 g/dl (6.4-8.2)
[2021-02-08] MEDS ORDERED: MAGNESIUM OXIDE 400 MG TABLET (FP) PO ONE (11:49)
[2021-02-08 13:11] LABS: ANISOCYTOSIS 1+; MACROCYTOSIS 1+; OVALOCYTE 1+; PLATELET ESTIMATE NORMAL
[2021-02-08 17:50] VITALS: TEMP 98.5
[2021-02-08 17:51] VITALS: BP 112/59; PULSE 101
== END 2021-02-08 17:00 | disposition home or self-care (01) ==
LOC: JONCCHEMO 07:27
PROVIDERS: ATTEND Internal Medicine Hematology & Oncology
DX: Z51.11 Encounter for antineoplastic chemotherapy (principal); C83.33 Diffuse large B-cell lymphoma, intra-abdominal lymph nodes
CPT/HCPCS: 36415; 80048; 80076; 83615; 83735; 84550; 85025; 96360; 96375; 96413; Q5115

== ENCOUNTER 2021-02-09 07:52 | Day surgery (SDC) | payer OTHER, BC ==
[~2021-02-09 07:52] MED LIST changes: -CALCIUM GLUCONATE 10% - 1,000 MG/10 ML VIAL IVPB ONE; +CARBOPLATIN IVPB ONE; +SODIUM CHLORIDE IVPB ONE
[2021-02-09] MEDS ORDERED: SODIUM CHLORIDE 0.45% 250 ML IV ONE (09:30)
[2021-02-09] MEDS ORDERED: DEXAMETHASONE SODIUM PHOSPHATE 20 MG in SODIUM CHLORIDE 50 ML IVPB ONE (09:30)
[2021-02-09] MEDS ORDERED: PALONOSETRON HCL 0.25 MG/5 ML VIAL IVPUSH ONE (09:30)
[2021-02-09] MEDS ORDERED: CARBOPLATIN IVPB ONE ×2 (10:30→11:00)
[2021-02-09] MEDS ORDERED: SODIUM CHLORIDE IV ONE (10:30)
[2021-02-09] MEDS ORDERED: GEMCITABINE HCL IV ONE (10:30)
[2021-02-09] MEDS ORDERED: SODIUM CHLORIDE IVPB ONE ×2 (10:30→11:00)
[2021-02-09 14:58] VITALS: TEMP 98.1
[2021-02-09 15:15] VITALS: BP 111/56; PULSE 76
== END 2021-02-09 12:45 | disposition home or self-care (01) ==
LOC: JONCCHEMO 07:52
PROVIDERS: ATTEND Internal Medicine Hematology & Oncology
DX: Z51.11 Encounter for antineoplastic chemotherapy (principal); C83.33 Diffuse large B-cell lymphoma, intra-abdominal lymph nodes
CPT/HCPCS: 96361; 96375; 96413; 96417; J2469

== ENCOUNTER 2021-02-15 07:19 | Day surgery (SDC) | payer OTHER, BC ==
[2021-02-15] MEDS ORDERED: DEXAMETHASONE SODIUM PHOSPHATE 10 MG, ONDANSETRON INJECTION 8 MG in SODIUM CHLORIDE 100 ML IVPB ONE (10:00)
[2021-02-15 10:13] LABS: BASO % 0.1 % (0-2.0); EOS % 0.3 % (0-4.5); HEMATOCRIT 23.3 % (35.4-49); HEMOGLOBIN 8.1 GM/dL (11.7-16.9); LYMPH % 13.3 % (8-40); MCH 31.6 pg (25.7-33.7); MCHC 34.9 g/dl (32.0-35.9); MEAN CELL VOLUME 90.5 fl (80-96); MEAN PLT VOLUME 7.4 fl (7.5-11.1); NEUT % 82.3 % (42.8-82.8); PLATELET COUNT 164 K/MM3 (134-434); RBC 2.58 M/mm3 (4.00-5.60); RDW 13.5 % (11.9-15.9); WHITE BLOOD COUNT 2.6 K/mm3 (4.0-10.0)
[2021-02-15] MEDS ORDERED: SODIUM CHLORIDE IV ONE (10:30)
[2021-02-15] MEDS ORDERED: GEMCITABINE HCL IV ONE (10:30)
[2021-02-15 10:55] LABS: CALCIUM 7.8 mg/dL (8.5-10.1)
[2021-02-15 10:56] LABS: ALBUMIN 3.1 g/dl (3.4-5.0); BLOOD UREA NITROGEN 36.9 mg/dL (7-18); MAGNESIUM 2.1 mg/dL (1.8-2.4)
[2021-02-15 10:58] LABS: BILIRUBIN,DIRECT 0.1 mg/dL (0.0-0.2)
[2021-02-15 10:59] LABS: CREATININE 1.2 mg/dL (0.55-1.3); URIC ACID 5.5 mg/dL (2.6-7.2)
[2021-02-15 11:00] LABS: BILIRUBIN,TOTAL 0.5 mg/dL (0.2-1); TOT PROT 5.2 g/dl (6.4-8.2)
[2021-02-15 11:58] VITALS: TEMP 98.5
[2021-02-15] MEDS ORDERED: PORTA CATH FLUSH 10 ML IVPUSH ONE (11:58)
[2021-02-15 12:43] VITALS: BP 135/66; PULSE 82
== END 2021-02-15 12:50 | disposition home or self-care (01) ==
LOC: JONCCHEMO 07:19
PROVIDERS: ATTEND Internal Medicine Hematology & Oncology
DX: Z51.11 Encounter for antineoplastic chemotherapy (principal); C83.33 Diffuse large B-cell lymphoma, intra-abdominal lymph nodes
CPT/HCPCS: 36415; 80048; 80076; 83615; 83735; 84550; 85025; 96367; 96413

== ENCOUNTER 2021-02-16 07:31 | Day surgery (SDC) | payer OTHER, BC ==
[2021-02-16] MEDS ORDERED: PEGFILGRASTIM-CBQV (UDENYCA) 6 MG/0.6 ML SYRINGE SQ ONE (10:00)
[2021-02-16 15:36] VITALS: TEMP 98.4
[2021-02-16 15:38] VITALS: BP 106/46; PULSE 83
== END 2021-02-16 10:20 | disposition home or self-care (01) ==
LOC: JONCCHEMO 07:31
PROVIDERS: ATTEND Internal Medicine Hematology & Oncology
PROC: 3E013GC Introduction of Other Therapeutic Substance into Subcutaneous Tissue, Percutaneous Approach (ICD-10-PCS; principal; 2021-02-16)
DX: C83.33 Diffuse large B-cell lymphoma, intra-abdominal lymph nodes (principal); Z76.89 Persons encountering health services in other specified circumstances
CPT/HCPCS: 96372; Q5111

== ENCOUNTER 2021-02-21 06:59 | Day surgery (SDC) | payer OTHER, BC ==
[2021-02-21] MEDS ORDERED: POTASSIUM CHLORIDE TABS 20 MEQ TABLET.ER (FP) PO ONE (10:00)
[2021-02-21] MEDS ORDERED: FUROSEMIDE 40 MG/4 ML INJECTABLE VIAL IVPUSH ONE ×2 (11:00→15:25)
[2021-02-21 18:06] VITALS: TEMP 98.5
[2021-02-21 18:12] VITALS: BP 107/46; PULSE 68
[2021-02-21] MEDS ORDERED: PORTA CATH FLUSH 10 ML IVPUSH ONE (18:12)
== END 2021-02-21 16:25 | disposition home or self-care (01) ==
LOC: JONCBLOOD 06:59
PROVIDERS: ATTEND Internal Medicine Hematology & Oncology
PROC: 30233N1 Transfusion of Nonautologous Red Blood Cells into Peripheral Vein, Percutaneous Approach (ICD-10-PCS; principal; 2021-02-21)
DX: C83.33 Diffuse large B-cell lymphoma, intra-abdominal lymph nodes (principal)
CPT/HCPCS: 36430; 86850; 86900; 86901; 86922; P9058

== ENCOUNTER 2021-03-01 09:33 | Day surgery (SDC) | payer OTHER, BC ==
[2021-03-01] MEDS ORDERED: DEXAMETHASONE SODIUM PHOSPHATE 20 MG, DIPHENHYDRAMINE 25 MG in SODIUM CHLORIDE 100 ML IVPB ONE (10:00)
[2021-03-01] MEDS ORDERED: ACETAMINOPHEN 325 MG TABLET (FP) PO ONE (10:00)
[2021-03-01] MEDS ORDERED: SODIUM CHLORIDE IVPB ONE (10:30)
[2021-03-01] MEDS ORDERED: RITUXIMAB ABBS IVPB ONE (10:30)
[2021-03-01 15:28] VITALS: TEMP 97.4
[2021-03-01 15:29] VITALS: BP 114/67; PULSE 77
== END 2021-03-01 13:30 | disposition home or self-care (01) ==
LOC: JONCCHEMO 09:33
PROVIDERS: ATTEND Internal Medicine Hematology & Oncology
DX: Z51.11 Encounter for antineoplastic chemotherapy (principal); C83.33 Diffuse large B-cell lymphoma, intra-abdominal lymph nodes
CPT/HCPCS: 96367; 96413; 96415; Q5115

== ENCOUNTER 2021-03-02 07:26 | Day surgery (SDC) | payer OTHER, BC ==
[2021-03-02] MEDS ORDERED: SODIUM CHLORIDE IVPB ONE ×2 (10:00→10:30)
[2021-03-02] MEDS ORDERED: DEXAMETHASONE SODIUM PHOSPHATE IVPB ONE (10:00)
[2021-03-02] MEDS ORDERED: PALONOSETRON HCL 0.25 MG/5 ML VIAL IVPUSH ONE (10:00)
[2021-03-02] MEDS ORDERED: CARBOPLATIN IVPB ONE (10:30)
[2021-03-02] MEDS ORDERED: GEMCITABINE HCL IV ONE (11:00)
[2021-03-02] MEDS ORDERED: SODIUM CHLORIDE IV ONE (11:00)
[2021-03-02 17:55] VITALS: TEMP 97.8
[2021-03-02 18:10] VITALS: BP 118/50; PULSE 56
== END 2021-03-02 12:15 | disposition home or self-care (01) ==
LOC: JONCCHEMO 07:26
PROVIDERS: ATTEND Internal Medicine Hematology & Oncology
PROC: 3E04305 Introduction of Other Antineoplastic into Central Vein, Percutaneous Approach (ICD-10-PCS; principal; 2021-03-02)
PROC: 3E043GC Introduction of Other Therapeutic Substance into Central Vein, Percutaneous Approach (ICD-10-PCS; 2021-03-02)
DX: Z51.11 Encounter for antineoplastic chemotherapy (principal); C83.33 Diffuse large B-cell lymphoma, intra-abdominal lymph nodes
CPT/HCPCS: 96367; 96375; 96413; 96417; J2469

== ENCOUNTER 2021-03-08 08:43 | Day surgery (SDC) | payer OTHER, BC ==
[2021-03-08] MEDS ORDERED: DEXAMETHASONE SODIUM PHOSPHATE 10 MG, ONDANSETRON INJECTION 8 MG in SODIUM CHLORIDE 100 ML IVPB ONE (10:00)
[2021-03-08] MEDS ORDERED: SODIUM CHLORIDE IV ONE (10:30)
[2021-03-08] MEDS ORDERED: GEMCITABINE HCL IV ONE (10:30)
[2021-03-08 16:32] VITALS: TEMP 99
[2021-03-08 16:52] VITALS: BP 118/46; PULSE 92
== END 2021-03-08 11:50 | disposition home or self-care (01) ==
LOC: JONCCHEMO 08:43
PROVIDERS: ATTEND Internal Medicine Hematology & Oncology
PROC: 3E04305 Introduction of Other Antineoplastic into Central Vein, Percutaneous Approach (ICD-10-PCS; principal; 2021-03-08)
PROC: 3E043GC Introduction of Other Therapeutic Substance into Central Vein, Percutaneous Approach (ICD-10-PCS; 2021-03-08)
DX: Z51.11 Encounter for antineoplastic chemotherapy (principal); C83.33 Diffuse large B-cell lymphoma, intra-abdominal lymph nodes
CPT/HCPCS: 96367; 96413

== ENCOUNTER 2021-03-09 08:18 | Day surgery (SDC) | payer OTHER, BC ==
[2021-03-09] MEDS ORDERED: PEGFILGRASTIM-CBQV (UDENYCA) 6 MG/0.6 ML SYRINGE SQ ONE (09:00)
[2021-03-09 10:06] LABS: BASO % 0.1 % (0-2.0); EOS % 0.2 % (0-4.5); HEMATOCRIT 21.1 % (35.4-49); HEMOGLOBIN 7.2 GM/dL (11.7-16.9); LYMPH % 14.8 % (8-40); MCH 32.1 pg (25.7-33.7); MCHC 34.2 g/dl (32.0-35.9); MEAN CELL VOLUME 93.9 fl (80-96); MEAN PLT VOLUME 7.5 fl (7.5-11.1); NEUT % 78.9 % (42.8-82.8); PLATELET COUNT 155 K/MM3 (134-434); RBC 2.25 M/mm3 (4.00-5.60); RDW 15.4 % (11.9-15.9)
[2021-03-09 10:26] LABS: BLOOD UREA NITROGEN 42.3 mg/dL (7-18); CALCIUM 8.1 mg/dL (8.5-10.1); MAGNESIUM 2.2 mg/dL (1.8-2.4)
[2021-03-09 10:28] LABS: ALBUMIN 3.1 g/dl (3.4-5.0)
[2021-03-09 10:30] LABS: CREATININE 1.1 mg/dL (0.55-1.3)
[2021-03-09 10:32] LABS: TOT PROT 5.3 g/dl (6.4-8.2)
[2021-03-09 11:57] LABS: ANISOCYTOSIS 1+; MACROCYTOSIS 0; PLATELET ESTIMATE DECREASED
[2021-03-09 15:47] VITALS: TEMP 98.1
[2021-03-09 15:57] VITALS: BP 142/45; PULSE 68
== END 2021-03-09 15:59 | disposition home or self-care (01) ==
LOC: JONCCHEMO 08:18
PROVIDERS: ATTEND Internal Medicine Hematology & Oncology
PROC: 3E013GC Introduction of Other Therapeutic Substance into Subcutaneous Tissue, Percutaneous Approach (ICD-10-PCS; principal; 2021-03-09)
DX: Z76.89 Persons encountering health services in other specified circumstances (principal); C83.33 Diffuse large B-cell lymphoma, intra-abdominal lymph nodes
CPT/HCPCS: 36415; 36430; 80053; 83735; 85025; 86850; 86900; 86901; 86922; 96372; P9058; Q5111

== ENCOUNTER 2021-03-16 06:54 | Day surgery (SDC) | payer OTHER, BC ==
[2021-03-16] MEDS ORDERED: FUROSEMIDE 40 MG/4 ML INJECTABLE VIAL IVPUSH ONE (09:15)
[2021-03-16] MEDS ORDERED: POTASSIUM CHLORIDE TABS 20 MEQ TABLET.ER (FP) PO ONE (09:15)
[2021-03-16 09:19] LABS: BASO % 0.2 % (0-2.0); EOS % 0.2 % (0-4.5); HEMATOCRIT 22.5 % (35.4-49); HEMOGLOBIN 7.9 GM/dL (11.7-16.9); MCH 32.6 pg (25.7-33.7); MCHC 35.3 g/dl (32.0-35.9); MEAN CELL VOLUME 92.1 fl (80-96); MEAN PLT VOLUME 8.4 fl (7.5-11.1); NEUT % 81.6 % (42.8-82.8); RBC 2.44 M/mm3 (4.00-5.60); RDW 15.7 % (11.9-15.9)
[2021-03-16 10:25] LABS: ANISOCYTOSIS 0; MACROCYTOSIS 0; PLATELET ESTIMATE DECREASED
[2021-03-16 10:27] LABS: PLATELET COUNT 20 K/MM3 (134-434)
[2021-03-16] MEDS ORDERED: PORTA CATH FLUSH 10 ML IVPUSH ONE (13:57)
[2021-03-16 14:56] VITALS: BP 116/53; PULSE 64; TEMP 98.2
[2021-03-16 15:07] LABS: HEMATOCRIT 23.2 % (35.4-49); HEMOGLOBIN 7.9 GM/dL (11.7-16.9); MCH 31.3 pg (25.7-33.7); MCHC 34.2 g/dl (32.0-35.9); MEAN CELL VOLUME 91.4 fl (80-96); MEAN PLT VOLUME 8.3 fl (7.5-11.1); PLATELET COUNT 43 K/MM3 (134-434); RBC 2.54 M/mm3 (4.00-5.60); RDW 15.6 % (11.9-15.9); WHITE BLOOD COUNT 8.2 K/mm3 (4.0-10.0)
== END 2021-03-16 15:00 | disposition home or self-care (01) ==
LOC: JONCBLOOD 06:54
PROVIDERS: ATTEND Internal Medicine Hematology & Oncology
PROC: 30233R1 Transfusion of Nonautologous Platelets into Peripheral Vein, Percutaneous Approach (ICD-10-PCS; principal; 2021-03-16)
PROC: 30233N1 Transfusion of Nonautologous Red Blood Cells into Peripheral Vein, Percutaneous Approach (ICD-10-PCS; 2021-03-16)
DX: D64.81 Anemia due to antineoplastic chemotherapy (principal); C83.33 Diffuse large B-cell lymphoma, intra-abdominal lymph nodes
CPT/HCPCS: 36415; 36430; 85025; 85027; 86850; 86900; 86901; 86922; P9034; P9058

== ENCOUNTER 2021-03-22 07:43 | Day surgery (SDC) | payer OTHER, BC ==
[2021-03-22] MEDS ORDERED: DIPHENHYDRAMINE IVPB ONE (09:30)
[2021-03-22] MEDS ORDERED: ACETAMINOPHEN 325 MG TABLET (FP) PO ONE (09:30)
[2021-03-22] MEDS ORDERED: DEXAMETHASONE SODIUM PHOSPHATE IVPB ONE (09:30)
[2021-03-22] MEDS ORDERED: SODIUM CHLORIDE IVPB ONE ×2 (09:30→10:00)
[2021-03-22] MEDS ORDERED: RITUXIMAB ABBS IVPB ONE (10:00)
[2021-03-22 15:20] VITALS: TEMP 98.2
[2021-03-22] MEDS ORDERED: PORTA CATH FLUSH 10 ML IVPUSH ONE (15:36)
[2021-03-22 15:37] VITALS: BP 150/59; PULSE 76
== END 2021-03-22 14:30 | disposition home or self-care (01) ==
LOC: JONCCHEMO 07:43
PROVIDERS: ATTEND Internal Medicine Hematology & Oncology
DX: Z51.11 Encounter for antineoplastic chemotherapy (principal); C83.33 Diffuse large B-cell lymphoma, intra-abdominal lymph nodes
CPT/HCPCS: 96367; 96413; 96415; Q5115

== ENCOUNTER 2021-03-23 06:52 | Day surgery (SDC) | payer OTHER, BC ==
[2021-03-23] MEDS ORDERED: SODIUM CHLORIDE IVPB ONE ×2 (09:30→10:00)
[2021-03-23] MEDS ORDERED: DEXAMETHASONE SODIUM PHOSPHATE IVPB ONE (09:30)
[2021-03-23] MEDS ORDERED: PALONOSETRON HCL 0.25 MG/5 ML VIAL IVPUSH ONE (09:30)
[2021-03-23] MEDS ORDERED: CARBOPLATIN IVPB ONE (10:00)
[2021-03-23] MEDS ORDERED: GEMCITABINE HCL IV ONE (10:30)
[2021-03-23] MEDS ORDERED: SODIUM CHLORIDE IV ONE (10:30)
[2021-03-23 15:05] VITALS: BP 122/56; PULSE 78; TEMP 98.5
[2021-03-23] MEDS ORDERED: PORTA CATH FLUSH 10 ML IVPUSH ONE (15:05)
== END 2021-03-23 13:00 | disposition home or self-care (01) ==
LOC: JONCCHEMO 06:52
PROVIDERS: ATTEND Internal Medicine Hematology & Oncology
DX: Z51.11 Encounter for antineoplastic chemotherapy (principal); C83.33 Diffuse large B-cell lymphoma, intra-abdominal lymph nodes
CPT/HCPCS: 96367; 96375; 96413; 96417; J2469

== ENCOUNTER 2021-03-29 10:48 | Day surgery (SDC) | payer OTHER, BC ==
[~2021-03-29 10:48] MED LIST changes: +ACETAMINOPHEN 325 MG TABLET (FP) PO ONE; -CARBOPLATIN IVPB ONE; +DEXAMETHASONE SODIUM PHOSPHATE 10 MG, ONDANSETRON INJECTION 8 MG in SODIUM CHLORIDE 100 ML IVPB ONE; +GEMCITABINE HCL IV ONE; +SODIUM CHLORIDE IV ONE; -SODIUM CHLORIDE IVPB ONE
[2021-03-29 16:05] VITALS: TEMP 98.5
[2021-03-29 16:22] VITALS: BP 121/56; PULSE 81
[2021-03-29] MEDS ORDERED: PORTA CATH FLUSH 10 ML IVPUSH ONE ×3 (16:22)
== END 2021-03-29 16:26 | disposition home or self-care (01) ==
LOC: JONCCHEMO 10:48
PROVIDERS: ATTEND Internal Medicine Hematology & Oncology
DX: Z51.11 Encounter for antineoplastic chemotherapy (principal); C83.33 Diffuse large B-cell lymphoma, intra-abdominal lymph nodes
CPT/HCPCS: 36430; 86850; 86900; 86901; 86922; 96367; 96413; J2405; P9058

== ENCOUNTER 2021-03-30 11:33 | Day surgery (SDC) | payer OTHER, BC ==
[~2021-03-30 11:33] MED LIST changes: -ACETAMINOPHEN 325 MG TABLET (FP) PO ONE; -DEXAMETHASONE SODIUM PHOSPHATE 10 MG, ONDANSETRON INJECTION 8 MG in SODIUM CHLORIDE 100 ML IVPB ONE; +FUROSEMIDE 40 MG/4 ML INJECTABLE VIAL IVPUSH ONE; -GEMCITABINE HCL IV ONE; +PEGFILGRASTIM-CBQV (UDENYCA) 6 MG/0.6 ML SYRINGE SQ ONE; +POTASSIUM CHLORIDE TABS 20 MEQ TABLET.ER (FP) PO ONE; -SODIUM CHLORIDE IV ONE
[2021-03-30] MEDS ORDERED: POTASSIUM CHLORIDE TABS 20 MEQ TABLET.ER (FP) PO ONE (13:15)
[2021-03-30] MEDS ORDERED: PEGFILGRASTIM-CBQV (UDENYCA) 6 MG/0.6 ML SYRINGE SQ ONE (13:15)
[2021-03-30] MEDS ORDERED: FUROSEMIDE 40 MG/4 ML INJECTABLE VIAL IVPUSH ONE (13:15)
[2021-03-30 14:56] LABS: BASO % 0.1 % (0-2.0); EOS % 0.1 % (0-4.5); HEMATOCRIT 24.3 % (35.4-49); HEMOGLOBIN 8.3 GM/dL (11.7-16.9); LYMPH % 17.6 % (8-40); MCH 31.6 pg (25.7-33.7); MCHC 34.3 g/dl (32.0-35.9); MEAN CELL VOLUME 92.1 fl (80-96); MEAN PLT VOLUME 7.5 fl (7.5-11.1); MONO % 3.5 % (3.8-10.2); NEUT % 78.7 % (42.8-82.8); PLATELET COUNT 119 10^3/uL (134-434); RBC 2.64 M/mm3 (4.00-5.60); RDW 17.2 % (11.9-15.9); WHITE BLOOD COUNT 3.2 K/mm3 (4.0-10.0)
[2021-03-30 15:29] LABS: ANISOCYTOSIS 1+; MACROCYTOSIS 1+; PLATELET ESTIMATE DECREASED
[2021-03-30 17:03] VITALS: BP 109/54; PULSE 82; TEMP 98.2
== END 2021-03-30 14:30 | disposition home or self-care (01) ==
LOC: JONCNONCHE 11:33
PROVIDERS: ATTEND Internal Medicine Hematology & Oncology
PROC: 3E013GC Introduction of Other Therapeutic Substance into Subcutaneous Tissue, Percutaneous Approach (ICD-10-PCS; principal; 2021-03-30)
DX: C83.33 Diffuse large B-cell lymphoma, intra-abdominal lymph nodes (principal); Z76.89 Persons encountering health services in other specified circumstances
CPT/HCPCS: 36415; 85025; 86922; 96372; Q5111

== ENCOUNTER 2021-04-12 09:45 | Day surgery (SDC) | payer OTHER, BC ==
[2021-04-12] MEDS ORDERED: DIPHENHYDRAMINE IVPB ONE (10:00)
[2021-04-12] MEDS ORDERED: ACETAMINOPHEN 325 MG TABLET (FP) PO ONE (10:00)
[2021-04-12] MEDS ORDERED: SODIUM CHLORIDE IVPB ONE (10:00)
[2021-04-12] MEDS ORDERED: DEXAMETHASONE SODIUM PHOSPHATE IVPB ONE (10:00)
[2021-04-12] MEDS ORDERED: RITUXIMAB-ABBS 500 MG, RITUXIMAB-ABBS 261 MG in SODIUM CHLORIDE 684.9 ML IVPB ONE (10:30)
[2021-04-12] MEDS ORDERED: POTASSIUM CHLORIDE TABS 20 MEQ TABLET.ER (FP) PO ONE (11:00)
[2021-04-12] MEDS ORDERED: FUROSEMIDE 20 MG TABLET (FP) PO ONE (11:00)
[2021-04-12 16:37] VITALS: BP 88/45; PULSE 91; TEMP 98.4
[2021-04-12 18:34] LABS: HEMATOCRIT 24.1 % (35.4-49); HEMOGLOBIN 8.2 GM/dL (11.7-16.9); MCH 31.6 pg (25.7-33.7); MCHC 33.9 g/dl (32.0-35.9); MEAN PLT VOLUME 8.1 fl (7.5-11.1); PLATELET COUNT 164 10^3/uL (134-434); RBC 2.59 M/mm3 (4.00-5.60); RDW 19.8 % (11.9-15.9); WHITE BLOOD COUNT 9.3 K/mm3 (4.0-10.0)
== END 2021-04-12 16:00 | disposition home or self-care (01) ==
LOC: JONCBLOOD 09:45
PROVIDERS: ATTEND Internal Medicine Hematology & Oncology
PROC: 30233N1 Transfusion of Nonautologous Red Blood Cells into Peripheral Vein, Percutaneous Approach (ICD-10-PCS; principal; 2021-04-12)
DX: C83.33 Diffuse large B-cell lymphoma, intra-abdominal lymph nodes (principal)
CPT/HCPCS: 36415; 36430; 36511; 85027; 86704; 86850; 86900; 86901; 86922; P9038; P9058

== ENCOUNTER 2021-04-16 10:26 | Day surgery (SDC) | payer OTHER, BC ==
[~2021-04-16 10:26] MED LIST changes: -FUROSEMIDE 40 MG/4 ML INJECTABLE VIAL IVPUSH ONE; -PEGFILGRASTIM-CBQV (UDENYCA) 6 MG/0.6 ML SYRINGE SQ ONE; +PORTA CATH FLUSH 10 ML IVPUSH ONE; -POTASSIUM CHLORIDE TABS 20 MEQ TABLET.ER (FP) PO ONE
[2021-04-16 10:53] LABS: BASO % 0.5 % (0-2.0); EOS % 0.6 % (0-4.5); HEMATOCRIT 23.7 % (35.4-49); LYMPH % 14.1 % (8-40); MCH 31.6 pg (25.7-33.7); MCHC 33.8 g/dl (32.0-35.9); MEAN CELL VOLUME 93.6 fl (80-96); MEAN PLT VOLUME 7.2 fl (7.5-11.1); NEUT % 74.8 % (42.8-82.8); PLATELET COUNT 196 10^3/uL (134-434); RBC 2.53 M/mm3 (4.00-5.60); RDW 20.6 % (11.9-15.9)
[2021-04-16 11:20] LABS: CALCIUM 9.2 mg/dL (8.5-10.1)
[2021-04-16 11:21] LABS: ALBUMIN 3.2 g/dl (3.4-5.0); BLOOD UREA NITROGEN 33.7 mg/dL (7-18); MAGNESIUM 1.8 mg/dL (1.8-2.4)
[2021-04-16 11:24] LABS: CREATININE 1.5 mg/dL (0.55-1.3)
[2021-04-16 11:26] LABS: BILIRUBIN,TOTAL 0.3 mg/dL (0.2-1); TOT PROT 5.4 g/dl (6.4-8.2)
[2021-04-16 11:38] LABS: ANISOCYTOSIS 1+; MACROCYTOSIS 0; PLATELET ESTIMATE NORMAL
[2021-04-16] MEDS ORDERED: FUROSEMIDE 20 MG TABLET (FP) PO ONE (12:30)
[2021-04-16] MEDS ORDERED: POTASSIUM CHLORIDE TABS 20 MEQ TABLET.ER (FP) PO ONE (12:30)
[2021-04-16 15:48] LABS: BASO % 1.1 % (0-2.0); EOS % 0.6 % (0-4.5); HEMOGLOBIN 8.5 GM/dL (11.7-16.9); LYMPH % 16.8 % (8-40); MCH 31.5 pg (25.7-33.7); MCHC 34.1 g/dl (32.0-35.9); MEAN CELL VOLUME 92.3 fl (80-96); MONO % 12.7 % (3.8-10.2); NEUT % 68.8 % (42.8-82.8); PLATELET COUNT 195 10^3/uL (134-434); RBC 2.71 M/mm3 (4.00-5.60); RDW 19.3 % (11.9-15.9); WHITE BLOOD COUNT 5.5 K/mm3 (4.0-10.0)
[2021-04-16 17:32] LABS: ANISOCYTOSIS 1+; MACROCYTOSIS 0; PLATELET ESTIMATE NORMAL
[2021-04-17 07:28] VITALS: BP 117/57; PULSE 64; TEMP 98.1
== END 2021-04-16 15:35 | disposition home or self-care (01) ==
LOC: JONCCHEMO 10:26
PROVIDERS: ATTEND Internal Medicine Hematology & Oncology
PROC: 30233N1 Transfusion of Nonautologous Red Blood Cells into Peripheral Vein, Percutaneous Approach (ICD-10-PCS; principal; 2021-04-16)
DX: C83.33 Diffuse large B-cell lymphoma, intra-abdominal lymph nodes (principal)
CPT/HCPCS: 36415; 36430; 36511; 80053; 83735; 85025; 86850; 86900; 86901; 86922; P9038; P9058

== ENCOUNTER 2021-05-04 07:52 | Day surgery (SDC) | payer OTHER, BC ==
[2021-05-04] MEDS ORDERED: TBO-FILGRASTIM 480 MCG/0.8 ML DISP.SYRIN SQ ONE ×2 (10:39→11:00)
[2021-05-04 14:56] VITALS: BP 99/51; PULSE 96; TEMP 98.5
== END 2021-05-04 10:45 | disposition home or self-care (01) ==
LOC: JONCCHEMO 07:52
PROVIDERS: ATTEND Internal Medicine Hematology & Oncology
PROC: 3E013GC Introduction of Other Therapeutic Substance into Subcutaneous Tissue, Percutaneous Approach (ICD-10-PCS; principal; 2021-05-04)
DX: C83.33 Diffuse large B-cell lymphoma, intra-abdominal lymph nodes (principal); Z76.89 Persons encountering health services in other specified circumstances
CPT/HCPCS: 96372; J1447

== ENCOUNTER 2021-06-28 07:47 | Day surgery (SDC) | payer OTHER, BC ==
[~2021-06-28 07:47] MED LIST changes: +ACETAMINOPHEN 325 MG TABLET (FP) PO ONE; +DEXAMETHASONE SODIUM PHOSPHATE 10 MG, ONDANSETRON INJECTION 8 MG in SODIUM CHLORIDE 100 ML IVPB ONE; +DEXAMETHASONE SODIUM PHOSPHATE IVPB ONE; +DIPHENHYDRAMINE IVPB ONE; +GEMCITABINE HCL IV ONE; -PORTA CATH FLUSH 10 ML IVPUSH ONE; +RITUXIMAB-ABBS 500 MG, RITUXIMAB-ABBS 261 MG in SODIUM CHLORIDE 684.9 ML IVPB ONE; +SODIUM CHLORIDE IV ONE; +SODIUM CHLORIDE IVPB ONE
[2021-06-28] MEDS ORDERED: DEXAMETHASONE SODIUM PHOSPHATE IVPB ONE (10:00)
[2021-06-28] MEDS ORDERED: [UNRECOGNIZED DRUG - OTHER] IVPB ONE (10:00)
[2021-06-28] MEDS ORDERED: ACETAMINOPHEN 325 MG TABLET (FP) PO ONE (10:00)
[2021-06-28] MEDS ORDERED: FAMOTIDINE 20 MG/50 ML IVPB 20 MG/50 ML MG IVPB ONE (10:00)
[2021-06-28] MEDS ORDERED: DIPHENHYDRAMINE IVPB ONE (10:00)
[2021-06-28] MEDS ORDERED: SODIUM CHLORIDE IV ONE (10:30)
[2021-06-28] MEDS ORDERED: [UNRECOGNIZED DRUG - OTHER] IV ONE (10:30)
[2021-06-28 17:24] VITALS: BP 148/70; PULSE 85; TEMP 98.2
== END 2021-06-28 13:40 | disposition home or self-care (01) ==
LOC: JONCCHEMO 07:47
PROVIDERS: ATTEND Internal Medicine Hematology & Oncology
DX: Z51.11 Encounter for antineoplastic chemotherapy (principal); C83.33 Diffuse large B-cell lymphoma, intra-abdominal lymph nodes
CPT/HCPCS: 96367; 96413; 96415; J9349

== ENCOUNTER 2021-07-02 07:25 | Day surgery (SDC) | payer OTHER, BC ==
[~2021-07-02 07:25] MED LIST changes: -ACETAMINOPHEN 325 MG TABLET (FP) PO ONE; -DEXAMETHASONE SODIUM PHOSPHATE 10 MG, ONDANSETRON INJECTION 8 MG in SODIUM CHLORIDE 100 ML IVPB ONE; -DEXAMETHASONE SODIUM PHOSPHATE IVPB ONE; -DIPHENHYDRAMINE IVPB ONE; -GEMCITABINE HCL IV ONE; +PEGFILGRASTIM-CBQV (UDENYCA) 6 MG/0.6 ML SYRINGE SQ ONE; -RITUXIMAB-ABBS 500 MG, RITUXIMAB-ABBS 261 MG in SODIUM CHLORIDE 684.9 ML IVPB ONE; -SODIUM CHLORIDE IV ONE; -SODIUM CHLORIDE IVPB ONE
[2021-07-02 10:50] LABS: BASO % 0.1 % (0-2.0); EOS % 2.7 % (0-4.5); HEMATOCRIT 29.2 % (35.4-49); HEMOGLOBIN 10.3 GM/dL (11.7-16.9); LYMPH % 29.5 % (8-40); MCH 32.5 pg (25.7-33.7); MCHC 35.3 g/dl (32.0-35.9); MEAN CELL VOLUME 92.1 fl (80-96); MEAN PLT VOLUME 8.5 fl (7.5-11.1); MONO % 9.2 % (3.8-10.2); NEUT % 58.5 % (42.8-82.8); PLATELET COUNT 145 10^3/uL (134-434); RBC 3.17 M/mm3 (4.00-5.60); RDW 14.7 % (11.9-15.9); WHITE BLOOD COUNT 4.8 K/mm3 (4.0-10.0)
[2021-07-02 11:15] LABS: ALBUMIN 3.3 g/dl (3.4-5.0)
[2021-07-02 11:17] LABS: CALCIUM 9.2 mg/dL (8.5-10.1)
[2021-07-02 11:18] LABS: BILIRUBIN,DIRECT 0.1 mg/dL (0.0-0.2); BLOOD UREA NITROGEN 41.6 mg/dL (7-18)
[2021-07-02 11:20] LABS: BILIRUBIN,TOTAL 0.4 mg/dL (0.2-1); TOT PROT 5.7 g/dl (6.4-8.2); URIC ACID 5.5 mg/dL (2.6-7.2)
[2021-07-02 11:21] LABS: CREATININE 1.8 mg/dL (0.55-1.3)
[2021-07-02] MEDS ORDERED: FAMOTIDINE 20 MG/50 ML IVPB 20 MG/50 ML MG IVPB ONE (11:30)
[2021-07-02] MEDS ORDERED: DEXAMETHASONE SODIUM PHOSPHATE IVPB ONE (11:30)
[2021-07-02] MEDS ORDERED: DIPHENHYDRAMINE IVPB ONE (11:30)
[2021-07-02] MEDS ORDERED: ACETAMINOPHEN 325 MG TABLET (FP) PO ONE (11:30)
[2021-07-02] MEDS ORDERED: [UNRECOGNIZED DRUG - OTHER] IVPB ONE (11:30)
[2021-07-02] MEDS ORDERED: [UNRECOGNIZED DRUG - OTHER] IV ONE (12:00)
[2021-07-02] MEDS ORDERED: SODIUM CHLORIDE IV ONE (12:00)
[2021-07-02 17:47] VITALS: TEMP 98.3
[2021-07-02 17:53] VITALS: BP 109/37; PULSE 88
== END 2021-07-02 17:10 | disposition home or self-care (01) ==
LOC: JONCCHEMO 07:25
PROVIDERS: ATTEND Internal Medicine Hematology & Oncology
DX: Z51.11 Encounter for antineoplastic chemotherapy (principal); C83.33 Diffuse large B-cell lymphoma, intra-abdominal lymph nodes
CPT/HCPCS: 36415; 80048; 80076; 83615; 83735; 84550; 85025; 96367; 96413; 96415; J9349

== ENCOUNTER 2021-07-05 07:47 | Day surgery (SDC) | payer OTHER, BC ==
[2021-07-05 10:26] LABS: BASO % 0.2 % (0-2.0); EOS % 2.5 % (0-4.5); HEMATOCRIT 29.9 % (35.4-49); HEMOGLOBIN 10.6 GM/dL (11.7-16.9); LYMPH % 26.4 % (8-40); MCH 32.3 pg (25.7-33.7); MCHC 35.3 g/dl (32.0-35.9); MEAN CELL VOLUME 91.6 fl (80-96); MEAN PLT VOLUME 8.6 fl (7.5-11.1); MONO % 7.9 % (3.8-10.2); PLATELET COUNT 146 10^3/uL (134-434); RBC 3.27 M/mm3 (4.00-5.60); RDW 14.6 % (11.9-15.9); WHITE BLOOD COUNT 5.1 K/mm3 (4.0-10.0)
[2021-07-05 10:46] LABS: ALBUMIN 3.2 g/dl (3.4-5.0); CALCIUM 9.2 mg/dL (8.5-10.1)
[2021-07-05 10:47] LABS: MAGNESIUM 1.6 mg/dL (1.8-2.4)
[2021-07-05 10:49] LABS: BILIRUBIN,DIRECT 0.1 mg/dL (0.0-0.2); CREATININE 1.9 mg/dL (0.55-1.3); URIC ACID 5.2 mg/dL (2.6-7.2)
[2021-07-05 10:51] LABS: BILIRUBIN,TOTAL 0.3 mg/dL (0.2-1); TOT PROT 5.6 g/dl (6.4-8.2)
[2021-07-05] MEDS ORDERED: SODIUM CHLORIDE 0.9% 500 ML INFUS.BAG IV ONE (11:05)
[2021-07-05] MEDS ORDERED: DIPHENHYDRAMINE IVPB ONE (11:15)
[2021-07-05] MEDS ORDERED: ACETAMINOPHEN 325 MG TABLET (FP) PO ONE (11:15)
[2021-07-05] MEDS ORDERED: FAMOTIDINE 20 MG/50 ML IVPB 20 MG/50 ML MG IVPB ONE (11:15)
[2021-07-05] MEDS ORDERED: [UNRECOGNIZED DRUG - OTHER] IVPB ONE (11:15)
[2021-07-05] MEDS ORDERED: DEXAMETHASONE SODIUM PHOSPHATE IVPB ONE (11:15)
[2021-07-05] MEDS ORDERED: MAGNESIUM 1GM/D5W - 1 GM/100 ML IVPB IVPB ONE (11:30)
[2021-07-05] MEDS ORDERED: [UNRECOGNIZED DRUG - OTHER] IV ONE (11:45)
[2021-07-05] MEDS ORDERED: SODIUM CHLORIDE IV ONE (11:45)
[2021-07-05 16:39] VITALS: TEMP 98.9
[2021-07-05 16:41] VITALS: BP 99/49; PULSE 76
== END 2021-07-05 16:30 | disposition home or self-care (01) ==
LOC: JONCCHEMO 07:47
PROVIDERS: ATTEND Internal Medicine Hematology & Oncology
DX: Z51.11 Encounter for antineoplastic chemotherapy (principal); C83.33 Diffuse large B-cell lymphoma, intra-abdominal lymph nodes; Z85.46 Personal history of malignant neoplasm of prostate
CPT/HCPCS: 36415; 80048; 80076; 83615; 83735; 84550; 85025; 96361; 96367; 96413; 96415; J9349

== ENCOUNTER → 2021-07-12 | Day surgery (SDC) | payer OTHER, BC ==
[~2021-07-12] MED LIST changes: +ACETAMINOPHEN 325 MG TABLET (FP) PO ONE; +DEXAMETHASONE IVPB ONE; +DIPHENHYDRAMINE IVPB ONE; +FAMOTIDINE 20 MG/50 ML IVPB 20 MG/50 ML MG IVPB ONE; +ONDANSETRON IVPB ONE; -PEGFILGRASTIM-CBQV (UDENYCA) 6 MG/0.6 ML SYRINGE SQ ONE; +SODIUM CHLORIDE 0.45% 250 ML IV SCH; +SODIUM CHLORIDE 0.45% 250 ML IVPB ONE; +SODIUM CHLORIDE IV ONE; +[UNRECOGNIZED DRUG - OTHER] IV ONE; +[UNRECOGNIZED DRUG - OTHER] IV ONE; +[UNRECOGNIZED DRUG - OTHER] IVPB ONE
[2021-07-12 11:50] LABS: BASO % 0.3 % (0-2.0); EOS % 4.3 % (0-4.5); HEMATOCRIT 29.8 % (35.4-49); HEMOGLOBIN 10.2 GM/dL (11.7-16.9); LYMPH % 24.9 % (8-40); MCH 31.3 pg (25.7-33.7); MCHC 34.3 g/dl (32.0-35.9); MEAN CELL VOLUME 91.3 fl (80-96); MEAN PLT VOLUME 9.3 fl (7.5-11.1); MONO % 14.7 % (3.8-10.2); NEUT % 55.8 % (42.8-82.8); PLATELET COUNT 103 10^3/uL (134-434); RBC 3.26 M/mm3 (4.00-5.60); RDW 14.3 % (11.9-15.9)
[2021-07-12 12:19] LABS: CALCIUM 8.9 mg/dL (8.5-10.1)
[2021-07-12 12:20] LABS: BLOOD UREA NITROGEN 47.7 mg/dL (7-18); MAGNESIUM 2.1 mg/dL (1.8-2.4)
[2021-07-12 12:22] LABS: URIC ACID 5.6 mg/dL (2.6-7.2)
[2021-07-12 12:23] LABS: CREATININE 2.1 mg/dL (0.55-1.3)
[2021-07-12 17:04] VITALS: TEMP 98.3
[2021-07-12 17:06] VITALS: BP 87/45; PULSE 87
== END | disposition home or self-care (01) ==
LOC: JONCCHEMO 07:43
PROVIDERS: ATTEND Internal Medicine Hematology & Oncology
DX: Z51.11 Encounter for antineoplastic chemotherapy (principal); C83.33 Diffuse large B-cell lymphoma, intra-abdominal lymph nodes; Z85.46 Personal history of malignant neoplasm of prostate
CPT/HCPCS: 36415; 80048; 83615; 83735; 84550; 85025; 96367; 96413; 96415; J9349

== ENCOUNTER → 2021-07-19 | Day surgery (SDC) | payer OTHER, BC ==
[~2021-07-19] MED LIST changes: -DEXAMETHASONE IVPB ONE; +DEXAMETHASONE SODIUM PHOSPHATE IVPB ONE; -ONDANSETRON IVPB ONE; +SODIUM CHLORIDE 0.45% 250 ML IV ONE; -SODIUM CHLORIDE 0.45% 250 ML IV SCH; -[UNRECOGNIZED DRUG - OTHER] IV ONE; +[UNRECOGNIZED DRUG - OTHER] IVPB ONE; -[UNRECOGNIZED DRUG - OTHER] IVPB ONE
[2021-07-19 10:48] LABS: BASO % 0.5 % (0-2.0); EOS % 4.3 % (0-4.5); HEMATOCRIT 26.7 % (35.4-49); HEMOGLOBIN 9.4 GM/dL (11.7-16.9); LYMPH % 24.5 % (8-40); MCH 32.2 pg (25.7-33.7); MCHC 35.3 g/dl (32.0-35.9); MEAN CELL VOLUME 91.3 fl (80-96); MEAN PLT VOLUME 9.4 fl (7.5-11.1); MONO % 13.3 % (3.8-10.2); NEUT % 57.4 % (42.8-82.8); PLATELET COUNT 104 10^3/uL (134-434); RBC 2.93 M/mm3 (4.00-5.60); RDW 14.3 % (11.9-15.9); WHITE BLOOD COUNT 2.4 K/mm3 (4.0-10.0)
[2021-07-19 11:12] LABS: CALCIUM 8.3 mg/dL (8.5-10.1)
[2021-07-19 11:13] LABS: ALBUMIN 2.8 g/dl (3.4-5.0); BLOOD UREA NITROGEN 34.6 mg/dL (7-18)
[2021-07-19 11:14] LABS: MAGNESIUM 1.9 mg/dL (1.8-2.4)
[2021-07-19 11:15] LABS: BILIRUBIN,DIRECT 0.2 mg/dL (0.0-0.2); CREATININE 1.8 mg/dL (0.55-1.3); URIC ACID 4.6 mg/dL (2.6-7.2)
[2021-07-19 11:17] LABS: BILIRUBIN,TOTAL 0.6 mg/dL (0.2-1); TOT PROT 5.2 g/dl (6.4-8.2)
[2021-07-19 16:59] VITALS: TEMP 98.5
[2021-07-19 17:28] VITALS: BP 105/45; PULSE 53
== END | disposition home or self-care (01) ==
LOC: JONCCHEMO 07:41
PROVIDERS: ATTEND Internal Medicine Hematology & Oncology
DX: Z51.11 Encounter for antineoplastic chemotherapy (principal); C83.33 Diffuse large B-cell lymphoma, intra-abdominal lymph nodes; Z85.46 Personal history of malignant neoplasm of prostate
CPT/HCPCS: 36415; 80048; 80076; 83615; 83735; 84550; 85025; 96361; 96367; 96413; 96415; J2405; J9349

== ENCOUNTER 2021-07-20 08:24 | Day surgery (SDC) | payer OTHER, BC ==
[2021-07-20] MEDS ORDERED: TBO-FILGRASTIM 480 MCG/0.8 ML DISP.SYRIN SQ ONE (10:00)
[2021-07-20 16:29] VITALS: BP 116/45; PULSE 73; TEMP 98.4
== END 2021-07-20 16:00 | disposition home or self-care (01) ==
LOC: JONCCHEMO 08:24
PROVIDERS: ATTEND Internal Medicine Hematology & Oncology
PROC: 3E013GC Introduction of Other Therapeutic Substance into Subcutaneous Tissue, Percutaneous Approach (ICD-10-PCS; principal; 2021-07-20)
DX: C83.33 Diffuse large B-cell lymphoma, intra-abdominal lymph nodes (principal); Z85.46 Personal history of malignant neoplasm of prostate; Z76.89 Persons encountering health services in other specified circumstances
CPT/HCPCS: 96372; J1447

== ENCOUNTER → 2021-07-26 | Day surgery (SDC) | payer OTHER, BC ==
[~2021-07-26] MED LIST changes: +MAGNESIUM SULF 50% (8.12 MEQ/2 ML-1 GM VIAL) IVPB ONE; +MAGNESIUM SULFATE IN WATER 2 GM/50 ML IVPB IVPB ONE; +[UNRECOGNIZED DRUG - OTHER] IVPB ONE
[2021-07-26 11:31] LABS: BASO % 0.9 % (0-2.0); EOS % 2.4 % (0-4.5); HEMATOCRIT 26.6 % (35.4-49); HEMOGLOBIN 9.2 GM/dL (11.7-16.9); LYMPH % 28.4 % (8-40); MCHC 34.6 g/dl (32.0-35.9); MEAN CELL VOLUME 92.5 fl (80-96); MEAN PLT VOLUME 7.5 fl (7.5-11.1); MONO % 13.3 % (3.8-10.2); PLATELET COUNT 146 10^3/uL (134-434); RBC 2.87 M/mm3 (4.00-5.60); RDW 15.3 % (11.9-15.9); WHITE BLOOD COUNT 2.4 K/mm3 (4.0-10.0)
[2021-07-26 11:50] LABS: ALBUMIN 2.7 g/dl (3.4-5.0); CALCIUM 8.5 mg/dL (8.5-10.1)
[2021-07-26 11:51] LABS: BLOOD UREA NITROGEN 25.8 mg/dL (7-18); MAGNESIUM 1.6 mg/dL (1.8-2.4)
[2021-07-26 11:53] LABS: BILIRUBIN,DIRECT 0.1 mg/dL (0.0-0.2); CREATININE 1.5 mg/dL (0.55-1.3); URIC ACID 4.4 mg/dL (2.6-7.2)
[2021-07-26 11:55] LABS: BILIRUBIN,TOTAL 0.4 mg/dL (0.2-1); TOT PROT 5.2 g/dl (6.4-8.2)
[2021-07-26] MEDS: MAGNESIUM SULFATE IN WATER 2 GM/50 ML IVPB IVPB ONE ×2 (15:47→15:55)
[2021-07-26 16:01] VITALS: TEMP 98.1
[2021-07-27 06:20] VITALS: BP 135/62; PULSE 61
[2021-07-27 16:08] LABS: BETA-2-MICROGLOBULIN 4.6 mg/L (0.6-2.4)
== END | disposition home or self-care (01) ==
LOC: JONCCHEMO 07:19
PROVIDERS: ATTEND Internal Medicine Hematology & Oncology
DX: Z51.11 Encounter for antineoplastic chemotherapy (principal); C83.33 Diffuse large B-cell lymphoma, intra-abdominal lymph nodes; Z85.46 Personal history of malignant neoplasm of prostate
CPT/HCPCS: 36415; 80048; 80076; 82232; 82784; 83615; 83735; 84550; 85025; 96361; 96366; 96367; 96413; 96415; J2405; J9349

== ENCOUNTER 2021-07-27 08:45 | Day surgery (SDC) | payer OTHER, BC ==
[2021-07-27] MEDS ORDERED: TBO-FILGRASTIM 480 MCG/0.8 ML DISP.SYRIN SQ ONE (10:00)
[2021-07-27 16:02] VITALS: BP 110/53; PULSE 60; TEMP 97.8
== END 2021-07-27 16:15 | disposition home or self-care (01) ==
LOC: JONCCHEMO 08:45
PROVIDERS: ATTEND Internal Medicine Hematology & Oncology
PROC: 3E013GC Introduction of Other Therapeutic Substance into Subcutaneous Tissue, Percutaneous Approach (ICD-10-PCS; principal; 2021-07-27)
DX: C83.33 Diffuse large B-cell lymphoma, intra-abdominal lymph nodes (principal); Z85.46 Personal history of malignant neoplasm of prostate; Z76.89 Persons encountering health services in other specified circumstances
CPT/HCPCS: 96372; J1447

== ENCOUNTER 2021-08-02 07:53 | Day surgery (SDC) | payer OTHER, BC ==
[2021-08-02] MEDS ORDERED: SODIUM CHLORIDE 0.45% 250 ML IVPB ONE ×2 (09:00→12:30)
[2021-08-02] MEDS ORDERED: DEXAMETHASONE SODIUM PHOSPHATE 4 MG, ONDANSETRON INJECTION 8 MG, DIPHENHYDRAMINE 25 MG ... IVPB ONE (10:00)
[2021-08-02] MEDS ORDERED: ACETAMINOPHEN 325 MG TABLET (FP) PO ONE (10:00)
[2021-08-02] MEDS ORDERED: FAMOTIDINE 20 MG/50 ML IVPB 20 MG/50 ML MG IVPB ONE (10:00)
[2021-08-02 10:14] LABS: HEMATOCRIT 27.9 % (35.4-49); HEMOGLOBIN 9.9 GM/dL (11.7-16.9); MCHC 35.5 g/dl (32.0-35.9); MEAN CELL VOLUME 92.8 fl (80-96); MEAN PLT VOLUME 8.2 fl (7.5-11.1); PLATELET COUNT 125 10^3/uL (134-434); RBC 3.01 M/mm3 (4.00-5.60); RDW 16.7 % (11.9-15.9); WHITE BLOOD COUNT 3.1 K/mm3 (4.0-10.0)
[2021-08-02] MEDS ORDERED: SODIUM CHLORIDE IV ONE (10:30)
[2021-08-02] MEDS ORDERED: [UNRECOGNIZED DRUG - OTHER] IV ONE (10:30)
[2021-08-02 10:34] LABS: CALCIUM 8.5 mg/dL (8.5-10.1)
[2021-08-02 10:35] LABS: ALBUMIN 3.1 g/dl (3.4-5.0)
[2021-08-02 10:36] LABS: MAGNESIUM 1.8 mg/dL (1.8-2.4)
[2021-08-02 10:37] LABS: BILIRUBIN,DIRECT 0.1 mg/dL (0.0-0.2); URIC ACID 4.1 mg/dL (2.6-7.2)
[2021-08-02 10:38] LABS: CREATININE 1.4 mg/dL (0.55-1.3)
[2021-08-02 10:39] LABS: BILIRUBIN,TOTAL 0.3 mg/dL (0.2-1); TOT PROT 5.5 g/dl (6.4-8.2)
[2021-08-02 11:07] LABS: ANISOCYTOSIS 1+; MACROCYTOSIS 0; PLATELET ESTIMATE DECREASED
[2021-08-02 15:39] VITALS: TEMP 97.8
[2021-08-02 17:13] VITALS: BP 136/52; PULSE 52
== END 2021-08-02 16:25 | disposition home or self-care (01) ==
LOC: JONCCHEMO 07:53
PROVIDERS: ATTEND Internal Medicine Hematology & Oncology
DX: Z51.11 Encounter for antineoplastic chemotherapy (principal); C83.33 Diffuse large B-cell lymphoma, intra-abdominal lymph nodes; Z85.46 Personal history of malignant neoplasm of prostate
CPT/HCPCS: 36415; 80048; 80076; 83615; 83735; 84550; 85025; 96361; 96367; 96413; 96415; J9349

== ENCOUNTER 2021-08-09 08:13 | Day surgery (SDC) | payer OTHER, BC ==
[2021-08-09] MEDS ORDERED: SODIUM CHLORIDE 0.45% 250 ML IVPB ONE ×2 (09:00→12:00)
[2021-08-09] MEDS ORDERED: DEXAMETHASONE SODIUM PHOSPHATE 4 MG, ONDANSETRON INJECTION 8 MG, DIPHENHYDRAMINE 25 MG ... IVPB ONE (09:30)
[2021-08-09] MEDS ORDERED: FAMOTIDINE 20 MG/50 ML IVPB 20 MG/50 ML MG IVPB ONE (09:30)
[2021-08-09] MEDS ORDERED: ACETAMINOPHEN 325 MG TABLET (FP) PO ONE (09:30)
[2021-08-09] MEDS ORDERED: SODIUM CHLORIDE IV ONE (10:00)
[2021-08-09] MEDS ORDERED: [UNRECOGNIZED DRUG - OTHER] IV ONE (10:00)
[2021-08-09 10:36] LABS: BASO % 0.7 % (0-2.0); HEMATOCRIT 26.4 % (35.4-49); HEMOGLOBIN 9.2 GM/dL (11.7-16.9); LYMPH % 31.3 % (8-40); MCH 32.1 pg (25.7-33.7); MCHC 34.8 g/dl (32.0-35.9); MEAN CELL VOLUME 92.4 fl (80-96); MONO % 9.7 % (3.8-10.2); NEUT % 53.3 % (42.8-82.8); PLATELET COUNT 79 10^3/uL (134-434); RBC 2.85 M/mm3 (4.00-5.60); RDW 17.1 % (11.9-15.9); WHITE BLOOD COUNT 3.5 K/mm3 (4.0-10.0)
[2021-08-09 10:49] LABS: ALBUMIN 2.9 g/dl (3.4-5.0); CALCIUM 8.5 mg/dL (8.5-10.1)
[2021-08-09 10:52] LABS: BLOOD UREA NITROGEN 26.7 mg/dL (7-18); CREATININE 1.6 mg/dL (0.55-1.3); MAGNESIUM 2.1 mg/dL (1.8-2.4); PHOSPHOROUS 4.4 mg/dL (2.5-4.9); URIC ACID 4.7 mg/dL (2.6-7.2)
[2021-08-09 10:54] LABS: BILIRUBIN,TOTAL 0.4 mg/dL (0.2-1); TOT PROT 5.3 g/dl (6.4-8.2)
[2021-08-09 10:55] LABS: BILIRUBIN,DIRECT 0.1 mg/dL (0.0-0.2)
[2021-08-09 16:55] VITALS: TEMP 98.3
[2021-08-09 16:56] VITALS: BP 119/40; PULSE 70
== END 2021-08-09 16:45 | disposition home or self-care (01) ==
LOC: JONCCHEMO 08:13
PROVIDERS: ATTEND Internal Medicine Hematology & Oncology
DX: Z51.11 Encounter for antineoplastic chemotherapy (principal); C83.33 Diffuse large B-cell lymphoma, intra-abdominal lymph nodes; Z85.46 Personal history of malignant neoplasm of prostate
CPT/HCPCS: 36415; 80048; 80076; 83615; 83735; 84100; 84550; 85025; 96361; 96367; 96413; 96415; J9349

== ENCOUNTER 2021-08-29 07:13 | Day surgery (SDC) | payer OTHER, BC ==
[~2021-08-29 07:13] MED LIST changes: -ACETAMINOPHEN 325 MG TABLET (FP) PO ONE; +DEXAMETHASONE SODIUM PHOSPHATE 4 MG, ONDANSETRON INJECTION 8 MG, DIPHENHYDRAMINE 25 MG ... IVPB ONE; -DEXAMETHASONE SODIUM PHOSPHATE IVPB ONE; -DIPHENHYDRAMINE IVPB ONE; -FAMOTIDINE 20 MG/50 ML IVPB 20 MG/50 ML MG IVPB ONE; -MAGNESIUM SULF 50% (8.12 MEQ/2 ML-1 GM VIAL) IVPB ONE; -MAGNESIUM SULFATE IN WATER 2 GM/50 ML IVPB IVPB ONE; -SODIUM CHLORIDE 0.45% 250 ML IV ONE; -SODIUM CHLORIDE 0.45% 250 ML IVPB ONE; -SODIUM CHLORIDE IV ONE; -[UNRECOGNIZED DRUG - OTHER] IV ONE; -[UNRECOGNIZED DRUG - OTHER] IVPB ONE; -[UNRECOGNIZED DRUG - OTHER] IVPB ONE
[2021-08-29] MEDS ORDERED: SODIUM CHLORIDE 0.45% 250 ML IVPB ONE (10:00)
[2021-08-29] MEDS ORDERED: ACETAMINOPHEN 325 MG TABLET (FP) PO ONE (10:30)
[2021-08-29] MEDS ORDERED: FAMOTIDINE 20 MG/50 ML IVPB 20 MG/50 ML MG IVPB ONE (10:30)
[2021-08-29] MEDS ORDERED: DEXAMETHASONE SODIUM PHOSPHATE 4 MG, ONDANSETRON INJECTION 8 MG, DIPHENHYDRAMINE 25 MG ... IVPB ONE (10:30)
[2021-08-29] MEDS ORDERED: SODIUM CHLORIDE IV ONE (11:00)
[2021-08-29] MEDS ORDERED: [UNRECOGNIZED DRUG - OTHER] IV ONE (11:00)
[2021-08-29 11:12] LABS: BASO % 0.8 % (0-2.0); EOS % 2.3 % (0-4.5); HEMATOCRIT 24.3 % (35.4-49); HEMOGLOBIN 8.5 GM/dL (11.7-16.9); LYMPH % 36.4 % (8-40); MCH 32.9 pg (25.7-33.7); MCHC 34.8 g/dl (32.0-35.9); MEAN CELL VOLUME 94.4 fl (80-96); MEAN PLT VOLUME 8.1 fl (7.5-11.1); NEUT % 54.5 % (42.8-82.8); PLATELET COUNT 154 10^3/uL (134-434); RBC 2.58 M/mm3 (4.00-5.60); WHITE BLOOD COUNT 3.4 K/mm3 (4.0-10.0)
[2021-08-29 11:55] LABS: ALBUMIN 3.1 g/dl (3.4-5.0); BILIRUBIN,DIRECT 0.1 mg/dL (0.0-0.2); BILIRUBIN,TOTAL 0.5 mg/dL (0.2-1); CALCIUM 8.5 mg/dL (8.5-10.1); CREATININE 1.5 mg/dL (0.55-1.3); MAGNESIUM 2.2 mg/dL (1.8-2.4); TOT PROT 5.4 g/dl (6.4-8.2); URIC ACID 4.8 mg/dL (2.6-7.2)
[2021-08-29] MEDS ORDERED: SODIUM CHLORIDE 0.45% 250 ML IV ONE (13:30)
[2021-08-29 17:11] VITALS: BP 106/41; PULSE 79; TEMP 98.2
[2021-09-03 17:06] LABS: BETA-2-MICROGLOBULIN 4.7 mg/L (0.6-2.4)
== END 2021-08-29 17:53 | disposition home or self-care (01) ==
LOC: JONCCHEMO 07:13
PROVIDERS: ATTEND Internal Medicine Hematology & Oncology
DX: Z51.11 Encounter for antineoplastic chemotherapy (principal); C83.33 Diffuse large B-cell lymphoma, intra-abdominal lymph nodes; Z85.46 Personal history of malignant neoplasm of prostate
CPT/HCPCS: 36415; 80048; 80076; 82232; 82784; 83615; 83735; 84550; 85025; 96361; 96367; 96413; 96415; J9349

== ENCOUNTER 2021-09-06 09:25 | Day surgery (SDC) | payer OTHER, BC ==
[~2021-09-06 09:25] MED LIST changes: +ACETAMINOPHEN 325 MG TABLET (FP) PO ONE; +FAMOTIDINE 20 MG/50 ML IVPB 20 MG/50 ML MG IVPB ONE; +SODIUM CHLORIDE 0.45% 250 ML IVPB ONE; +SODIUM CHLORIDE 0.45% 500 ML IV ONE; +SODIUM CHLORIDE IV ONE; +[UNRECOGNIZED DRUG - OTHER] IV ONE
[2021-09-06 12:31] LABS: BASO % 0.6 % (0-2.0); EOS % 2.7 % (0-4.5); HEMATOCRIT 25.4 % (35.4-49); HEMOGLOBIN 8.7 GM/dL (11.7-16.9); LYMPH % 26.5 % (8-40); MCH 32.7 pg (25.7-33.7); MCHC 34.2 g/dl (32.0-35.9); MEAN CELL VOLUME 95.5 fl (80-96); MEAN PLT VOLUME 8.5 fl (7.5-11.1); NEUT % 63.2 % (42.8-82.8); PLATELET COUNT 109 10^3/uL (134-434); RBC 2.66 M/mm3 (4.00-5.60)
[2021-09-06 14:01] LABS: CALCIUM 8.5 mg/dL (8.5-10.1); MAGNESIUM 2.3 mg/dL (1.8-2.4)
[2021-09-06 14:02] LABS: ALBUMIN 2.8 g/dl (3.4-5.0); BLOOD UREA NITROGEN 21.3 mg/dL (7-18)
[2021-09-06 14:05] LABS: CREATININE 1.6 mg/dL (0.55-1.3)
[2021-09-06 14:06] LABS: BILIRUBIN,TOTAL 0.3 mg/dL (0.2-1); TOT PROT 5.2 g/dl (6.4-8.2)
[2021-09-06] MEDS ORDERED: TBO-FILGRASTIM 480 MCG/0.8 ML DISP.SYRIN SQ ONE (14:30)
[2021-09-06 18:11] VITALS: BP 94/44; PULSE 76; TEMP 76
[2021-09-06 18:54] LABS: HEMATOCRIT 26.9 % (35.4-49); HEMOGLOBIN 9.1 GM/dL (11.7-16.9); MCH 31.2 pg (25.7-33.7); MCHC 33.8 g/dl (32.0-35.9); MEAN CELL VOLUME 92.4 fl (80-96); PLATELET COUNT 112 10^3/uL (134-434); RBC 2.92 M/mm3 (4.00-5.60); RDW 19.6 % (11.9-15.9); WHITE BLOOD COUNT 3.4 K/mm3 (4.0-10.0)
== END 2021-09-06 18:39 | disposition home or self-care (01) ==
LOC: JONCBLOOD 09:25
PROVIDERS: ATTEND Internal Medicine Hematology & Oncology
PROC: 30233H1 Transfusion of Nonautologous Whole Blood into Peripheral Vein, Percutaneous Approach (ICD-10-PCS; principal; 2021-09-06)
PROC: 3E013GC Introduction of Other Therapeutic Substance into Subcutaneous Tissue, Percutaneous Approach (ICD-10-PCS; 2021-09-06)
DX: C83.33 Diffuse large B-cell lymphoma, intra-abdominal lymph nodes (principal); Z85.46 Personal history of malignant neoplasm of prostate; Z76.89 Persons encountering health services in other specified circumstances
CPT/HCPCS: 36415; 36430; 80053; 83735; 85025; 85027; 86850; 86900; 86901; 86922; 96372; J1447; P9058

== ENCOUNTER 2021-10-11 07:42 | Day surgery (SDC) | payer OTHER, BC ==
[~2021-10-11 07:42] MED LIST changes: -DEXAMETHASONE SODIUM PHOSPHATE 4 MG, ONDANSETRON INJECTION 8 MG, DIPHENHYDRAMINE 25 MG ... IVPB ONE; +ONDANSETRON INJECTION 8 MG, DIPHENHYDRAMINE 25 MG in SODIUM CHLORIDE 100 ML IVPB ONE
[2021-10-11] MEDS ORDERED: SODIUM CHLORIDE 0.45% 250 ML IVPB ONE ×2 (09:00→12:30)
[2021-10-11] MEDS ORDERED: ONDANSETRON INJECTION 8 MG, DIPHENHYDRAMINE 25 MG in SODIUM CHLORIDE 100 ML IVPB ONE (10:00)
[2021-10-11] MEDS ORDERED: ACETAMINOPHEN 325 MG TABLET (FP) PO ONE (10:00)
[2021-10-11] MEDS ORDERED: FAMOTIDINE 20 MG/50 ML IVPB 20 MG/50 ML MG IVPB ONE (10:00)
[2021-10-11] MEDS ORDERED: [UNRECOGNIZED DRUG - OTHER] IV ONE (10:30)
[2021-10-11] MEDS ORDERED: SODIUM CHLORIDE IV ONE (10:30)
[2021-10-11 12:35] LABS: BASO % 0.3 % (0-2.0); HEMATOCRIT 26.9 % (35.4-49); HEMOGLOBIN 9.2 GM/dL (11.7-16.9); LYMPH % 31.2 % (8-40); MCH 32.1 pg (25.7-33.7); MCHC 34.3 g/dl (32.0-35.9); MEAN CELL VOLUME 93.7 fl (80-96); MEAN PLT VOLUME 7.9 fl (7.5-11.1); MONO % 13.6 % (3.8-10.2); NEUT % 48.9 % (42.8-82.8); PLATELET COUNT 110 10^3/uL (134-434); RBC 2.87 M/mm3 (4.00-5.60)
[2021-10-11 12:51] LABS: WHITE BLOOD COUNT 1.6 K/mm3 (4.0-10.0)
[2021-10-11 13:03] LABS: CALCIUM 8.7 mg/dL (8.5-10.1)
[2021-10-11 13:04] LABS: ALBUMIN 3.4 g/dl (3.4-5.0); BLOOD UREA NITROGEN 26.6 mg/dL (7-18)
[2021-10-11 13:06] LABS: BILIRUBIN,DIRECT 0.1 mg/dL (0.0-0.2); CREATININE 1.3 mg/dL (0.55-1.3); MAGNESIUM 1.9 mg/dL (1.8-2.4); URIC ACID 4.6 mg/dL (2.6-7.2)
[2021-10-11 13:08] LABS: BILIRUBIN,TOTAL 0.3 mg/dL (0.2-1); TOT PROT 5.1 g/dl (6.4-8.2)
[2021-10-11] MEDS ORDERED: TBO-FILGRASTIM 480 MCG/0.8 ML DISP.SYRIN SQ ONE (13:15)
[2021-10-11 13:27] LABS: ANISOCYTOSIS 2+; MACROCYTOSIS 1+; OVALOCYTE 1+; PLATELET ESTIMATE DECREASED
[2021-10-11 16:13] VITALS: TEMP 97.9
[2021-10-11 16:24] VITALS: BP 134/64; PULSE 74
== END 2021-10-11 14:40 | disposition home or self-care (01) ==
LOC: JONCCHEMO 07:42
PROVIDERS: ATTEND Internal Medicine Hematology & Oncology
PROC: 3E013GC Introduction of Other Therapeutic Substance into Subcutaneous Tissue, Percutaneous Approach (ICD-10-PCS; principal; 2021-10-11)
PROC: 3E0437Z Introduction of Electrolytic and Water Balance Substance into Central Vein, Percutaneous Approach (ICD-10-PCS; 2021-10-11)
DX: C83.33 Diffuse large B-cell lymphoma, intra-abdominal lymph nodes (principal); Z85.46 Personal history of malignant neoplasm of prostate; Z76.89 Persons encountering health services in other specified circumstances
CPT/HCPCS: 36415; 80048; 80076; 82232; 82784; 83615; 83735; 84550; 85025; 96360; 96372; J1447

== ENCOUNTER 2021-10-18 12:23 | Inpatient (IN) | payer OTHER, BC ==
[2021-10-18] MEDS ORDERED: PIPERACILLIN/TAZOB 4.5 GM 4.5 GM in DEXTROSE 5%-WATER 100 ML IVPB ONE (12:59)
[2021-10-18] MEDS ORDERED: VANCOMYCIN 1 GM in D5W (PRE-DOCKED) 1,000 MG/250 ML IVPB ONE (12:59)
[2021-10-18] MEDS ORDERED: SODIUM CHLORIDE 0.9% 500 ML INFUS.BAG IV ONE (13:00)
[2021-10-18] MEDS ORDERED: ACETAMINOPHEN 1000 MG/100 ML BAG IVPB ONE (13:03)
[2021-10-18] MEDS ORDERED: ACETAMINOPHEN INJECTION 100 ML IVPB ONE (13:49)
[2021-10-18] MEDS ORDERED: PIPERACILLIN/TAZOB 4.5 GM 4.5 GM/100 ML BAG IVPB ONE (13:49)
[2021-10-18] MEDS ORDERED: VANCOMYCIN 1 GRAM (PRE-DOCKED) 1,000 MG/250 ML BAG IVPB ONE (13:50)
[2021-10-18 14:05] LABS: HEMATOCRIT 21.7 % (35.4-49); HEMOGLOBIN 7.4 GM/dL (11.7-16.9); MCH 32.1 pg (25.7-33.7); MCHC 34.1 g/dl (32.0-35.9); MEAN CELL VOLUME 94.1 fl (80-96); MEAN PLT VOLUME 7.8 fl (7.5-11.1); PLATELET COUNT 62 10^3/uL (134-434); RBC 2.31 M/mm3 (4.00-5.60); RDW 16.8 % (11.9-15.9)
[2021-10-18 14:11] LABS: WHITE BLOOD COUNT 0.7 K/mm3 (4.0-10.0)
[2021-10-18 14:18] LABS: INR 1.35 (0.83-1.09); PROTHROMBIN TIME (PATIENT) 15.6 SEC (9.7-13.0)
[2021-10-18 14:21] LABS: ACTIVATED PTT 32.7 SECONDS (25.2-36.5)
[2021-10-18 14:25] LABS: CALCIUM 7.8 mg/dL (8.5-10.1)
[2021-10-18 14:26] LABS: ALBUMIN 2.6 g/dl (3.4-5.0); BLOOD UREA NITROGEN 56.1 mg/dL (7-18)
[2021-10-18 14:29] LABS: CREATININE 2.9 mg/dL (0.55-1.3)
[2021-10-18 14:31] LABS: BILIRUBIN,TOTAL 0.6 mg/dL (0.2-1); TOT PROT 4.6 g/dl (6.4-8.2)
[2021-10-18 14:35] LABS: LACTIC ACID 2.3 mmol/L (0.4-2.0)
[2021-10-18 15:10] LABS: ANISOCYTOSIS 2+; MACROCYTOSIS 0; OVALOCYTE 1+; PLATELET ESTIMATE DECREASED; TEAR DROP CELLS 1+
[2021-10-18] MEDS ORDERED: SODIUM CHLORIDE 1,000 ML IV SCH (16:45)
[2021-10-18] MEDS ORDERED: SODIUM CHLORIDE 500 ML IV STA (17:04)
[2021-10-18] MEDS ORDERED: SODIUM CHLORIDE 1,000 ML IV STA (17:22)
[2021-10-18] MEDS: PIPERACILLIN/TAZOB 3.375 GM 3.375 GM in DEXTROSE 5%-WATER - 50 ML IVPB SCH (18:10)
[2021-10-18] MEDS ORDERED: CLINDAMYCIN 600MG PREMIX IVPB 600 MG/50 ML BAG IVPB ONE (18:14)
[2021-10-18] MEDS: CLINDAMYCIN 600MG PREMIX IVPB 600 MG/50 ML BAG IVPB SCH (18:20)
[2021-10-18 21:12] LABS: EPI CELLS >36 /uL (0-25.1); HYALINE CASTS 9 /uL (0-3.1); URINE APPEARANCE TURBID; URINE BILIRUBIN NEGATIVE (NEGATIVE); URINE COLOR YELLOW; URINE GLUCOSE (UA) NEGATIVE (NEGATIVE); URINE KETONE TRACE (NEGATIVE); URINE LEUK ESTERASE NEGATIVE (NEGATIVE); URINE NITRITE NEGATIVE (NEGATIVE); URINE PROTEIN 1+ (NEGATIVE); URINE UROBILINOGEN 0.2 mg/dL (0.2-1.0)
[2021-10-18 21:54] LABS: URINE RBC 33.3 /uL (0-23.9); URINE WBC 64.9 /uL (0-25.8)
[2021-10-18 21:55] LABS: URINE BACTERIA MANY /uL (0-1359)
[2021-10-18 21:59] LABS: URINE CRYSTALS FEW /hpf
[2021-10-19] MEDS ORDERED: CLINDAMYCIN 600MG PREMIX IVPB 600 MG/50 ML BAG IVPB ONE ×2 (02:01→10:51)
[2021-10-19] MEDS ORDERED: PIPERACILLIN/TAZOB 3.375 GM 3.375 GM/50 ML BAG IVPB ONE ×2 (02:31→10:50)
[2021-10-19] MEDS: CLINDAMYCIN 600MG PREMIX IVPB 600 MG/50 ML BAG IVPB SCH ×2 (02:51→10:45)
[2021-10-19] MEDS: PIPERACILLIN/TAZOB 3.375 GM 3.375 GM in DEXTROSE 5%-WATER - 50 ML IVPB SCH ×3 (02:51→19:07)
[2021-10-19] MEDS ORDERED: VANCOMYCIN 1 GM in D5W (PRE-DOCKED) 1,000 MG/250 ML IVPB SCH (10:00)
[2021-10-19] MEDS: ASPIRIN 81 MG CHEWABLE TABLETS PO SCH (10:45)
[2021-10-19] MEDS ORDERED: ASPIRIN 81 MG CHEWABLE TABLETS ONE (10:51)
[2021-10-19 11:55] LABS: HEMATOCRIT 21.8 % (35.4-49); HEMOGLOBIN 7.4 GM/dL (11.7-16.9); MCH 32.1 pg (25.7-33.7); MEAN CELL VOLUME 94.3 fl (80-96); PLATELET COUNT 60 10^3/uL (134-434); RBC 2.31 M/mm3 (4.00-5.60); RDW 17.1 % (11.9-15.9)
[2021-10-19 12:11] LABS: WHITE BLOOD COUNT 0.8 K/mm3 (4.0-10.0)
[2021-10-19 12:20] LABS: CALCIUM 7.9 mg/dL (8.5-10.1)
[2021-10-19 12:21] LABS: ALBUMIN 2.4 g/dl (3.4-5.0); BLOOD UREA NITROGEN 59.2 mg/dL (7-18)
[2021-10-19 12:24] LABS: CREATININE 2.8 mg/dL (0.55-1.3); PHOSPHOROUS 4.2 mg/dL (2.5-4.9)
[2021-10-19 12:26] LABS: ANISOCYTOSIS 0; BILIRUBIN,TOTAL 0.8 mg/dL (0.2-1); HELMET CELLS 0; HOWELL-JOLLY BODIES 0; MACROCYTOSIS 0; OVALOCYTE 0; PLATELET ESTIMATE DECREASED; ROULEAU 0; SICKELED CELLS 0; TARGET CELLS 0; TEAR DROP CELLS 0; TOT PROT 4.4 g/dl (6.4-8.2); TOXIC GRANULATION 0
[2021-10-19 12:51] VITALS: BMI 34.2
[2021-10-19] MEDS ORDERED: VANCOMYCIN 1 GRAM (PRE-DOCKED) 1,000 MG/250 ML BAG IVPB ONE (13:30)
[2021-10-19] MEDS ORDERED: valACYclovir HCL 500 MG TABLET (FP) PO SCH (14:30)
[2021-10-19] MEDS ORDERED: SODIUM CHLORIDE 0.45% 1,000 ML IV SCH (17:30)
[2021-10-19] MEDS ORDERED: PIPERACILLIN/TAZOBACTAM 3.375 GM VIAL IVPB ONE (19:04)
[2021-10-19] MEDS ORDERED: DEXTROSE 5%-WATER - 50 ML IVPB ONE (19:04)
[2021-10-19] MEDS: valACYclovir HCL 500 MG TABLET (FP) PO SCH (19:08)
[2021-10-19] MEDS ORDERED: TBO-FILGRASTIM 480 MCG/0.8 ML DISP.SYRIN SQ ONE (20:54)
[2021-10-20] MEDS ORDERED: PIPERACILLIN/TAZOBACTAM 3.375 GM VIAL IVPB ONE ×3 (01:42→17:41)
[2021-10-20] MEDS ORDERED: DEXTROSE 5%-WATER - 50 ML IVPB ONE ×3 (01:43→17:42)
[2021-10-20] MEDS: PIPERACILLIN/TAZOB 3.375 GM 3.375 GM in DEXTROSE 5%-WATER - 50 ML IVPB SCH ×3 (01:53→17:50)
[2021-10-20] MEDS: ASPIRIN 81 MG CHEWABLE TABLETS PO SCH (09:34)
[2021-10-20 10:52] LABS: HEMATOCRIT 24.5 % (35.4-49); HEMOGLOBIN 8.3 GM/dL (11.7-16.9); MCH 31.5 pg (25.7-33.7); MCHC 33.9 g/dl (32.0-35.9); MEAN PLT VOLUME 8.9 fl (7.5-11.1); PLATELET COUNT 65 10^3/uL (134-434); RBC 2.63 M/mm3 (4.00-5.60); RDW 18.8 % (11.9-15.9)
[2021-10-20 11:01] LABS: ALBUMIN 2.3 g/dl (3.4-5.0); BLOOD UREA NITROGEN 57.7 mg/dL (7-18)
[2021-10-20 11:02] LABS: CALCIUM 7.6 mg/dL (8.5-10.1)
[2021-10-20 11:04] LABS: CREATININE 2.4 mg/dL (0.55-1.3); PHOSPHOROUS 3.5 mg/dL (2.5-4.9)
[2021-10-20 11:05] LABS: BILIRUBIN,TOTAL 0.5 mg/dL (0.2-1); TOT PROT 4.4 g/dl (6.4-8.2)
[2021-10-20 11:09] LABS: WHITE BLOOD COUNT 1.4 K/mm3 (4.0-10.0)
[2021-10-20 12:18] LABS: ANISOCYTOSIS 2+; MACROCYTOSIS 0; OVALOCYTE 1+; PLATELET ESTIMATE DECREASED; TOXIC GRANULATION 2+
[2021-10-20] MEDS ORDERED: VANCOMYCIN 1 GRAM (PRE-DOCKED) 1,000 MG/250 ML BAG IVPB ONE (16:00)
[2021-10-20] MEDS ORDERED: VORICONAZOLE 50 MG TABLET (RESTRICTED TO ID) PO SCH (22:00)
[2021-10-20] MEDS: TBO-FILGRASTIM 480 MCG/0.8 ML DISP.SYRIN SQ SCH (22:13)
[2021-10-20] MEDS: VORICONAZOLE 200 MG TABLET (RESTRICTED TO ID) PO SCH (22:14)
[2021-10-21] MEDS ORDERED: PIPERACILLIN/TAZOBACTAM 3.375 GM VIAL IVPB ONE ×3 (01:51→18:40)
[2021-10-21] MEDS ORDERED: DEXTROSE 5%-WATER - 50 ML IVPB ONE ×3 (01:51→18:40)
[2021-10-21] MEDS: PIPERACILLIN/TAZOB 3.375 GM 3.375 GM in DEXTROSE 5%-WATER - 50 ML IVPB SCH ×3 (02:00→19:00)
[2021-10-21] MEDS: ASPIRIN 81 MG CHEWABLE TABLETS PO SCH (10:32)
[2021-10-21] MEDS: VORICONAZOLE 200 MG TABLET (RESTRICTED TO ID) PO SCH (10:32)
[2021-10-21] MEDS: valACYclovir HCL 500 MG TABLET (FP) PO SCH (10:32)
[2021-10-21] MEDS ORDERED: VANCOMYCIN 1 GRAM (PRE-DOCKED) 1,000 MG/250 ML BAG IVPB ONE (12:00)
[2021-10-21 14:38] LABS: HEMATOCRIT 27.7 % (35.4-49); HEMOGLOBIN 9.2 GM/dL (11.7-16.9); MCHC 33.2 g/dl (32.0-35.9); MEAN CELL VOLUME 93.5 fl (80-96); MEAN PLT VOLUME 9.3 fl (7.5-11.1); PLATELET COUNT 90 10^3/uL (134-434); RBC 2.96 M/mm3 (4.00-5.60); RDW 18.8 % (11.9-15.9); WHITE BLOOD COUNT 4.2 K/mm3 (4.0-10.0)
[2021-10-21 14:54] LABS: CALCIUM 8.3 mg/dL (8.5-10.1)
[2021-10-21 14:55] LABS: BLOOD UREA NITROGEN 44.5 mg/dL (7-18)
[2021-10-21 14:58] LABS: CREATININE 1.9 mg/dL (0.55-1.3)
[2021-10-21 15:11] LABS: ANISOCYTOSIS 1+; MACROCYTOSIS 0; PLATELET ESTIMATE DECREASED
[2021-10-21] MEDS: TBO-FILGRASTIM 480 MCG/0.8 ML DISP.SYRIN SQ SCH (21:17)
[2021-10-22] MEDS: PIPERACILLIN/TAZOB 3.375 GM 3.375 GM in DEXTROSE 5%-WATER - 50 ML IVPB SCH ×2 (04:30→09:08)
[2021-10-22] MEDS ORDERED: PIPERACILLIN/TAZOBACTAM 3.375 GM VIAL IVPB ONE (08:59)
[2021-10-22] MEDS ORDERED: DEXTROSE 5%-WATER - 50 ML IVPB ONE (08:59)
[2021-10-22] MEDS: ASPIRIN 81 MG CHEWABLE TABLETS PO SCH (09:06)
[2021-10-22] MEDS ORDERED: VORICONAZOLE 200 MG TABLET (RESTRICTED TO ID) PO SCH (10:00)
[2021-10-22 10:31] LABS: HEMATOCRIT 27.6 % (35.4-49); HEMOGLOBIN 9.1 GM/dL (11.7-16.9); MCHC 32.8 g/dl (32.0-35.9); MEAN CELL VOLUME 94.6 fl (80-96); MEAN PLT VOLUME 9.3 fl (7.5-11.1); PLATELET COUNT 106 10^3/uL (134-434); RBC 2.92 M/mm3 (4.00-5.60); WHITE BLOOD COUNT 9.6 K/mm3 (4.0-10.0)
[2021-10-22 10:38] LABS: INR 1.18 (0.83-1.09); PROTHROMBIN TIME (PATIENT) 13.6 SEC (9.7-13.0)
[2021-10-22 10:41] LABS: ACTIVATED PTT 32.6 SECONDS (25.2-36.5)
[2021-10-22 11:13] LABS: ALBUMIN 2.5 g/dl (3.4-5.0); BLOOD UREA NITROGEN 35.8 mg/dL (7-18); CALCIUM 8.3 mg/dL (8.5-10.1); MAGNESIUM 2.1 mg/dL (1.8-2.4)
[2021-10-22 11:16] LABS: CREATININE 1.7 mg/dL (0.55-1.3); PHOSPHOROUS 3.2 mg/dL (2.5-4.9)
[2021-10-22 11:17] LABS: BILIRUBIN,TOTAL 0.5 mg/dL (0.2-1); TOT PROT 4.5 g/dl (6.4-8.2)
[2021-10-22 13:42] VITALS: BP 114/58; PULSE 66; TEMP 98.2
[2021-10-22] MEDS ORDERED: CLINDAMYCIN HCL 150 MG CAPSULE (FP) PO SCH (14:00)
== END 2021-10-22 18:38 | disposition home or self-care (01) | DRG 841 ==
LOC: JER 12:23 → JERBED 14:39 → J6WEST-2 10-19 11:32
PROVIDERS: ADMIT Internal Medicine
DX: C85.10 Unspecified B-cell lymphoma, unspecified site (principal); N17.9 Acute kidney failure, unspecified; E87.2 Acidosis; D70.9 Neutropenia, unspecified; R50.81 Fever presenting with conditions classified elsewhere; I10 Essential (primary) hypertension; Z95.2 Presence of prosthetic heart valve; D64.9 Anemia, unspecified; I95.9 Hypotension, unspecified; E78.5 Hyperlipidemia, unspecified
CPT/HCPCS: 36415; 36430; 71045-TC-FY; 76775-TC; 76856-TC; 80048; 80053; 81003; 82550; 82553; 83605; 83615; 83735; 84100; 84484; 84550; 85025; 85027; 85610; 85730; 86850; 86900; 86901; 86922; 87040; 87086; 87804; 93005; 93010; 93306-TC; 99285-25; C9803; G0480; J0131; J1447; J3465; P9058; U0003; U0005